=== PATIENT | male | born 1940 | race Two or more races ===

== ENCOUNTER 2020-04-23 11:52 | Outpatient (REF) | payer MEDICARE, SELFPAY | END 2020-04-23 11:53 | disposition home or self-care (01) | LOC: HO.LAB 11:52 | PROVIDERS: Visit Provider Internal Medicine | DX: Z20.822 Contact with and (suspected) exposure to COVID-19 (principal) | CPT/HCPCS: 36415; C9803; U0003 ==

== ENCOUNTER 2020-04-23 12:11 | Inpatient (IN) | payer MEDICARE, SELFPAY ==
[2020-04-23 12:23] VITALS: BP 134/83; PULSE 101; RESP 18; TEMP 37.3; O2SAT 95; BMI 24.2
--- NOTE | 2020-04-23 12:38 | PC.NURSE ---
THIS RN ASSISTED PT TO HOSPITAL BED, PT ABLE TO STAND ON OWN FROM SITTING POSITION AND PIVOT WITH SHUFFLING GAIT INTO BED.
--- NOTE | 2020-04-23 12:43 | ECG_ITS ---
Test Reason : WEAKNESS Blood Pressure : / mmHG Vent. Rate : 080 BPM Atrial Rate : 080 BPM P-R Int : 144 ms QRS Dur : 078 ms QT Int : 378 ms P-R-T Axes : 019 056 -04 degrees QTc Int : 435 ms Normal sinus rhythm Normal ECG When compared with ECG of 23-AUG-2018 17:27, No significant change was found Referred By: Janelle Brown Electronically Signed By:AINSLEY TEE MD
--- NOTE | 2020-04-23 12:43 | CT_ITS ---
EXAMINATION: CT HEAD WITHOUT CONTRAST CLINICAL INFORMATION: Weakness. Unable to walk. COMPARISON: Previous head CT May 2018 TECHNIQUE: Contiguous axial imaging was performed from the skull base to vertex without intravenous administration of contrast. This CT examination was performed using dose optimization techniques as appropriate, variously including the following: *Automated exposure control *Adjustment of mA and/or kV according to patient size (this includes techniques or standardized protocols for targeted exams where dose is matched to indication/reason for exam; i.e. extremities or head) *Use of iterative reconstruction technique DLP: 796 mGy-cm FINDINGS: There is no evidence of an extra-axial collection. There is no evidence of intra-axial or extra-axial hemorrhage. The ventricles and extra-axial CSF spaces are prominent suggestive of generalized atrophy. There is nonspecific periventricular white matter disease. No mass, mass effect or infarct is seen. There is evidence of atherosclerotic disease. Review of bone windows is normal. There are small polyps or cysts in the right maxillary sinus. Visualized paranasal sinuses, mastoid air cells and middle ears are otherwise clear. CT/CT head/brain wo con IMPRESSION: No acute findings. Generalized atrophy and nonspecific periventricular white matter disease similar to previous exam.
--- NOTE | 2020-04-23 12:44 | XR_ITS ---
EXAMINATION: XR CHEST CLINICAL INFORMATION: Weakness. Covid exposure. COMPARISON: None TECHNIQUE: Frontal view of the chest was obtained. FINDINGS: No significant abnormality is noted involving the heart, lungs, mediastinum, bony thorax or soft tissues. XR/XR chest 1V IMPRESSION: Unremarkable examination.
--- NOTE | 2020-04-23 12:45 | ED_ITS ---
HPI - Weakness General Chief complaint: Weakness Stated complaint: difficulty walking Time Seen by Provider: 04/23/20 12:42 Source: patient and old records reviewed Mode of arrival: wheelchair Limitations: no limitations History of Present Illness HPI Narrative: 79 y/o male with history of dementia, diabetes, HTN, BHN s/p laser prostatectomy, gout, osteoarthritis, GERD who presents to the ER with generalized weakness x3 days. His spouse was admitted at [facility] with COVID-19 yesterday and he had no DEPUTY OF COUNTER INTELLIGENCE or care overnight. He was found this morning by his family member on the carpet next to his recliner and he had soiled himself. According to his daughter he has been unable to get out of his recliner for the last 3 days. He was in his usual state of health 4 days ago. He offers no complaints on arrival to the ER. Family denies him complaining about anything over the last 3 days except that he didn't want to get out of bed. No fever, chills, cough, N/V/D, abdominal pain. MD Complaint: generalized weakness Onset (ago): day(s) (3) Duration: constant Location: LLE and RLE Migration: none Severity: moderate Relieving factors: none Exacerbating factors: movement and exertion Context: history of similar Associated symptoms: loss of appetite (very poor PO intake per family ) Related Data Previous Rx's Medication Instructions Recorded amlodipine 10 mg tablet 10 mg PO DAILY #90 tab 04/09/20 aspirin 81 mg tablet,delayed 81 mg PO DAILY #90 tab 04/09/20 release finasteride 5 mg tablet 5 mg PO DAILY #90 tab 04/09/20 gabapentin 100 mg capsule 100 mg PO DAILY #90 cap 04/09/20 glimepiride 1 mg tablet 1 mg PO DAILY #90 tab 04/09/20 metformin 500 mg tablet 500 mg PO BID #180 tab 04/09/20 pantoprazole 40 mg tablet,delayed 40 mg PO ONCE #90 tab 04/09/20 release Allergies Allergy/AdvReac Type Severity Reaction Status Date / Time No Known Allergies Allergy Verified 03/18/20 07:27 [No Known Allergies*] Review of Systems Review of Systems: Constitutional: No Fever, No Chills ENT/Mouth: No sore throat, No Rhinorrhea, No Swallowing Difficulty Eyes: No Eye Pain, No Swelling, No Redness Cardiovascular: No Chest Pain, No SOB, No Orthopnea, No Edema Respiratory: No Cough, No Sputum, No Wheezing, No dyspnea Gastrointestinal: No Nausea, No Vomiting, No Diarrhea, No abdominal Pain Genitourinary: No Dysuria, No Urinary Frequency, No Hematuria Musculoskeletal: + joint pain (chronic knees), No Myalgias Skin: No Skin Lesions, No rash Neuro: + Weakness, No Numbness, No Dizziness, No Headache Psych: No Anxiety/Panic, No Depression Heme/Lymph: No Bruising, No Lymphadenopathy Endocrine: No Polyuria, No Polydipsia [facility] Past Medical History Attestation statement: The following information was validated with the patient. Medical History Acid reflux Dementia Diabetes HTN (hypertension) Parkinsons Surgical History (Updated 03/18/20 @ 07:28 by RAFA Cullen) History of colonoscopy History of cystoscopy Family History Family History (Updated 03/18/20 @ 07:28 by RAFA Cullen) Father No problems noted. Mother No problems noted. Social History Social History Alcohol intake: never Smoked in Last 30 Days: No Use of substances other than those prescribed or required for medical reasons: No Advance Directives: No Advance Directives Information Provided: No Physical Exam Vital Signs: Vital Signs: Last Vital Signs Temp 97.9 F 04/23/20 14:51 Pulse 93 04/23/20 16:17 Resp 20 04/23/20 16:17 BP 142/79 H 04/23/20 16:17 Pulse Ox 96 04/23/20 16:17 Body Mass Index 24.2 Appearance: Alert. Oriented X2. No acute distress. Eyes: Pupils equal, round and reactive to light. ENT: Pharynx normal. Neck: Normal inspection. Neck supple. CVS: Normal heart rate and rhythm. Pulses normal. Respiratory: No respiratory distress. Breath sounds normal. Abdomen: Soft and nontender. +BS x4 Skin: Skin warm and dry. Normal skin color. Normal skin turgor. No rashes. Extremities: No lower extremity edema. Negative Sole's sign Neuro: Oriented X 3. 4/5 LE strength, equal 5/5 strength in UE. shuffling gait, assist of 1 from wheelchair to bed Course Course Course Narrative: 79 y/o male with history of Parkinson's dementia, HTN, DM with recent COVID-19 exposure presenting with generalized weakness x3 days, poor appetite with unwitnessed fall this morning. Possible COVID infection vs failure to thrive or worsening dementia/Parkinson's. Low suspicion for CVA given non- focal exam. Will get full sepsis workup, Resp panel and CT head given unwitnessed fall. Patient offers no complaints. Reevaluation(s) Reevaluation #1: 14:40 - lactic acid elevated 4.5. Hemodynamically stable with mild tachycardia but no fever or leukocytosis. Lymphopenia noted, concern for viral etiology 2/2 COVID-19. No abdominal pain to suggest mesenteric ischemia. Will give 2nd IVF bolus to complete sepsis IVF bolus of 30cc/kg. No evidence of bacterial infection, no antibiotics at this time - etiology most likely VIRAL. Reevaluation #2: 3pm - patient developed hypoxia with SpO2 89% in the ED - placed on 3.5 L with improvement to 94%. Will give dose of Decadron for presumed COVID-19 related hypoxia. NM V/Q scan r/o PE - DDIMER 700's and unable to perform CTA given ESTELITA. procalcitonin is low, doubt superimposed pneumonia. Will plan for admission once V/Q complete. Updated family in the waiting room and all questions were answered. Reevaluation #3: 5 pm - Awaiting repeat troponin and lactic acid. s/p 2L IVF. NM scan completed. Spoke with Lily Saleem NP who will admit. MDM - Weakness Medical Records Attestation: I reviewed the patient's medical records. Lab Data Attestation: I reviewed the patient's lab results. Result diagrams: 04/23/20 13:36 04/23/20 13:36 Labs: Lab Results 04/23/20 04/23/20 04/23/20 Range/Units 13:33 13:36 13:36 WBC 5.2 (4.8-10.8) X10*3/uL RBC 5.49 (4.60-5.80) X10*6/uL Hgb 16.4 (14.0-18.0) g/dl Hct 49.3 (42-52) % MCV 89.8 (80-98) fL MCH 29.9 (27.0-33.0) pg MCHC 33.3 (31.0-36.0) g/dl RDW 13.1 (11.0-16.0) % Plt Count 117 L (160-400) X10*3/uL MPV 11.2 (9.4-12.4) fL Immature Gran % (Auto) 0.4 (0.0-0.4) % Neut % (Auto) 79.4 H (45-73) % Lymph % (Auto) 8.8 L (20-40) % [place] % (Auto) 11.0 (2-11) % Eos % (Auto) 0.0 (0-4) % Baso % (Auto) 0.4 (0-2) % Lymph # (Auto) 0.5 L (1.2-4.9) X10*3/uL [place] # (Auto) 0.6 (0.1-1.2) X10*3/uL Eos # (Auto) 0.0 (0.0-0.4) X10*3/uL Baso # (Auto) 0.0 (0.0-0.2) X10*3/uL Abs Immat Gran (auto) 0.02 (0.00-0.03) X10*3/uL Absolute Neuts (auto) 4.1 (2.0-8.3) X10*3/uL Absolute Nucleated RBC 0.000 (0.0-0.012) X10*3/uL Nucleated RBC % (auto) 0.0 (0.0-0.2) /100WBC Smear Tech's Comments VERIFIED D-Dimer 726 NG/ML Hold Blue Top SEE NOTE Sodium (135-145) mmol/L Potassium (3.3-5.1) mmol/l Chloride (96-108) mmol/L Carbon Dioxide (22-29) mmol/L Anion Gap (12-20) BUN (9-16) mg/dL Creatinine (0.5-1.4) mg/dL Estim Creat Clear Calc Estimated GFR Random Glucose (60-115) mg/dL Lactic Acid (0.5-2.0) mmol/L Calcium (8.4-10.2) mg/dL Magnesium (1.6-2.6) mg/dL Total Bilirubin (0.0-1.0) mg/dL Direct Bilirubin (0.0-0.5) mg/dL AST (5-37) U/L ALT (0-40) U/L Alkaline Phosphatase (39-117) U/L Total Creatine Kinase (38-174) U/L Troponin I High Sens (<3.5-35.0) ng/L C-Reactive Protein (< or = 0.50) mg/dL Total Protein (6.5-8.0) g/dL Albumin (3.5-5.0) g/dL Procalcitonin ng/mL Urine Color Urine Appearance Urine pH (5.0-8.0) Ur Specific [place] (1.005-1.025) Urine Protein (NEG-TRACE) MG/DL Urine Glucose (UA) (NEG) MG/DL Urine Ketones (NEG) MG/DL Urine Blood (NEG) Urine Nitrite (NEG) Ur Leukocyte Esterase (NEG) Coronavirus (PCR) POSITIVE A (Negative) Influenza Type A (PCR) NEGATIVE (Negative) Influenza Type B (PCR) NEGATIVE (Negative) RSV RNA Qual (PCR) NEGATIVE (Negative) 04/23/20 04/23/20 04/23/20 Range/Units 13:36 13:36 13:36 WBC (4.8-10.8) X10*3/uL RBC (4.60-5.80) X10*6/uL Hgb (14.0-18.0) g/dl Hct (42-52) % MCV (80-98) fL MCH (27.0-33.0) pg MCHC (31.0-36.0) g/dl RDW (11.0-16.0) % Plt Count (160-400) X10*3/uL MPV (9.4-12.4) fL Immature Gran % (Auto) (0.0-0.4) % Neut % (Auto) (45-73) % Lymph % (Auto) (20-40) % [place] % (Auto) (2-11) % Eos % (Auto) (0-4) % Baso % (Auto) (0-2) % Lymph # (Auto) (1.2-4.9) X10*3/uL [place] # (Auto) (0.1-1.2) X10*3/uL Eos # (Auto) (0.0-0.4) X10*3/uL Baso # (Auto) (0.0-0.2) X10*3/uL Abs Immat Gran (auto) (0.00-0.03) X10*3/uL Absolute Neuts (auto) (2.0-8.3) X10*3/uL Absolute Nucleated RBC (0.0-0.012) X10*3/uL Nucleated RBC % (auto) (0.0-0.2) /100WBC Smear Tech's Comments D-Dimer NG/ML Hold Blue Top Sodium 134 L (135-145) mmol/L Potassium 4.5 (3.3-5.1) mmol/l Chloride 96 (96-108) mmol/L Carbon Dioxide 24 (22-29) mmol/L Anion Gap 19 (12-20) BUN 21 H (9-16) mg/dL Creatinine 1.53 H (0.5-1.4) mg/dL Estim Creat Clear Calc 36.4 Estimated GFR 44 Random Glucose 346 H (60-115) mg/dL Lactic Acid 4.5 H* (0.5-2.0) mmol/L Calcium 9.0 (8.4-10.2) mg/dL Magnesium 2.1 (1.6-2.6) mg/dL Total Bilirubin 0.9 (0.0-1.0) mg/dL Direct Bilirubin 0.3 (0.0-0.5) mg/dL AST 71 H (5-37) U/L ALT 69 H (0-40) U/L Alkaline Phosphatase 64 (39-117) U/L Total Creatine Kinase 342 H (38-174) U/L Troponin I High Sens 33.7 (<3.5-35.0) ng/L C-Reactive Protein 4.42 H (< or = 0.50) mg/dL Total Protein 7.7 (6.5-8.0) g/dL Albumin 4.3 (3.5-5.0) g/dL Procalcitonin ng/mL Urine Color Urine Appearance Urine pH (5.0-8.0) Ur Specific [place] (1.005-1.025) Urine Protein (NEG-TRACE) MG/DL Urine Glucose (UA) (NEG) MG/DL Urine Ketones (NEG) MG/DL Urine Blood (NEG) Urine Nitrite (NEG) Ur Leukocyte Esterase (NEG) Coronavirus (PCR) (Negative) Influenza Type A (PCR) (Negative) Influenza Type B (PCR) (Negative) RSV RNA Qual (PCR) (Negative) 04/23/20 04/23/20 Range/Units 13:36 16:28 WBC (4.8-10.8) X10*3/uL RBC (4.60-5.80) X10*6/uL Hgb (14.0-18.0) g/dl Hct (42-52) % MCV (80-98) fL MCH (27.0-33.0) pg MCHC (31.0-36.0) g/dl RDW (11.0-16.0) % Plt Count (160-400) X10*3/uL MPV (9.4-12.4) fL Immature Gran % (Auto) (0.0-0.4) % Neut % (Auto) (45-73) % Lymph % (Auto) (20-40) % [place] % (Auto) (2-11) % Eos % (Auto) (0-4) % Baso % (Auto) (0-2) % Lymph # (Auto) (1.2-4.9) X10*3/uL [place] # (Auto) (0.1-1.2) X10*3/uL Eos # (Auto) (0.0-0.4) X10*3/uL Baso # (Auto) (0.0-0.2) X10*3/uL Abs Immat Gran (auto) (0.00-0.03) X10*3/uL Absolute Neuts (auto) (2.0-8.3) X10*3/uL Absolute Nucleated RBC (0.0-0.012) X10*3/uL Nucleated RBC % (auto) (0.0-0.2) /100WBC Smear Tech's Comments D-Dimer NG/ML Hold Blue Top Sodium (135-145) mmol/L Potassium (3.3-5.1) mmol/l Chloride (96-108) mmol/L Carbon Dioxide (22-29) mmol/L Anion Gap (12-20) BUN (9-16) mg/dL Creatinine (0.5-1.4) mg/dL Estim Creat Clear Calc Estimated GFR Random Glucose (60-115) mg/dL Lactic Acid (0.5-2.0) mmol/L Calcium (8.4-10.2) mg/dL Magnesium (1.6-2.6) mg/dL Total Bilirubin (0.0-1.0) mg/dL Direct Bilirubin (0.0-0.5) mg/dL AST (5-37) U/L ALT (0-40) U/L Alkaline Phosphatase (39-117) U/L Total Creatine Kinase (38-174) U/L Troponin I High Sens (<3.5-35.0) ng/L C-Reactive Protein (< or = 0.50) mg/dL Total Protein (6.5-8.0) g/dL Albumin (3.5-5.0) g/dL Procalcitonin 0.19 ng/mL Urine Color YELLOW Urine Appearance CLEAR Urine pH 5.5 (5.0-8.0) Ur Specific [place] 1.020 (1.005-1.025) Urine Protein NEG (NEG-TRACE) MG/DL Urine Glucose (UA) 500 H (NEG) MG/DL Urine Ketones NEG (NEG) MG/DL Urine Blood NEG (NEG) Urine Nitrite NEG (NEG) Ur Leukocyte Esterase NEG (NEG) Coronavirus (PCR) (Negative) Influenza Type A (PCR) (Negative) Influenza Type B (PCR) (Negative) RSV RNA Qual (PCR) (Negative) ECG Data Attestation: I personally reviewed and interpreted this ECG as follows: ECG interpretation date: 04/23/20 ECG interpretation time: 14:03 Interpretation: Normal sinus rhythm, HR 80 bpm, normal NM interval, isolated t- wave inversion in lead III, no ST segment elevations. Scores [place] PE Heart rate > 100 p/min: 1.5 Score: 1.5 2-tier Risk: unlikely risk (5%) 3-tier Risk: low risk (3.4%) Critical Care Time Critical Care Time Critical Care Time: Yes Total Critical Care Time: 40 Attestation: I attest to critical care time spent caring for this patient with life-threatening diagnosis of acute hypoxic resp failure 2/2 COVID-19, lactic acidosis and ESTELITA. Time spent re-evaluating patient't mental status, respiratory status and hemodynamics as well as review of labs, prior records and speaking with family. Discharge Plan Discharge Clinical Impression: COVID-19, Acute respiratory failure with hypoxia, Acidosis, lactic, ESTELITA (acute kidney injury) Patient Disposition: Admitted As Inpatient
[2020-04-23] MEDS: 0.9 % Sodium Chloride 1,000 ML 999 ML IVCONT ×2 (13:34→14:49)
[2020-04-23 14:00] LABS: Basophils Percent Auto 0.4 % (0-2); Imm Gran Abs Auto 0.02 X10*3/uL (0.00-0.03); Imm Gran Pct Auto 0.4 % (0.0-0.4); MANUAL DIFF FLAG SCAN; Monocytes Absolute Auto 0.6 X10*3/uL (0.1-1.2); PLT CLUMP 1; Red Cell Distribution Width 13.1 % (11.0-16.0); SCAN SMEAR FLAG 1
[2020-04-23 14:03] LABS: Hematocrit 49.3 % (42-52); Hemoglobin 16.4 g/dl (14.0-18.0); Lymphocytes Absolute Auto 0.5 X10*3/uL (1.2-4.9); Lymphocytes Percent Auto 8.8 % (20-40); Mean Corpuscular HGB Conc 33.3 g/dl (31.0-36.0); Mean Corpuscular Hemoglobin 29.9 pg (27.0-33.0); Mean Corpuscular Volume 89.8 fL (80-98); Mean Platelet Volume 11.2 fL (9.4-12.4); Neutrophils Absolute Auto 4.1 X10*3/uL (2.0-8.3); Neutrophils Percent Auto 79.4 % (45-73); Platelet Count 117 X10*3/uL (160-400); Red Blood Count 5.49 X10*6/uL (4.60-5.80); White Blood Count 5.2 X10*3/uL (4.8-10.8)
[2020-04-23 14:06] LABS: D Dimer 726 NG/ML
[2020-04-23 14:26] LABS: SLIDE REVIEW VERIFIED
[2020-04-23 14:36] LABS: Lactic Acid 4.5 mmol/L (0.5-2.0)
[2020-04-23 14:37] LABS: Alanine Aminotransferase 69 U/L (0-40); Albumin Level 4.3 g/dL (3.5-5.0); Alkaline Phosphatase 64 U/L (39-117); Anion Gap 19 (12-20); Aspartate Amino Transferase 71 U/L (5-37); Bilirubin Direct 0.3 mg/dL (0.0-0.5); Bilirubin Total 0.9 mg/dL (0.0-1.0); Blood Urea Nitrogen 21 mg/dL (9-16); C Reactive Protein 4.42 mg/dL (< or = 0.50); Carbon Dioxide 24 mmol/L (22-29); Chloride 96 mmol/L (96-108); Creatinine Clr Calc Pharmacy 36.4; Estimated Glomerular Filt Rate 44; Glucose Random 346 mg/dL (60-115); Magnesium 2.1 mg/dL (1.6-2.6); Potassium 4.5 mmol/l (3.3-5.1); Sodium 134 mmol/L (135-145); Total Protein 7.7 g/dL (6.5-8.0); Troponin-I High Sensitivity 33.7 ng/L (<3.5-35.0)
[2020-04-23 14:51] VITALS: BP 130/78; PULSE 79; RESP 16; TEMP 36.6; O2SAT 89
[2020-04-23 14:58] LABS: Influenza A PCR NEGATIVE (Negative); Influenza B PCR NEGATIVE (Negative); Resp Syncy Virus RNA Qual PCR NEGATIVE (Negative); SARS COV2 PCR INHOUSE POSITIVE (Negative)
[2020-04-23 15:05] LABS: Procalcitonin 0.19 ng/mL
--- NOTE | 2020-04-23 15:33 | NM_ITS ---
EXAMINATION: PULMONARY PERFUSION STUDY CLINICAL INFORMATION: Hypoxia, tachycardia, elevated d-dimer, concern for pulmonary embolism. COMPARISON: No previous lung scan is available for comparison. A radiograph the chest dated 04/23/2020, the same date as this lung scan, is available for comparison. TECHNIQUE: Following the intravenous injection of 3.5 mCi Tc-99m MAA, an 8-view perfusion study was performed using a gamma scintillation camera. FINDINGS: No segmental perfusion defects are present. There is homogeneous distribution of activity bilaterally. There are no focal anatomic appearing perfusion defects present. NM/NM pul perfusion IMPRESSION: Normal radionuclide lung perfusion scan.
[2020-04-23 15:56] LABS: Reflex Lactate? Lactic Acid Added
[2020-04-23 16:17] VITALS: BP 142/79; PULSE 93; RESP 20; O2SAT 96
[2020-04-23] MEDS: dexAMETHasone sod phosphate 4 MG/ML VIAL 6 MG IVPUSH (16:17)
[2020-04-23 16:44] LABS: Glucose Urine UA 500 MG/DL (NEG); Leukocyte Esterase Urine NEG (NEG); Nitrite Urine NEG (NEG); PH 5.5 (5.0-8.0); Urine Blood NEG (NEG); Urine Ketones NEG (NEG); Urine Protein NEG (NEG-TRACE)
[2020-04-23 16:45] LABS: Appearance Urine CLEAR; Color Urine YELLOW
[2020-04-23 17:08] LABS: ~Lactic Acid-LAB USE ONLY 4.8 mmol/L (0.5-2.0)
[2020-04-23 17:25] VITALS: BP 128/83; PULSE 78; RESP 17; TEMP 36.9; O2SAT 97
--- NOTE | 2020-04-23 17:47 | PC.NURSE ---
Pt [facility] in [facility]- Ghulam NixonDavid at [phone] best number or [phone]
--- NOTE | 2020-04-23 18:00 | PM.EVENT ---
Event Note Date of Service: 04/23/20 Event Note: Patient seen and examined. Case discussed with Lily Saleem NP. Agree with her history and physical. In brief, 79-year-old male with advanced dementia who presents to the hospital after being brought in by his family when he was found on the floor. Reportedly his has been diagnosed with COVID, although unsure when the diagnosis happened. Reportedly from the ED providers and nurses, the patient has been weak over the last 3 days. Upon arrival to the emergency room, patient did not have any respiratory symptoms but was noted to have hypoxia 89. Chest x-ray was not impressive. V/Q scan done because of elevated D-dimer showed normal perfusion scan. A/P 79 yo acute hyoxpic resp failure from covid 19 decadron, o2 ID consult remainder per H&P
--- NOTE | 2020-04-23 18:01 | P.HPHOSP_ITS ---
History of Present Illness Date of Service: 04/23/20 <Lily Saleem NP - Last Filed: 04/23/20 18:48> Chief Complaint: Weakness <Lily Saleem NP - Last Filed: 04/23/20 18:48> 79 year old man presenting after a fall at home with generalized weakness over the last week. 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 He was found this morning by his family member on the carpet next to his recliner and he had soiled himself. According to his daughter he has been unable to get out of his recliner for the last 3 days. He denied chest pain, shortness of breath, nausea, vomiting or diarrhea. He is unable to say if he had any fever or chills. He has dementia so he was somewhat vague. In the ED. CXR was negative for consolidation. H ewas no gio to by hypoxic at 89% with ambulation. Coronvirus PCR positive. He will be admitted for further management of Acute hypoxic respiratory failure secondary to covid 19. <Lily Saleem NP - Last Filed: 04/23/20 18:48> Review of Systems Review of Systems: Reports weakness respiratory denies any shortness of breath coverage production cardiovascular is adjustment of any PND or edema gastrointestinal denies any dysphagia abdominal pain nausea vomiting or diarrhea genitourinary denies any dysuria frequency or hematuria musculoskeletal denies any joint pain or swelling neuropsych denies any weakness or seizures all other systems reviewed are negative <Lily Saleem NP - Last Filed: 04/23/20 18:48> [facility] Medical History: Medical History (Updated 05/18/20 @ 00:01 by Farideh Crockett) Anxiety BPH (benign prostatic hyperplasia) Dementia HTN (hypertension) Hypercholesterolemia Parkinsons Restless leg syndrome Type 2 diabetes mellitus with hyperglycemia <Lily Saleem NP - Last Filed: 04/23/20 18:48> Family History: Family History Father No problems noted. Mother No problems noted. <Lily Saleem NP - Last Filed: 04/23/20 18:48> Surgical History: Surgical History (Updated 05/12/20 @ 10:46 by Charlette F Noah, RMA) History of colonoscopy History of cystoscopy History of esophagogastroduodenoscopy (EGD) <Lily Saleem NP - Last Filed: 04/23/20 18:48> Social History: Social History Household Members: Spouse Housing: House Alcohol intake: never Smoking Status: Former smoker service: No Current occupational status: retired and disabled <Lily Saleem NP - Last Filed: 04/23/20 18:48> Meds Allergies/Adverse reactions: Allergies Allergy/AdvReac Type Severity Reaction Status Date / Time No Known Allergies Allergy Verified 04/28/20 14:50 [No Known Allergies*] <Lily Saleem NP - Last Filed: 04/23/20 18:48> Home medications: Home Medications Medication Instructions Recorded Confirmed Type donepezil 10 mg PO DAILY 04/23/20 05/17/20 History memantine [Namenda] 10 mg PO BID 04/23/20 05/17/20 History pantoprazole 40 mg PO DAILY 04/23/20 05/17/20 History sertraline [Zoloft] 50 mg PO DAILY 04/23/20 05/17/20 History <Lily Saleem NP - Last Filed: 04/23/20 18:48> Physical Exam Vital Signs and Narrative: Vital Signs: Last Vital Signs Temp 98.4 F 04/23/20 17:25 Pulse 78 04/23/20 17:25 Resp 17 04/23/20 17:25 BP 128/83 04/23/20 17:25 Pulse Ox 97 04/23/20 17:25 Body Mass Index 24.2 <Lily Saleem NP - Last Filed: 04/23/20 18:48> Appearing in no acute distress head is normocephalic atraumatic eyes pupils are PERRLA sclera is anicteric mouth throat mucous membranes are intact and moist neck is supple no lymphadenopathy, no JVD noted lung sounds normal expansion heart regular rate rhythm, clear S1, S2 non-tender abdomen neuro patient is alert x3, no focal deficits <Lily Saleem NP - Last Filed: 04/23/20 18:48> Results Labs CBC and Chem 7: : 04/24/20 05:30 04/24/20 05:30 <Lily Saleem NP - Last Filed: 04/23/20 18:48> Labs: Laboratory Results - last 24 hr 04/23/20 04/23/20 04/23/20 13:33 13:36 13:36 MCV 89.8 MCH 29.9 MCHC 33.3 RDW 13.1 Plt Count 117 L MPV 11.2 Immature Gran % (Auto) 0.4 Neut % (Auto) 79.4 H Lymph % (Auto) 8.8 L [place] % (Auto) 11.0 Eos % (Auto) 0.0 Baso % (Auto) 0.4 Lymph # (Auto) 0.5 L [place] # (Auto) 0.6 Eos # (Auto) 0.0 Baso # (Auto) 0.0 Abs Immat Gran (auto) 0.02 Absolute Neuts (auto) 4.1 Absolute Nucleated RBC 0.000 Nucleated RBC % (auto) 0.0 Smear Tech's Comments VERIFIED D-Dimer 726 Hold Blue Top SEE NOTE Anion Gap Estim Creat Clear Calc Estimated GFR Random Glucose Lactic Acid Lactic Acid Fup @ 2Hr Calcium Magnesium Total Bilirubin Direct Bilirubin AST ALT Alkaline Phosphatase Total Creatine Kinase Troponin I High Sens C-Reactive Protein Total Protein Albumin Procalcitonin Urine Color Urine Appearance Urine pH Ur Specific [place] Urine Protein Urine Glucose (UA) Urine Ketones Urine Blood Urine Nitrite Ur Leukocyte Esterase Coronavirus (PCR) POSITIVE A Influenza Type A (PCR) NEGATIVE Influenza Type B (PCR) NEGATIVE RSV RNA Qual (PCR) NEGATIVE 04/23/20 04/23/20 04/23/20 13:36 13:36 13:36 MCV MCH MCHC RDW Plt Count MPV Immature Gran % (Auto) Neut % (Auto) Lymph % (Auto) [place] % (Auto) Eos % (Auto) Baso % (Auto) Lymph # (Auto) [place] # (Auto) Eos # (Auto) Baso # (Auto) Abs Immat Gran (auto) Absolute Neuts (auto) Absolute Nucleated RBC Nucleated RBC % (auto) Smear Tech's Comments D-Dimer Hold Blue Top Anion Gap 19 Estim Creat Clear Calc 36.4 Estimated GFR 44 Random Glucose 346 H Lactic Acid 4.5 H* Lactic Acid Fup @ 2Hr Calcium 9.0 Magnesium 2.1 Total Bilirubin 0.9 Direct Bilirubin 0.3 AST 71 H ALT 69 H Alkaline Phosphatase 64 Total Creatine Kinase 342 H Troponin I High Sens 33.7 C-Reactive Protein 4.42 H Total Protein 7.7 Albumin 4.3 Procalcitonin Urine Color Urine Appearance Urine pH Ur Specific [place] Urine Protein Urine Glucose (UA) Urine Ketones Urine Blood Urine Nitrite Ur Leukocyte Esterase Coronavirus (PCR) Influenza Type A (PCR) Influenza Type B (PCR) RSV RNA Qual (PCR) 04/23/20 04/23/20 04/23/20 13:36 16:28 16:28 MCV MCH MCHC RDW Plt Count MPV Immature Gran % (Auto) Neut % (Auto) Lymph % (Auto) [place] % (Auto) Eos % (Auto) Baso % (Auto) Lymph # (Auto) [place] # (Auto) Eos # (Auto) Baso # (Auto) Abs Immat Gran (auto) Absolute Neuts (auto) Absolute Nucleated RBC Nucleated RBC % (auto) Smear Tech's Comments D-Dimer Hold Blue Top Anion Gap Estim Creat Clear Calc Estimated GFR Random Glucose Lactic Acid Lactic Acid Fup @ 2Hr 4.8 H* Calcium Magnesium Total Bilirubin Direct Bilirubin AST ALT Alkaline Phosphatase Total Creatine Kinase Troponin I High Sens C-Reactive Protein Total Protein Albumin Procalcitonin 0.19 Urine Color YELLOW Urine Appearance CLEAR Urine pH 5.5 Ur Specific [place] 1.020 Urine Protein NEG Urine Glucose (UA) 500 H Urine Ketones NEG Urine Blood NEG Urine Nitrite NEG Ur Leukocyte Esterase NEG Coronavirus (PCR) Influenza Type A (PCR) Influenza Type B (PCR) RSV RNA Qual (PCR) 04/23/20 16:28 MCV MCH MCHC RDW Plt Count MPV Immature Gran % (Auto) Neut % (Auto) Lymph % (Auto) [place] % (Auto) Eos % (Auto) Baso % (Auto) Lymph # (Auto) [place] # (Auto) Eos # (Auto) Baso # (Auto) Abs Immat Gran (auto) Absolute Neuts (auto) Absolute Nucleated RBC Nucleated RBC % (auto) Smear Tech's Comments D-Dimer Hold Blue Top Anion Gap Estim Creat Clear Calc Estimated GFR Random Glucose Lactic Acid Lactic Acid Fup @ 2Hr Calcium Magnesium Total Bilirubin Direct Bilirubin AST ALT Alkaline Phosphatase Total Creatine Kinase Troponin I High Sens 52.0 H D C-Reactive Protein Total Protein Albumin Procalcitonin Urine Color Urine Appearance Urine pH Ur Specific [place] Urine Protein Urine Glucose (UA) Urine Ketones Urine Blood Urine Nitrite Ur Leukocyte Esterase Coronavirus (PCR) Influenza Type A (PCR) Influenza Type B (PCR) RSV RNA Qual (PCR) <Lily Saleem NP - Last Filed: 04/23/20 18:48> Imaging Radiologist's Impressions: Impressions Head CT 04/23/20 12:43 IMPRESSION: No acute findings. Generalized atrophy and nonspecific periventricular white matter disease similar to previous exam. Chest X-Ray 04/23/20 12:44 IMPRESSION: Unremarkable examination. Pulmonary Perfusion Imaging 04/23/20 15:33 IMPRESSION: Normal radionuclide lung perfusion scan. <Lily Saleem NP - Last Filed: 04/23/20 18:48> Assessment and Plan (1) COVID-19: Problem details: April 2020 <Lily Saleme NP - Last Filed: 04/23/20 18:48> Status: Resolved <Lily Saleem NP - Last Filed: 04/23/20 18:48> (2) Acute respiratory failure with hypoxia: Status: Inactive <Lily Saleem NP - Last Filed: 04/23/20 18:48> 79 year old man admitted with covid-19 Acute hypoxic respiratory failure secondary to covid 19. Decadron, ID consult, continue supplemental oxygen. No antibiotic therapy at this time. Follow respiratory status. Diabetes. Sliding scale, ADA diet, continue home medications. Hypertension. Stable blood pressures. Continue amlodipine. Dementia. Continue aricept and namenda. GERD. Continue PPI. DVT prophylaxis with heparin Discussed with Dr. Solis Full code <Lily Saleem NP - Last Filed: 04/23/20 18:48>
[2020-04-23 18:39] LABS: Reflex Lactate? 2 Y
[2020-04-23] MEDS: Heparin Sodium,Porcine 5,000 UNIT/ML VIAL 5000 UNIT SUBCUT (19:02)
[2020-04-23 19:33] VITALS: BP 141/78; PULSE 73; RESP 15; TEMP 36.6; O2SAT 98
[2020-04-23 20:10] VITALS: BMI 26.3
--- NOTE | 2020-04-23 20:25 | PC.NURSE ---
x1 attempt to call report- no answer. will attempt to call back
--- NOTE | 2020-04-23 20:56 | PC.NURSE ---
x2 call to give report- awaiting callback
[2020-04-23 21:32] VITALS: BP 172/84; PULSE 86; RESP 18; TEMP 36.6; O2SAT 99
[2020-04-23 22:25] LABS: Glucose, Whole Blood 299 mg/dL (60-115)
[2020-04-23] MEDS: 0.9 % Sodium Chloride Flush 3 ML SYRINGE IVFLUSH (22:58)
[2020-04-23] MEDS: Insulin Lispro 100 UNIT/ML 3 ML VIAL SUBCUT (22:58)
[2020-04-23] MEDS: metFORMIN HCl 500 MG TABLET PO (22:58)
[2020-04-23] MEDS: Memantine HCl 10 MG TABLET PO (22:58)
[2020-04-24] VITALS (7 sets, daily range): BP systolic 99–142; BP diastolic 66–89; PULSE 68–83; RESP 16–20; TEMP 36.3–36.6; O2SAT 98–99
[2020-04-24] MEDS: Heparin Sodium,Porcine 5,000 UNIT/ML VIAL 5000 UNIT SUBCUT (05:24)
[2020-04-24] MEDS: Omeprazole 20 MG CAPSULE.DR PO (05:24)
[2020-04-24 06:22] LABS: Imm Gran Abs Auto 0.01 X10*3/uL (0.00-0.03); Imm Gran Pct Auto 0.2 % (0.0-0.4); MANUAL DIFF FLAG SCAN; Mean Corpuscular Volume 89.5 fL (80-98); Mean Platelet Volume 11.5 fL (9.4-12.4); Monocytes Absolute Auto 0.4 X10*3/uL (0.1-1.2); Neutrophils Percent Auto 81.5 % (45-73); PLT CLUMP 1; SCAN SMEAR FLAG 1
[2020-04-24 06:24] LABS: Hematocrit 45.9 % (42-52); Hemoglobin 15.4 g/dl (14.0-18.0); Lymphocytes Absolute Auto 0.6 X10*3/uL (1.2-4.9); Lymphocytes Percent Auto 11.3 % (20-40); Mean Corpuscular HGB Conc 33.6 g/dl (31.0-36.0); Neutrophils Absolute Auto 4.3 X10*3/uL (2.0-8.3); Platelet Count 135 X10*3/uL (160-400); Red Blood Count 5.13 X10*6/uL (4.60-5.80); Red Cell Distribution Width 12.7 % (11.0-16.0); White Blood Count 5.3 X10*3/uL (4.8-10.8)
[2020-04-24 06:35] LABS: Anion Gap 18 (12-20); Blood Urea Nitrogen 21 mg/dL (9-16); Calcium 8.8 mg/dL (8.4-10.2); Carbon Dioxide 24 mmol/L (22-29); Chloride 99 mmol/L (96-108); Creatinine Clr Calc Pharmacy 41.3; Estimated Glomerular Filt Rate 51; Glucose Random 251 mg/dL (60-115); Sodium 137 mmol/L (135-145)
[2020-04-24 06:51] LABS: SLIDE REVIEW VERIFIED
[2020-04-24 08:14] LABS: Glucose, Whole Blood 245 mg/dL (60-115)
[2020-04-24] MEDS: Aspirin Enteric Coated 81 MG TABLET.DR PO (08:40)
[2020-04-24] MEDS: Sertraline HCL 50 MG TABLET PO (08:40)
[2020-04-24] MEDS: Gabapentin 100 MG CAPSULE PO (08:40)
[2020-04-24] MEDS: metFORMIN HCl 500 MG TABLET PO (08:40)
[2020-04-24] MEDS: Memantine HCl 10 MG TABLET PO ×2 (08:40→19:45)
[2020-04-24] MEDS: amLODIPine Besylate 10 MG TABLET PO (08:40)
[2020-04-24] MEDS: glipiZIDE 5 MG TABLET 2.5 MG PO (08:40)
[2020-04-24] MEDS: Insulin Lispro 100 UNIT/ML 3 ML VIAL SUBCUT ×3 (08:42→19:45)
[2020-04-24] MEDS: Finasteride 5 MG TABLET PO (08:42)
[2020-04-24] MEDS: 0.9 % Sodium Chloride Flush 3 ML SYRINGE IVFLUSH ×3 (08:45→19:46)
[2020-04-24] MEDS: Donepezil HCl 10 MG TABLET PO (08:48)
--- NOTE | 2020-04-24 11:08 | MHC.CM.PN ---
Patient has Covid and Dementia; CM spoke with Ernesto Luo at [phone]. Patient at times lives with his Sister and at times with his Girlfriend and he has a cane to assist with mobility. The goal for dc is for Patient to return home and CM has initiated and will follow for dc planning. IMM addressed with Sister and the original is being mailed certified letter to her and a copy has been placed on the chart. PCP is at [address] [place] [address] in [place].
[2020-04-24 11:27] LABS: Glucose, Whole Blood 184 mg/dL (60-115)
--- NOTE | 2020-04-24 14:11 | HO.PM.IMPN ---
Subjective Subjective Date of Service: 04/24/20 Interval History: Seen and examined this AM feels tired still on o2 ROS unreliable Physical Exam Vital Signs: Vital Signs: Last Vital Signs Temp 97.7 F 04/24/20 11:52 Pulse 68 04/24/20 11:52 Resp 18 04/24/20 11:52 BP 99/66 04/24/20 11:52 Pulse Ox 98 04/24/20 11:52 Body Mass Index 26.3 Const: Other: General - NAD, but appears tired Cardiovascular - regular rate and rhythm, S1-S2 Lungs - no distress, stable on O2 by NC Abdomen - soft, nontender, no rebound or guarding Extremities - no edema bilaterally Neuro - awake and alert, no focal deficits Objective Data Current Medications Generic Name Dose Route Start Last Admin Trade Name Freq PRN Reason Stop Dose Admin Acetaminophen 650 mg 04/23/20 18:35 Acetaminophen 325 Mg Tablet PO Q6H PRN Pain, Mild (Pain Scale 1-3) Amlodipine Besylate 10 mg 04/24/20 09:00 04/24/20 08:40 Amlodipine Besylate 10 Mg Tablet PO 10 mg DAILY RANDI Administration Protocol Aspirin 81 mg 04/24/20 09:00 04/24/20 08:40 Aspirin Enteric Coated 81 Mg Tablet.Dr PO 81 mg DAILY RANDI Administration Dexamethasone Sodium Phosphate 6 mg 04/24/20 14:15 Dexamethasone Sod Phosphate 4 Mg/Ml Vial IVPUSH 05/02/20 09:01 DAILY RANDI Donepezil HCl 10 mg 04/24/20 09:00 04/24/20 08:48 Donepezil Hcl 10 Mg Tablet PO 10 mg DAILY RANDI Administration Finasteride 5 mg 04/24/20 09:00 04/24/20 08:42 Finasteride 5 Mg Tablet PO 5 mg DAILY RANDI Administration Gabapentin 100 mg 04/24/20 09:00 04/24/20 08:40 Gabapentin 100 Mg Capsule PO 100 mg DAILY RANDI Administration Glipizide 2.5 mg 04/24/20 09:00 04/24/20 08:40 Glipizide 5 Mg Tablet PO 2.5 mg DAILY RANDI Administration Heparin Sodium (Porcine) 5,000 unit 04/23/20 18:35 04/24/20 05:24 Heparin Sodium,Porcine 5,000 Unit/Ml Vial SUBCUT 5,000 unit Q12H RANDI Administration Insulin Human Lispro 0 unit 04/23/20 21:00 04/24/20 12:55 Insulin Lispro 100 Unit/Ml 3 Ml Vial SUBCUT 2 unit QIDACHS RANDI Administration Protocol Memantine 10 mg 04/23/20 21:00 04/24/20 08:40 Memantine Hcl 10 Mg Tablet PO 10 mg BID RANDI Administration Metformin HCl 500 mg 04/23/20 21:00 04/24/20 08:40 Metformin Hcl 500 Mg Tablet PO 500 mg BID RANDI Administration Omeprazole 20 mg 04/24/20 06:30 04/24/20 05:24 Omeprazole 20 Mg Capsule. PO 20 mg DAILY@0630 RANDI Administration Ondansetron HCl 4 mg 04/23/20 18:35 Ondansetron Hcl 4 Mg/2 Ml Vial IVPUSH Q8H PRN Nausea and Vomiting Pharmacy Consult 1 each 04/23/20 18:01 Consult Rx Perform Med Rec MISCELLANE ONCE PRN Consult order Sertraline HCl 50 mg 04/24/20 09:00 04/24/20 08:40 Sertraline Hcl 50 Mg Tablet PO 50 mg DAILY RANDI Administration Sodium Chloride 3 ml 04/24/20 00:00 04/24/20 08:45 0.9 % Sodium Chloride Flush 3 Ml Syringe IVFLUSH 3 ml QSHIFT RANDI Administration Labs CBC & Chem 7: 04/24/20 05:30 04/24/20 05:30 Assessment and Plan (1) COVID-19: Status: Acute (2) Acute respiratory failure with hypoxia: Status: Acute Assessment and Plan: This is a 79 yo M with a PMH of dementia who is admitted for: 1. COVID 19 causing acute respiratory failure with hypoxia O2 sats stable, currently on 1L satting high 90s decadron - day #2/10 ID consult 2. DM hold home PO meds sliding scale 3. HTN continue meds 4. GERD PPI 5. Dementia home meds Full Code DVT PPTx, Lovenox
[2020-04-24] MEDS: dexAMETHasone sod phosphate 4 MG/ML VIAL 6 MG IVPUSH (15:18)
[2020-04-24 16:56] LABS: Glucose, Whole Blood 150 mg/dL (60-115)
[2020-04-24 19:42] LABS: Glucose, Whole Blood 236 mg/dL (60-115)
[2020-04-24] MEDS: Enoxaparin Sodium 40 MG/0.4 ML SYRINGE SUBCUT (19:45)
[2020-04-25] VITALS (7 sets, daily range): BP systolic 103–137; BP diastolic 51–83; PULSE 61–89; RESP 18–20; TEMP 36.6–36.9; O2SAT 93–100
[2020-04-25] MEDS: Omeprazole 20 MG CAPSULE.DR PO (06:12)
[2020-04-25 07:30] LABS: Glucose, Whole Blood 199 mg/dL (60-115)
[2020-04-25] MEDS: 0.9 % Sodium Chloride Flush 3 ML SYRINGE IVFLUSH ×3 (09:54→21:09)
[2020-04-25] MEDS: Insulin Lispro 100 UNIT/ML 3 ML VIAL SUBCUT ×4 (09:54→21:08)
[2020-04-25] MEDS: amLODIPine Besylate 10 MG TABLET PO (09:54)
[2020-04-25] MEDS: Finasteride 5 MG TABLET PO (09:55)
[2020-04-25] MEDS: Memantine HCl 10 MG TABLET PO ×2 (09:55→21:08)
[2020-04-25] MEDS: Sertraline HCL 50 MG TABLET PO (09:55)
[2020-04-25] MEDS: dexAMETHasone sod phosphate 4 MG/ML VIAL 6 MG IVPUSH (09:55)
[2020-04-25] MEDS: Gabapentin 100 MG CAPSULE PO (09:55)
[2020-04-25] MEDS: Donepezil HCl 10 MG TABLET PO (09:55)
[2020-04-25] MEDS: Aspirin Enteric Coated 81 MG TABLET.DR PO (11:01)
[2020-04-25 11:28] LABS: Glucose, Whole Blood 288 mg/dL (60-115)
--- NOTE | 2020-04-25 11:39 | HO.PM.IMPN ---
Subjective Subjective Date of Service: 04/25/20 Interval History: Seen and examined this AM feeling better off o2 this AM ROS unreliable Physical Exam Vital Signs: Vital Signs: Last Vital Signs Temp 98.3 F 04/25/20 11:13 Pulse 75 04/25/20 11:13 Resp 18 04/25/20 11:13 BP 122/65 04/25/20 11:13 Pulse Ox 96 04/25/20 11:13 Body Mass Index 26.3 Const: Other: General - NAD, but appears tired Cardiovascular - regular rate and rhythm, S1-S2 Lungs - clear, no distress, off o2 Abdomen - soft, nontender, no rebound or guarding Extremities - no edema bilaterally Neuro - awake and alert, no focal deficits Objective Data Current Medications Generic Name Dose Route Start Last Admin Trade Name Freq PRN Reason Stop Dose Admin Acetaminophen 650 mg 04/23/20 18:35 Acetaminophen 325 Mg Tablet PO Q6H PRN Pain, Mild (Pain Scale 1-3) Amlodipine Besylate 10 mg 04/24/20 09:00 04/25/20 09:54 Amlodipine Besylate 10 Mg Tablet PO 10 mg DAILY RANDI Administration Protocol Aspirin 81 mg 04/24/20 09:00 04/25/20 11:01 Aspirin Enteric Coated 81 Mg Tablet. PO 81 mg DAILY RANDI Administration Dexamethasone Sodium Phosphate 6 mg 04/24/20 14:15 04/25/20 09:55 Dexamethasone Sod Phosphate 4 Mg/Ml Vial IVPUSH 05/02/20 09:01 6 mg DAILY RANDI Administration Donepezil HCl 10 mg 04/24/20 09:00 04/25/20 09:55 Donepezil Hcl 10 Mg Tablet PO 10 mg DAILY RANDI Administration Enoxaparin Sodium 40 mg 04/24/20 18:00 04/24/20 19:45 Enoxaparin Sodium 40 Mg/0.4 Ml Syringe SUBCUT 40 mg Q24H RANDI Administration Finasteride 5 mg 04/24/20 09:00 04/25/20 09:55 Finasteride 5 Mg Tablet PO 5 mg DAILY RANDI Administration Gabapentin 100 mg 04/24/20 09:00 04/25/20 09:55 Gabapentin 100 Mg Capsule PO 100 mg DAILY RANDI Administration Insulin Human Lispro 0 unit 04/23/20 21:00 04/25/20 09:54 Insulin Lispro 100 Unit/Ml 3 Ml Vial SUBCUT 2 unit QIDACHS RANDI Administration Protocol Memantine 10 mg 04/23/20 21:00 04/25/20 09:55 Memantine Hcl 10 Mg Tablet PO 10 mg BID RANDI Administration Omeprazole 20 mg 04/24/20 06:30 04/25/20 06:12 Omeprazole 20 Mg Capsule. PO 20 mg DAILY@0630 RANDI Administration Ondansetron HCl 4 mg 04/23/20 18:35 Ondansetron Hcl 4 Mg/2 Ml Vial IVPUSH Q8H PRN Nausea and Vomiting Pharmacy Consult 1 each 04/23/20 18:01 Consult Rx Perform Med Rec MISCELLANE ONCE PRN Consult order Sertraline HCl 50 mg 04/24/20 09:00 04/25/20 09:55 Sertraline Hcl 50 Mg Tablet PO 50 mg DAILY RANDI Administration Sodium Chloride 3 ml 04/24/20 00:00 04/25/20 09:54 0.9 % Sodium Chloride Flush 3 Ml Syringe IVFLUSH 3 ml QSHIFT RANDI Administration Labs CBC & Chem 7: 04/24/20 05:30 04/24/20 05:30 Microbiology Microbiology Results: Microbiology 04/23/20 13:36 Blood - Venous Blood Culture - Preliminary No growth after 24 hours. 04/23/20 13:28 Blood - Venous Blood Culture - Preliminary No growth after 24 hours. Assessment and Plan (1) COVID-19: Status: Acute (2) Acute respiratory failure with hypoxia: Status: Acute Assessment and Plan: This is a 79 yo M with a PMH of dementia who is admitted for: 1. COVID 19 causing acute respiratory failure with hypoxia hypoxia resolved, on RA decadron - day #3; ID consult 2. DM hold home PO meds sliding scale 3. HTN continue meds 4. GERD PPI 5. Dementia home meds Full Code DVT PPTx, Lovenox
[2020-04-25 16:21] LABS: Glucose, Whole Blood 231 mg/dL (60-115)
[2020-04-25] MEDS: Enoxaparin Sodium 40 MG/0.4 ML SYRINGE SUBCUT (17:06)
[2020-04-25 21:08] LABS: Glucose, Whole Blood 230 mg/dL (60-115)
[2020-04-26 00:46] VITALS: BP 134/81; PULSE 61; RESP 18; TEMP 37.1; O2SAT 94
[2020-04-26 04:00] VITALS: BP 112/67; PULSE 75; RESP 20; TEMP 37.1; O2SAT 95
[2020-04-26] MEDS: Omeprazole 20 MG CAPSULE.DR PO (06:51)
[2020-04-26 07:41] VITALS: BP 143/75; PULSE 62; RESP 18; TEMP 36.6; O2SAT 96
[2020-04-26 07:49] LABS: Glucose, Whole Blood 153 mg/dL (60-115)
[2020-04-26] MEDS: Insulin Lispro 100 UNIT/ML 3 ML VIAL SUBCUT ×2 (08:03→12:01)
[2020-04-26] MEDS: Finasteride 5 MG TABLET PO (08:03)
[2020-04-26] MEDS: Gabapentin 100 MG CAPSULE PO (08:03)
[2020-04-26] MEDS: Aspirin Enteric Coated 81 MG TABLET.DR PO (08:03)
[2020-04-26 08:04] VITALS: BP 143/75; PULSE 62
[2020-04-26] MEDS: Memantine HCl 10 MG TABLET PO (08:04)
[2020-04-26] MEDS: dexAMETHasone sod phosphate 4 MG/ML VIAL 6 MG IVPUSH (08:04)
[2020-04-26] MEDS: amLODIPine Besylate 10 MG TABLET PO (08:04)
[2020-04-26] MEDS: Sertraline HCL 50 MG TABLET PO (08:04)
[2020-04-26] MEDS: Donepezil HCl 10 MG TABLET PO (08:04)
[2020-04-26] MEDS: 0.9 % Sodium Chloride Flush 3 ML SYRINGE IVFLUSH ×2 (08:05→15:42)
--- NOTE | 2020-04-26 11:21 | MHC.CM.PN ---
Patient is on IV Dexamethasone day 07/17. Patient needs ID consult prior to discharge. Discharge plan is home no services. patient's S.O. will provide transportation. CM will continue to follow patient for discharge needs.
[2020-04-26 11:37] VITALS: BP 121/60; PULSE 60; RESP 18; TEMP 36.4; O2SAT 95
[2020-04-26 11:39] LABS: Glucose, Whole Blood 223 mg/dL (60-115)
--- NOTE | 2020-04-26 14:24 | PM.DS ---
DS: Providers Provider Date of Service: 04/26/20 Date of admission: 04/23/20 18:35 Primary care physician: Diego Sierra MD Consults: 04/23/20 18:38 Consult to Infectious Diseases Routine Consulting Provider: Andreia Almaraz Reason for consultation: covid 19 Has provider been notified: No DS: Diagnosis Discharge Diagnosis (1) COVID-19: Status: Acute (2) Acute respiratory failure with hypoxia: Status: Acute DS: Medications Discharge Medications Home Medications: Home Medications Medication Instructions Recorded Confirmed donepezil 10 mg PO DAILY 04/23/20 04/23/20 memantine [Namenda] 10 mg PO BID 04/23/20 04/23/20 pantoprazole 40 mg PO DAILY 04/23/20 04/23/20 sertraline [Zoloft] 50 mg PO DAILY 04/23/20 04/23/20 Previous Rx's Medication Instructions Recorded amlodipine 10 mg tablet 10 mg PO DAILY #90 tab 04/09/20 aspirin 81 mg tablet,delayed 81 mg PO DAILY #90 tab 04/09/20 release finasteride 5 mg tablet 5 mg PO DAILY #90 tab 04/09/20 gabapentin 100 mg capsule 100 mg PO DAILY #90 cap 04/09/20 glimepiride 1 mg tablet 1 mg PO DAILY #90 tab 04/09/20 metformin 500 mg tablet 500 mg PO BID #180 tab 04/09/20 dexamethasone [Decadron] 6 mg PO DAILY #7 tab 04/26/20 DS: Summary Hospital Course Hospital Course: Patient was admitted for acute hypoxic respiratory failure secondary to COVID pneumonia. He was given IV Decadron and his hypoxic quickly resolved. He has been on room air for the last couple days and feeling well. He will be discharged home on 7 more days of p.o. Decadron and will continue to monitor his symptoms. Time Spent with Patient Time attestation: Total time spent providing and/or coordinating discharge services: Discharge coordination time: Greater than 30 minutes Physical Exam Vital Signs: Vital Signs: Last Vital Signs Temp 97.6 F 04/26/20 11:37 Pulse 60 04/26/20 11:37 Resp 18 04/26/20 11:37 BP 121/60 04/26/20 11:37 Pulse Ox 95 04/26/20 11:37 Body Mass Index 26.3 General: AO X 3, no acute distress Resp: CTA bilateral CVS: S1,S2,RRR GI: soft, non tender, non distended Neuro: motor grossly intact Psych: appropriate affect DS: Data Data Completed and Pending Labs on day of discharge: Laboratory Tests 04/23/20 04/23/20 04/23/20 13:33 13:36 13:36 WBC 5.2 RBC 5.49 Hgb 16.4 Hct 49.3 MCV 89.8 MCH 29.9 MCHC 33.3 RDW 13.1 Plt Count 117 L MPV 11.2 Immature Gran % (Auto) 0.4 Neut % (Auto) 79.4 H Lymph % (Auto) 8.8 L [place] % (Auto) 11.0 Eos % (Auto) 0.0 Baso % (Auto) 0.4 Lymph # (Auto) 0.5 L [place] # (Auto) 0.6 Eos # (Auto) 0.0 Baso # (Auto) 0.0 Abs Immat Gran (auto) 0.02 Absolute Neuts (auto) 4.1 Absolute Nucleated RBC 0.000 Nucleated RBC % (auto) 0.0 Smear Tech's Comments VERIFIED D-Dimer 726 Hold Blue Top SEE NOTE Sodium Potassium Chloride Carbon Dioxide Anion Gap BUN Creatinine Estim Creat Clear Calc Estimated GFR POC Glucose Random Glucose Lactic Acid Lactic Acid Fup @ 2Hr Lactic Acid Fup @ 4Hr Calcium Magnesium Total Bilirubin Direct Bilirubin AST ALT Alkaline Phosphatase Total Creatine Kinase Troponin I High Sens C-Reactive Protein Total Protein Albumin Procalcitonin Urine Color Urine Appearance Urine pH Ur Specific [place] Urine Protein Urine Glucose (UA) Urine Ketones Urine Blood Urine Nitrite Ur Leukocyte Esterase Coronavirus (PCR) POSITIVE A Influenza Type A (PCR) NEGATIVE Influenza Type B (PCR) NEGATIVE RSV RNA Qual (PCR) NEGATIVE 04/23/20 04/23/20 04/23/20 13:36 13:36 13:36 WBC RBC Hgb Hct MCV MCH MCHC RDW Plt Count MPV Immature Gran % (Auto) Neut % (Auto) Lymph % (Auto) [place] % (Auto) Eos % (Auto) Baso % (Auto) Lymph # (Auto) [place] # (Auto) Eos # (Auto) Baso # (Auto) Abs Immat Gran (auto) Absolute Neuts (auto) Absolute Nucleated RBC Nucleated RBC % (auto) Smear Tech's Comments D-Dimer Hold Blue Top Sodium 134 L Potassium 4.5 Chloride 96 Carbon Dioxide 24 Anion Gap 19 BUN 21 H Creatinine 1.53 H Estim Creat Clear Calc 36.4 Estimated GFR 44 POC Glucose Random Glucose 346 H Lactic Acid 4.5 H* Lactic Acid Fup @ 2Hr Lactic Acid Fup @ 4Hr Calcium 9.0 Magnesium 2.1 Total Bilirubin 0.9 Direct Bilirubin 0.3 AST 71 H ALT 69 H Alkaline Phosphatase 64 Total Creatine Kinase 342 H Troponin I High Sens 33.7 C-Reactive Protein 4.42 H Total Protein 7.7 Albumin 4.3 Procalcitonin Urine Color Urine Appearance Urine pH Ur Specific [place] Urine Protein Urine Glucose (UA) Urine Ketones Urine Blood Urine Nitrite Ur Leukocyte Esterase Coronavirus (PCR) Influenza Type A (PCR) Influenza Type B (PCR) RSV RNA Qual (PCR) 04/23/20 04/23/20 04/23/20 13:36 16:28 16:28 WBC RBC Hgb Hct MCV MCH MCHC RDW Plt Count MPV Immature Gran % (Auto) Neut % (Auto) Lymph % (Auto) [place] % (Auto) Eos % (Auto) Baso % (Auto) Lymph # (Auto) [place] # (Auto) Eos # (Auto) Baso # (Auto) Abs Immat Gran (auto) Absolute Neuts (auto) Absolute Nucleated RBC Nucleated RBC % (auto) Smear Tech's Comments D-Dimer Hold Blue Top Sodium Potassium Chloride Carbon Dioxide Anion Gap BUN Creatinine Estim Creat Clear Calc Estimated GFR POC Glucose Random Glucose Lactic Acid Lactic Acid Fup @ 2Hr 4.8 H* Lactic Acid Fup @ 4Hr Calcium Magnesium Total Bilirubin Direct Bilirubin AST ALT Alkaline Phosphatase Total Creatine Kinase Troponin I High Sens C-Reactive Protein Total Protein Albumin Procalcitonin 0.19 Urine Color YELLOW Urine Appearance CLEAR Urine pH 5.5 Ur Specific [place] 1.020 Urine Protein NEG Urine Glucose (UA) 500 H Urine Ketones NEG Urine Blood NEG Urine Nitrite NEG Ur Leukocyte Esterase NEG Coronavirus (PCR) Influenza Type A (PCR) Influenza Type B (PCR) RSV RNA Qual (PCR) 04/23/20 04/23/20 04/23/20 16:28 19:31 22:20 WBC RBC Hgb Hct MCV MCH MCHC RDW Plt Count MPV Immature Gran % (Auto) Neut % (Auto) Lymph % (Auto) [place] % (Auto) Eos % (Auto) Baso % (Auto) Lymph # (Auto) [place] # (Auto) Eos # (Auto) Baso # (Auto) Abs Immat Gran (auto) Absolute Neuts (auto) Absolute Nucleated RBC Nucleated RBC % (auto) Smear Tech's Comments D-Dimer Hold Blue Top Sodium Potassium Chloride Carbon Dioxide Anion Gap BUN Creatinine Estim Creat Clear Calc Estimated GFR POC Glucose 299 H Random Glucose Lactic Acid Lactic Acid Fup @ 2Hr Lactic Acid Fup @ 4Hr 2.0 Calcium Magnesium Total Bilirubin Direct Bilirubin AST ALT Alkaline Phosphatase Total Creatine Kinase Troponin I High Sens 52.0 H D C-Reactive Protein Total Protein Albumin Procalcitonin Urine Color Urine Appearance Urine pH Ur Specific [place] Urine Protein Urine Glucose (UA) Urine Ketones Urine Blood Urine Nitrite Ur Leukocyte Esterase Coronavirus (PCR) Influenza Type A (PCR) Influenza Type B (PCR) RSV RNA Qual (PCR) 04/24/20 04/24/20 04/24/20 05:30 05:30 07:47 WBC 5.3 RBC 5.13 Hgb 15.4 Hct 45.9 MCV 89.5 MCH 30.0 MCHC 33.6 RDW 12.7 Plt Count 135 L MPV 11.5 Immature Gran % (Auto) 0.2 Neut % (Auto) 81.5 H Lymph % (Auto) 11.3 L [place] % (Auto) 7.0 Eos % (Auto) 0.0 Baso % (Auto) 0.0 Lymph # (Auto) 0.6 L [place] # (Auto) 0.4 Eos # (Auto) 0.0 Baso # (Auto) 0.0 Abs Immat Gran (auto) 0.01 Absolute Neuts (auto) 4.3 Absolute Nucleated RBC 0.000 Nucleated RBC % (auto) 0.0 Smear Tech's Comments VERIFIED D-Dimer Hold Blue Top Sodium 137 Potassium 4.0 Chloride 99 Carbon Dioxide 24 Anion Gap 18 BUN 21 H Creatinine 1.35 Estim Creat Clear Calc 41.3 Estimated GFR 51 POC Glucose 245 H Random Glucose 251 H Lactic Acid Lactic Acid Fup @ 2Hr Lactic Acid Fup @ 4Hr Calcium 8.8 Magnesium Total Bilirubin Direct Bilirubin AST ALT Alkaline Phosphatase Total Creatine Kinase Troponin I High Sens C-Reactive Protein Total Protein Albumin Procalcitonin Urine Color Urine Appearance Urine pH Ur Specific [place] Urine Protein Urine Glucose (UA) Urine Ketones Urine Blood Urine Nitrite Ur Leukocyte Esterase Coronavirus (PCR) Influenza Type A (PCR) Influenza Type B (PCR) RSV RNA Qual (PCR) 04/24/20 04/24/20 04/24/20 11:19 16:47 19:38 WBC RBC Hgb Hct MCV MCH MCHC RDW Plt Count MPV Immature Gran % (Auto) Neut % (Auto) Lymph % (Auto) [place] % (Auto) Eos % (Auto) Baso % (Auto) Lymph # (Auto) [place] # (Auto) Eos # (Auto) Baso # (Auto) Abs Immat Gran (auto) Absolute Neuts (auto) Absolute Nucleated RBC Nucleated RBC % (auto) Smear Tech's Comments D-Dimer Hold Blue Top Sodium Potassium Chloride Carbon Dioxide Anion Gap BUN Creatinine Estim Creat Clear Calc Estimated GFR POC Glucose 184 H 150 H 236 H Random Glucose Lactic Acid Lactic Acid Fup @ 2Hr Lactic Acid Fup @ 4Hr Calcium Magnesium Total Bilirubin Direct Bilirubin AST ALT Alkaline Phosphatase Total Creatine Kinase Troponin I High Sens C-Reactive Protein Total Protein Albumin Procalcitonin Urine Color Urine Appearance Urine pH Ur Specific [place] Urine Protein Urine Glucose (UA) Urine Ketones Urine Blood Urine Nitrite Ur Leukocyte Esterase Coronavirus (PCR) Influenza Type A (PCR) Influenza Type B (PCR) RSV RNA Qual (PCR) 04/25/20 04/25/20 04/25/20 07:25 11:11 16:18 WBC RBC Hgb Hct MCV MCH MCHC RDW Plt Count MPV Immature Gran % (Auto) Neut % (Auto) Lymph % (Auto) [place] % (Auto) Eos % (Auto) Baso % (Auto) Lymph # (Auto) [place] # (Auto) Eos # (Auto) Baso # (Auto) Abs Immat Gran (auto) Absolute Neuts (auto) Absolute Nucleated RBC Nucleated RBC % (auto) Smear Tech's Comments D-Dimer Hold Blue Top Sodium Potassium Chloride Carbon Dioxide Anion Gap BUN Creatinine Estim Creat Clear Calc Estimated GFR POC Glucose 199 H 288 H 231 H Random Glucose Lactic Acid Lactic Acid Fup @ 2Hr Lactic Acid Fup @ 4Hr Calcium Magnesium Total Bilirubin Direct Bilirubin AST ALT Alkaline Phosphatase Total Creatine Kinase Troponin I High Sens C-Reactive Protein Total Protein Albumin Procalcitonin Urine Color Urine Appearance Urine pH Ur Specific [place] Urine Protein Urine Glucose (UA) Urine Ketones Urine Blood Urine Nitrite Ur Leukocyte Esterase Coronavirus (PCR) Influenza Type A (PCR) Influenza Type B (PCR) RSV RNA Qual (PCR) 04/25/20 04/26/20 04/26/20 21:04 07:43 11:34 WBC RBC Hgb Hct MCV MCH MCHC RDW Plt Count MPV Immature Gran % (Auto) Neut % (Auto) Lymph % (Auto) [place] % (Auto) Eos % (Auto) Baso % (Auto) Lymph # (Auto) [place] # (Auto) Eos # (Auto) Baso # (Auto) Abs Immat Gran (auto) Absolute Neuts (auto) Absolute Nucleated RBC Nucleated RBC % (auto) Smear Tech's Comments D-Dimer Hold Blue Top Sodium Potassium Chloride Carbon Dioxide Anion Gap BUN Creatinine Estim Creat Clear Calc Estimated GFR POC Glucose 230 H 153 H 223 H Random Glucose Lactic Acid Lactic Acid Fup @ 2Hr Lactic Acid Fup @ 4Hr Calcium Magnesium Total Bilirubin Direct Bilirubin AST ALT Alkaline Phosphatase Total Creatine Kinase Troponin I High Sens C-Reactive Protein Total Protein Albumin Procalcitonin Urine Color Urine Appearance Urine pH Ur Specific [place] Urine Protein Urine Glucose (UA) Urine Ketones Urine Blood Urine Nitrite Ur Leukocyte Esterase Coronavirus (PCR) Influenza Type A (PCR) Influenza Type B (PCR) RSV RNA Qual (PCR) Preliminary micro results at discharge 04/23/20 13:36 Blood Culture - Preliminary Blood - Venous No growth after 48 hours. 04/23/20 13:28 Blood Culture - Preliminary Blood - Venous No growth after 48 hours. Discharge Plan Discharge Patient Disposition: Home, Self-Care Referrals: Diego Sierra MD [Primary Care Provider] - Discharge Medications: New dexamethasone [Decadron] 6 mg tablet 6 mg PO DAILY Qty: 7 RF: 0 Continued amlodipine 10 mg tablet 10 mg PO DAILY Qty: 90 RF: 1 aspirin [Adult Aspirin Regimen] 81 mg tablet,delayed release (DR/EC) 81 mg PO DAILY Qty: 90 RF: 1 finasteride 5 mg tablet 5 mg PO DAILY Qty: 90 RF: 1 gabapentin 100 mg capsule 100 mg PO DAILY Qty: 90 RF: 1 glimepiride 1 mg tablet 1 mg PO DAILY Qty: 90 RF: 1 metformin 500 mg tablet 500 mg PO BID Qty: 180 RF: 1 donepezil 10 mg Tablet 10 mg PO DAILY RF: 0 sertraline [Zoloft] 50 mg Tablet 50 mg PO DAILY RF: 0 memantine [Namenda] 10 mg Tablet 10 mg PO BID RF: 0 pantoprazole 40 mg tablet,delayed release (DR/EC) 40 mg PO DAILY RF: 0 Discharge Orders: Discharge Order (Routine); Ordered 04/26/20 Ordered By: Shawn Rivers Activity on Discharge: As tolerated Visit Report Forms: Patient Portal Discharge page Care Plan Goals: [facility] Health Concerns: covid Plan of Treatment: decadron for one week, isolation
--- NOTE | 2020-04-26 14:35 | MHC.CM.PN ---
Patient will be discharged home no services. S.O. will provide transport.
[2020-04-26 15:15] VITALS: BP 135/70; PULSE 70; RESP 18; TEMP 36.6; O2SAT 95
== END 2020-04-26 16:50 | disposition home or self-care (01) | DRG 177 ==
LOC: HO.ED 15:03 → HO.EDOVER 18:41 → HO.IMC 19:47
PROVIDERS: Nurse Practitioner Acute Care; Physician Assistant; Admitting Provider Family Medicine; Emergency Provider Emergency Medicine; PCP Internal Medicine; Visit Provider Internal Medicine
DX: U07.1 COVID-19 (principal); J96.01 Acute respiratory failure with hypoxia; N17.9 Acute kidney failure, unspecified; K21.9 Gastro-esophageal reflux disease without esophagitis; G20 Parkinson's disease; I10 Essential (primary) hypertension; F02.80 Dementia in other diseases classified elsewhere, unspecified severity, without behavioral disturbance, psychotic disturbance, mood disturbance, and anxiety; Z79.82 Long term (current) use of aspirin; Z79.84 Long term (current) use of oral hypoglycemic drugs; Z79.899 Other long term (current) drug therapy
CPT/HCPCS: 0241U; 36415; 70450; 71045; 78580; 80048; 80076; 81003; 82550; 82947; 83605; 83735; 84145; 84484; 85025; 85379; 86140; 87040; 93005; 96361; 96374; 99285; 99291; A9540; J1100; J1650

== ENCOUNTER 2020-05-02 13:29 | Inpatient (IN) | payer MEDICARE, SELFPAY ==
[2020-05-02 13:40] VITALS: BP 140/70; BP 144/72; PULSE 83; PULSE 90; RESP 20; TEMP 37.2; O2SAT 88; O2SAT 94; BMI 28.8
--- NOTE | 2020-05-02 13:40 | ED.SOB ---
HPI - SOB/Dyspnea General Chief Complaint: Dyspnea Stated Complaint: COVID +,GENERAL WEAKNESS Time Seen by Provider: 05/02/20 13:40 Source: patient and EMS Mode of arrival: EMS Limitations: language barrier and altered mental status History of Present Illness HPI Narrative: Patient was just seen here COVID 19 on 04/23 and discharged on 04/26 received 7 days of Decadron came here as he was very lethargic at home feel body aches tiredness was saturating 80% at room air when EMS reached did not eat much today appetite been declining every day with decreased p.o. 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 and been admitted to [facility] in serious condition and patient been feeling depressed Related Data Home Medications Medication Instructions Recorded Confirmed donepezil 10 mg PO DAILY 04/23/20 04/23/20 memantine [Namenda] 10 mg PO BID 04/23/20 04/23/20 pantoprazole 40 mg PO DAILY 04/23/20 04/23/20 sertraline [Zoloft] 50 mg PO DAILY 04/23/20 04/23/20 Previous Rx's Medication Instructions Recorded amlodipine 10 mg tablet 10 mg PO DAILY #90 tab 04/09/20 aspirin 81 mg tablet,delayed 81 mg PO DAILY #90 tab 04/09/20 release finasteride 5 mg tablet 5 mg PO DAILY #90 tab 04/09/20 gabapentin 100 mg capsule 100 mg PO DAILY #90 cap 04/09/20 glimepiride 1 mg tablet 1 mg PO DAILY #90 tab 04/09/20 metformin 500 mg tablet 500 mg PO BID #180 tab 04/09/20 dexamethasone [Decadron] 6 mg PO DAILY #7 tab 04/26/20 Allergies Allergy/AdvReac Type Severity Reaction Status Date / Time No Known Allergies Allergy Verified 04/28/20 14:50 [No Known Allergies*] Review of Systems Review of Systems: Yes Unobtainable due to mental condition PMFSH Past Medical History Medical History (Updated 05/02/20 @ 15:43 by Severiano Aleman MD) Acid reflux BPH (benign prostatic hyperplasia) Dementia Diabetes HTN (hypertension) Parkinsons Surgical History History of colonoscopy History of cystoscopy Family History Family History Father No problems noted. Mother No problems noted. Social History Social History Household Members: Spouse Housing: House Alcohol intake: never Smoking Status: Never smoker Advance Directives: No Advance Directives Information Provided: No service: No Current occupational status: disabled Physical Exam Vital Signs: Vital Signs: Last Vital Signs Temp 98.9 F 05/02/20 13:40 Pulse 84 05/02/20 14:51 Resp 18 05/02/20 14:28 BP 128/75 05/02/20 14:28 Pulse Ox 93 05/02/20 14:28 Body Mass Index 28.8 Const: General: in distress, ill appearing, lethargic and patient obtunded Nutritional Appearance: average body habitus Orientation/consciousness: oriented to person, patient obtunded and lethargic HENMT: Head: Yes normal to inspection Ears: hearing grossly normal bilaterally General nose exam: Normal external nose present Face and sinus: Yes normal facial exam Mouth: Normal oral and palatal mucosa present Eyes: General: appearance normal, both eyes and all related structures Neck: Neck: Yes normal visual inspection, Yes no lymphadenopathy, Yes no meningeal signs and Yes no JVD Chest: Chest palpation & inspection: normal inspection of the chest and normal palpation of entire chest wall Resp: Effort & Inspection: Actively coughing, decreased respiratory effort, uses accessory muscles and prolonged expiratory phase Auscultation: crackles diffuse, rales and rhonchi Percussion: percussion normal Cardio: Jugular venous distension: no JVD Palpation: normal PMI Rate: regular rate Rhythm: regular rhythm Heart sounds: S1 normal heart sound present and S2 normal heart sound present Peripheral pulses: Peripheral pulses 2+ throughout GI: Inspection: Yes normal to inspection Palpation (GI): Soft to palpation, nontender and No hepatosplenomegaly present Auscultation: normal bowel sounds : General: Yes no CVA tenderness Back/Spine/Pelvis: Back: no CVA tenderness Thoracic/Lumbar Spine: thoracic and lumbar spine normal to inspection Skin: General skin exam: no rashes or lesions noted Neuro: General: oriented to person, moves all extremities, no meningeal signs, no focal motor deficits, CN's II-XI intact bilaterally and patient obtunded Extrem: General: Yes normal to inspection, Yes no calf tenderness and No pedal edema Course Course Course Narrative: Patient with COVID-[address] chest showed multiple ground-glass opacities came with hypoxic already taken the course of Decadron but still hypoxia will continue Decadron at this time. Will admit patient for hypoxemia patient is saturating 93% on 50% Ventimask more alert now case discussed with hospitalist admit to isolation MDM - SOB/Dyspnea Differential Diagnosis Differential diagnosis: Likely pneumonia Medical Records Attestation: I reviewed the patient's medical records. Lab Data Attestation: I reviewed the patient's lab results. Result diagrams: 05/02/20 13:55 05/02/20 13:55 Labs: Lab Results 05/02/20 05/02/20 05/02/20 Range/Units 13:55 13:55 13:55 WBC 19.1 H (4.8-10.8) X10*3/uL RBC 5.26 (4.60-5.80) X10*6/uL Hgb 15.8 (14.0-18.0) g/dl Hct 45.1 (42-52) % MCV 85.7 (80-98) fL MCH 30.0 (27.0-33.0) pg MCHC 35.0 (31.0-36.0) g/dl RDW 12.3 (11.0-16.0) % Plt Count 170 D (160-400) X10*3/uL MPV 11.0 (9.4-12.4) fL Immature Gran % (Auto) 2.3 H (0.0-0.4) % Neut % (Auto) 93.7 H (45-73) % Lymph % (Auto) 1.9 L (20-40) % [place] % (Auto) 1.9 L (2-11) % Eos % (Auto) 0.0 (0-4) % Baso % (Auto) 0.2 (0-2) % Lymph # (Auto) 0.4 L (1.2-4.9) X10*3/uL [place] # (Auto) 0.4 (0.1-1.2) X10*3/uL Eos # (Auto) 0.0 (0.0-0.4) X10*3/uL Baso # (Auto) 0.0 (0.0-0.2) X10*3/uL Abs Immat Gran (auto) 0.44 H (0.00-0.03) X10*3/uL Absolute Neuts (auto) 17.9 H (2.0-8.3) X10*3/uL Absolute Nucleated RBC 0.000 (0.0-0.012) X10*3/uL Nucleated RBC % (auto) 0.0 (0.0-0.2) /100WBC Smear Tech's Comments VERIFIED PT 13.1 H (10.8-13.0) SEC INR 1.1 (0.9-1.1) APTT 26.5 (24.1-38.0) SEC D-Dimer 708 NG/ML VBG pH (7.32-7.43) VBG pCO2 mmHg VBG pO2 mmHg VBG HCO3 mmol/L VBG O2 Saturation % VBG Base Excess mmol/L Sodium 133 L (135-145) mmol/L Potassium 4.4 (3.3-5.1) mmol/l Chloride 96 (96-108) mmol/L Carbon Dioxide 25 (22-29) mmol/L Anion Gap 16 (12-20) BUN 25 H (9-16) mg/dL Creatinine 1.03 (0.5-1.4) mg/dL Estim Creat Clear Calc 56.0 Estimated GFR > 60 Random Glucose 185 H (60-115) mg/dL Lactic Acid (0.5-2.0) mmol/L Calcium 8.3 L (8.4-10.2) mg/dL Ferritin 2373 H (20-250) ng/mL Total Bilirubin 0.9 (0.0-1.0) mg/dL Direct Bilirubin 0.5 (0.0-0.5) mg/dL AST 46 H (5-37) U/L ALT 49 H (0-40) U/L Alkaline Phosphatase 62 (39-117) U/L Lactate Dehydrogenase 369 H (118-273) U/L Troponin I High Sens (<3.5-35.0) ng/L C-Reactive Protein 13.81 H (< or = 0.50) mg/dL B-Natriuretic Peptide (<100) pg/mL Total Protein 6.5 (6.5-8.0) g/dL Albumin 3.5 (3.5-5.0) g/dL Procalcitonin ng/mL 05/02/20 05/02/20 05/02/20 Range/Units 13:56 13:56 13:56 WBC (4.8-10.8) X10*3/uL RBC (4.60-5.80) X10*6/uL Hgb (14.0-18.0) g/dl Hct (42-52) % MCV (80-98) fL MCH (27.0-33.0) pg MCHC (31.0-36.0) g/dl RDW (11.0-16.0) % Plt Count (160-400) X10*3/uL MPV (9.4-12.4) fL Immature Gran % (Auto) (0.0-0.4) % Neut % (Auto) (45-73) % Lymph % (Auto) (20-40) % [place] % (Auto) (2-11) % Eos % (Auto) (0-4) % Baso % (Auto) (0-2) % Lymph # (Auto) (1.2-4.9) X10*3/uL [place] # (Auto) (0.1-1.2) X10*3/uL Eos # (Auto) (0.0-0.4) X10*3/uL Baso # (Auto) (0.0-0.2) X10*3/uL Abs Immat Gran (auto) (0.00-0.03) X10*3/uL Absolute Neuts (auto) (2.0-8.3) X10*3/uL Absolute Nucleated RBC (0.0-0.012) X10*3/uL Nucleated RBC % (auto) (0.0-0.2) /100WBC Smear Tech's Comments PT (10.8-13.0) SEC INR (0.9-1.1) APTT (24.1-38.0) SEC D-Dimer NG/ML VBG pH (7.32-7.43) VBG pCO2 mmHg VBG pO2 mmHg VBG HCO3 mmol/L VBG O2 Saturation % VBG Base Excess mmol/L Sodium (135-145) mmol/L Potassium (3.3-5.1) mmol/l Chloride (96-108) mmol/L Carbon Dioxide (22-29) mmol/L Anion Gap (12-20) BUN (9-16) mg/dL Creatinine (0.5-1.4) mg/dL Estim Creat Clear Calc Estimated GFR Random Glucose (60-115) mg/dL Lactic Acid 1.6 (0.5-2.0) mmol/L Calcium (8.4-10.2) mg/dL Ferritin (20-250) ng/mL Total Bilirubin (0.0-1.0) mg/dL Direct Bilirubin (0.0-0.5) mg/dL AST (5-37) U/L ALT (0-40) U/L Alkaline Phosphatase (39-117) U/L Lactate Dehydrogenase (118-273) U/L Troponin I High Sens 5.6 D (<3.5-35.0) ng/L C-Reactive Protein (< or = 0.50) mg/dL B-Natriuretic Peptide (<100) pg/mL Total Protein (6.5-8.0) g/dL Albumin (3.5-5.0) g/dL Procalcitonin 0.24 ng/mL 05/02/20 05/02/20 Range/Units 13:56 14:21 WBC (4.8-10.8) X10*3/uL RBC (4.60-5.80) X10*6/uL Hgb (14.0-18.0) g/dl Hct (42-52) % MCV (80-98) fL MCH (27.0-33.0) pg MCHC (31.0-36.0) g/dl RDW (11.0-16.0) % Plt Count (160-400) X10*3/uL MPV (9.4-12.4) fL Immature Gran % (Auto) (0.0-0.4) % Neut % (Auto) (45-73) % Lymph % (Auto) (20-40) % [place] % (Auto) (2-11) % Eos % (Auto) (0-4) % Baso % (Auto) (0-2) % Lymph # (Auto) (1.2-4.9) X10*3/uL [place] # (Auto) (0.1-1.2) X10*3/uL Eos # (Auto) (0.0-0.4) X10*3/uL Baso # (Auto) (0.0-0.2) X10*3/uL Abs Immat Gran (auto) (0.00-0.03) X10*3/uL Absolute Neuts (auto) (2.0-8.3) X10*3/uL Absolute Nucleated RBC (0.0-0.012) X10*3/uL Nucleated RBC % (auto) (0.0-0.2) /100WBC Smear Tech's Comments PT (10.8-13.0) SEC INR (0.9-1.1) APTT (24.1-38.0) SEC D-Dimer NG/ML VBG pH 7.50 H (7.32-7.43) VBG pCO2 34 mmHg VBG pO2 105 mmHg VBG HCO3 26 mmol/L VBG O2 Saturation 98.0 % VBG Base Excess 4.1 mmol/L Sodium (135-145) mmol/L Potassium (3.3-5.1) mmol/l Chloride (96-108) mmol/L Carbon Dioxide (22-29) mmol/L Anion Gap (12-20) BUN (9-16) mg/dL Creatinine (0.5-1.4) mg/dL Estim Creat Clear Calc Estimated GFR Random Glucose (60-115) mg/dL Lactic Acid (0.5-2.0) mmol/L Calcium (8.4-10.2) mg/dL Ferritin (20-250) ng/mL Total Bilirubin (0.0-1.0) mg/dL Direct Bilirubin (0.0-0.5) mg/dL AST (5-37) U/L ALT (0-40) U/L Alkaline Phosphatase (39-117) U/L Lactate Dehydrogenase (118-273) U/L Troponin I High Sens (<3.5-35.0) ng/L C-Reactive Protein (< or = 0.50) mg/dL B-Natriuretic Peptide 49 (<100) pg/mL Total Protein (6.5-8.0) g/dL Albumin (3.5-5.0) g/dL Procalcitonin ng/mL ECG Data Attestation: I personally reviewed and interpreted this ECG as follows: Interpretation: Normal sinus rhythm heart rate 88 beats per minute nonspecific ST T wave changes normal intervals normal axis impression no acute ischemia Discharge Plan Discharge Clinical Impression: COVID-19, Hypoxia Patient Disposition: Admitted As Inpatient
--- NOTE | 2020-05-02 13:41 | ECG_ITS ---
Test Reason : SOB Blood Pressure : / mmHG Vent. Rate : 088 BPM Atrial Rate : 088 BPM P-R Int : 136 ms QRS Dur : 068 ms QT Int : 322 ms P-R-T Axes : 022 058 027 degrees QTc Int : 389 ms Artifact in tracing Normal sinus rhythm Nonspecific ST abnormality Abnormal ECG When compared to the previous EKG of 23 apr 2020, no significant changes Referred By: Severiano Aleman Electronically Signed By:MARION QUAN
--- NOTE | 2020-05-02 13:41 | CT_ITS ---
EXAMINATION: CT CHEST WITHOUT CONTRAST CLINICAL INFORMATION: COVID COMPARISON: None TECHNIQUE: Multidetector volumetric CT imaging of the chest was done. Axial MIP volume rendering provided. Sagittal and coronal reformatted images were obtained. This CT examination was performed using dose optimization techniques as appropriate, variously including the following: *Automated exposure control *Adjustment of mA and/or kV according to patient size (this includes techniques or standardized protocols for targeted exams where dose is matched to indication/reason for exam; i.e. extremities or head) *Use of iterative reconstruction technique DLP: 328 mGy-cm FINDINGS: LUNGS: There are bilateral geographic peripherally predominant groundglass opacities predominating within the upper lungs with more consolidative patchy opacities within the lower lungs compatible with COVID pneumonitis.. MEDIASTINUM: Heart normal in size without pericardial effusion. Triple vessel coronary calcifications. Great vessels normal caliber. No mediastinal or hilar adenopathy. PLEURA: There is no pleural effusion. No pleural mass or thickening. AXILLA: No lymphadenopathy. UPPER ABDOMEN: Unremarkable. OSSEOUS STRUCTURES: Unremarkable. CT/CT chest wo con IMPRESSION: Findings compatible with COVID pneumonitis. Triple vessel coronary calcifications.
[2020-05-02 14:04] LABS: Basophils Percent Auto 0.2 % (0-2); Hematocrit 45.1 % (42-52); Hemoglobin 15.8 g/dl (14.0-18.0); Imm Gran Abs Auto 0.44 X10*3/uL (0.00-0.03); Imm Gran Pct Auto 2.3 % (0.0-0.4); Lymphocytes Absolute Auto 0.4 X10*3/uL (1.2-4.9); Lymphocytes Percent Auto 1.9 % (20-40); MANUAL DIFF FLAG SCAN; Mean Corpuscular Volume 85.7 fL (80-98); Monocytes Absolute Auto 0.4 X10*3/uL (0.1-1.2); Monocytes Percent Auto 1.9 % (2-11); Neutrophils Absolute Auto 17.9 X10*3/uL (2.0-8.3); Neutrophils Percent Auto 93.7 % (45-73); Platelet Count 170 X10*3/uL (160-400); Red Blood Count 5.26 X10*6/uL (4.60-5.80); Red Cell Distribution Width 12.3 % (11.0-16.0); SCAN SMEAR FLAG 1; White Blood Count 19.1 X10*3/uL (4.8-10.8)
[2020-05-02] MEDS: 0.9 % Sodium Chloride 1,000 ML 999 ML IVCONT (14:04)
[2020-05-02 14:10] LABS: INTERNATIONAL NORM RATIO 1.1 (0.9-1.1); Prothrombin Time 13.1 SEC (10.8-13.0)
[2020-05-02 14:13] LABS: D Dimer 708 NG/ML; Partial Thromboplastin Time 26.5 SEC (24.1-38.0)
[2020-05-02 14:21] LABS: SLIDE REVIEW VERIFIED
[2020-05-02 14:25] LABS: Lactic Acid 1.6 mmol/L (0.5-2.0)
[2020-05-02 14:28] VITALS: BP 128/75; PULSE 84; RESP 18; O2SAT 93
[2020-05-02 14:29] LABS: Alanine Aminotransferase 49 U/L (0-40); Albumin Level 3.5 g/dL (3.5-5.0); Alkaline Phosphatase 62 U/L (39-117); Anion Gap 16 (12-20); Aspartate Amino Transferase 46 U/L (5-37); Bilirubin Direct 0.5 mg/dL (0.0-0.5); Bilirubin Total 0.9 mg/dL (0.0-1.0); Blood Urea Nitrogen 25 mg/dL (9-16); C Reactive Protein 13.81 mg/dL (< or = 0.50); Calcium 8.3 mg/dL (8.4-10.2); Carbon Dioxide 25 mmol/L (22-29); Chloride 96 mmol/L (96-108); Estimated Glomerular Filt Rate > 60; Glucose Random 185 mg/dL (60-115); Lactate Dehydrogenase 369 U/L (118-273); Potassium 4.4 mmol/l (3.3-5.1); Sodium 133 mmol/L (135-145); Total Protein 6.5 g/dL (6.5-8.0)
[2020-05-02 14:35] LABS: Base Excess VBG 4.1 mmol/L; HCO3 VBG 26 mmol/L; PCO2 VBG 34 mmHg; PO2 VBG 105 mmHg
[2020-05-02 14:36] LABS: B Type Natriuretic Peptide 49 pg/mL (<100); Troponin-I High Sensitivity 5.6 ng/L (<3.5-35.0)
[2020-05-02] MEDS: Albuterol Sulfate 90 MCG 8 GM INHALER 4 PUFF INHALE (14:45)
[2020-05-02 14:51] VITALS: PULSE 84; O2SAT 93
--- NOTE | 2020-05-02 15:09 | P.HPHOSP_ITS ---
History of Present Illness Date of Service: 05/02/20 Chief Complaint: poor po intake, weakness, hypoxia This is a 79-year-old male recently admitted for COVID-19 pneumonia who was sent to the hospital for poor p.o. intake, weakness, declining at home found to be hypoxic. He has also had fever and dry cough. Patient was admitted from April 23 to April 26 with hypoxia. He was able to be weaned off oxygen and was discharged home to complete a course of dexamethasone. He has reportedly been living with a family member as his significant other is still hospitalized at [facility] for COVID. He is alert and oriented to person place but vague to situation. He is unable to explain why he came to the hospital today. He was noted to be hypoxic and required Venti mask at 50% to maintain oxygen saturations of 92-93. Chest CT was consistent with COVID pneumonitis. Lab work revealed leukocytosis of 19,000. CRP has increased to 13.81 from 4.42, LDH 369, ferritin and procalcitonin are pending. He was again started on dexamethasone and will be admitted for further management of acute respiratory failure with hypoxia. Review of Systems Review of Systems: Yes all other systems are reviewed and are negative Constitutional: Constitutional: Denies chills and Reports fever(s) Cardiovascular: Cardiovascular: Denies chest pain and Denies dyspnea Respiratory: Respiratory: Reports cough and Denies dyspnea Gastrointestinal: Gastrointestinal: Denies abdominal pain [facility] Medical History (Updated 05/02/20 @ 15:43 by Severiano Aleman MD) Acid reflux BPH (benign prostatic hyperplasia) Dementia Diabetes HTN (hypertension) Parkinsons Functional capacity: uses cane/walker Family History Father No problems noted. Mother No problems noted. Family history: reviewed and not pertinent Surgical History History of colonoscopy History of cystoscopy Social History Household Members: Spouse Housing: House Alcohol intake: never Smoking Status: Never smoker Advance Directives: No Advance Directives Information Provided: No service: No Current occupational status: disabled Meds Allergies Allergy/AdvReac Type Severity Reaction Status Date / Time No Known Allergies Allergy Verified 04/28/20 14:50 [No Known Allergies*] Home Medications Medication Instructions Recorded Confirmed Type donepezil 10 mg PO DAILY 04/23/20 04/23/20 History memantine [Namenda] 10 mg PO BID 04/23/20 04/23/20 History pantoprazole 40 mg PO DAILY 04/23/20 04/23/20 History sertraline [Zoloft] 50 mg PO DAILY 04/23/20 04/23/20 History Physical Exam Vital Signs and Narrative: Vital Signs: Last Vital Signs Temp 98.9 F 05/02/20 13:40 Pulse 84 05/02/20 14:51 Resp 18 05/02/20 14:28 BP 128/75 05/02/20 14:28 Pulse Ox 93 05/02/20 14:28 Body Mass Index 28.8 Const: Other: Vague to situation General: alert and awake Nutritional Appearance: well nourished HENMT: Head: Yes normocephalic and Yes atraumatic Face and sinus: Yes dry mucous membranes Eyes: Sclerae: sclerae normal Chest: Chest palpation & inspection: normal inspection of the chest Resp: Effort & Inspection: normal respiratory effort and no respiratory distress Cardio: Rate: regular rate Rhythm: regular rhythm GI: Palpation (GI): Soft to palpation and nontender Skin: General skin exam: no rashes or lesions noted Neuro: Cranial nerves: Yes CN's II-XII intact bilaterally and Yes Bilaterally intact EOM present Extrem: General: Yes normal to inspection Results Labs CBC and Chem 7: 05/02/20 13:55 05/02/20 13:55 Labs: Laboratory Results - last 24 hr 05/02/20 05/02/20 05/02/20 13:55 13:55 13:55 MCV 85.7 MCH 30.0 MCHC 35.0 RDW 12.3 Plt Count 170 D MPV 11.0 Immature Gran % (Auto) 2.3 H Neut % (Auto) 93.7 H Lymph % (Auto) 1.9 L Loving % (Auto) 1.9 L Eos % (Auto) 0.0 Baso % (Auto) 0.2 Lymph # (Auto) 0.4 L Loving # (Auto) 0.4 Eos # (Auto) 0.0 Baso # (Auto) 0.0 Abs Immat Gran (auto) 0.44 H Absolute Neuts (auto) 17.9 H Absolute Nucleated RBC 0.000 Nucleated RBC % (auto) 0.0 Smear Tech's Comments VERIFIED PT 13.1 H INR 1.1 APTT 26.5 D-Dimer 708 VBG pH VBG pCO2 VBG pO2 VBG HCO3 VBG O2 Saturation VBG Base Excess Anion Gap 16 Estim Creat Clear Calc 56.0 Estimated GFR > 60 Random Glucose 185 H Lactic Acid Calcium 8.3 L Total Bilirubin 0.9 Direct Bilirubin 0.5 AST 46 H ALT 49 H Alkaline Phosphatase 62 Lactate Dehydrogenase 369 H Troponin I High Sens C-Reactive Protein 13.81 H B-Natriuretic Peptide Total Protein 6.5 Albumin 3.5 05/02/20 05/02/20 05/02/20 13:56 13:56 13:56 MCV MCH MCHC RDW Plt Count MPV Immature Gran % (Auto) Neut % (Auto) Lymph % (Auto) Loving % (Auto) Eos % (Auto) Baso % (Auto) Lymph # (Auto) Loving # (Auto) Eos # (Auto) Baso # (Auto) Abs Immat Gran (auto) Absolute Neuts (auto) Absolute Nucleated RBC Nucleated RBC % (auto) Smear Tech's Comments PT INR APTT D-Dimer VBG pH VBG pCO2 VBG pO2 VBG HCO3 VBG O2 Saturation VBG Base Excess Anion Gap Estim Creat Clear Calc Estimated GFR Random Glucose Lactic Acid 1.6 Calcium Total Bilirubin Direct Bilirubin AST ALT Alkaline Phosphatase Lactate Dehydrogenase Troponin I High Sens 5.6 D C-Reactive Protein B-Natriuretic Peptide 49 Total Protein Albumin 05/02/20 14:21 MCV MCH MCHC RDW Plt Count MPV Immature Gran % (Auto) Neut % (Auto) Lymph % (Auto) Loving % (Auto) Eos % (Auto) Baso % (Auto) Lymph # (Auto) Loving # (Auto) Eos # (Auto) Baso # (Auto) Abs Immat Gran (auto) Absolute Neuts (auto) Absolute Nucleated RBC Nucleated RBC % (auto) Smear Tech's Comments PT INR APTT D-Dimer VBG pH 7.50 H VBG pCO2 34 VBG pO2 105 VBG HCO3 26 VBG O2 Saturation 98.0 VBG Base Excess 4.1 Anion Gap Estim Creat Clear Calc Estimated GFR Random Glucose Lactic Acid Calcium Total Bilirubin Direct Bilirubin AST ALT Alkaline Phosphatase Lactate Dehydrogenase Troponin I High Sens C-Reactive Protein B-Natriuretic Peptide Total Protein Albumin Imaging Radiologist's Impressions: Impressions Chest CT 05/02/20 13:41 IMPRESSION: Findings compatible with COVID pneumonitis. Triple vessel coronary calcifications. Assessment and Plan (1) Acute respiratory failure with hypoxia: Status: Acute (2) COVID-19: Status: Acute This is a 79-year-old male with history of diabetes, hypertension, GERD, dementia, recent admission for COVID-19 who returns with hypoxia Acute respiratory failure with hypoxia Pneumonia secondary to COVID-19 -supplemental oxygen as needed, currently on 50% Ventimask -IV dexamethasone Diabetes. Sliding scale, ADA diet hold glimepiride, metformin Hypertension. Stable blood pressures. Continue amlodipine. Dementia. Continue aricept and namenda. GERD. Continue PPI. BPH continue finasteride mood continue zoloft continue home meds when med rec complete. med rec pending at this time dvt ppx - lovenox this case was discussed with Dr. Rivers
--- NOTE | 2020-05-02 15:14 | PM.EVENT ---
Event Note Date of Service: 05/02/20 Event Note: Patient seen and examined independently and was present during bethea portion of E/M service. Agree with midlevel's history, physical, assessment, and plan. 79M presented for sob acute hypoxic respiratory failure due to covid miguelito
[2020-05-02 15:18] LABS: Procalcitonin 0.24 ng/mL
[2020-05-02 15:39] LABS: Ferritin 2373 ng/mL (20-250)
[2020-05-02 15:59] VITALS: BP 132/73; PULSE 85; RESP 21; O2SAT 93
[2020-05-02 18:09] VITALS: BP 132/73; PULSE 96; RESP 20; O2SAT 91
[2020-05-02 19:48] VITALS: BP 124/73; PULSE 84; RESP 20; TEMP 36.7; O2SAT 91
--- NOTE | 2020-05-02 19:49 | PC.NURSE ---
DENIES PAIN. RESTING IN BED. REQUESTS WATER. SINSUS RHYTHM ON INSIDE STEWARD/STEWARDESS
[2020-05-02] MEDS: 0.9 % Sodium Chloride Flush 3 ML SYRINGE IVFLUSH (20:33)
--- NOTE | 2020-05-02 20:34 | PC.NURSE ---
PATIENT INCONTINENT OF URINE. LINENS CHANGED. BRIEF REMOVED. NO OPEN AREAS OR REDNESS NOTED. REPORTS NEEDING TO URINATE. GIVEN URINAL.
[2020-05-02] MEDS: Memantine HCl 10 MG TABLET PO (21:05)
[2020-05-02] MEDS: Insulin Lispro 100 UNIT/ML 3 ML VIAL SUBCUT (21:06)
[2020-05-02] MEDS: Enoxaparin Sodium 40 MG/0.4 ML SYRINGE SUBCUT (21:06)
[2020-05-02 22:11] LABS: Glucose, Whole Blood 305 mg/dL (60-115)
[2020-05-03] MEDS: 0.9 % Sodium Chloride Flush 3 ML SYRINGE IVFLUSH ×3 (02:48→16:11)
[2020-05-03 05:00] VITALS: BP 117/68; PULSE 76; RESP 16; O2SAT 91
[2020-05-03 05:11] LABS: Basophils Percent Auto 0.2 % (0-2); Hematocrit 43.6 % (42-52); Hemoglobin 15.1 g/dl (14.0-18.0); Imm Gran Abs Auto 0.31 X10*3/uL (0.00-0.03); Imm Gran Pct Auto 1.8 % (0.0-0.4); Lymphocytes Absolute Auto 0.4 X10*3/uL (1.2-4.9); Lymphocytes Percent Auto 2.5 % (20-40); MANUAL DIFF FLAG NO; Mean Corpuscular HGB Conc 34.6 g/dl (31.0-36.0); Mean Corpuscular Hemoglobin 29.8 pg (27.0-33.0); Mean Platelet Volume 10.8 fL (9.4-12.4); Monocytes Absolute Auto 0.4 X10*3/uL (0.1-1.2); Monocytes Percent Auto 2.6 % (2-11); Neutrophils Absolute Auto 15.7 X10*3/uL (2.0-8.3); Neutrophils Percent Auto 92.9 % (45-73); Platelet Count 158 X10*3/uL (160-400); Red Blood Count 5.07 X10*6/uL (4.60-5.80); Red Cell Distribution Width 12.5 % (11.0-16.0); SCAN SMEAR FLAG 1
[2020-05-03 05:12] LABS: Glucose Urine UA >=1000 MG/DL (NEG); Leukocyte Esterase Urine NEG (NEG); Nitrite Urine NEG (NEG); Specific Gravity - Urine 1.025 (1.005-1.025); Urine Blood NEG (NEG); Urine Ketones 15 MG/DL (NEG); Urine Protein NEG (NEG-TRACE)
[2020-05-03 05:14] LABS: Appearance Urine CLOUDY; Color Urine YELLOW
--- NOTE | 2020-05-03 05:17 | PC.NURSE ---
INCONTINENT OF URINE. LINENS CHANGED. GIVEN WARM BLANKET.
[2020-05-03 05:22] LABS: Bacteria Urine 4+ /LPF; Mucus Urine 1+ /LPF; Squamous Epithelial Cell Urine 1+ /LPF; WBC Urine 50-75 /HPF (0-4)
--- NOTE | 2020-05-03 05:27 | PC.NURSE ---
PATIENT BECAME HYPOXIC TO MID 80S. REPOSITIONED TO LEFT SIDE. O2 SAT IMPROVED AND REMAINS ON 50% VENTI MASK.
[2020-05-03 05:42] LABS: Anion Gap 16 (12-20); Blood Urea Nitrogen 24 mg/dL (9-16); Calcium 8.1 mg/dL (8.4-10.2); Carbon Dioxide 23 mmol/L (22-29); Chloride 99 mmol/L (96-108); Estimated Glomerular Filt Rate > 60; Glucose Random 248 mg/dL (60-115); Potassium 4.4 mmol/l (3.3-5.1); Sodium 134 mmol/L (135-145)
[2020-05-03] MEDS: Omeprazole 20 MG CAPSULE.DR PO (06:10)
[2020-05-03 07:25] LABS: Glucose, Whole Blood 241 mg/dL (60-115)
[2020-05-03 08:21] VITALS: BP 124/73; PULSE 75
[2020-05-03] MEDS: amLODIPine Besylate 10 MG TABLET PO (08:21)
[2020-05-03] MEDS: Aspirin Enteric Coated 81 MG TABLET.DR PO (08:21)
[2020-05-03] MEDS: Gabapentin 100 MG CAPSULE PO (08:21)
[2020-05-03] MEDS: Sertraline HCL 50 MG TABLET PO (08:22)
[2020-05-03] MEDS: Memantine HCl 10 MG TABLET PO (08:22)
[2020-05-03] MEDS: Insulin Lispro 100 UNIT/ML 3 ML VIAL SUBCUT ×3 (08:28→16:11)
--- NOTE | 2020-05-03 08:49 | PC.NURSE ---
pt is caox4 with nonlabored resps and in no ditress. pt tolerated approx 20% meal tray, pt did tolerate extra orange juice. pt desats while eating to 79% with no symptoms, o2 sat rebounds quickly when venturi mask place back on pt awaiting bed assignment. pt remains in nsr on monitor..
[2020-05-03 10:37] LABS: Glucose, Whole Blood 265 mg/dL (60-115)
--- NOTE | 2020-05-03 11:09 | PC.NURSE ---
pt has required frequent instruction to put mask back on. pt will desat without mask to 79% with no apparent symptoms pt states mask is uncomfortable and he does not want to wear it. pt placed on humiudifed 02 @ 15lpm on high flow cannula.
--- NOTE | 2020-05-03 11:41 | PC.NURSE ---
pt sa02% remained in high 80'2 on high flow cannula. pt showed no symptomns but pt placed back on venti mask and sat improves to 92%.
--- NOTE | 2020-05-03 11:43 | HO.PM.IMPN ---
Subjective Subjective Date of Service: 05/03/20 Interval History: Breathing not feeling too bad Cardiovascular Cardiovascular: Reports no additional cardiovascular complaints Genitourinary Genitourinary: Reports no additional male genitourinary complaints Physical Exam Vital Signs: Vital Signs: Last Vital Signs Temp 98.1 F 05/02/20 19:48 Pulse 75 05/03/20 08:21 Resp 16 05/03/20 05:00 BP 124/73 05/03/20 08:21 Pulse Ox 91 L 05/03/20 05:00 Body Mass Index 28.8 General: AO X 3, no acute distress Resp: diminished CVS: S1,S2,RRR GI: soft, non tender, non distended Neuro: motor grossly intact Psych: appropriate affect Objective Data Current Medications Generic Name Dose Route Start Last Admin Trade Name Freq PRN Reason Stop Dose Admin Acetaminophen 650 mg 05/02/20 19:47 Acetaminophen 325 Mg Tablet PO Q6H PRN Pain, Mild (Pain Scale 1-3) Albuterol Sulfate 2 puff 05/02/20 19:47 Albuterol Sulfate 90 Mcg 8 Gm Inhaler INHALE RQ4H PRN Shortness of Breath Amlodipine Besylate 10 mg 05/03/20 09:00 05/03/20 08:21 Amlodipine Besylate 10 Mg Tablet PO 10 mg DAILY RANDI Administration Protocol Aspirin 81 mg 05/03/20 09:00 05/03/20 08:21 Aspirin Enteric Coated 81 Mg Tablet.Dr PO 81 mg DAILY RANDI Administration Dexamethasone Sodium Phosphate 6 mg 05/03/20 09:00 05/03/20 08:22 Dexamethasone Sod Phosphate/Pf 10 Mg/Ml Vial IVPUSH 6 mg DAILY RANDI Administration Docusate Sodium 100 mg 05/02/20 19:47 Docusate Sodium 100 Mg Capsule PO DAILY PRN Constipation Donepezil HCl 10 mg 05/03/20 09:00 Donepezil Hcl 10 Mg Tablet PO DAILY RANDI Enoxaparin Sodium 40 mg 05/02/20 20:00 05/02/20 21:06 Enoxaparin Sodium 40 Mg/0.4 Ml Syringe SUBCUT 40 mg Q24H RANDI Administration Finasteride 5 mg 05/03/20 09:00 Finasteride 5 Mg Tablet PO DAILY RANDI Gabapentin 100 mg 05/03/20 09:00 05/03/20 08:21 Gabapentin 100 Mg Capsule PO 100 mg DAILY RANDI Administration Insulin Human Lispro 0 unit 01/24/21 19:47 05/03/20 08:28 Insulin Lispro 100 Unit/Ml 3 Ml Vial SUBCUT 4 unit QIDACHS RANDI Administration Protocol Memantine 10 mg 05/02/20 21:00 05/03/20 08:22 Memantine Hcl 10 Mg Tablet PO 10 mg BID RANDI Administration Omeprazole 20 mg 05/03/20 06:30 05/03/20 06:10 Omeprazole 20 Mg Capsule. PO 20 mg DAILY@0630 RANDI Administration Ondansetron HCl 4 mg 05/02/20 19:47 Ondansetron Hcl 4 Mg/2 Ml Vial IVPUSH Q8H PRN Nausea and Vomiting Sertraline HCl 50 mg 05/03/20 09:00 05/03/20 08:22 Sertraline Hcl 50 Mg Tablet PO 50 mg DAILY RANDI Administration Sodium Chloride 3 ml 05/02/20 19:47 05/03/20 02:48 0.9 % Sodium Chloride Flush 3 Ml Syringe IVFLUSH 3 ml QSHIFT RANDI Administration Labs CBC & Chem 7: 05/03/20 05:05 05/03/20 05:05 Assessment and Plan (1) Acute respiratory failure with hypoxia: Status: Acute (2) COVID-19: Status: Acute Assessment and Plan: This is a 79-year-old male with history of diabetes, hypertension, GERD, dementia, recent admission for COVID-19 who returns with hypoxia Acute respiratory failure with hypoxia Pneumonia secondary to COVID-19 Relatively asymptomatic, but needing high level O2 through Ventimask. IV dexamethasone D2 Diabetes. Sliding scale, ADA diet hold glimepiride, metformin Hypertension. Amlodipine. Dementia. Aricept and namenda. GERD. PPI. BPH Finasteride mood Zoloft
[2020-05-03 13:05] VITALS: BP 124/69; PULSE 74; RESP 16; O2SAT 95
[2020-05-03] MEDS: Donepezil HCl 10 MG TABLET PO (14:28)
[2020-05-03] MEDS: Finasteride 5 MG TABLET PO (14:28)
[2020-05-03 15:16] VITALS: BP 125/72; PULSE 74; RESP 16; O2SAT 89
[2020-05-03 15:42] LABS: Glucose, Whole Blood 235 mg/dL (60-115)
[2020-05-03 16:09] VITALS: O2SAT 91
--- NOTE | 2020-05-03 16:09 | PC.NURSE ---
pt cleansed of incontinent urine then positioned left side lying. appears comfortable. ls dim. work of breathing is wnl. skin pwd. nsr on monitor. ate 50% of tray
[2020-05-03 20:12] VITALS: BP 124/69; PULSE 69; RESP 28; TEMP 36.5; O2SAT 87
[2020-05-03] MEDS: Enoxaparin Sodium 40 MG/0.4 ML SYRINGE SUBCUT (20:38)
[2020-05-03 21:37] LABS: Glucose, Whole Blood 243 mg/dL (60-115)
--- NOTE | 2020-05-03 22:02 | MHC.CM.PN ---
Pt in ED pending bed placement. CM met with pt via steam oven operator. Pt admitted with COVID , acute resp failure requiring HF O2. Pt with HX dementia. Orientated to person, place and situation. Lives with S.O. Christie Mckenzie and she is admitted to [facility] with COVID. Pt does not have HCP. Would like his sister, Ruthie Mckenzie to be HCP. Has no address or tepehone number for her. Will wait to complete pending further information about proxy. IMM completed and signed per protocol. D/C plan pending hospital course and recovery. Home vs STR. CM to follow for D/C needs
[2020-05-04] VITALS (12 sets, daily range): BP systolic 116–132; BP diastolic 63–80; PULSE 59–77; RESP 16–24; TEMP 35.9–37.1; O2SAT 88–95
[2020-05-04] MEDS: Memantine HCl 10 MG TABLET PO ×3 (00:03→20:47)
--- NOTE | 2020-05-04 00:15 | PC.NURSE ---
rn TO RN WITH ANGELES IN ICU.
[2020-05-04] MEDS: 0.9 % Sodium Chloride Flush 3 ML SYRINGE IVFLUSH ×4 (01:42→23:42)
[2020-05-04] MEDS: Omeprazole 20 MG CAPSULE.DR PO (05:19)
--- NOTE | 2020-05-04 05:33 | PC.NURSE ---
ADMIT TO 260-1 IMC OVERFLOW...AWAKE..ALERT..ORIENTED BUT VAGUE AT TIMES...VSS...RESPIRATIONS EASY..555 VENTI-MASK IN PLACE...SAO2 88-91%...OCCASSIONALLY TAKES MASK OFF AND SAO2 81% ALTHOUGH NO ACUTE DISTRESS...DOES NOT O2 CANNULA..WILLING TO WEAR VENTI-MASK...INCONTINANT URINE ON ARRIVAL TO ICU...LATER VOIDED INDEPENDENTLY IN URINAL...NSR..NO ECTOPY..RESTFUL OVERNIGHT
[2020-05-04 07:16] LABS: Glucose, Whole Blood 156 mg/dL (60-115)
[2020-05-04] MEDS: Aspirin Enteric Coated 81 MG TABLET.DR PO (08:24)
[2020-05-04] MEDS: Donepezil HCl 10 MG TABLET PO (08:24)
[2020-05-04] MEDS: Finasteride 5 MG TABLET PO (08:24)
[2020-05-04] MEDS: Sertraline HCL 50 MG TABLET PO (08:24)
[2020-05-04] MEDS: Insulin Lispro 100 UNIT/ML 3 ML VIAL SUBCUT ×4 (08:25→20:47)
[2020-05-04] MEDS: Gabapentin 100 MG CAPSULE PO (08:25)
[2020-05-04] MEDS: amLODIPine Besylate 10 MG TABLET PO (08:26)
[2020-05-04 11:52] LABS: Glucose, Whole Blood 184 mg/dL (60-115)
--- NOTE | 2020-05-04 13:00 | HO.PM.IMPN ---
Subjective Subjective Date of Service: 05/04/20 Interval History: Patient seen and examined at bedside Patient continues to require high-flow Constitutional Constitutional: Denies chills and Reports fever(s) Cardiovascular Cardiovascular: Reports no additional cardiovascular complaints, Denies chest pain and Denies dyspnea Respiratory Respiratory: Reports cough and Denies dyspnea Gastrointestinal Gastrointestinal: Denies abdominal pain Genitourinary Genitourinary: Reports no additional male genitourinary complaints Physical Exam Vital Signs: Vital Signs: Last Vital Signs Temp 97.6 F 05/04/20 12:00 Pulse 72 05/04/20 12:00 Resp 24 H 05/04/20 12:00 BP 116/63 05/04/20 12:00 Pulse Ox 92 05/04/20 12:26 Body Mass Index 28.8 Const: General: alert and awake Nutritional Appearance: well nourished HENMT: Head: Yes normocephalic and Yes atraumatic Face and sinus: Yes dry mucous membranes Eyes: Sclerae: sclerae normal Chest: Chest palpation & inspection: normal inspection of the chest Resp: Auscultation: rales and rhonchi Cardio: Rate: regular rate Rhythm: regular rhythm GI: Palpation (GI): Soft to palpation and nontender Skin: General skin exam: no rashes or lesions noted Neuro: Cranial nerves: Yes CN's II-XII intact bilaterally and Yes Bilaterally intact EOM present Extrem: General: Yes normal to inspection Objective Data Current Medications Generic Name Dose Route Start Last Admin Trade Name Freq PRN Reason Stop Dose Admin Acetaminophen 650 mg 05/02/20 19:47 Acetaminophen 325 Mg Tablet PO Q6H PRN Pain, Mild (Pain Scale 1-3) Albuterol Sulfate 2 puff 05/02/20 19:47 Albuterol Sulfate 90 Mcg 8 Gm Inhaler INHALE RQ4H PRN Shortness of Breath Amlodipine Besylate 10 mg 05/03/20 09:00 05/04/20 08:26 Amlodipine Besylate 10 Mg Tablet PO 10 mg DAILY RANDI Administration Protocol Aspirin 81 mg 05/03/20 09:00 05/04/20 08:24 Aspirin Enteric Coated 81 Mg Tablet. PO 81 mg DAILY RANDI Administration Dexamethasone Sodium Phosphate 6 mg 05/03/20 09:00 05/04/20 08:25 Dexamethasone Sod Phosphate/Pf 10 Mg/Ml Vial IVPUSH 6 mg DAILY RANDI Administration Docusate Sodium 100 mg 05/02/20 19:47 Docusate Sodium 100 Mg Capsule PO DAILY PRN Constipation Donepezil HCl 10 mg 05/03/20 09:00 05/04/20 08:24 Donepezil Hcl 10 Mg Tablet PO 10 mg DAILY RANDI Administration Enoxaparin Sodium 40 mg 05/02/20 20:00 05/03/20 20:38 Enoxaparin Sodium 40 Mg/0.4 Ml Syringe SUBCUT 40 mg Q24H RANDI Administration Finasteride 5 mg 05/03/20 09:00 05/04/20 08:24 Finasteride 5 Mg Tablet PO 5 mg DAILY [facility] Administration Gabapentin 100 mg 05/03/20 09:00 05/04/20 08:25 Gabapentin 100 Mg Capsule PO 100 mg DAILY [facility] Administration Insulin Human Lispro 0 unit 05/02/20 19:47 05/04/20 12:22 Insulin Lispro 100 Unit/Ml 3 Ml Vial SUBCUT 2 unit QIDACHS [facility] Administration Protocol Memantine 10 mg 05/02/20 21:00 05/04/20 08:24 Memantine Hcl 10 Mg Tablet PO 10 mg BID [facility] Administration Omeprazole 20 mg 05/03/20 06:30 05/04/20 05:19 Omeprazole 20 Mg Capsule.Dr PO 20 mg DAILY@0630 [facility] Administration Ondansetron HCl 4 mg 05/02/20 19:47 Ondansetron Hcl 4 Mg/2 Ml Vial IVPUSH Q8H PRN Nausea and Vomiting Sertraline HCl 50 mg 05/03/20 09:00 05/04/20 08:24 Sertraline Hcl 50 Mg Tablet PO 50 mg DAILY [facility] Administration Sodium Chloride 3 ml 05/02/20 19:47 05/04/20 08:25 0.9 % Sodium Chloride Flush 3 Ml Syringe IVFLUSH 3 ml QSHIFT [facility] Administration Labs CBC & Chem 7: 05/03/20 05:05 05/03/20 05:05 Microbiology Microbiology Results: Microbiology 05/02/20 13:58 Blood - Venous Blood Culture - Preliminary No growth after 24 hours. 05/02/20 13:56 Blood - Venous Blood Culture - Preliminary No growth after 24 hours. Assessment and Plan (1) Acute respiratory failure with hypoxia: Status: Acute (2) COVID-19: Status: Acute Assessment and Plan: This is a 79-year-old male with history of diabetes, hypertension, GERD, dementia, recent admission for COVID-19 who returns with hypoxia Acute respiratory failure with hypoxia secondary to Pneumonia secondary to COVID-19 Continues to require high-flow Continue IV dexamethasone D3 Continue supportive management Diabetes. Continue Sliding scale, ADA diet hold glimepiride, metformin Hypertension. Amlodipine. Dementia. Aricept and namenda. GERD. PPI. BPH Finasteride mood Zoloft DVT prophylaxis Lovenox
[2020-05-04 17:01] LABS: Glucose, Whole Blood 257 mg/dL (60-115)
--- NOTE | 2020-05-04 19:32 | P.EN_ITS ---
Event Note Date of Service: 05/04/20 Event Note: 1/2 gram positive cocci in covid pt with no fever--suspect contami nation with coag negative stap and hold given Abx for now.
--- NOTE | 2020-05-04 19:32 | PM.EVENT ---
Event Note Date of Service: 05/04/20 Event Note: 1/2 gram positive cocci in covid pt with no fever--suspect contamination with coag negative stap and hold given Abx for now.
[2020-05-04 20:46] LABS: Glucose, Whole Blood 262 mg/dL (60-115)
[2020-05-04] MEDS: Enoxaparin Sodium 40 MG/0.4 ML SYRINGE SUBCUT (20:47)
[2020-05-05] VITALS (8 sets, daily range): BP systolic 114–143; BP diastolic 66–82; PULSE 68–77; RESP 14–22; TEMP 36–37; O2SAT 90–95
[2020-05-05] MEDS: Omeprazole 20 MG CAPSULE.DR PO (05:42)
[2020-05-05 07:21] LABS: Glucose, Whole Blood 113 mg/dL (60-115)
[2020-05-05] MEDS: amLODIPine Besylate 10 MG TABLET PO (08:07)
[2020-05-05] MEDS: Sertraline HCL 50 MG TABLET PO (08:08)
[2020-05-05] MEDS: Gabapentin 100 MG CAPSULE PO (08:08)
[2020-05-05] MEDS: Aspirin Enteric Coated 81 MG TABLET.DR PO (08:08)
[2020-05-05] MEDS: 0.9 % Sodium Chloride Flush 3 ML SYRINGE IVFLUSH ×3 (08:08→22:31)
[2020-05-05] MEDS: Memantine HCl 10 MG TABLET PO ×2 (08:08→22:12)
[2020-05-05] MEDS: Donepezil HCl 10 MG TABLET PO (08:08)
[2020-05-05] MEDS: Finasteride 5 MG TABLET PO (08:08)
[2020-05-05 08:47] LABS: Hematocrit 43.3 % (42-52); Hemoglobin 14.8 g/dl (14.0-18.0); Mean Corpuscular HGB Conc 34.2 g/dl (31.0-36.0); Mean Corpuscular Hemoglobin 29.5 pg (27.0-33.0); Mean Corpuscular Volume 86.4 fL (80-98); Mean Platelet Volume 10.8 fL (9.4-12.4); Platelet Count 214 X10*3/uL (160-400); Red Blood Count 5.01 X10*6/uL (4.60-5.80); Red Cell Distribution Width 12.3 % (11.0-16.0); White Blood Count 13.6 X10*3/uL (4.8-10.8)
[2020-05-05 08:58] LABS: D Dimer 487 NG/ML
[2020-05-05 09:23] LABS: Anion Gap 13 (12-20); Blood Urea Nitrogen 25 mg/dL (9-16); C Reactive Protein 4.52 mg/dL (< or = 0.50); Calcium 8.1 mg/dL (8.4-10.2); Carbon Dioxide 26 mmol/L (22-29); Chloride 97 mmol/L (96-108); Creatinine Clr Calc Pharmacy 58.8; Estimated Glomerular Filt Rate > 60; Glucose Random 118 mg/dL (60-115); Potassium 4.3 mmol/l (3.3-5.1); Sodium 132 mmol/L (135-145)
[2020-05-05 09:45] LABS: Procalcitonin 0.23 ng/mL
--- NOTE | 2020-05-05 10:56 | HO.PM.IMPN ---
Subjective Subjective Date of Service: 05/05/20 Interval History: seen and examined no new issues reported feels the same ROS General - no fevers or chills, +fatigue Cardiovascular - no chest pain Respiratory - no shortness of breath or cough Abdominal- no abdominal pain, nausea, vomiting, diarrhea Physical Exam Vital Signs: Vital Signs: Last Vital Signs Temp 98.6 F 05/05/20 07:54 Pulse 76 05/05/20 08:07 Resp 20 05/05/20 07:54 BP 123/66 05/05/20 08:07 Pulse Ox 90 L 05/05/20 07:54 Body Mass Index 28.8 Const: General: cooperative, healthy appearing and no acute distress Eyes: Pupils: Equal, round and reactive pupils present Resp: Auscultation: diminished lung sounds Cardio: Heart sounds: S1 normal heart sound present and S2 normal heart sound present GI: Inspection: Yes normal to inspection Palpation (GI): Soft to palpation Auscultation: normal bowel sounds Skin: General skin exam: no rashes or lesions noted Neuro: Cranial nerves: Yes Equal, round and reactive pupils present Motor exam (neuro): Other motor observations present ( no motor deficit) Objective Data Current Medications Generic Name Dose Route Start Last Admin Trade Name Freq PRN Reason Stop Dose Admin Acetaminophen 650 mg 05/02/20 19:47 Acetaminophen 325 Mg Tablet PO Q6H PRN Pain, Mild (Pain Scale 1-3) Albuterol Sulfate 2 puff 05/02/20 19:47 Albuterol Sulfate 90 Mcg 8 Gm Inhaler INHALE RQ4H PRN Shortness of Breath Amlodipine Besylate 10 mg 05/03/20 09:00 05/05/20 08:07 Amlodipine Besylate 10 Mg Tablet PO 10 mg DAILY RANDI Administration Protocol Aspirin 81 mg 05/03/20 09:00 05/05/20 08:08 Aspirin Enteric Coated 81 Mg Tablet. PO 81 mg DAILY RANDI Administration Dexamethasone Sodium Phosphate 6 mg 05/03/20 09:00 05/05/20 08:08 Dexamethasone Sod Phosphate/Pf 10 Mg/Ml Vial IVPUSH 6 mg DAILY RANDI Administration Docusate Sodium 100 mg 05/02/20 19:47 Docusate Sodium 100 Mg Capsule PO DAILY PRN Constipation Donepezil HCl 10 mg 05/03/20 09:00 05/05/20 08:08 Donepezil Hcl 10 Mg Tablet PO 10 mg DAILY RANDI Administration Enoxaparin Sodium 40 mg 05/02/20 20:00 05/04/20 20:47 Enoxaparin Sodium 40 Mg/0.4 Ml Syringe SUBCUT 40 mg Q24H RANDI Administration Finasteride 5 mg 05/03/20 09:00 05/05/20 08:08 Finasteride 5 Mg Tablet PO 5 mg DAILY RANDI Administration Gabapentin 100 mg 05/03/20 09:00 05/05/20 08:08 Gabapentin 100 Mg Capsule PO 100 mg DAILY RANDI Administration Insulin Human Lispro 0 unit 05/02/20 19:47 05/05/20 08:09 Insulin Lispro 100 Unit/Ml 3 Ml Vial SUBCUT Not Given QIDAS [facility] Protocol Memantine 10 mg 05/02/20 21:00 05/05/20 08:08 Memantine Hcl 10 Mg Tablet PO 10 mg BID RANDI Administration Omeprazole 20 mg 05/03/20 06:30 05/05/20 05:42 Omeprazole 20 Mg Capsule.Dr PO 20 mg DAILY@0630 [facility] Administration Ondansetron HCl 4 mg 05/02/20 19:47 Ondansetron Hcl 4 Mg/2 Ml Vial IVPUSH Q8H PRN Nausea and Vomiting Sertraline HCl 50 mg 05/03/20 09:00 05/05/20 08:08 Sertraline Hcl 50 Mg Tablet PO 50 mg DAILY [facility] Administration Sodium Chloride 3 ml 05/02/20 19:47 05/05/20 08:08 0.9 % Sodium Chloride Flush 3 Ml Syringe IVFLUSH 3 ml QSHIFT RANDI Administration Labs CBC & Chem 7: 05/05/20 08:35 05/05/20 08:34 Microbiology Microbiology Results: Microbiology 05/02/20 13:58 Blood - Venous Blood Culture - Preliminary 05/02/20 13:56 Blood - Venous Blood Culture - Preliminary No growth after 48 hours. Assessment and Plan (1) Acute respiratory failure with hypoxia: Status: Acute (2) COVID-19: Status: Acute Assessment and Plan: This is a 79-year-old male with history of diabetes, hypertension, GERD, dementia, recent admission for COVID-19 who returns with hypoxia 1. Acute respiratory failure with hypoxia secondary to Pneumonia secondary to COVID-19 diagnosed 04/23/2019 on [place] - 6-8L, improved Continue IV dexamethasone day 07/17 Continue supportive management 2. Diabetes. Continue Sliding scale, ADA diet hold glimepiride, metformin 3. Hypertension. Amlodipine. 4. Dementia. Aricept and namenda. 5. GERD. PPI. 6. BPH Finasteride 7. mood Zoloft DVT prophylaxis Lovenox
[2020-05-05 11:02] LABS: Glucose, Whole Blood 231 mg/dL (60-115)
[2020-05-05] MEDS: Insulin Lispro 100 UNIT/ML 3 ML VIAL SUBCUT ×4 (12:01→22:13)
--- NOTE | 2020-05-05 14:01 | MHC.CM.PN ---
i spoke c aliyah sanon who is the nephew /HCP for patient. aliyah ph: [phone] or aliyah's jeet's ph: [phone]. dc plan is for patient to go to aliyah's home at [address] [place] [address]. there he has a room set up for him , walker and are willing to vna if pt needs it. aliyah, jeet and other family will be caring for patient. they are also trying to get pocket machine operator hrs through [facility] which is in the process. aliyah will be providing transportation for patient at [place]. aliyah told me that he heard that lisa' s.o. [place] [facility] [place] [employer], he could not confirm this , as he heard it second hand from his brother. lisa' s.o. has or had 3 daughters - kourtney, conner and milagro; aliyah wishes them not to have contact c patient as they are not family and he does not want them upsetting patient in his fragile state. lastly, aliyah requested if possible, to have a day notice of patient's dc for last minute preparation and transportation. cm to cont. to follow.
[2020-05-05 16:40] LABS: Glucose, Whole Blood 397 mg/dL (60-115)
[2020-05-05 20:39] LABS: Glucose, Whole Blood 299 mg/dL (60-115)
[2020-05-05] MEDS: Enoxaparin Sodium 40 MG/0.4 ML SYRINGE SUBCUT (22:12)
[2020-05-06] VITALS (9 sets, daily range): BP systolic 130–149; BP diastolic 72–82; PULSE 63–76; RESP 16–22; TEMP 36.4–36.7; O2SAT 93–96
[2020-05-06] MEDS: Omeprazole 20 MG CAPSULE.DR PO (06:26)
[2020-05-06 07:14] LABS: Glucose, Whole Blood 86 mg/dL (60-115)
[2020-05-06] MEDS: 0.9 % Sodium Chloride Flush 3 ML SYRINGE IVFLUSH ×3 (08:30→23:13)
[2020-05-06] MEDS: Finasteride 5 MG TABLET PO (08:31)
[2020-05-06] MEDS: Sertraline HCL 50 MG TABLET PO (08:31)
[2020-05-06] MEDS: Aspirin Enteric Coated 81 MG TABLET.DR PO (08:31)
[2020-05-06] MEDS: Memantine HCl 10 MG TABLET PO ×2 (08:31→20:22)
[2020-05-06] MEDS: Donepezil HCl 10 MG TABLET PO (08:31)
[2020-05-06] MEDS: Gabapentin 100 MG CAPSULE PO (08:31)
[2020-05-06] MEDS: amLODIPine Besylate 10 MG TABLET PO (08:31)
--- NOTE | 2020-05-06 11:20 | P.PNIM_ITS ---
Subjective Subjective Date of Service: 05/06/20 Interval History: seen and examined denies sob, +cough feels tired ROS General - no fevers or chills, +fatigue Cardiovascular - no chest pain Respiratory - no shortness of breath or cough Abdominal- no abdominal pain, nausea, vomiting, diarrhea Physical Exam Vital Signs: Vital Signs: Last Vital Signs Temp 97.6 F 05/06/20 07:07 Pulse 76 05/06/20 08:31 Resp 19 05/06/20 07:07 BP 135/72 05/06/20 08:31 Pulse Ox 96 05/06/20 07:07 Body Mass Index 28.8 Const: General: cooperative, healthy appearing and no acute distress Eyes: Pupils: Equal, round and reactive pupils present Resp: Auscultation: diminished lung sounds Cardio: Heart sounds: S1 normal heart sound present and S2 normal heart sound present GI: Inspection: Yes normal to inspection Palpation (GI): Soft to palpation Auscultation: normal bowel sounds Skin: General skin exam: no rashes or lesions noted Neuro: Cranial nerves: Yes Equal, round and reactive pupils present Motor exam (neuro): Other motor observations present ( no motor deficit) Objective Data Current Medications Generic Name Dose Route Start Last Admin Trade Name Freq PRN Reason Stop Dose Admin Acetaminophen 650 mg 05/02/20 19:47 Acetaminophen 325 Mg Tablet PO Q6H PRN Pain, Mild (Pain Scale 1-3) Albuterol Sulfate 2 puff 05/02/20 19:47 Albuterol Sulfate 90 Mcg 8 Gm Inhaler INHALE RQ4H PRN Shortness of Breath Amlodipine Besylate 10 mg 05/03/20 09:00 05/06/20 08:31 Amlodipine Besylate 10 Mg Tablet PO 10 mg DAILY RANDI Administration Protocol Aspirin 81 mg 05/03/20 09:00 05/06/20 08:31 Aspirin Enteric Coated 81 Mg Tablet.Dr PO 81 mg DAILY RANDI Administration Dexamethasone Sodium Phosphate 6 mg 05/03/20 09:00 05/06/20 08:30 Dexamethasone Sod Phosphate/Pf 10 Mg/Ml Vial IVPUSH 6 mg DAILY RANDI Administration Docusate Sodium 100 mg 05/02/20 19:47 Docusate Sodium 100 Mg Capsule PO DAILY PRN Constipation Donepezil HCl 10 mg 05/03/20 09:00 05/06/20 08:31 Donepezil Hcl 10 Mg Tablet PO 10 mg DAILY RANDI Administration Enoxaparin Sodium 40 mg 05/02/20 20:00 05/05/20 22:12 Enoxaparin Sodium 40 Mg/0.4 Ml Syringe SUBCUT 40 mg Q24H RANDI Administration Finasteride 5 mg 05/03/20 09:00 05/06/20 08:31 Finasteride 5 Mg Tablet PO 5 mg DAILY RANDI Administration Gabapentin 100 mg 05/03/20 09:00 05/06/20 08:31 Gabapentin 100 Mg Capsule PO 100 mg DAILY RANDI Administration Insulin Human Lispro 0 unit 05/02/20 19:47 05/06/20 07:31 Insulin Lispro 100 Unit/Ml 3 Ml Vial SUBCUT Not Given QIDACHS [facility] Protocol Memantine 10 mg 05/02/20 21:00 05/06/20 08:31 Memantine Hcl 10 Mg Tablet PO 10 mg BID RANDI Administration Omeprazole 20 mg 05/03/20 06:30 05/06/20 06:26 Omeprazole 20 Mg Capsule. PO 20 mg DAILY@0630 [facility] Administration Ondansetron HCl 4 mg 05/02/20 19:47 Ondansetron Hcl 4 Mg/2 Ml Vial IVPUSH Q8H PRN Nausea and Vomiting Sertraline HCl 50 mg 05/03/20 09:00 05/06/20 08:31 Sertraline Hcl 50 Mg Tablet PO [address] [facility] Administration Sodium Chloride 3 ml 05/02/20 19:47 05/06/20 08:30 0.9 % Sodium Chloride Flush 3 Ml Syringe IVFLUSH [address] [facility] Administration Labs CBC & Chem 7: 05/05/20 08:35 05/05/20 08:34 Microbiology Microbiology Results: Microbiology 05/02/20 13:58 Blood - Venous Blood Culture - Preliminary 05/02/20 13:56 Blood - Venous Blood Culture - Preliminary No growth after 48 hours. Assessment and Plan (1) Acute respiratory failure with hypoxia: Status: Acute (2) COVID-19: Status: Acute Assessment and Plan: This is a 79-year-old male with history of diabetes, hypertension, GERD, dementia, recent admission for COVID-19 who returns with hypoxia 1. Acute respiratory failure with hypoxia secondary to Pneumonia secondary to COVID-19 diagnosed 04/23/2019 on [place], stable at 8L Continue IV dexamethasone day 5/10 Continue supportive management 2. Diabetes. Continue Sliding scale, ADA diet hold glimepiride, metformin 3. Hypertension. Amlodipine. 4. Dementia. Aricept and namenda. 5. GERD. PPI. 6. BPH Finasteride 7. mood Zoloft DVT prophylaxis Lovenox dispo: home with services, once hypoxia resolves
[2020-05-06 11:34] LABS: Glucose, Whole Blood 324 mg/dL (60-115)
[2020-05-06] MEDS: Insulin Lispro 100 UNIT/ML 3 ML VIAL SUBCUT ×3 (11:42→21:41)
--- NOTE | 2020-05-06 13:56 | MHC.CM.PN ---
Spoke with pt's nephew, Bennie: gave updates on d/c status: pt continues on 8 liters of O2 and not ready for home d/c. Discussed possible home O2 once requirements are less. Bennie receptive to VNA should pt need home O2. Bennie will provide transportation when pt is ready to dc.
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
[2020-05-06 16:39] LABS: Glucose, Whole Blood 445 mg/dL (60-115)
--- NOTE | 2020-05-06 17:47 | PC.NURSE ---
blood sugar before supper 445, Dr Solis was notified, no new order at this time. pt medicated with Humolog 10 units SQ as per Insulin sliding scale.
[2020-05-06] MEDS: Enoxaparin Sodium 40 MG/0.4 ML SYRINGE SUBCUT (20:22)
[2020-05-06 20:54] LABS: Glucose, Whole Blood 366 mg/dL (60-115)
[2020-05-07] VITALS (7 sets, daily range): BP systolic 132–171; BP diastolic 67–89; PULSE 67–87; RESP 11–19; TEMP 36.3–36.7; O2SAT 90–96
[2020-05-07] MEDS: Omeprazole 20 MG CAPSULE.DR PO (06:48)
[2020-05-07 07:31] LABS: Glucose, Whole Blood 253 mg/dL (60-115)
[2020-05-07] MEDS: amLODIPine Besylate 10 MG TABLET PO (08:56)
[2020-05-07] MEDS: Insulin Lispro 100 UNIT/ML 3 ML VIAL SUBCUT ×5 (09:14→21:47)
[2020-05-07] MEDS: Gabapentin 100 MG CAPSULE PO (09:15)
[2020-05-07] MEDS: Donepezil HCl 10 MG TABLET PO (09:15)
[2020-05-07] MEDS: Aspirin Enteric Coated 81 MG TABLET.DR PO (09:15)
[2020-05-07] MEDS: 0.9 % Sodium Chloride Flush 3 ML SYRINGE IVFLUSH ×3 (09:15→21:47)
[2020-05-07] MEDS: Finasteride 5 MG TABLET PO (09:15)
[2020-05-07] MEDS: Memantine HCl 10 MG TABLET PO ×2 (09:15→21:48)
[2020-05-07] MEDS: Sertraline HCL 50 MG TABLET PO (09:16)
[2020-05-07 11:10] LABS: Glucose, Whole Blood 266 mg/dL (60-115)
--- NOTE | 2020-05-07 11:18 | P.PNIM_ITS ---
Subjective Subjective Date of Service: 05/07/20 Interval History: seen and examined no new complaints knows hes in the hospital for covid. ROS General - no fevers or chills, +fatigue Cardiovascular - no chest pain Respiratory - no shortness of breath or cough Abdominal- no abdominal pain, nausea, vomiting, diarrhea Physical Exam Vital Signs: Vital Signs: Last Vital Signs Temp 98 F 05/07/20 10:49 Pulse 76 05/07/20 10:49 Resp 18 05/07/20 10:49 BP 142/74 H 05/07/20 10:49 Pulse Ox 90 L 05/07/20 10:49 Body Mass Index 28.8 Const: General: cooperative, healthy appearing and no acute distress Eyes: Pupils: Equal, round and reactive pupils present Resp: Auscultation: diminished lung sounds Cardio: Heart sounds: S1 normal heart sound present and S2 normal heart sound present GI: Inspection: Yes normal to inspection Palpation (GI): Soft to palpation Auscultation: normal bowel sounds Skin: General skin exam: no rashes or lesions noted Neuro: Cranial nerves: Yes Equal, round and reactive pupils present Motor exam (neuro): Other motor observations present ( no motor deficit) Objective Data Current Medications Generic Name Dose Route Start Last Admin Trade Name Freq PRN Reason Stop Dose Admin Acetaminophen 650 mg 05/02/20 19:47 Acetaminophen 325 Mg Tablet PO Q6H PRN Pain, Mild (Pain Scale 1-3) Albuterol Sulfate 2 puff 05/02/20 19:47 Albuterol Sulfate 90 Mcg 8 Gm Inhaler INHALE RQ4H PRN Shortness of Breath Amlodipine Besylate 10 mg 05/03/20 09:00 05/07/20 08:56 Amlodipine Besylate 10 Mg Tablet PO 10 mg DAILY RANDI Administration Protocol Aspirin 81 mg 05/03/20 09:00 05/07/20 09:15 Aspirin Enteric Coated 81 Mg Tablet. PO 81 mg DAILY RANDI Administration Dexamethasone Sodium Phosphate 6 mg 05/03/20 09:00 05/07/20 08:53 Dexamethasone Sod Phosphate/Pf 10 Mg/Ml Vial IVPUSH 6 mg DAILY RANDI Administration Docusate Sodium 100 mg 05/02/20 19:47 Docusate Sodium 100 Mg Capsule PO DAILY PRN Constipation Donepezil HCl 10 mg 05/03/20 09:00 05/07/20 09:15 Donepezil Hcl 10 Mg Tablet PO 10 mg DAILY RANDI Administration Enoxaparin Sodium 40 mg 05/02/20 20:00 05/06/20 20:22 Enoxaparin Sodium 40 Mg/0.4 Ml Syringe SUBCUT 40 mg Q24H RANDI Administration Finasteride 5 mg 05/03/20 09:00 05/07/20 09:15 Finasteride 5 Mg Tablet PO 5 mg DAILY RANDI Administration Gabapentin 100 mg 05/03/20 09:00 05/07/20 09:15 Gabapentin 100 Mg Capsule PO 100 mg DAILY RANDI Administration Insulin Human Lispro 0 unit 05/02/20 19:47 05/07/20 09:14 Insulin Lispro 100 Unit/Ml 3 Ml Vial SUBCUT 6 unit QIDACHS [facility] Administration Protocol Memantine 10 mg 05/02/20 21:00 05/07/20 09:15 Memantine Hcl 10 Mg Tablet PO 10 mg BID RANDI Administration Omeprazole 20 mg 05/03/20 06:30 05/07/20 06:48 Omeprazole 20 Mg Capsule. PO 20 mg DAILY@0630 [facility] Administration Ondansetron HCl 4 mg 05/02/20 19:47 Ondansetron Hcl 4 Mg/2 Ml Vial IVPUSH Q8H PRN Nausea and Vomiting Sertraline HCl 50 mg 05/03/20 09:00 05/07/20 09:16 Sertraline Hcl 50 Mg Tablet PO 50 mg DAILY RANDI Administration Sodium Chloride 3 ml 05/02/20 19:47 05/07/20 09:15 0.9 % Sodium Chloride Flush 3 Ml Syringe IVFLUSH 3 ml QSHIFT [facility] Administration Labs CBC & Chem 7: 05/05/20 08:35 05/05/20 08:34 Microbiology Microbiology Results: Microbiology 05/02/20 13:58 Blood - Venous Blood Culture - Preliminary 05/02/20 13:56 Blood - Venous Blood Culture - Preliminary No growth after 48 hours. Assessment and Plan (1) Acute respiratory failure with hypoxia: Status: Acute (2) COVID-19: Status: Acute Assessment and Plan: This is a 79-year-old male with history of diabetes, hypertension, GERD, dementia, recent admission for COVID-19 who returns with hypoxia 1. Acute respiratory failure with hypoxia secondary to Pneumonia secondary to COVID-19 diagnosed 04/23/2019 on [place], down to 5-6L [place] Continue IV dexamethasone day 09/16 Continue supportive management 2. Diabetes. Continue Sliding scale, ADA diet hold glimepiride, metformin 3. Hypertension. Amlodipine. 4. Dementia. Aricept and namenda. 5. GERD. PPI. 6. BPH Finasteride 7. mood Zoloft DVT prophylaxis Lovenox dispo: home with services, once hypoxia resolves. may need longterm o2 d epending on how his course goes.
[2020-05-07 17:22] LABS: Glucose, Whole Blood 487 mg/dL (60-115)
[2020-05-07 17:22] LABS: Glucose, Whole Blood 526 mg/dL (60-115)
[2020-05-07 20:35] LABS: Glucose, Whole Blood 434 mg/dL (60-115)
[2020-05-07] MEDS: Enoxaparin Sodium 40 MG/0.4 ML SYRINGE SUBCUT (21:47)
[2020-05-08] VITALS (9 sets, daily range): BP systolic 111–154; BP diastolic 63–96; PULSE 70–84; RESP 15–19; TEMP 36.2–36.7; O2SAT 91–96
[2020-05-08] MEDS: Omeprazole 20 MG CAPSULE.DR PO (07:30)
[2020-05-08] MEDS: 0.9 % Sodium Chloride Flush 3 ML SYRINGE IVFLUSH ×2 (07:30→15:07)
[2020-05-08 07:39] LABS: Glucose, Whole Blood 119 mg/dL (60-115)
[2020-05-08] MEDS: amLODIPine Besylate 10 MG TABLET PO (09:18)
[2020-05-08] MEDS: Gabapentin 100 MG CAPSULE PO (09:18)
[2020-05-08] MEDS: Finasteride 5 MG TABLET PO (09:18)
[2020-05-08] MEDS: Aspirin Enteric Coated 81 MG TABLET.DR PO (09:18)
[2020-05-08] MEDS: Sertraline HCL 50 MG TABLET PO (09:18)
[2020-05-08] MEDS: Donepezil HCl 10 MG TABLET PO (09:23)
[2020-05-08] MEDS: Memantine HCl 10 MG TABLET PO ×2 (09:23→21:07)
--- NOTE | 2020-05-08 10:40 | HO.PM.IMPN ---
Subjective Subjective Date of Service: 05/08/20 Interval History: seen and examined no comlaints, feels fine but tired ROS General - no fevers or chills, +fatigue Cardiovascular - no chest pain Respiratory - no shortness of breath or cough Abdominal- no abdominal pain, nausea, vomiting, diarrhea Physical Exam Vital Signs: Vital Signs: Last Vital Signs Temp 97.6 F 05/08/20 08:00 Pulse 72 05/08/20 09:18 Resp 18 05/08/20 08:00 BP 144/76 H 05/08/20 09:18 Pulse Ox 96 05/08/20 08:00 Body Mass Index 28.8 Const: General: cooperative, healthy appearing and no acute distress Eyes: Pupils: Equal, round and reactive pupils present Resp: Auscultation: diminished lung sounds Cardio: Heart sounds: S1 normal heart sound present and S2 normal heart sound present GI: Inspection: Yes normal to inspection Palpation (GI): Soft to palpation Auscultation: normal bowel sounds Skin: General skin exam: no rashes or lesions noted Neuro: Cranial nerves: Yes Equal, round and reactive pupils present Motor exam (neuro): Other motor observations present ( no motor deficit) Objective Data Current Medications Generic Name Dose Route Start Last Admin Trade Name Freq PRN Reason Stop Dose Admin Acetaminophen 650 mg 05/02/20 19:47 Acetaminophen 325 Mg Tablet PO Q6H PRN Pain, Mild (Pain Scale 1-3) Albuterol Sulfate 2 puff 05/02/20 19:47 Albuterol Sulfate 90 Mcg 8 Gm Inhaler INHALE RQ4H PRN Shortness of Breath Amlodipine Besylate 10 mg 05/03/20 09:00 05/08/20 09:18 Amlodipine Besylate 10 Mg Tablet PO 10 mg DAILY RANDI Administration Protocol Aspirin 81 mg 05/03/20 09:00 05/08/20 09:18 Aspirin Enteric Coated 81 Mg Tablet.Dr PO 81 mg DAILY RANDI Administration Dexamethasone Sodium Phosphate 6 mg 05/03/20 09:00 05/08/20 09:23 Dexamethasone Sod Phosphate/Pf 10 Mg/Ml Vial IVPUSH 6 mg DAILY RANDI Administration Docusate Sodium 100 mg 05/02/20 19:47 Docusate Sodium 100 Mg Capsule PO DAILY PRN Constipation Donepezil HCl 10 mg 05/03/20 09:00 05/08/20 09:23 Donepezil Hcl 10 Mg Tablet PO 10 mg DAILY RANDI Administration Enoxaparin Sodium 40 mg 05/02/20 20:00 05/07/20 21:47 Enoxaparin Sodium 40 Mg/0.4 Ml Syringe SUBCUT 40 mg Q24H RANDI Administration Finasteride 5 mg 05/03/20 09:00 05/08/20 09:18 Finasteride 5 Mg Tablet PO 5 mg DAILY RANDI Administration Gabapentin 100 mg 05/03/20 09:00 05/08/20 09:18 Gabapentin 100 Mg Capsule PO 100 mg DAILY RANDI Administration Insulin Human Lispro 0 unit 05/02/20 19:47 05/08/20 09:22 Insulin Lispro 100 Unit/Ml 3 Ml Vial SUBCUT Not Given QIDACHS [facility] Protocol Memantine 10 mg 05/02/20 21:00 05/08/20 09:23 Memantine Hcl 10 Mg Tablet PO 10 mg BID RANDI Administration Omeprazole 20 mg 05/03/20 06:30 05/08/20 07:30 Omeprazole 20 Mg Capsule. PO 20 mg DAILY@0630 [facility] Administration Ondansetron HCl 4 mg 05/02/20 19:47 Ondansetron Hcl 4 Mg/2 Ml Vial IVPUSH Q8H PRN Nausea and Vomiting Sertraline HCl 50 mg 05/03/20 09:00 05/08/20 09:18 Sertraline Hcl 50 Mg Tablet PO 50 mg DAILY [facility] Administration Sodium Chloride 3 ml 05/02/20 19:47 05/08/20 07:30 0.9 % Sodium Chloride Flush 3 Ml Syringe IVFLUSH 3 ml QSHIFT [facility] Administration Labs CBC & Chem 7: 05/05/20 08:35 05/05/20 08:34 Microbiology Microbiology Results: Microbiology 05/02/20 13:58 Blood - Venous Blood Culture - Final Micrococcus luteus 05/02/20 13:56 Blood - Venous Blood Culture - Final No growth after 5 days. Assessment and Plan (1) Acute respiratory failure with hypoxia: Status: Acute (2) COVID-19: Status: Acute Assessment and Plan: This is a 79-year-old male with history of diabetes, hypertension, GERD, dementia, recent admission for COVID-19 who returns with hypoxia 1. Acute respiratory failure with hypoxia secondary to Pneumonia secondary to COVID-19 diagnosed 04/23/2019 on [place], down to 3L [place] Continue IV dexamethasone day 10/16 Continue supportive management 2. Diabetes uncontrolled Continue Sliding scale, ADA diet; add lantus 10 units hold glimepiride, metformin 3. Hypertension. Amlodipine. 4. Dementia. Aricept and namenda. 5. GERD. PPI. 6. BPH Finasteride 7. mood Zoloft DVT prophylaxis Lovenox dispo: home with services, once hypoxia resolves. may need [facility] o2 depending on how his course goes.
[2020-05-08 11:42] LABS: Glucose, Whole Blood 196 mg/dL (60-115)
[2020-05-08] MEDS: Insulin Lispro 100 UNIT/ML 3 ML VIAL SUBCUT ×5 (11:54→21:08)
[2020-05-08 16:54] LABS: Glucose, Whole Blood 413 mg/dL (60-115)
[2020-05-08 18:26] LABS: Glucose, Whole Blood 360 mg/dL (60-115)
[2020-05-08 20:39] LABS: Glucose, Whole Blood 380 mg/dL (60-115)
[2020-05-08] MEDS: Enoxaparin Sodium 40 MG/0.4 ML SYRINGE SUBCUT (21:07)
[2020-05-08] MEDS: Insulin Glargine,Hum.rec.anlog 100 UNIT/ML 10 ML VIAL 10 UNIT SUBCUT (21:08)
[2020-05-08 22:53] LABS: Glucose, Whole Blood 261 mg/dL (60-115)
[2020-05-09] VITALS (7 sets, daily range): BP systolic 118–167; BP diastolic 76–101; PULSE 61–90; RESP 13–20; TEMP 36.3–36.7; O2SAT 93–94
[2020-05-09] MEDS: 0.9 % Sodium Chloride Flush 3 ML SYRINGE IVFLUSH ×4 (00:05→20:28)
[2020-05-09] MEDS: Omeprazole 20 MG CAPSULE.DR PO (05:57)
[2020-05-09 07:43] LABS: Glucose, Whole Blood 109 mg/dL (60-115)
[2020-05-09] MEDS: Donepezil HCl 10 MG TABLET PO (07:54)
[2020-05-09] MEDS: Sertraline HCL 50 MG TABLET PO (07:54)
[2020-05-09] MEDS: Aspirin Enteric Coated 81 MG TABLET.DR PO (07:54)
[2020-05-09] MEDS: Memantine HCl 10 MG TABLET PO ×2 (07:54→20:27)
[2020-05-09] MEDS: Gabapentin 100 MG CAPSULE PO (07:54)
[2020-05-09] MEDS: amLODIPine Besylate 10 MG TABLET PO (07:54)
[2020-05-09] MEDS: Finasteride 5 MG TABLET PO (07:54)
--- NOTE | 2020-05-09 10:38 | HO.PM.IMPN ---
Subjective Subjective Date of Service: 05/09/20 Interval History: seen and examined tired but other no new complaints ROS General - no fevers or chills, +fatigue Cardiovascular - no chest pain Respiratory - no shortness of breath or cough Abdominal- no abdominal pain, nausea, vomiting, diarrhea Physical Exam Vital Signs: Vital Signs: Last Vital Signs Temp 97.7 F 05/09/20 07:44 Pulse 62 05/09/20 07:54 Resp 13 05/09/20 07:44 BP 118/95 H 05/09/20 07:54 Pulse Ox 93 05/09/20 07:44 Body Mass Index 28.8 Const: General: cooperative, healthy appearing and no acute distress Eyes: Pupils: Equal, round and reactive pupils present Resp: Auscultation: diminished lung sounds Cardio: Heart sounds: S1 normal heart sound present and S2 normal heart sound present GI: Inspection: Yes normal to inspection Palpation (GI): Soft to palpation Auscultation: normal bowel sounds Skin: General skin exam: no rashes or lesions noted Neuro: Cranial nerves: Yes Equal, round and reactive pupils present Motor exam (neuro): Other motor observations present ( no motor deficit) Objective Data Current Medications Generic Name Dose Route Start Last Admin Trade Name Freq PRN Reason Stop Dose Admin Acetaminophen 650 mg 05/02/20 19:47 Acetaminophen 325 Mg Tablet PO Q6H PRN Pain, Mild (Pain Scale 1-3) Albuterol Sulfate 2 puff 05/02/20 19:47 Albuterol Sulfate 90 Mcg 8 Gm Inhaler INHALE RQ4H PRN Shortness of Breath Amlodipine Besylate 10 mg 05/03/20 09:00 05/09/20 07:54 Amlodipine Besylate 10 Mg Tablet PO 10 mg DAILY RANDI Administration Protocol Aspirin 81 mg 05/03/20 09:00 05/09/20 07:54 Aspirin Enteric Coated 81 Mg Tablet. PO 81 mg DAILY RANDI Administration Dexamethasone Sodium Phosphate 6 mg 05/03/20 09:00 05/09/20 07:53 Dexamethasone Sod Phosphate/Pf 10 Mg/Ml Vial IVPUSH 6 mg DAILY RANDI Administration Docusate Sodium 100 mg 05/02/20 19:47 Docusate Sodium 100 Mg Capsule PO DAILY PRN Constipation Donepezil HCl 10 mg 05/03/20 09:00 05/09/20 07:54 Donepezil Hcl 10 Mg Tablet PO 10 mg DAILY RANDI Administration Enoxaparin Sodium 40 mg 05/02/20 20:00 05/08/20 21:07 Enoxaparin Sodium 40 Mg/0.4 Ml Syringe SUBCUT 40 mg Q24H [facility] Administration Finasteride 5 mg 05/03/20 09:00 05/09/20 07:54 Finasteride 5 Mg Tablet PO 5 mg DAILY [facility] Administration Gabapentin 100 mg 05/03/20 09:00 05/09/20 07:54 Gabapentin 100 Mg Capsule PO 100 mg DAILY [facility] Administration Insulin Glargine 10 unit 05/08/20 21:00 05/08/20 21:08 Insulin Glargine,Hum.Rec.Anlog 100 Unit/Ml 10 Ml Vial SUBCUT 10 unit BEDTIME [facility] Administration Insulin Human Lispro 0 unit 05/02/20 19:47 05/09/20 07:45 Insulin Lispro 100 Unit/Ml 3 Ml Vial SUBCUT Not Given QIDACHS [facility] Protocol Insulin Human Lispro 4 unit 05/08/20 17:00 05/09/20 07:46 Insulin Lispro 100 Unit/Ml 3 Ml Vial SUBCUT Not [facility] Memantine 10 mg 05/02/20 21:00 05/09/20 07:54 Memantine Hcl 10 Mg Tablet PO 10 mg BID [facility] Administration Omeprazole 20 mg 05/03/20 06:30 05/09/20 05:57 Omeprazole 20 Mg Capsule. PO 20 mg DAILY@0630 [facility] Administration Ondansetron HCl 4 mg 05/02/20 19:47 Ondansetron Hcl 4 Mg/2 Ml Vial IVPUSH Q8H PRN Nausea and Vomiting Sertraline HCl 50 mg 05/03/20 09:00 05/09/20 07:54 Sertraline Hcl 50 Mg Tablet PO 50 mg DAILY [facility] Administration Sodium Chloride 3 ml 05/02/20 19:47 05/09/20 07:53 0.9 % Sodium Chloride Flush 3 Ml Syringe IVFLUSH 3 ml QSHIFT [facility] Administration Labs CBC & Chem 7: 05/05/20 08:35 05/05/20 08:34 Microbiology Microbiology Results: Microbiology 05/02/20 13:58 Blood - Venous Blood Culture - Final Micrococcus luteus 05/02/20 13:56 Blood - Venous Blood Culture - Final No growth after 5 days. Assessment and Plan (1) Acute respiratory failure with hypoxia: Status: Acute (2) COVID-19: Status: Acute Assessment and Plan: This is a 79-year-old male with history of diabetes, hypertension, GERD, dementia, recent admission for COVID-19 who returns with hypoxia 1. Acute respiratory failure with hypoxia secondary to Pneumonia secondary to COVID-19 diagnosed 04/23/2019 taken off oxygen this AM -- to see how he does off O2, if tolerates off O2 x 24 ours, will like d/c tomorrow without home o2. Continue IV dexamethasone day 11/16 Continue supportive management 2. Diabetes uncontrolled Continue Sliding scale, ADA diet; add lantus 10 units hold glimepiride, metformin 3. Hypertension. Amlodipine. 4. Dementia. Aricept and namenda. 5. GERD. PPI. 6. BPH Finasteride 7. mood Zoloft DVT prophylaxis Lovenox dispo: home with services, once hypoxia resolves. may need [facility] o2 depending on how his course goes.
[2020-05-09 11:42] LABS: Glucose, Whole Blood 246 mg/dL (60-115)
[2020-05-09] MEDS: Insulin Lispro 100 UNIT/ML 3 ML VIAL SUBCUT ×5 (12:15→20:27)
[2020-05-09 16:45] LABS: Glucose, Whole Blood 467 mg/dL (60-115)
[2020-05-09 19:51] LABS: Glucose, Whole Blood 338 mg/dL (60-115)
[2020-05-09] MEDS: Enoxaparin Sodium 40 MG/0.4 ML SYRINGE SUBCUT (20:27)
[2020-05-09] MEDS: Insulin Glargine,Hum.rec.anlog 100 UNIT/ML 10 ML VIAL 10 UNIT SUBCUT (20:27)
[2020-05-10 04:00] VITALS: BP 164/86; PULSE 81; RESP 18; TEMP 36.5; O2SAT 93
[2020-05-10] MEDS: Omeprazole 20 MG CAPSULE.DR PO (05:37)
[2020-05-10 08:00] VITALS: BP 133/94; PULSE 77; RESP 20; TEMP 36.3; O2SAT 93
[2020-05-10 08:27] LABS: Glucose, Whole Blood 118 mg/dL (60-115)
[2020-05-10] MEDS: Aspirin Enteric Coated 81 MG TABLET.DR PO (08:28)
[2020-05-10] MEDS: Gabapentin 100 MG CAPSULE PO (08:28)
[2020-05-10] MEDS: Donepezil HCl 10 MG TABLET PO (08:28)
[2020-05-10] MEDS: Memantine HCl 10 MG TABLET PO (08:28)
[2020-05-10] MEDS: amLODIPine Besylate 10 MG TABLET PO (08:28)
[2020-05-10] MEDS: Finasteride 5 MG TABLET PO (08:28)
[2020-05-10] MEDS: Sertraline HCL 50 MG TABLET PO (08:28)
[2020-05-10] MEDS: 0.9 % Sodium Chloride Flush 3 ML SYRINGE IVFLUSH (08:29)
--- NOTE | 2020-05-10 09:55 | MHC.CM.PN ---
dc plan is for patient to go to his nephew's home, aliyah. possibly c vna if he would benefit at time of dc. aliyah will provide transport at dc. cm to cont. to follow.
--- NOTE | 2020-05-10 10:18 | P.F2F_ITS ---
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 Reason homebound: cognitively impaired / unsafe Certification: Based on the above findings, I certify that this patient is confined to the home and needs intermittent retirement care, physical therapy and/or speech therapy, or continues to need occupational therapy. The patient is under my care, and I have initiated the establishment of the plan of care. The patient will be followed by a physician who will periodically review the plan of care.
--- NOTE | 2020-05-10 10:18 | PM.DS ---
DS: Providers Provider Date of Service: 05/10/20 Date of admission: 05/02/20 15:08 Primary care physician: Diego Sierra MD DS: Diagnosis Discharge Diagnosis (1) COVID-19: Status: Acute (2) Acute respiratory failure with hypoxia: Status: Acute (3) Uncontrolled diabetes mellitus: Status: Acute DS: Medications Discharge Medications Home Medications: Home Medications Medication Instructions Recorded Confirmed donepezil 10 mg PO DAILY 04/23/20 05/02/20 memantine [Namenda] 10 mg PO BID 04/23/20 05/02/20 pantoprazole 40 mg PO DAILY 04/23/20 05/02/20 sertraline [Zoloft] 50 mg PO DAILY 04/23/20 05/02/20 Previous Rx's Medication Instructions Recorded amlodipine 10 mg tablet 10 mg PO DAILY #90 tab 04/09/20 aspirin 81 mg tablet,delayed 81 mg PO DAILY #90 tab 04/09/20 release finasteride 5 mg tablet 5 mg PO DAILY #90 tab 04/09/20 gabapentin 100 mg capsule 100 mg PO DAILY #90 cap 04/09/20 glimepiride 2 mg PO QAM #30 tab 05/10/20 metformin 1,000 mg PO BID #60 tab 05/10/20 DS: Summary Hospital Course Hospital Course: Patient was admitted for acute respiratory failure with hypoxia secondary to COVID-19. He was started on IV Decadron and supplemental oxygen. Remdesivir was not administered due to the timing of his diagnosis. Fortunately with supplemental oxygen and IV steroids his hypoxia resolved and he was tolerating room air. He completed his course of Decadron in the hospital. His hospital course was complicated by hyperglycemia which required short-acting insulin in the hospital. He will be discharged home with increased dose of his metformin and sulfonylurea. He will be transitioning to be living with his family (transition to STR / LTC was offered but declined by family). Time Spent with Patient Time attestation: Total time spent providing and/or coordinating discharge services: Discharge coordination time: Greater than 30 minutes Physical Exam Vital Signs: Vital Signs: Last Vital Signs Temp 97.3 F 05/10/20 08:00 Pulse 77 05/10/20 08:00 Resp 20 05/10/20 08:00 BP 133/94 H 05/10/20 08:00 Pulse Ox 93 05/10/20 08:00 Body Mass Index 28.8 Const: Other: General - no acute distress, appears comfortable Cardiovascular - regular rate and rhythm, S1-S2 Lungs - normal respiratory effort, clear to auscultation bilaterally, no wheezing Abdomen - soft, nontender, no rebound or guarding Extremities - no edema bilaterally Neuro - awake and alert, no focal deficits DS: Data Data Completed and Pending Labs on day of discharge: Laboratory Tests 05/02/20 05/02/20 05/02/20 13:55 13:55 13:55 WBC 19.1 H RBC 5.26 Hgb 15.8 Hct 45.1 MCV 85.7 MCH 30.0 MCHC 35.0 RDW 12.3 Plt Count 170 D MPV 11.0 Immature Gran % (Auto) 2.3 H Neut % (Auto) 93.7 H Lymph % (Auto) 1.[address] % (Auto) 1.9 L Eos % (Auto) 0.0 Baso % (Auto) 0.2 Lymph # (Auto) 0.[address] # (Auto) 0.4 Eos # (Auto) 0.0 Baso # (Auto) 0.0 Abs Immat Gran (auto) 0.44 H Absolute Neuts (auto) 17.9 H Absolute Nucleated RBC 0.000 Nucleated RBC % (auto) 0.0 Smear Tech's Comments VERIFIED PT 13.1 H INR 1.1 APTT 26.5 D-Dimer 708 VBG pH VBG pCO2 VBG pO2 VBG HCO3 VBG O2 Saturation VBG Base Excess Sodium 133 L Potassium 4.4 Chloride 96 Carbon Dioxide 25 Anion Gap 16 BUN 25 H Creatinine 1.03 Estim Creat Clear Calc 56.0 Estimated GFR > 60 POC Glucose Random Glucose 185 H Lactic Acid Calcium 8.3 L Ferritin 2373 H Total Bilirubin 0.9 Direct Bilirubin 0.5 AST 46 H ALT 49 H Alkaline Phosphatase 62 Lactate Dehydrogenase 369 H Troponin I High Sens C-Reactive Protein 13.81 H B-Natriuretic Peptide Total Protein 6.5 Albumin 3.5 Procalcitonin Urine Color Urine Appearance Urine pH Ur Specific [place] Urine Protein Urine Glucose (UA) Urine Ketones Urine Blood Urine Nitrite Ur Leukocyte Esterase Urine RBC Urine WBC Ur Squamous Epith Cells Urine Bacteria Urine Mucus Urine Yeast 05/02/20 05/02/20 05/02/20 13:56 13:56 13:56 WBC RBC Hgb Hct MCV MCH MCHC RDW Plt Count MPV Immature Gran % (Auto) Neut % (Auto) Lymph % (Auto) [place] % (Auto) Eos % (Auto) Baso % (Auto) Lymph # (Auto) [place] # (Auto) Eos # (Auto) Baso # (Auto) Abs Immat Gran (auto) Absolute Neuts (auto) Absolute Nucleated RBC Nucleated RBC % (auto) Smear Tech's Comments PT INR APTT D-Dimer VBG pH VBG pCO2 VBG pO2 VBG HCO3 VBG O2 Saturation VBG Base Excess Sodium Potassium Chloride Carbon Dioxide Anion Gap BUN Creatinine Estim Creat Clear Calc Estimated GFR POC Glucose Random Glucose Lactic Acid 1.6 Calcium Ferritin Total Bilirubin Direct Bilirubin AST ALT Alkaline Phosphatase Lactate Dehydrogenase Troponin I High Sens 5.6 D C-Reactive Protein B-Natriuretic Peptide Total Protein Albumin Procalcitonin 0.24 Urine Color Urine Appearance Urine pH Ur Specific [place] Urine Protein Urine Glucose (UA) Urine Ketones Urine Blood Urine Nitrite Ur Leukocyte Esterase Urine RBC Urine WBC Ur Squamous Epith Cells Urine Bacteria Urine Mucus Urine Yeast 05/02/20 05/02/20 05/02/20 13:56 14:21 20:46 WBC RBC Hgb Hct MCV MCH MCHC RDW Plt Count MPV Immature Gran % (Auto) Neut % (Auto) Lymph % (Auto) [place] % (Auto) Eos % (Auto) Baso % (Auto) Lymph # (Auto) [place] # (Auto) Eos # (Auto) Baso # (Auto) Abs Immat Gran (auto) Absolute Neuts (auto) Absolute Nucleated RBC Nucleated RBC % (auto) Smear Tech's Comments PT INR APTT D-Dimer VBG pH 7.50 H VBG pCO2 34 VBG pO2 105 VBG HCO3 26 VBG O2 Saturation 98.0 VBG Base Excess 4.1 Sodium Potassium Chloride Carbon Dioxide Anion Gap BUN Creatinine Estim Creat Clear Calc Estimated GFR POC Glucose 305 H Random Glucose Lactic Acid Calcium Ferritin Total Bilirubin Direct Bilirubin AST ALT Alkaline Phosphatase Lactate Dehydrogenase Troponin I High Sens C-Reactive Protein B-Natriuretic Peptide 49 Total Protein Albumin Procalcitonin Urine Color Urine Appearance Urine pH Ur Specific [place] Urine Protein Urine Glucose (UA) Urine Ketones Urine Blood Urine Nitrite Ur Leukocyte Esterase Urine RBC Urine WBC Ur Squamous Epith Cells Urine Bacteria Urine Mucus Urine Yeast 01/25/21 01/25/21 01/25/21 05:05 05:05 05:05 WBC 17.0 H RBC 5.07 Hgb 15.1 Hct 43.6 MCV 86.0 MCH 29.8 MCHC 34.6 RDW 12.5 Plt Count 158 L MPV 10.8 Immature Gran % (Auto) 1.8 H Neut % (Auto) 92.9 H Lymph % (Auto) 2.[address] % (Auto) 2.6 Eos % (Auto) 0.0 Baso % (Auto) 0.2 Lymph # (Auto) 0.[address] # (Auto) 0.4 Eos # (Auto) 0.0 Baso # (Auto) 0.0 Abs Immat Gran (auto) 0.31 H Absolute Neuts (auto) 15.7 H Absolute Nucleated RBC 0.000 Nucleated RBC % (auto) 0.0 Smear Tech's Comments PT INR APTT D-Dimer VBG pH VBG pCO2 VBG pO2 VBG HCO3 VBG O2 Saturation VBG Base Excess Sodium 134 L Potassium 4.4 Chloride 99 Carbon Dioxide 23 Anion Gap 16 BUN 24 H Creatinine 0.93 Estim Creat Clear Calc 62.0 Estimated GFR > 60 POC Glucose Random Glucose 248 H Lactic Acid Calcium 8.1 L Ferritin Total Bilirubin Direct Bilirubin AST ALT Alkaline Phosphatase Lactate Dehydrogenase Troponin I High Sens C-Reactive Protein B-Natriuretic Peptide Total Protein Albumin Procalcitonin Urine Color YELLOW Urine Appearance CLOUDY Urine pH 6.0 Ur Specific [place] 1.025 Urine Protein NEG Urine Glucose (UA) >=1000 H Urine Ketones 15 Urine Blood NEG Urine Nitrite NEG Ur Leukocyte Esterase NEG Urine RBC 1-4 Urine WBC 50-75 H Ur Squamous Epith Cells 1+ Urine Bacteria 4+ Urine Mucus 1+ Urine Yeast 1+ 05/03/20 05/03/20 05/03/20 07:21 10:34 15:36 WBC RBC Hgb Hct MCV MCH MCHC RDW Plt Count MPV Immature Gran % (Auto) Neut % (Auto) Lymph % (Auto) [place] % (Auto) Eos % (Auto) Baso % (Auto) Lymph # (Auto) [place] # (Auto) Eos # (Auto) Baso # (Auto) Abs Immat Gran (auto) Absolute Neuts (auto) Absolute Nucleated RBC Nucleated RBC % (auto) Smear Tech's Comments PT INR APTT D-Dimer VBG pH VBG pCO2 VBG pO2 VBG HCO3 VBG O2 Saturation VBG Base Excess Sodium Potassium Chloride Carbon Dioxide Anion Gap BUN Creatinine Estim Creat Clear Calc Estimated GFR POC Glucose 241 H 265 H 235 H Random Glucose Lactic Acid Calcium Ferritin Total Bilirubin Direct Bilirubin AST ALT Alkaline Phosphatase Lactate Dehydrogenase Troponin I High Sens C-Reactive Protein B-Natriuretic Peptide Total Protein Albumin Procalcitonin Urine Color Urine Appearance Urine pH Ur Specific [place] Urine Protein Urine Glucose (UA) Urine Ketones Urine Blood Urine Nitrite Ur Leukocyte Esterase Urine RBC Urine WBC Ur Squamous Epith Cells Urine Bacteria Urine Mucus Urine Yeast 05/03/20 05/04/20 05/04/20 21:32 07:12 11:49 WBC RBC Hgb Hct MCV MCH MCHC RDW Plt Count MPV Immature Gran % (Auto) Neut % (Auto) Lymph % (Auto) [place] % (Auto) Eos % (Auto) Baso % (Auto) Lymph # (Auto) [place] # (Auto) Eos # (Auto) Baso # (Auto) Abs Immat Gran (auto) Absolute Neuts (auto) Absolute Nucleated RBC Nucleated RBC % (auto) Smear Tech's Comments PT INR APTT D-Dimer VBG pH VBG pCO2 VBG pO2 VBG HCO3 VBG O2 Saturation VBG Base Excess Sodium Potassium Chloride Carbon Dioxide Anion Gap BUN Creatinine Estim Creat Clear Calc Estimated GFR POC Glucose 243 H 156 H 184 H Random Glucose Lactic Acid Calcium Ferritin Total Bilirubin Direct Bilirubin AST ALT Alkaline Phosphatase Lactate Dehydrogenase Troponin I High Sens C-Reactive Protein B-Natriuretic Peptide Total Protein Albumin Procalcitonin Urine Color Urine Appearance Urine pH Ur Specific [place] Urine Protein Urine Glucose (UA) Urine Ketones Urine Blood Urine Nitrite Ur Leukocyte Esterase Urine RBC Urine WBC Ur Squamous Epith Cells Urine Bacteria Urine Mucus Urine Yeast 05/04/20 05/04/20 05/05/20 16:57 20:43 07:16 WBC RBC Hgb Hct MCV MCH MCHC RDW Plt Count MPV Immature Gran % (Auto) Neut % (Auto) Lymph % (Auto) [place] % (Auto) Eos % (Auto) Baso % (Auto) Lymph # (Auto) [place] # (Auto) Eos # (Auto) Baso # (Auto) Abs Immat Gran (auto) Absolute Neuts (auto) Absolute Nucleated RBC Nucleated RBC % (auto) Smear Tech's Comments PT INR APTT D-Dimer VBG pH VBG pCO2 VBG pO2 VBG HCO3 VBG O2 Saturation VBG Base Excess Sodium Potassium Chloride Carbon Dioxide Anion Gap BUN Creatinine Estim Creat Clear Calc Estimated GFR POC Glucose 257 H 262 H 113 Random Glucose Lactic Acid Calcium Ferritin Total Bilirubin Direct Bilirubin AST ALT Alkaline Phosphatase Lactate Dehydrogenase Troponin I High Sens C-Reactive Protein B-Natriuretic Peptide Total Protein Albumin Procalcitonin Urine Color Urine Appearance Urine pH Ur Specific [place] Urine Protein Urine Glucose (UA) Urine Ketones Urine Blood Urine Nitrite Ur Leukocyte Esterase Urine RBC Urine WBC Ur Squamous Epith Cells Urine Bacteria Urine Mucus Urine Yeast 05/05/20 05/05/20 05/05/20 08:34 08:34 08:35 WBC 13.6 H RBC 5.01 Hgb 14.8 Hct 43.3 MCV 86.4 MCH 29.5 MCHC 34.2 RDW 12.3 Plt Count 214 D MPV 10.8 Immature Gran % (Auto) Neut % (Auto) Lymph % (Auto) [place] % (Auto) Eos % (Auto) Baso % (Auto) Lymph # (Auto) [place] # (Auto) Eos # (Auto) Baso # (Auto) Abs Immat Gran (auto) Absolute Neuts (auto) Absolute Nucleated RBC 0.000 Nucleated RBC % (auto) 0.0 Smear Tech's Comments PT INR APTT D-Dimer VBG pH VBG pCO2 VBG pO2 VBG HCO3 VBG O2 Saturation VBG Base Excess Sodium 132 L Potassium 4.3 Chloride 97 Carbon Dioxide 26 Anion Gap 13 BUN 25 H Creatinine 0.98 Estim Creat Clear Calc 58.8 Estimated GFR > 60 POC Glucose Random Glucose 118 H D Lactic Acid Calcium 8.1 L Ferritin Total Bilirubin Direct Bilirubin AST ALT Alkaline Phosphatase Lactate Dehydrogenase Troponin I High Sens C-Reactive Protein 4.52 H B-Natriuretic Peptide Total Protein Albumin Procalcitonin 0.23 Urine Color Urine Appearance Urine pH Ur Specific [place] Urine Protein Urine Glucose (UA) Urine Ketones Urine Blood Urine Nitrite Ur Leukocyte Esterase Urine RBC Urine WBC Ur Squamous Epith Cells Urine Bacteria Urine Mucus Urine Yeast 05/05/20 05/05/20 05/05/20 08:35 10:56 16:36 WBC RBC Hgb Hct MCV MCH MCHC RDW Plt Count MPV Immature Gran % (Auto) Neut % (Auto) Lymph % (Auto) [place] % (Auto) Eos % (Auto) Baso % (Auto) Lymph # (Auto) [place] # (Auto) Eos # (Auto) Baso # (Auto) Abs Immat Gran (auto) Absolute Neuts (auto) Absolute Nucleated RBC Nucleated RBC % (auto) Smear Tech's Comments PT INR APTT D-Dimer 487 VBG pH VBG pCO2 VBG pO2 VBG HCO3 VBG O2 Saturation VBG Base Excess Sodium Potassium Chloride Carbon Dioxide Anion Gap BUN Creatinine Estim Creat Clear Calc Estimated GFR POC Glucose 231 H 397 H* Random Glucose Lactic Acid Calcium Ferritin Total Bilirubin Direct Bilirubin AST ALT Alkaline Phosphatase Lactate Dehydrogenase Troponin I High Sens C-Reactive Protein B-Natriuretic Peptide Total Protein Albumin Procalcitonin Urine Color Urine Appearance Urine pH Ur Specific [place] Urine Protein Urine Glucose (UA) Urine Ketones Urine Blood Urine Nitrite Ur Leukocyte Esterase Urine RBC Urine WBC Ur Squamous Epith Cells Urine Bacteria Urine Mucus Urine Yeast 05/05/20 05/06/20 05/06/20 20:35 07:01 11:31 WBC RBC Hgb Hct MCV MCH MCHC RDW Plt Count MPV Immature Gran % (Auto) Neut % (Auto) Lymph % (Auto) [place] % (Auto) Eos % (Auto) Baso % (Auto) Lymph # (Auto) [place] # (Auto) Eos # (Auto) Baso # (Auto) Abs Immat Gran (auto) Absolute Neuts (auto) Absolute Nucleated RBC Nucleated RBC % (auto) Smear Tech's Comments PT INR APTT D-Dimer VBG pH VBG pCO2 VBG pO2 VBG HCO3 VBG O2 Saturation VBG Base Excess Sodium Potassium Chloride Carbon Dioxide Anion Gap BUN Creatinine Estim Creat Clear Calc Estimated GFR POC Glucose 299 H 86 324 H Random Glucose Lactic Acid Calcium Ferritin Total Bilirubin Direct Bilirubin AST ALT Alkaline Phosphatase Lactate Dehydrogenase Troponin I High Sens C-Reactive Protein B-Natriuretic Peptide Total Protein Albumin Procalcitonin Urine Color Urine Appearance Urine pH Ur Specific [place] Urine Protein Urine Glucose (UA) Urine Ketones Urine Blood Urine Nitrite Ur Leukocyte Esterase Urine RBC Urine WBC Ur Squamous Epith Cells Urine Bacteria Urine Mucus Urine Yeast 05/06/20 05/06/20 05/07/20 16:28 20:51 07:24 WBC RBC Hgb Hct MCV MCH MCHC RDW Plt Count MPV Immature Gran % (Auto) Neut % (Auto) Lymph % (Auto) [place] % (Auto) Eos % (Auto) Baso % (Auto) Lymph # (Auto) [place] # (Auto) Eos # (Auto) Baso # (Auto) Abs Immat Gran (auto) Absolute Neuts (auto) Absolute Nucleated RBC Nucleated RBC % (auto) Smear Tech's Comments PT INR APTT D-Dimer VBG pH VBG pCO2 VBG pO2 VBG HCO3 VBG O2 Saturation VBG Base Excess Sodium Potassium Chloride Carbon Dioxide Anion Gap BUN Creatinine Estim Creat Clear Calc Estimated GFR POC Glucose 445 H* 366 H* 253 H Random Glucose Lactic Acid Calcium Ferritin Total Bilirubin Direct Bilirubin AST ALT Alkaline Phosphatase Lactate Dehydrogenase Troponin I High Sens C-Reactive Protein B-Natriuretic Peptide Total Protein Albumin Procalcitonin Urine Color Urine Appearance Urine pH Ur Specific [place] Urine Protein Urine Glucose (UA) Urine Ketones Urine Blood Urine Nitrite Ur Leukocyte Esterase Urine RBC Urine WBC Ur Squamous Epith Cells Urine Bacteria Urine Mucus Urine Yeast 05/07/20 05/07/20 05/07/20 10:49 16:22 16:24 WBC RBC Hgb Hct MCV MCH MCHC RDW Plt Count MPV Immature Gran % (Auto) Neut % (Auto) Lymph % (Auto) [place] % (Auto) Eos % (Auto) Baso % (Auto) Lymph # (Auto) [place] # (Auto) Eos # (Auto) Baso # (Auto) Abs Immat Gran (auto) Absolute Neuts (auto) Absolute Nucleated RBC Nucleated RBC % (auto) Smear Tech's Comments PT INR APTT D-Dimer VBG pH VBG pCO2 VBG pO2 VBG HCO3 VBG O2 Saturation VBG Base Excess Sodium Potassium Chloride Carbon Dioxide Anion Gap BUN Creatinine Estim Creat Clear Calc Estimated GFR POC Glucose 266 H 526 H* 487 H* Random Glucose Lactic Acid Calcium Ferritin Total Bilirubin Direct Bilirubin AST ALT Alkaline Phosphatase Lactate Dehydrogenase Troponin I High Sens C-Reactive Protein B-Natriuretic Peptide Total Protein Albumin Procalcitonin Urine Color Urine Appearance Urine pH Ur Specific [place] Urine Protein Urine Glucose (UA) Urine Ketones Urine Blood Urine Nitrite Ur Leukocyte Esterase Urine RBC Urine WBC Ur Squamous Epith Cells Urine Bacteria Urine Mucus Urine Yeast 05/07/20 05/08/20 05/08/20 20:28 07:35 11:26 WBC RBC Hgb Hct MCV MCH MCHC RDW Plt Count MPV Immature Gran % (Auto) Neut % (Auto) Lymph % (Auto) [place] % (Auto) Eos % (Auto) Baso % (Auto) Lymph # (Auto) [place] # (Auto) Eos # (Auto) Baso # (Auto) Abs Immat Gran (auto) Absolute Neuts (auto) Absolute Nucleated RBC Nucleated RBC % (auto) Smear Tech's Comments PT INR APTT D-Dimer VBG pH VBG pCO2 VBG pO2 VBG HCO3 VBG O2 Saturation VBG Base Excess Sodium Potassium Chloride Carbon Dioxide Anion Gap BUN Creatinine Estim Creat Clear Calc Estimated GFR POC Glucose 434 H* 119 H 196 H Random Glucose Lactic Acid Calcium Ferritin Total Bilirubin Direct Bilirubin AST ALT Alkaline Phosphatase Lactate Dehydrogenase Troponin I High Sens C-Reactive Protein B-Natriuretic Peptide Total Protein Albumin Procalcitonin Urine Color Urine Appearance Urine pH Ur Specific [place] Urine Protein Urine Glucose (UA) Urine Ketones Urine Blood Urine Nitrite Ur Leukocyte Esterase Urine RBC Urine WBC Ur Squamous Epith Cells Urine Bacteria Urine Mucus Urine Yeast 05/08/20 05/08/20 05/08/20 16:51 18:22 20:30 WBC RBC Hgb Hct MCV MCH MCHC RDW Plt Count MPV Immature Gran % (Auto) Neut % (Auto) Lymph % (Auto) [place] % (Auto) Eos % (Auto) Baso % (Auto) Lymph # (Auto) [place] # (Auto) Eos # (Auto) Baso # (Auto) Abs Immat Gran (auto) Absolute Neuts (auto) Absolute Nucleated RBC Nucleated RBC % (auto) Smear Tech's Comments PT INR APTT D-Dimer VBG pH VBG pCO2 VBG pO2 VBG HCO3 VBG O2 Saturation VBG Base Excess Sodium Potassium Chloride Carbon Dioxide Anion Gap BUN Creatinine Estim Creat Clear Calc Estimated GFR POC Glucose 413 H* 360 H* 380 H* Random Glucose Lactic Acid Calcium Ferritin Total Bilirubin Direct Bilirubin AST ALT Alkaline Phosphatase Lactate Dehydrogenase Troponin I High Sens C-Reactive Protein B-Natriuretic Peptide Total Protein Albumin Procalcitonin Urine Color Urine Appearance Urine pH Ur Specific [place] Urine Protein Urine Glucose (UA) Urine Ketones Urine Blood Urine Nitrite Ur Leukocyte Esterase Urine RBC Urine WBC Ur Squamous Epith Cells Urine Bacteria Urine Mucus Urine Yeast 05/08/20 05/09/20 05/09/20 22:49 07:36 11:35 WBC RBC Hgb Hct MCV MCH MCHC RDW Plt Count MPV Immature Gran % (Auto) Neut % (Auto) Lymph % (Auto) [place] % (Auto) Eos % (Auto) Baso % (Auto) Lymph # (Auto) [place] # (Auto) Eos # (Auto) Baso # (Auto) Abs Immat Gran (auto) Absolute Neuts (auto) Absolute Nucleated RBC Nucleated RBC % (auto) Smear Tech's Comments PT INR APTT D-Dimer VBG pH VBG pCO2 VBG pO2 VBG HCO3 VBG O2 Saturation VBG Base Excess Sodium Potassium Chloride Carbon Dioxide Anion Gap BUN Creatinine Estim Creat Clear Calc Estimated GFR POC Glucose 261 H 109 246 H Random Glucose Lactic Acid Calcium Ferritin Total Bilirubin Direct Bilirubin AST ALT Alkaline Phosphatase Lactate Dehydrogenase Troponin I High Sens C-Reactive Protein B-Natriuretic Peptide Total Protein Albumin Procalcitonin Urine Color Urine Appearance Urine pH Ur Specific [place] Urine Protein Urine Glucose (UA) Urine Ketones Urine Blood Urine Nitrite Ur Leukocyte Esterase Urine RBC Urine WBC Ur Squamous Epith Cells Urine Bacteria Urine Mucus Urine Yeast 05/09/20 05/09/20 05/10/20 16:40 19:42 08:22 WBC RBC Hgb Hct MCV MCH MCHC RDW Plt Count MPV Immature Gran % (Auto) Neut % (Auto) Lymph % (Auto) [place] % (Auto) Eos % (Auto) Baso % (Auto) Lymph # (Auto) [place] # (Auto) Eos # (Auto) Baso # (Auto) Abs Immat Gran (auto) Absolute Neuts (auto) Absolute Nucleated RBC Nucleated RBC % (auto) Smear Tech's Comments PT INR APTT D-Dimer VBG pH VBG pCO2 VBG pO2 VBG HCO3 VBG O2 Saturation VBG Base Excess Sodium Potassium Chloride Carbon Dioxide Anion Gap BUN Creatinine Estim Creat Clear Calc Estimated GFR POC Glucose 467 H* 338 H 118 H Random Glucose Lactic Acid Calcium Ferritin Total Bilirubin Direct Bilirubin AST ALT Alkaline Phosphatase Lactate Dehydrogenase Troponin I High Sens C-Reactive Protein B-Natriuretic Peptide Total Protein Albumin Procalcitonin Urine Color Urine Appearance Urine pH Ur Specific [place] Urine Protein Urine Glucose (UA) Urine Ketones Urine Blood Urine Nitrite Ur Leukocyte Esterase Urine RBC Urine WBC Ur Squamous Epith Cells Urine Bacteria Urine Mucus Urine Yeast Discharge Plan Discharge Patient Disposition: Home Health Service Referrals: [facility] [Outside] Diego Sierra MD [Primary Care Provider] - 1 Week (05/17/2020 1:30pm with Dr. Randolph. Please call and reschedule if you can't keep this appointment.) Discharge Medications: New metformin 1,000 mg tablet 1,000 mg PO BID Qty: 60 RF: 0 glimepiride 2 mg tablet 2 mg PO QAM Qty: 30 RF: 0 Continued amlodipine 10 mg tablet 10 mg PO DAILY Qty: 90 RF: 1 aspirin [Adult Aspirin Regimen] 81 mg tablet,delayed release (DR/EC) 81 mg PO DAILY Qty: 90 RF: 1 finasteride 5 mg tablet 5 mg PO DAILY Qty: 90 RF: 1 gabapentin 100 mg capsule 100 mg PO DAILY Qty: 90 RF: 1 donepezil 10 mg Tablet 10 mg PO DAILY RF: 0 sertraline [Zoloft] 50 mg Tablet 50 mg PO DAILY RF: 0 memantine [Namenda] 10 mg Tablet 10 mg PO BID RF: 0 pantoprazole 40 mg tablet,delayed release (DR/EC) 40 mg PO DAILY RF: 0 Discontinued glimepiride 1 mg tablet 1 mg PO DAILY Qty: 90 RF: 1 metformin 500 mg tablet 500 mg PO BID Qty: 180 RF: 1 dexamethasone [Decadron] 6 mg tablet 6 mg PO DAILY Qty: 7 RF: 0 Discharge Orders: Discharge Order (Routine); Ordered 05/10/20 Ordered By: Brando Solis Diet: advance to usual diet Activity on Discharge: As tolerated Stand Alone Forms: Patient Portal Discharge page Care Plan Goals: To stay healthy and out of the hospital. Health Concerns: COVID Diabetes Plan of Treatment: You have completed treatment in the hospital. Maintain isolation per CDC guidelines. Increase metformin from 500mg twice a day to 1000mg twice daily. Increase Glimiperide from 1mg daily to 2mg daily
--- NOTE | 2020-05-10 11:12 | MHC.CM.PN ---
dc plan is for patient to go to his nephew's home, [facility]. pt requested a ref. to [facility] for nsg as pt is going home c new DM medication and home PT, this ref. has been made. [facility] will provide transport today at 4 pm. rn and md are aware of this dc plan. cm to cont. to follow.
[2020-05-10 11:21] LABS: Glucose, Whole Blood 286 mg/dL (60-115)
[2020-05-10 11:51] VITALS: BP 130/103; PULSE 89; RESP 20; TEMP 36.4; O2SAT 93
[2020-05-10] MEDS: Insulin Lispro 100 UNIT/ML 3 ML VIAL SUBCUT ×2 (12:57)
== END 2020-05-10 16:07 | disposition home health service (06) | DRG 177 ==
LOC: HO.ED 15:43 → HO.EDOVER 15:48 → HO.ICU 05-03 23:43 → HO.ISO 05-05 19:09 → HO.IMC 05-10 15:02
PROVIDERS: Internal Medicine; Physician Assistant Medical; Admitting Provider Internal Medicine; Emergency Provider Internal Medicine; PCP Internal Medicine; Visit Provider Family Medicine
DX: U07.1 COVID-19 (principal); J12.82 Pneumonia due to coronavirus disease 2019; J96.01 Acute respiratory failure with hypoxia; K21.9 Gastro-esophageal reflux disease without esophagitis; E11.65 Type 2 diabetes mellitus with hyperglycemia; F03.90 Unspecified dementia, unspecified severity, without behavioral disturbance, psychotic disturbance, mood disturbance, and anxiety; N40.0 Benign prostatic hyperplasia without lower urinary tract symptoms; Z79.82 Long term (current) use of aspirin; Z79.84 Long term (current) use of oral hypoglycemic drugs; Z79.899 Other long term (current) drug therapy
CPT/HCPCS: 36415; 71250; 80048; 80076; 81001; 82728; 82803; 82947; 83605; 83615; 83880; 84145; 84484; 85025; 85027; 85379; 85610; 85730; 86140; 87040; 87077; 87205; 93005; 94640; 96361; 96374; 99285; J1100; J1650

== ENCOUNTER 2020-11-03 11:16 | Outpatient (REF) | payer MEDICARE, SELFPAY ==
--- NOTE | 2020-11-03 13:39 | MHC.AU.ANO ---
Adult Audiological Evaluation Date of Visit: 11/03/20 Water Registrar Used: Not Applicable Reason for Appointment: Audiologic evaluation due to tinnitus and question of decrease in hearing ability as Sivakumar has a history of work-related noise exposure, Diabetes, and Dementia Does patient feel they have a hearing loss?: No Has hearing been tested previously?: No Hearing Handicap Inventory: HHIE SCORE: 0 Based on HHIE score, patient has: No perceived hearing handicap Ear History: Bothersome Tinnitus/Ringing/Noises in Ears: Unspecified ear Ear used on the phone: Left Ear History of occupational noise exposure?: Yes History: History: No Medical History: Medical History: Diabetes, High Blood Pressure, Dementia Medication List: Aspirin, Sertraline, Memantine, Finasteride, Amlodipine, Donepezil, Glimepiride, Metformin Otoscopy: Right Ear: Partially occluded with cerumen Left Ear: Partially occluded with cerumen Tympanometry: Tympanometry performed due to: To assess integrity of the middle ear system Right Ear: Normal Middle Ear System (Type A) Left Ear: Normal Middle Ear System (Type A) Otoacoustic Emissions Frequency Range Used: 1.6-8 kHz Right Ear Results: Present 1600 & 2000 Hz, Absent 4216-2018 Hz Analysis: Results are consistent with degree and configuration of hearing loss Left Ear Results: Present 1600 & 2000 Hz, Absent 7648-1473 Hz Analysis: Results are consistent with degree and configuration of hearing loss Hearing Evaluation: Transducer(s) Used: Insert Earphones Bone Conduction Method: Conventional Audiometry Stimuli Used: Pure Tones Right Ear: Description of Hearing: Normal hearing thresholds 250-1000 Hz sloping to a moderate high frequency sensorineural hearing loss Left Ear: Description of Hearing: Normal hearing thresholds 250-1000 Hz sloping to a moderate high frequency sensorineural hearing loss Speech Recognition Threshold (SRT): Method Used: Monitored Live Voice Stimuli Used: Spondee Words Right Ear: 20 dB HL Left Ear: 20 dB HL Word Discrimination: Method: Recorded Lists Word Lists Used: NU-6 Right Ear: 92% at 60 dB HL Left Ear: 84% at 60 dB HL Interpretation of Results: With this type of hearing loss, Sivakumar can hear; however, he may have difficulty understanding all speech, particularly similar sounding words. This difficulty will increase when there is background noise present or the person speaking to him is at a distance. Recommendations: Follow-up with physician for cerumen removal. Patient does not feel they are ready for amplification at this time. Audiological re-evaluation in one year. Will send a reminder card. Diagnosis: Primary Diagnosis: H90.3 Bilateral Sensorineural Hearing Loss Secondary Diagnosis: H93.19 Tinnitus, Unspecified Ear Services Performed: Comprehensive Audiological Evaluation (CPT 85046) Diagnostic Otoacoustic Emissions (CPT 03059, 26+TC) Tympanometry (CPT 82757) Signature: Provider: Jojo Hayes, CCC-A
== END 2020-11-03 11:17 | disposition home or self-care (01) ==
LOC: HO.SH 11:16
PROVIDERS: Visit Provider Internal Medicine
DX: H90.3 Sensorineural hearing loss, bilateral (principal); H93.19 Tinnitus, unspecified ear
CPT/HCPCS: 92557; 92567; 92588

== ENCOUNTER 2022-08-29 21:06 | Inpatient (IN) | payer MEDICARE, SELFPAY ==
--- NOTE | ~2022-08-29 | XR_ITS ---
EXAMINATION: XR CHEST CLINICAL INFORMATION: Fall COMPARISON: Previous chest x-ray and chest CT April 2020 TECHNIQUE: 2 views of the chest were obtained. FINDINGS: The cardiac and mediastinal contours are stable. The lung volumes are low. The lungs are clear. No pleural effusion or pneumothorax. Degenerative changes of the spine. XR/XR chest 2V IMPRESSION: Low lung volumes. No evidence for acute disease in the chest.
--- OUTSIDE RECORDS SUMMARY | 2022-08-29 21:09 | XMS_ITS | Continuity of Care Document ---
Author Name Unknown Organization [facility] Address [address] [place] [address] [address] [place] [address]- Care Team Providers Care Inventory Auditor Name Role Phone Denny Peña DO Primary Care Physician [place] [facility] [place] - 12/26/[address] [place], [place] [address] Encounter Diagnosis Hemorrhoids(Discharge Diagnosis) - 12/19/21 Attending Physician: Selvin GUTIERREZ, Pam Tirado Referring Physician: Denny Peña DO Allergies, Adverse Reactions, Alerts No Known Medication Allergies Medications amLODIPine 10 mg oral tablet 10 mg, 1, tablet, By Mouth, Daily, Refills 0, Maintenance, 06/02/21 11:00:00 EST, Partial fill uponpatient request if the prescription is for a schedule II opioid drug. Start Date: 06/02/21 Status: Ordered aspirin 81 mg oral delayed release tablet 1 tablet = 81 mg, By Mouth, Daily, 0 Refills, Maintenance, 06/02/21 11:05:00 EST, CR Tablet, Partial fill upon patient request if the prescription is for a schedule II opioid drug. Start Date: 06/02/21 Status: Ordered donepezil 10 mg oral tablet, disintegrating 1 tablet = 10 mg, By Mouth, Daily at bedtime, 0 Refills, Maintenance, 06/02/21 11:01:00 EST, DIS Tablet, Partial fill upon patient request if the prescription is for a schedule II opioid drug. Start Date: 06/02/21 Status: Ordered finasteride 5 mg oral tablet 1 tablet = 5 mg, By Mouth, Daily, 0 Refills, Maintenance, 06/02/21 11:01:00 EST, Tablet, Partial fill upon patient request if the prescription is for a schedule II opioid drug. Start Date: 06/02/21 Status: Ordered hydrocortisone topical 25 mg suppository 1 supp = 25 mg, Rectally, 2 times a day, # 28 supp, 1 Refills, Maintenance, 05/09/21 13:31:00 EST, Suppository, [facility], Partial fill upon patient request if the prescription is for a schedule II opioid drug., 170, cm, 05/06/21 14:28:... Start Date: 05/09/21 Stop Date: 06/06/21 Status: Ordered hydrocortisone topical 25 mg suppository 1 supp = 25 mg, Rectally, 2 times a day, # 28 supp, 0 Refills, Maintenance, 09/19/21 15:49:00 EDT, Suppository, [facility], Partial fill upon patient request if the prescription is for a schedule II opioid drug., 170, cm, 09/19/21 15:27:... Start Date: 09/19/21 Stop Date: 10/03/21 Status: Ordered memantine 10 mg oral tablet 1 tablet = 10 mg, By Mouth, 2 times a day, 5 Refills, Maintenance, 06/02/21 11:01:00 EST, Tablet, Partial fill upon patient request if the prescription is for a schedule II opioid drug. Start Date: 06/02/21 Status: Ordered metFORMIN 1000 mg oral tablet, extended release 1 tablet = 1,000 mg, By Mouth, 2 times a day, 0 Refills, Maintenance, 06/02/21 11:02:00 EST, ER Tablet, Partial fill upon patient request if the prescription is for a schedule II opioid drug. Start Date: 06/02/21 Status: Ordered sertraline 50 mg oral tablet 1 tablet = 50 mg, By Mouth, Daily, 0 Refills, Maintenance, 06/02/21 11:02:00 EST, Tablet, Partial fill upon patient request if the prescription is for a schedule II opioid drug. Start Date: 06/02/21 Status: Ordered Problem List Condition Effective Dates Status Health Status Inform ant Hemorrhoids(Confirmed) Active Obese class I(Confirmed) Active Diagnosis Diagnosis Type Effective Dates Health Status Clini bridget Service Informant Hemorrhoids Discharge Diagnosis 12/19/21 Vital Signs Most recent to oldest [Reference Range]: 1 Height 170 cm (12/19/21 2:09 PM) Weight 68.3 kg (12/19/21 2:09 PM) Pulse Rate [55-90 bpm] 80 bpm (12/19/21 2:09 PM) Body Mass Index [18.5-24.99] 23.63 (12/19/21 2:09 PM) Blood Pressure [90-138/55-84 mm Hg] 128/ 64mm Hg (12/19/21 2:09 PM) Respiratory Rate [16-30 br/min] 16 br/mi n (12/19/21 2:09 PM) Temperature [96.8-100.4 DegF] 97 DegF (12/19/21 2:09 PM) Social History Social History Type Response Smoking Status Never (less than 100 in lifetime) entered on: 07/14/20 Sex Care Team Personnel Name: Denny Peña DO Address: [address] [place] [address] [place], [place] [address]
--- OUTSIDE RECORDS SUMMARY | 2022-08-29 21:09 | XMS_ITS | Continuity of Care Document ---
Author Name Unknown Organization [facility] Address Unknown Care Team Providers Care Cna Ltc Name Role Phone Denny Peña DO Primary Care Physician Encounter [facility] Date(s): 03/22/21 - 04/21/21 [facility] Allergies, Adverse Reactions, Alerts No Known Medication Allergies Social History Social History Type Response Smoking Status Never (less than 100 in lifetime) entered on: 07/14/20 Sex
--- OUTSIDE RECORDS SUMMARY | 2022-08-29 21:09 | XMS_ITS | Continuity of Care Document ---
Author Name Unknown Organization [facility] Address Unknown Care Team Providers Care Tool Supervisor Name Role Phone Denny Peña DO Primary Care Physician ( [phone] [place] [facility] [place](s): 10/17/21 - 10/24/21 [facility] Encounter Diagnosis Hemorrhoids(Discharge Diagnosis) - 10/17/21 Attending Physician: Selvin GUTIERREZ, Pam Tirado Referring [...] Status Health Status Inform ant Hemorrhoids(Confirmed) Active Diagnosis Diagnosis Type Effective Dates Health Status Clini bridget Service Informant Hemorrhoids Discharge Diagnosis 10/17/21 Vital Signs Most recent to oldest [Reference Range]: 1 2 Height 170 cm (10/17/21 4:57 PM) 170 cm (10/17/21 4:35 PM) Weight 67.6 kg (10/17/21 4:35 PM) Pulse Rate [55-90 bpm] 84 bpm (10/17/21 4:57 PM) 84 bpm (10/17/21 4:35 PM) Body Mass Index [18.5-24.99] 23.39 (10/17/21 4:35 PM) Blood Pressure [90-138/55-84 mm Hg] 120/ 73mm Hg (10/17/21 4:57 PM) 120/73mm Hg (10/17/21 4:35 PM) Respiratory Rate [16-30 br/min] 17 br/mi n (10/17/21 4:35 PM) Temperature [96.8-100.4 DegF] 98.6 DegF (10/17/21 4:57 PM) 98.6 DegF (10/17/21 4:35 PM) Temperature Route Temporal (10/17/21 4:35 PM) Social History Social History Type Response Smoking Status Never (less than 100 in lifetime) entered on: 07/14/20 Sex
--- OUTSIDE RECORDS SUMMARY | 2022-08-29 21:09 | XMS_ITS | Continuity of Care Document ---
Author Name Unknown Organization [facility] Address Unknown Care Team Providers Care Telecommunications Facility Examiner Name Role Phone Denny Peña DO Primary Care Physician Encounter [facility] [place] Date(s): 05/06/21 - 05/13/21 [facility] Attending Physician: Geovani GUTIERREZ, Vanessa Banegas Referring Physician: Denny Peña DO Allergies, Adverse Reactions, Alerts No Known Medication Allergies Medications hydrocortisone topical 25 mg suppository 1 supp = 25 mg, Rectally, 2 times a day, # 28 supp, 1 Refills, Maintenance, 05/09/21 13:31:00 EST, Suppository, [facility], Partial fill upon patient request if the prescription is for a schedule II opioid drug., 170, cm, 05/06/21 14:28:... Start Date: 05/09/21 Stop Date: 06/06/21 Status: Ordered Vital Signs Most recent to oldest [Reference Range]: 1 Height 170 cm (05/06/21 2:28 PM) Weight 69.5 kg (05/06/21 2:28 PM) Pulse Rate [55-90 bpm] 79 bpm (05/06/21 2:28 PM) Body Mass Index [18.5-24.99] 24.05 (05/06/21 2:28 PM) Blood Pressure [90-138/55-84 mm Hg] 133/ 82mm Hg (05/06/21 2:28 PM) Respiratory Rate [16-30 br/min] 16 br/mi n (05/06/21 2:28 PM) Temperature [96.8-100.4 DegF] 98.1 DegF (05/06/21 2:28 PM) Social History Social History Type Response Smoking Status Never (less than 100 in lifetime) entered on: 07/14/20 Sex
--- OUTSIDE RECORDS SUMMARY | 2022-08-29 21:09 | XMS_ITS | Continuity of Care Document ---
Author Name Unknown Organization [facility] Address [address] [place] [address] [address] [place] [address]- Care Team Providers Care Backhoe Operator Name Role Phone Denny Peña DO Primary Care Physician Encounter [facility] [place] Date(s): 12/19/21 - 01/18/[address] [place] [address]- Attending Physician: Tyler Mallory Admitting Physician: Tyler Mallory Referring Physician: AdmtrTyler Allergies, Adverse Reactions, Alerts No Known Medication [...] Date: 06/02/21 Status: Ordered Problem List Condition Confirmation Course Effective Dates Status Health St [facility] Informant Hemorrhoids Confirmed Active Obese class I Confirmed Active Social History Social History Type Response Smoking Status Never (less than 100 in lifetime) entered on: 07/14/20 Sex Patient Care team information Personnel Name: Denny Peña DO Address: Address: [address] [facility] [place], [place] [address]
--- OUTSIDE RECORDS SUMMARY | 2022-08-29 21:09 | XMS_ITS | Continuity of Care Document ---
Author Name Unknown Organization [facility] Address Unknown Care Team Providers Care Surgical Pathologist Name Role Phone Denny Peña DO Primary Care Physician [place] [facility] [place] 09/01/21 - 10/01/21 [facility] Allergies, Adverse Reactions, Alerts [...] opioid drug. Start Date: 06/02/21 Status: Ordered Social History Social History Type Response Smoking Status Never (less than 100 in lifetime) entered on: 07/14/20 Sex
--- OUTSIDE RECORDS SUMMARY | 2022-08-29 21:09 | XMS_ITS | Continuity of Care Document ---
Author Name Unknown Organization [facility] Address Unknown Care Team Providers Care Inspection Manager Name Role Phone Denny Peña DO Primary Care Physician Encounter [facility] [place] Date(s): 05/06/21 - 06/05/21 [facility] Attending Physician: Tyler Mallory Admitting Physician: Tyler Mallory Referring Physician: Tyler Mallory Allergies, Adverse Reactions, Alerts No Known Medication [...] Date: 05/09/21 Stop Date: 06/06/21 Status: Ordered memantine 10 mg oral tablet [...]
--- OUTSIDE RECORDS SUMMARY | 2022-08-29 21:09 | XMS_ITS | Continuity of Care Document ---
Author Name Unknown Organization [facility] Address Unknown Care Team Providers Care Blade Worker Name Role Phone Denny Peña DO Primary Care Physician ( [phone] Encounter [facility] [place] Date(s): 09/15/21 - 09/22/21 [facility] Attending Physician: Geovani GUTIERREZ, [...] opioid drug. Start Date: 06/02/21 Status: Ordered Vital Signs Most recent to oldest [Reference Range]: 1 Height 170 cm (09/15/21 4:04 PM) Weight 69.5 kg (09/15/21 4:04 PM) Pulse Rate [55-90 bpm] 86 bpm (09/15/21 4:04 PM) Body Mass Index [18.5-24.99] 24.05 (09/15/21 4:04 PM) Blood Pressure [90-138/55-84 mm Hg] 125/ 74mm Hg (09/15/21 4:04 PM) Respiratory Rate [16-30 br/min] 16 br/mi n (09/15/21 4:04 PM) Temperature [96.8-100.4 DegF] 97 DegF (09/15/21 4:04 PM) Social History Social History Type Response Smoking Status Never (less than 100 in lifetime) entered on: 07/14/20 Sex
--- OUTSIDE RECORDS SUMMARY | 2022-08-29 21:09 | XMS_ITS | Continuity of Care Document ---
Author Name Unknown Organization [facility] Address Unknown Care Team Providers Care Business Administration Program Chair Name Role Phone Denny Peña DO Primary Care Physician En[place] [facility] [place] Date(s): 03/23/21 - 05/22/21 [facility] Attending Physician: Geovani GUTIERREZ, [...] Date: 05/09/21 Stop Date: 06/06/21 Status: Ordered Social History Social History Type Response Smoking Status Never (less than 100 in lifetime) entered on: 07/14/20 Sex
--- OUTSIDE RECORDS SUMMARY | 2022-08-29 21:09 | XMS_ITS | Continuity of Care Document ---
Author Name Unknown Organization [facility] ter Address [address] [place] [id number] Care Team Providers Care Gum Cook Name Role Phone MarianaDenny hogue DO Primary Care Physician Encounter [facility] Date(s): 07/22/22 - 07/26/[address] [address]- Encounter Diagnosis STEMI (ST elevation myocardial infarction)(Final) - 07/23/22 Discharge Disposition: A-D/C Home Attending Physician: Miquel BLANC, Greg Rajan Admitting Physician: Trisha Pulido MD Referring Physician: Not on Staff, Referring MD Allergies, Adverse Reactions, Alerts No Known Medication Allergies Immunizations Given and Recorded Vaccine Date Status Refusal Reason influenza virus vaccine, inactivated 01/31/22 Everardo rded influenza virus vaccine, inactivated 01/19/21 Everardo rded influenza virus vaccine, inactivated 12/19/19 Everardo rded influenza virus vaccine, inactivated 01/07/19 Everardo rded influenza virus vaccine, inactivated 12/20/17 Everadro rded [id number] 12y+ bivalent booster vax 01/31/22 Recorded SARS-CoV-2 (COVID-19) mRNA BNT-162b2 vac 01/12/21 Recorded SARS-CoV-2 (COVID-19) mRNA BNT-162b2 vac 08/02/20 Recorded SARS-CoV-2 (COVID-19) mRNA BNT-162b2 vac 07/12/20 Recorded pneumococcal 13-valent vaccine 09/27/15 Recorded tetanus/diphtheria/pertussis, acel(Tdap) 09/27/15 Recorded Medications aspirin 81 mg oral delayed release tablet 1 tablet = 81 mg, By Mouth, Daily, 0 Refills, Maintenance, 06/02/21 11:05:00 EST, CR Tablet, Partial fill upon patient request if the prescription is for a schedule II opioid drug. Start Date: 06/02/21 Status: Ordered atorvastatin 80 mg oral tablet 1 tablet = 80 mg, By Mouth, Daily at bedtime, # 30 tablet, 2 Refills, Maintenance, 07/26/22 14:03:00 EDT, Tablet, [facility], Partial fill upon patient request if the prescription is for a schedule II opioid drug., 170, cm, 07/22/22 21:3... Start Date: 07/26/22 Stop Date: 10/24/22 Status: Ordered clopidogrel 75 mg oral tablet 75 mg, 1, tablet, By Mouth, Daily, # 30 tablet, Refills 2, Tot. Refills 2, Maintenance, 07/26/22 14:56:00 EDT, Route to Pharmacy Electronically, [facility], Partial fill upon patient request if the prescription is for a schedule II opioi... Start Date: 07/26/22 Stop Date: 10/24/22 Status: Ordered finasteride 5 mg oral tablet 1 tablet = 5 mg, By Mouth, Daily, 0 Refills, Maintenance, 06/02/21 11:01:00 EST, Tablet, Partial fill upon patient request if the prescription is for a schedule II opioid drug. Start Date: 06/02/21 Status: Ordered furosemide 40 mg oral tablet 40 mg, 1, tablet, By Mouth, Daily, # 30 tablet, Refills 2, Tot. Refills 2, Maintenance, 07/26/22 14:03:00 EDT, Route to Pharmacy Electronically, [facility], Partial fill upon patient request if the prescription is for a schedule II opioi... Start Date: 07/26/22 Stop Date: 10/24/22 Status: Ordered memantine 10 mg oral tablet 1 tablet = 10 mg, By Mouth, 2 times a day, 5 Refills, Maintenance, 06/02/21 11:01:00 EST, Tablet, Partial fill upon patient request if the prescription is for a schedule II opioid drug. Start Date: 06/02/21 Status: Ordered metFORMIN 500 mg oral tablet, extended release 1 tablet = 500 mg, By Mouth, Daily, # 30 tablet, 0 Refills, Maintenance, 07/22/22 22:49:00 EDT, ER Tablet Start Date: 07/22/22 Status: Ordered metoprolol 25 mg oral tablet 12.5 mg, Tablet, By Mouth, 07/26/22 9:00:00 EDT Start Date: 07/26/22 Stop Date: 07/26/22 Status: Completed metoprolol 25 mg oral tablet, extended release 25 mg, 1, tablet, By Mouth, Daily, # 30 tablet, Refills 2, Tot. Refills 2, Maintenance, 07/26/22 14:04:00 EDT, Route to Pharmacy Electronically, [facility], Partial fill upon patient request if the prescription is for a schedule II opioi... Start Date: 07/26/22 Stop Date: 10/24/22 Status: Ordered sertraline 50 mg oral tablet 1 tablet = 50 mg, By Mouth, Daily, 0 Refills, Maintenance, 06/02/21 11:02:00 EST, Tablet, Partial fill upon patient request if the prescription is for a schedule II opioid drug. Start Date: 06/02/21 Status: Ordered Problem List Condition Confirmation Course Effective Dates Status Health St atus Informant Hemorrhoids Confirmed Active STEMI (ST elevation myocardial infarction) Confirmed Active Results Radiology Reports * Exam Date Time Procedure Performing Provider Status 07/24/22 12:18 PM Chest Portable Bria Doe Notes: (Chest Portable) Reason For Exam: Shortness of Breath RESULT: Chest Portable AP upright portable chest dated July 24, 2022 1139 hours. Comparison films are from July 24t 0340 hours. HISTORY: Shortness of breath. FINDINGS: The cardiac silhouette is within normal limits for size. Mural calcifications are presentin the aorta. There is increased attenuation at the left lung base consistent with atelectasis or pneumonia and associated pleural effusion. This is increased from the previous examination. Stable patchy bilateral infiltrates. Stable minimal right pleural effusion. Degenerative changes are noted in the spine and shoulders. IMPRESSION: Interval worsening of aeration at the left lung base consistent with atelectasis or pneumonia and associated pleural effusion. Examination 19735. Thank you for allowing me to participate in the care of this patient. WSN: [id number] Ordering Physician: Emy Bangura Dictated By: Ravi Parks MD Dictated Date/Time: 07/24/22 1:53 pm Reviewed By: Ravi Parks MD Signed By: Ravi Parks MD Signed Date/Time: 07/24/22 1:53 pm Transcribed By: VALERIE Transcribed Date/Time: 07/24/22 1:53 pm * Exam Date Time Procedure Performing Provider Status 07/24/22 3:49 AM Chest Portable Justice Blanchard (Ve rified) Notes: (Chest Portable) Reason For Exam: dyspnea, post STEMI/cath;Shortness of Breath RESULT: Chest Portable Chest Portable Reason: Shortness of Breath; dyspnea, post STEMI cath; Clinical Question(s): Pleural Effusion COMPARISON: CT abdomen/pelvis 07/14/2020 and Multiple prior chest radiographs, most recent 07/23/2022 FINDINGS: LINES AND TUBES: None. LUNGS AND PLEURA: Low lung volumes with mild basilar atelectasis. Similar nonspecific hazy interstitial opacities in both lungs, likely representing chronic lung disease partially seen on prior CT of 2020. No pleural effusion. No pneumothorax. HEART, MEDIASTINUM AND GRACIA: Heart is normal in size. Normal mediastinal and hilar contour. BONES AND SOFT TISSUES: No acute abnormality. IMPRESSION: No acute abnormality. Similar findings low lung volumes and probable chronic lung disease. I have personally reviewed the images and I agree with this report. WSN: [id number] Ordering Physician: Kylee Aguilar Dictated By: Rebecca Hawk DO Dictated Date/Time: 07/24/22 2:46 pm Reviewed By: Chris Moore MD, V Signed By: Chris Moore MD, V Signed Date/Time: 07/24/22 2:51 pm Transcribed By: VALERIE Transcribed Date/Time: 07/24/22 1:46 pm * Exam Date Time Procedure Performing Provider Status 07/23/22 8:13 AM Chest Portable Vanessa Henao (Verified) Notes: (Chest Portable) Reason For Exam: CHF;CHF RESULT: Chest Portable Chest Portable Reason: CHF; Clinical Question(s): CHF COMPARISON: CT scan of the abdomen and pelvis 07/14/2020 FINDINGS: LINES AND TUBES: None. LUNGS AND PLEURA: Nonspecific somewhat patchy/ground glass density both lungs may be related to low lung volumes. Previous CT scan suggested bilateral reticular markings possibly related to chronic lung disease. No pleural effusion. No pneumothorax. HEART, MEDIASTINUM AND GRACIA: Heart is normal in size. Normal mediastinal and hilar contour. BONES AND SOFT TISSUES: No acute abnormality. IMPRESSION: Probable findings of chronic lung disease. No acute abnormality identified. WSN: [id number] Ordering Physician: Claudia Ramos Dictated By: Jim Troy MD Dictated Date/Time: 07/23/22 9:12 am Reviewed By: Jim Troy MD Signed By: Jim Troy MD Signed Date/Time: 07/23/22 9:12 am Transcribed By: VALERIE Transcribed Date/Time: 07/23/22 9:10 am Vital Signs Most recent to oldest [Reference Range]: 1 2 3 Height 170 cm (07/22/22 9:35 PM) Weight 70.5 kg (07/26/22 4:00 AM) 73.6 kg (07/25/22 4:00 AM) 75.9 kg (07/24/22 8:42 AM) Oxygen Saturation [94-100 %] 99 % (07/26/22 2:00 PM) 96 % (07/26/22 12:00 PM) 97 % (07/26/22 11:53 AM) Pulse Rate [55-90 bpm] 78 bpm (07/26/22 12:00 PM) 81 bpm (07/26/22 8:59 AM) 80 bpm (07/26/22 8:00 AM) Body Mass Index [18.5-24.99 kg/m2] 26.37 kg/m2 *H* (07/22/22 9:35 PM) Blood Pressure [90-138/55-84 mm Hg] 110/91mm Hg (07/26/22 2:00 PM) 108/76mm Hg (07/26/22 12:00 PM) 111/79mm Hg (07/26/22 11:53 AM) Respiratory Rate [16-30 br/min] 17 br/min (07/26/22 2:00 PM) 22 br/min (07/26/22 12:00 PM) 14 br/min *L* (07/26/22 11:53 AM) Temperature [96.8-100.4 DegF] 97.9 DegF (07/26/22 12:00 PM) 97.7 DegF (07/26/22 8:00 AM) 98.3 DegF (07/26/22 4:00 AM) Liters per Minute 2 L/min (07/24/22 4:00 PM) 2 L/min (07/24/22 12:00 PM) 4 L/min (07/24/22 5:10 AM) Mode of Delivery (Oxygen) Room air (07/26/22 12:00 PM) Room air (07/26/22 11:00 AM) Room air (07/26/22 8:00 AM) Blood pressure sites Arm, right (07/26/22 8:00 AM) Arm, right (07/25/22 4:00 PM) Arm, right (07/25/22 12:00 PM) Temperature Route Oral (07/26/22 12:00 PM) Oral (07/26/22 8:00 AM) Oral (07/26/22 4:00 AM) Dry Weight 76.2 kg (07/22/22 9:35 PM) Weight Obtained Via Bed scale (07/26/22 4:00 AM) Bed scale (07/25/22 4:00 AM) Bed scale (07/24/22 12:24 AM) Dry Weight Obtained Via Bed scale (07/22/22 9:35 PM) Social History Social History Type Response Smoking Status Never (less than 100 in lifetime) entered on: 07/14/20 Sex Note * Shoshana Schroeder: PERFORM Event Display: Discharge/Transfer Note Hospital Authored Date: [id number] Nursing Discharge Note Entered On: 07/26/2022 17:00 EDT Performed On: 07/26/2022 16:58 EDT by Shoshana Schroeder Nursing Discharge Note 2 Discharge Time : 07/26/2022 16:30 EDT Discharge Level of Care at Discharge : Homehealth/VNA Discharge VNA/Hospice/Home Care(v001) : [facility] [employer] Patient Left Unit Via : Wheelchair Patient Accompanied Off Unit with : Responsible adult DC Instructions Provided & Signed by Pt : Yes Patient Understands D/C Instructions : Yes Patient Instructions Discharge Signed : Yes Did Pt have Specialty Bed or Wound Vac : No Shoshana Schroeder - 07/26/2022 16:58 EDT * Amalia Boucher NP: PERFORM, MODIFY, MODIFY Event Display: Discharge/Transfer Note Hospital Authored Date: Patient: ??SIVAKUMAR DUNBAR ? Age:??82 Years?Sex:??Male?:??1940?? Patient Information Discharge Location: Primary Care Physician: Denny Peña DO Admit Date/Time: 07/22/22 20:49 Discharge Disposition Discharge Disposition: Home with Home Health Discharge Diagnosis HFrEF (heart failure with reduced ejection fraction) (I50.20) HTN (hypertension) (I10) Ischemic cardiomyopathy (I25.5) STEMI (ST elevation myocardial infarction) (I21.3) ?? _ Discharge Medications Aspirin (aspirin 81 mg oral delayed release tablet)?1?tab(s)?81?Milligram?By Mouth?Daily Atorvastatin (atorvastatin 80 mg oral tablet)?1?tab(s)?80?Milligram?By Mouth?Daily at bedtime?for 30?Days Clopidogrel (clopidogrel 75 mg oral tablet)?75?Milligram?1?tablet?By Mouth?Daily?for 30?Days Finasteride (finasteride 5 mg oral tablet)?1?tab(s)?5?Milligram?By Mouth?Daily Furosemide (furosemide 40 mg oral tablet)?40?Milligram?1?tablet?By Mouth?Daily?for 30?Days Memantine (memantine 10 mg oral tablet)?1?tab(s)?10?Milligram?By Mouth?2 times a day Metformin (metFORMIN 500 mg oral tablet, extended release)?1?tab(s)?500?Milligram?ByMouth?Daily Metoprolol (metoprolol 25 mg oral tablet, extended release)?25?Milligram?1?tablet?ByMouth?Daily?for 30?Days Sertraline (sertraline 50 mg oral tablet)?1?tab(s)?50?Milligram?By Mouth?Daily ? Quality Measures Chest Pain, AMI Quality Measures:?Beta-Sherman Prescribed at Discharge:??Beta-Sherman Prescibed ?Statin Prescribed at Discharge:??Statin Prescribed ? Inpatient Medications Medications (18) Active SCHEDULED: (14) Aspirin 81 mg EC Tablet (Aspirin Tablet) ??81 mg, By Mouth, Daily Atorvastatin 80 mg Tablet (atorvastatin 80 mg oral tablet) ??80 mg, By Mouth, Daily at bedtime Clopidogrel 75 mg Tablet (clopidogrel 75 mg oral tablet) ??300 mg, By Mouth, Once Clopidogrel 75 mg Tablet (clopidogrel 75 mg oral tablet) ??75 mg, By Mouth, Daily Finasteride 5 mg Tablet (finasteride 5 mg oral tablet) ??5 mg, By Mouth, Daily Furosemide 40 mg Tablet (furosemide 40 mg oral tablet) ??40 mg, By Mouth, Daily Heparin 5000 units/mL Inj (1 mL) (Heparin Inj) ??5,000 units 1 mL, Subcutaneous Injection, 2 times a day Insulin Lispro 100 units/mL Inj (3mL) (Insulin LISPRO Sliding Scale) ??2-12 units, Subcutaneous Injection, 3 times a day before meals Melatonin 3 mg Tablet (Melatonin Tablet) ??3 mg, By Mouth, Daily at supper Memantine 10 mg Tablet (memantine 10 mg oral tablet) ??10 mg, By Mouth, 2 times a day Metoprolol 25mg Tablet (metoprolol 25 mg oral tablet) ??12.5 mg, By Mouth, 2 times a day Polyethylene Glycol 17 Gm Powder (MiraLax Powder) ??17 Gm 1 pack/packet, By Mouth, Daily Senna Tablet ??17.2 mg 2 tablet, By Mouth, Daily at bedtime Sertraline 50 mg Tablet (sertraline 50 mg oral tablet) ??50 mg, By Mouth, Daily CONTINUOUS: (0) PRN: (4) Acetaminophen 325 mg Tablet (Acetaminophen Tablet) ??975 mg, By Mouth, 3 times a day Bisacodyl 10 mg Suppository (Bisacodyl Supp) ??10 mg 1 supp, Rectally, Daily Dextromethorphan-Guaifenesin 20 mg-200 mg/10 mL Liqu UD (Robitussin DM Liquid) ??10 mL, By Mouth, Every 4 hours Polyvinyl Alcohol 1.4% Opthalmic Solution/Artificial Tears (Artificial Tears 1.4%) ??2 drops, Eyes,Both, Every 4 hours ? Medications Started metoprolol clopidogrel atorvastatin furosemide Medications Discontinued amlodipine hydrocortisone (not clear if pt was taking at home, old Rx) donepazil Doses Changed none Allergies Allergies ?(Active and Proposed Allergies Only) No Known Medication Allergies? (Severity: Unknown severity, Onset: Unknown) ? Hospital Course Sivakumar is a [place] Leonean-speaking 82-year-old gentleman with PMH significant for hypertension, diabetes type II not-on insulin, mild dementia/neurocognitive decline??who presented with chest pain and was??found to have STEMI, now??s/p JADE to mid LAD. Course complicated by delirium and acute CHF exacerbation. ? Acute HFrEF exacerbation LVEF 30-35% Acute hypoxic respiratory failure 2/2 cardiogenic pulmonary edema Ischemic cardiomyopathy with aneurysmal LV Anterolateral STEMI s/p JADE to LAD Hx HTN, T2DM, CKD III, HLD Presentation:??Developed chest pain that lasted all day prior to presentation, which worsened rightbefore presentation prompting ED visit Labs: High-sensitivity troponin of??134, BUN 18 , creatinine of 1.5. WBC of 9.0,??H&H of 15.1/44.8,?? platelet count of 221. EKG:??ST elevations in anterolateral leads, not available at time of note writing, EKG upon admission with dynamic changes, patient w/o chest pain. Cath??-??99% hazy and discrete lesion in mid LAD with normal distal flow, culprit lesion. The entire LAD is moderate to heavily calcified. Mid to distal LAD has mild diffuse disease. There is a second 30% lesion in mid segment of mid LAD. The apical LAD is small in caliber and has moderate to severe diffuse disease. Left main is large in caliber with mild diffuse disease. 65 to 70% stenosis of proximal left circumflex. High normal left ventricular filling pressures. LVEDP 15-18 mmHg. As mentioned above??has improved but persistent??ST elevations??in the anterior septal leads??and is chest pain-free vitally stable??likely indicative of??the infarct he suffered. LDL 114??with A1c 7??TSH 4.37 with normal T4 Echo - LVEF??30-35 %; akinesis of the mid-distal anteroseptal wall, mid-distal inferoseptal wall, mid-distal anterior wall, distal anterolateral wall, distal inferior wall and apex. ?? Plan: - lasix 40 mg po daily - metoprolol 25 mg daily - Continue aspirin 81 mg daily - Continue clopidogrel 75 mg daily (600 mg load given prior to discharge; brilinta too costly) - Continue atorvastatin - follow up with [facility] - VIOLETA/ARB held given renal function; can reevaluate outpt ?? Acute delirium, resolved Hx Dementia/Neurocognitive Decline Patient is [place]-speaking, knows his name,??the month, state he lives in, and why he is in the hospital. Per HCP patient is currently residing at assisted living facility - will need??to determine if he can be discharged back to this facility. He walks with walker and cane at baseline. His acute confusion is multifactorial from??acute NC, hypoxia, hospitalization, holding his ariceptdue to bradycardia as well as new medications. ?? Plan ?? - Delirium precautions - Continue home memantine/sertraline - holding donepezil??since starting metoprolol? DMII On metformin 500mg??QD at home. A1c 7 ? CKD III Cr 1.5, GFR 49 on admission, only one previous value of 1.4/GFR 48. Likely CKD II/III from either hypertension, DMII or BPH. Unclear if ESTELITA vs. at baseline. Has remained 1.5-1.6 VIOLETA/ARB held given renal function; can reevaluate outpt ? BPH:Continue home finasteride ?? Objective Measurements?? Height: 170 cm (07/22/22) Weight: 70.5 kg (07/26/22) Dry Weight: 76.2 kg (07/22/22) Body Mass Index:??26.37 kg/m2??High (07/22/22) ? Vital Signs?? Temperature: 97.9 DegF (07/26/22 12:00:00) Temperature Route: Oral (07/26/22 12:00:00) Pulse Rate: 78 bpm (07/26/22 12:00:00) Heart Rate Monitored: 77 bpm (07/26/22 11:53:00) Respiratory Rate: 22 br/min (07/26/22 12:00:00) Vented: No (07/26/22 11:53:00) Systolic Blood Pressure: 108 mm Hg (07/26/22 12:00:00) Diastolic Blood Pressure: 76 mm Hg (07/26/22 12:00:00) Blood pressure sites: Arm, right (07/26/22 08:00:00) Pulse Pressure: 32 mm Hg (07/26/22 12:00:00) Oxygen Saturation: 96 % (07/26/22 12:00:00) Mode of Delivery (Oxygen): Room air (07/26/22 12:00:00) Early Warning Score: 4 (07/26/22 12:04:52) ? Intake/Output? 07/22 20:49 07/26 07:00 07/25 07:00 07/24 07:00 07/23 07:00 ?? 07/26 14:06 07/26 14:06 07/26 06:59 07/25 06:59 07/24 06:59 Intake ? 2730 ?240 ?480 ?240 ?480 Output ? 1925 ?0 ?925 ?150 ?400 Net Total ?805 ?240 ? -445 ? 90 ? 80 ? Urine Count ? 10 ?1 ?4 ?3 ?2 ? . Physical Exam General: Alert, lying in bed comfortably, in NAD.?? Mental: Oriented x2. Appropriate affect. Converses easily Respiratory:??CTA. Nonlabored. Cardiovascular:??RRR. S1/S2. No M/R/G. No edema.??+ JVD with HJR. Gastrointestinal: Abdomen soft, non-tender, non-distended. Active bowel sounds. Neuro: Grossly intact. Moves all extremities spontaneously. Skin: [place], warm. CDI. Patient Education Titles Discharge Instructions for Heart Attack?? Diabetes and Heart Disease?? Exercise for a Healthier Heart?? Eating Heart-Healthy Foods?? Follow-Up Appointments Added Follow Up ?Time Frame ?Comments Denny Peña DO?1 to 2 weeks Tereso Hung MD?1 month?[facility]. Office will call with appointment. Please call if you do not hear from them by Sunday Home Health Face to Face *Denotes mandatory pham ?? *I certify that this patient is under my care and that I or an allowed non- physician working with me had a face to face encounter with the patient on this date:??07/26/2022 14:14 ?? *The encounter with the patient was in whole, or in part, for the following medical condition, which is the primary diagnosis(es) for home health care:??HFrEF (heart failure with reduced ejection fraction) (I50.20) HTN (hypertension) (I10) Ischemic cardiomyopathy (I25.5) STEMI (ST elevation myocardial infarction) (I21.3) ? *Select the indications for the discipline/s that are being arranged for this patient. Nursing (select all that apply): [_] None [_] Medication management (reconciliation, teaching)?? [_] Chronic disease management?? [_] Wound care and treatment?? [_] Home safety evaluation [_] Administer SQ/IM/IV medications?? [_] Cath care?? [_] Drain care?? [_] Trach or GT care?? Other _ Occupation Therapy (select all that apply): [_] None [_] ADL Management [_] Fall prevention training [_] Energy conservation [_] Cognitive training Other _ Physical Therapy (select all that apply): [_] None [X] Functional mobility training [X] Home exercise program to strengthen [X] Increase ROM?? [X] Falls prevention training [X] Home maintenance program for chronic disease Other _ Speech Therapy (select all that apply): [_] None [_] Swallow evaluation and training [_] Speech and language training [_] Cognitive training to process, organize, and/or recall information Other _ ? *Homebound due to (select all that apply): [_] Inability to leave home without assistance/supervision [_] Inability to ambulate without assistance [_] Pain [X] Decreased strength and endurance [_] Unsteady gait [_] Severe SOB and fatigue [_] Impaired transfers [_] Inability to negotiate stairs [_] Limited weight bearing [X] Mental status ? *Physician Signature: _Amalia Boucher NP ?? *By signing this, I certify that I have personally evaluated the patient and agree with the findings and recommendations as documented above. ? Results Discharge Labs BLOOD BANK Blood Type B Positive ()?? 07/22/2022 19:50 Antibody Screen Negative ()?? 07/22/2022 19:50 ?? BLOOD COUNT & DIFF WBC 10.6 k/mm3 ()?? 07/26/2022 00:59 RBC 4.74 m/mm3 ()?? 07/26/2022 00:59 Hgb 13.8 Gm/dL ()?? 07/26/2022 00:59 Hct 42.3 % ()?? 07/26/2022 00:59 MCV 89.2 femtoliters ()?? 07/26/2022 00:59 MCH 29.1 pg ()?? 07/26/2022 00:59 MCHC 32.6 g/dL (Low)?? 07/26/2022 00:59 Platelet Count 187 k/mm3 ()?? 07/26/2022 00:59 RDW-SD 43.8 femtoliters ()?? 07/26/2022 00:59 MPV 11.6 femtoliters ()?? 07/26/2022 00:59 Nucleated RBC (Automated) 0.0 #/100 WBC'S ()?? 07/26/2022 00:59 Abs. NRBC 0.0 k/mm3 ()?? 07/26/2022 00:59 Abs. Neut 5.4 k/mm3 ()?? 07/22/2022 19:55 Abs. Lymph 2.6 k/mm3 ()?? 07/22/2022 19:55 Abs. Russell 0.8 k/mm3 ()?? 07/22/2022 19:55 Abs. Eo 0.1 k/mm3 ()?? 07/22/2022 19:55 Abs. Baso 0.1 k/mm3 ()?? 07/22/2022 19:55 Neut % 59.5 % ()?? 07/22/2022 19:55 Lymph % 29.2 % ()?? 07/22/2022 19:55 Russell % 8.9 % ()?? 07/22/2022 19:55 Eos % 1.1 % ()?? 07/22/2022 19:55 Baso % 0.9 % ()?? 07/22/2022 19:55 Imm Gran 0.4 % ()?? 07/22/2022 19:55 Abs. Imm Gran 0.0 k/mm3 ()?? 07/22/2022 19:55 ?? CARDIAC High Sensitivity Troponin (HSTnT) 134 ng/L (Critical)?? 07/22/2022 19:56 ? CHEM GENERAL Sodium 141 mmol/L ()?? 07/26/2022 00:59 Potassium 3.9 mmol/L ()?? 07/26/2022 00:59 Chloride 103 mmol/L ()?? 07/26/2022 00:59 Bicarbonate Level 22 mmol/L ()?? 07/26/2022 00:59 Anion Gap 16 ()?? 07/26/2022 00:59 Glucose Level 164 mg/dL (High)?? 07/26/2022 00:59 Glucose, POC 230 mg/dL (High)?? 07/26/2022 11:47 Hemoglobin A1C (Monitoring) 7.0 % (High)?? 07/22/2022 19:55 BUN 22 mg/dL ()?? 07/26/2022 00:59 Creatinine-Blood 1.5 mg/dL (High)?? 07/26/2022 00:59 Estimated GFR Creatinine 46 ML/MIN/1.73 M2 ()?? 07/26/2022 00:59 Calcium 9.6 mg/dL ()?? 07/26/2022 00:59 Calcium, Ionized pH Corrected 1.18 mmol/L ()?? 07/25/2022 03:57 Phosphorus 3.7 mg/dL ()?? 07/25/2022 03:57 Magnesium 2.1 mg/dL ()?? 07/26/2022 00:59 Alkaline Phosphatase 73 units/L ()?? 07/22/2022 19:56 AST (SGOT) 21 units/L ()?? 07/22/2022 19:56 ALT (SGPT) 19 units/L ()?? 07/22/2022 19:56 Bilirubin, Total 0.2 mg/dL ()?? 07/22/2022 19:56 Vitamin B12 Level 209 pg/mL (Low)?? 07/24/2022 05:28 Folic Acid Level 14.9 ng/mL ()?? 07/24/2022 05:28 ? COAG APTT 23.7 seconds ()?? 07/22/2022 19:55 ? ENDOCRINE/TUMOR MARKER TSH 4.37 uIU/mL (High)?? 07/22/2022 19:56 Free T4 0.97 ng/dL ()?? 07/23/2022 02:20 ?? LIPID STUDIES Cholesterol 212 mg/dL (High)?? 07/23/2022 02:20 Triglycerides 280 mg/dL (High)?? 07/23/2022 02:20 HDL Cholesterol 42 mg/dL ()?? 07/23/2022 02:20 LDL Cholesterol 114 mg/dL ()?? 07/23/2022 02:20 Non HDL Cholesterol 170 mg/dL (High)?? 07/23/2022 02:20 ? VIROLOGY COVID-19 by RT-PCR NEGATIVE ()?? 07/22/2022 19:38 ? Blood Glucose Trend Glucose Level:??164 mg/dL??High (07/26/22 00:59:00) Glucose, POC:??230 mg/dL??High (07/26/22 11:47:00) Glucose, POC:??162 mg/dL??High (07/26/22 07:57:00) Glucose, POC:??191 mg/dL??High (07/25/22 19:56:00) Glucose, POC:??160 mg/dL??High (07/25/22 16:59:00) ? Microbiology ?? COVID-19 (Novel Coronavirus), Rapid PCR?? Completed?? Source: Nasal Body Site: Nose Collected Dt/Tm: 07/22/2022 19:56 Last Updated Dt/Tm: 07/22/2022 21:20 ? Procedures(s) ?Cardiac Cath Procedure ?? 07/22/2022 20:00??by Tasneem BLANC, [place] ?? Conclusions ?Diagnostic Summary ?99% hazy and discrete lesion in mid LAD with normal distal flow. The lesion ??is also heavily calcified. It is felt to be the culprit for patient's acute ??anterior lateral ST elevation NC. The entire LAD is moderate to heavily ??calcified. Mid to distal LAD has mild diffuse disease. There is a second 30% ??lesion in mid segment of mid LAD. The apical LAD is small in caliber and has ??moderate to severe diffuse disease. ??Left main is large in caliber with mild diffuse disease. ??65 to 70% stenosis of proximal left circumflex. The lesion is smooth and ??moderate to heavily calcified. ??First obtuse marginal branch is very small in size. ??Second obtuse marginal is medium to large in size with 99% discrete stenosis ??in proximal segment. 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 There is well-established collaterals from distal RCA to ??OM 3. There is poor collaterals from OM 2 to OM 3 as well. ?High normal left ventricular filling pressures. LVEDP 15-18 mmHg. ??No pullback gradient from the LV to the AO ?Diagnostic Recommendations ??Proceed with intervention of the mid LAD ?Interventional Summary ?Mr. Sivakumar Dunbar is a 82-year-old male who presented to the hospital with ??complaint of chest pain. EKG showed evidence of anterolateral ST elevation. ??Patient was having active chest pain with EKG changes and hence was ??recommended to emergency cardiac catheterization. ?He underwent coronary angiogram which showed evidence of 99% mid LAD lesion ??with acute plaque rupture and slow flow in the LAD. He underwent successful ??angioplasty and drug-eluting stent placement with a 3.0 x 24 mm Synergy JADE. ??Postdilatation was performed using a 3.0 mm x 12 mm NC balloon. ??Patient was chest pain-free and hemodynamically stable. ??There was evidence of 0% residual stenosis and PATRICK-3 flow at the end of the ??case. ??There was a very distal LAD stenosis which was also evident during ??diagnostic angiogram. We decided to treated medically as a very small and ??distal. ?Patient also has evidence of moderate disease in the proximal circumflex, ??mid LAD and a STUDENT ACCOUNTS MANAGER of the OM 3 which is filled by collaterals from the right. ??At this point, it would be best to be treated medically. ?Interventional Recommendations ?Dual antiplatelet therapy for at least 1 year. ??Aspirin 81 mg daily indefinitely. ??Gentle IV hydration to prevent contrast-induced nephropathy. ??Obtain an echo to assess LV function. ??Aggressive risk factor modifications for secondary prevention. ??Optimize ACC/AHA guideline directed medical therapy and lifestyle management ??for patient with STEMI. ?ACC Diagnostic Recommendations: PCI without planned CABG. ?Signatures ?Electronically signed by Sanju Boateng MD(Performing Physician) ??on 07/22/2022 22:06 ?Coronary Tree ?Dominance: Right [1] ? Imaging(s) ?Echocardiogram - Complete ?? 07/23/2022 06:28??by Kimi Piedra MDchary ?Summary ??Due to suboptimal visual quality, IV contrast was used to enhance this ??study. ??The left ventricular ejection fraction is 30-35 %. There is akinesis of the ??mid-distal anteroseptal wall, mid-distal inferoseptal wall, mid-distal ??anterior wall, distal anterolateral wall, distal inferior wall and apex. ??Mild asymmetric basal septal hypertrophy with septal thickness 1.4 cm. ??Normal right ventricular size and function. ??No significant valvular disease. ??Mild pulmonary hypertension with PA systolic pressure 33 mmHg plus RA ??pressure. ?Signature ? [2] ? 44??minutes spent on discharge ? discussed with attending, Dr. Lafleur [1]??Coronary Angiography; Tasneem BLANC, [facility] 07/22/2022 20:00 EDT [2]??Echo Complete-Doppler, Colorflow, M-Mode; Kimi Piedra MDchary 07/23/2022 06:28 EDT * Rebecca Gannon RN: PERFORM, SIGN, VERIFY Event Display: Case Management Discharge Plan Authored Date: [id number] Patient: SIVAKUMAR DUNBAR Age: 82 years Sex: Male : 1940 Associated Diagnoses: None Author: Rebecca Gannon RN Discharge Plan Case Management Discharge Plan : Case Management Discharge Plan Data 07/26/2022 14:30 EDT Discharge Level of Care at Discharge Homehealth/VNA Discharge VNA/Hospice/Home Care [employer] Discharge Transportation Arranged Family Name of Agency #1 [facility] Service Categories #1 Physical Therapy Service Comments #1 Service Comments #1 * Shoshana Schroeder: PERFORM Event Display: Patient Education/Instruction Authored Date: Inpatient Adult Discharge Instructions [address] [address] Name: SIVAKUMAR DUNBAR : 1940 Visit: 07/22/2022 20:49:00 Current Date: 07/26/2022 15:32 Account: [id number] Inpatient Adult Discharge Instructions We would like to thank you for allowing us to assist you with your healthcare needs. The following includes patient education materials and information regarding your injury/illness. Our entire staffstrives to provide an excellent experience for our patients and their families. PLEASE ENSURE YOU FOLLOW-UP PER THE INSTRUCTIONS BELOW! ?? YOUR OPINION IS IMPORTANT TO US! Please complete the survey you may receive by mail or email. Your feedback will be used to make improvements to the healthcare experiences of our patients and their families. Surveys are administered by [employer] ?? If further treatment with your primary care physician or another doctor is recommended, it is important for you to keep the appointment. Call your primary care physician or return to the Emergency Department immediately if your condition worsens, fails to improve, or new symptoms develop. If you need to find a doctor, you can call [facility] PatientKeeper [facility] for a referral at [phone] or toll free at [phone] or log in to [email or web address].. ?? You can view and manage your care through the patient portal or by using a health care luis of your choosing. [employer] is a website that allows you to securely view your medical information including your hospital discharge summary, office visit summaries, medications and follow-up visits. You can also request appointments, renew medications, and request access to your medical information using a health care luis of your choosing, or just ask a question. You can enroll at [email or web address] or register during your next office visit. You have been discharged from [facility], Patient Care Unit: M5. If you have any questions regarding these instructions after you leave, please call us and we will be happy to assist you. [facility] Your Care Team Attending Physician Miquel BLANC, Greg Rajan Consulting Providers Richard BLANC, Claudia Discharging Providers Amalia Boucher NP Reason for Your Visit STEMI Your Diagnosis HFrEF (heart failure with reduced ejection fraction) HTN (hypertension) Ischemic cardiomyopathy STEMI (ST elevation myocardial infarction) Tests Performed Below is a partial list of the tests performed during your hospitalization. You may have had other tests and procedures not included in this list. Please discuss all test results with your provider. ALK PHOS ALT AST Basic Metabolic Panel BILIRUBIN,TOTAL BUN CBC CBC w/ Differential COVID-19 (Novel Coronavirus), Rapid PCR Creatinine FOLIC ACID FREE T4 GLUCOSE POC HEMOGLOBIN A1C High??Sensitivity??Troponin T HOLD RED TUBE?-- Results Pending -- Ionized Calcium Lipid Panel Lytes Magnesium Level Phosphorus Level PTT TSH Type and Screen VITAMIN B12 CXR Portable XR Chest Portable ? You will be contacted within 72 hours with your results. Primary Care Provider Denny Peña DO Advance Directive . Discharge Vitals Temperature: 97.9 DegF Height: 170 cm Pulse Rate: 78 bpm Weight: 70.5 kg Respiratory Rate: 22 br/min Body Mass Index:??26.37 kg/m2??High Systolic Blood Pressure: 108 mm Hg Body surface area: 1.9 Diastolic Blood Pressure: 76 mm Hg ?? Oxygen Saturation: 96 % ?? Studies Pending All tests and labs ordered during this hospital stay have been completed unless listed below. Please discuss all pending results with your provider listed above in these instructions. ?? Add On Lab Order Hold Red Top Tube (HOLD RED TUBE) What to do next Instructions From Your Doctor Discharge Orders You Need to Schedule the Following Appointments Follow Up with??Denny Peña DO When??Within 1 to 2 weeks Where: ?? Follow Up with??Abhilash BLANC, Tereso Polo When??Within 1 month Why: [facility]. Office will call with appointment. Please call if you do not hear from them by Sunday Where: [address] [place] [address]- Discharge Medications SIVAKUMAR DUNBAR :1940 Visit Date:07/22/2022 Medications: Please continue your medications until treatment is completed or stopped by your provider. Medications not listed below should be discontinued. Discuss any questions related to medications with your provider. What How Much When Instructions Next Dose New Atorvastatin (atorvastatin 80 mg oral tablet) 1 tab(s) Oral Daily at Bedtime Duration: 30 Days Refills: 2 Pickup at [place] [address] TAKE TONIGHT New Clopidogrel (clopidogrel 75 mg oral tablet) 1 tab(s) Oral Daily Duration: 30 Days Refills: 2 Pickup at [place] [address] TAKE TMRW MORNING New Furosemide (furosemide 40 mg oral tablet) 1 tab(s) Oral Daily Duration: 30 Days Refills: 2 Pickup at [place] [address] TAKE TMRW MORNING New Metoprolol (metoprolol 25 mg oral tablet, extended release) 1 tab(s) Oral Daily Duration: 30 Days Refills: 2 Pickup at [place] [address] TAKE TMRW MORNING Changed Metformin (metFORMIN 500 mg oral tablet, extended release) 1 tab(s) Oral Daily RESUME HOME SCHEDULE Unchanged Aspirin (aspirin 81 mg oral delayed release tablet) 1 tab(s) Oral Daily TAKE TMRW MORNING Unchanged Finasteride (finasteride 5 mg oral tablet) 1 tab(s) Oral Daily TAKE TMRW MORNING Unchanged Memantine (memantine 10 mg oral tablet) 1 tab(s) Oral Twice a day TAKE TONIGHT Unchanged Sertraline (sertraline 50 mg oral tablet) 1 tab(s) Oral Daily TAKE TMRW MORNING Pharmacy Information [facility] 3: [address], [place] [id number] [phone] ?? What How Much When Why Comments Stop Taking Amlodipine (amLODIPine 10 mg oral tablet) 1 tab(s) Oral Daily STOP Stop Taking Donepezil (donepezil 10 mg oral tablet, disintegrating) 1 tab(s) Oral Daily at Bedtime STOP Stop Taking Hydrocortisone Topical (hydrocortisone topical 25 mg suppository) 1 suppository(ies) Per rectum Twice a day Hemorrhoids Duration: 14 Days STOP Stop Taking Hydrocortisone Topical (hydrocortisone topical 25 mg suppository) 1 suppository(ies) Per rectum Twice a day Duration: 14 Days STOP Test Results Below is a partial list of the most recent Laboratory test results done prior to this discharge. You may have had other tests and procedures not included in this list. Please discuss all test resultswith your provider. ALK PHOS (07/22/2022) ???Alkaline Phosphatase - 73 units/L ALT (07/22/2022) ???ALT (SGPT) - 19 units/L AST (07/22/2022) ???AST (SGOT) - 21 units/L Basic Metabolic Panel (07/26/2022) ???Sodium - 141 mmol/L???Potassium - 3.9 mmol/L???Chloride - 103 mmol/L???Bicarbonate Level - 22 mmol/L???Anion Gap - 16???Glucose Level - 164 mg/dL???BUN - 22 mg/dL???Creatinine-Blood - 1.5 mg/dL???Estimated GFR Creatinine - 46 ML/MIN/1.73 M2???Calcium - 9.6 mg/dL BILIRUBIN,TOTAL (07/22/2022) ???Bilirubin, Total - 0.2 mg/dL BUN (07/23/2022) ???BUN - 18 mg/dL CBC (07/26/2022) ???WBC - 10.6 k/mm3???RBC - 4.74 m/mm3???Hgb - 13.8 Gm/dL???Hct - 42.3 %???MCV - 89.2 femtoliters???MCH - 29.1 pg???MCHC - 32.6 g/dL???Platelet Count - 187 k/mm3???RDW-SD - 43.8 femtoliters???MPV - 11.6 femtoliters???Nucleated RBC (Automated) - 0.0 #/100 WBC'S???Abs. NRBC - 0.0 k/mm3 CBC w/ Differential (07/22/2022) ???WBC - 9.0 k/mm3???RBC - 5.15 m/mm3???Hgb - 15.1 Gm/dL???Hct - 44.8 %???MCV - 87.0 femtoliters???MCH - 29.3 pg???MCHC - 33.7 g/dL???Platelet Count - 221 k/mm3???RDW-SD - 41.0 femtoliters???MPV - 11.2 femtoliters???Nucleated RBC (Automated) - 0.0 #/100 WBC'S???Abs. NRBC - 0.0 k/mm3???Abs. Neut - 5.4 k/mm3???Abs. Lymph - 2.6 k/mm3???Abs. Russell - 0.8 k/mm3???Abs. Eo - 0.1 k/mm3???Abs. Baso - 0.1 k/mm3???Neut % - 59.5 %???Lymph % - 29.2 %???Russell % - 8.9 %???Eos % - 1.1 %???Baso % - 0.9 %???Imm Gran - 0.4 %???Abs. Imm Gran - 0.0 k/mm3 COVID-19 (Novel Coronavirus), Rapid PCR (07/22/2022) ???COVID-19 by RT-PCR - NEGATIVE Creatinine (07/23/2022) ???Creatinine-Blood - 1.4 mg/dL???Estimated GFR Creatinine - 50 ML/MIN/1.73 M2 FOLIC ACID (07/24/2022) ???Folic Acid Level - 14.9 ng/mL FREE T4 (07/23/2022) ???Free T4 - 0.97 ng/dL GLUCOSE POC (07/26/2022) ???Glucose, POC - 230 mg/dL HEMOGLOBIN A1C (07/22/2022) ???Hemoglobin A1C (Monitoring) - 7.0 % High??Sensitivity??Troponin T (07/22/2022) ???High Sensitivity Troponin (HSTnT) - 134 ng/L Ionized Calcium (07/25/2022) ???Calcium, Ionized pH Corrected - 1.18 mmol/L Lipid Panel (07/23/2022) ???Cholesterol - 212 mg/dL???Triglycerides - 280 mg/dL???HDL Cholesterol - 42 mg/dL???LDL Cholesterol - 114 mg/dL???Non HDL Cholesterol - 170 mg/dL Lytes (07/23/2022) ???Sodium - 139 mmol/L???Potassium - 3.9 mmol/L???Chloride - 100 mmol/L???Bicarbonate Level - 25 mmol/L???Anion Gap - 14 Magnesium Level (07/26/2022) ???Magnesium - 2.1 mg/dL Phosphorus Level (07/25/2022) ???Phosphorus - 3.7 mg/dL PTT (07/22/2022) ???APTT - 23.7 seconds TSH (07/22/2022) ???TSH - 4.37 uIU/mL Type and Screen (07/22/2022) ???Blood Type - B Positive???Antibody Screen - Negative VITAMIN B12 (07/24/2022) ???Vitamin B12 Level - 209 pg/mL Allergies (NKA means No Known Allergies) No Known Medication Allergies Problems Active Problems??(2) Hemorrhoids?? STEMI (ST elevation myocardial infarction)?? Education Materials Below is the list of Educational Leaflet Providered with your Discharge Instructions. Discharge Instructions for Heart Attack?? Diabetes and Heart Disease?? Exercise for a Healthier Heart?? Eating Heart-Healthy Foods?? Valuables and Belongings I fully understand and agree that [facility] accepts no responsibility for all my personal property including clothing, toilet articles, radios, jewelry, dentures, hearing aids, rings, money, or any other property that is in my possession or is brought to me after admission. I understand certain valuables may be placed in a hospital safe for a short period of time. I understand that the hospital is not liable for loss or damage due to accident, fire, or other natural occurrence while said property is in the safe. I accept full responsibility for any personal property that I keep with me, and will not hold the hospital responsible in case of loss or disappearance. I acknowledge that i have been encouraged to send valuables and belongings home. ?? No Valuables/Belongings: No valuables/belongings present Review of Valuable and Belonging List: With patient Date for Pt to Sign Valuables/Belongings: 07/23/22 22:13:00 ?? Other Discharge Information ? Case Management Discharge Plan?? Discharge Plan?? Discharge Agency Information?? Discharge Level of Care at Discharge: Homehealth/VNA Name of Agency #1: [facility] Discharge Transportation Arranged: Family Service Categories #1: Physical Therapy Discharge VNA/Hospice/Home Care: [employer] [facility] Service Comments #1: [facility] will call to set up services.If you do Not hear from them, Please call and thanks ?? Pulmonary Rehab Status?? Pulmonary Rehab Discharge Status?? Respiratory Rate: 22 br/min ? Cardiac Rehab Assessment?? Cardiac Rehab Inpatient Assessment?? Comments-Education: S/P NC AND PCI EDUCATION WITH FAMILY Comments-Smoking Cessation: NA Comments-Exercise Activity: AMB PER PT Common Emergency Awareness Tips IS IT A STROKE? Act FAST and Check for these signs: FACE Does the face look uneven? ARM Does one arm drift down? SPEECH Does their speech sound strange? TIME Call at any sign of stroke ?? Heart Attack Signs Chest discomfort: Most heart attacks involve discomfort in the center of the chest and lasts more than a few minutes, or goes away and comes back. It can feel like uncomfortable pressure, squeezing, fullness or pain. Discomfort in upper body: Symptoms can include pain or discomfort in one or both arms, back, neck, jaw or stomach. Shortness of breath: With or without discomfort. Other signs: Breaking out in a cold sweat, nausea, or lightheaded. Remember, MINUTES DO MATTER. If you experience any of these heart attack warning signs, call to get immediate medical attention! ?? Smoking can increase your chances of developing chronic health problems and can cause harmful effects to other family members in your house. If you smoke, you are strongly encouraged to quit. Please call [facility] Patient[facility]eeper [facility] at [phone] or [phone]) or log in to [email or web address] for referrals to smoking cessation programs. ?? 266 Suicide & Crisis Lifeline is available 30/10 if you or someone you know needs to find a reason to keep living. By calling 827 you'll be connected to a skilled, trained counselor at a crisis center in your area. INPATIENT DISCHARGE INSTRUCTIONS SIGNATURE PAGE SIVAKUMAR DUNBAR Location:[facility] Registration Date and Time:07/22/2022 20:49 EDT Primary Care Physician: Denny Peña DO I SIVAKUMAR DUNBAR, have received the above patient education materials/instructions and have verbalized understanding. If ambulance or transport services are being used I further acknowledge being given a choice of service. ?? If you need to contact me, please call me at this number: . Patient/Leather Goods Sales Representative Name: Patient/Leather Goods Sales Representative Signature: Relationship to Patient: Witness Name/Signature: Date: * Amalia Boucher NP: PERFORM Event Display: Patient Education Leaflets Authored Date: [id number] Discharge Instructions for Heart Attack ?? [id number] Discharge Instructions for Heart Attack You have had a heart attack (acute myocardial infarction). A heart attack occurs when a vessel thatsends blood to your heart suddenly becomes blocked. This causes your heart not to work as well as it should. Follow these guidelines for home care and lifestyle changes. At home ??? Check that you have a list of all the medicines you take. Take your medicines exactly as directed. Make sure you've been given instructions about your medicines and how to take them. Makesure you have a pharmacy so you can get the prescription filled. Don???t skip doses. Talk with yourhealthcare provider if your medicines aren't working for you. Together you can come up with another treatment plan. ??? Remember that recovery after a heart attack takes time. Plan to take it easy for at least 4 to 6 weeks while you recover. Then return to normal activity when your doctor says it???s OK. ??? Ask your doctor about joining a heart rehab program. This can help strengthen your heart and lungs and give you more energy and confidence. ??? Tell your doctor if you are feeling depressed. Feelings of sadness are common after a heart attack. But it's important to speak to someone or seek counseling??if you are feeling overwhelmed by these feelings. These feelings most often pass within a month. ??? Call 911 right away if you??have??chest pain or pain that goes to your shoulder, neck, or back. Don't drive yourself to the hospital. ??? Ask your family members to learn CPR. This is an important skill that can save lives when it's needed. ??? Learn to take your own blood pressure and pulse. Keep a record of your results. Ask your doctor when you should seek emergency medical attention. They will tell you which blood pressure reading is dangerous. ?? Lifestyle changes Your heart attack was likely caused by heart disease. Your healthcare provider will work with you to make changes to your lifestyle. This will help the heart disease from getting worse. These changeswill most likely be a combination of diet and exercise. Diet Your healthcare provider will tell you what changes you need to make to your diet. You may need to see a registered dietitian for help with these diet changes. These changes may include: ??? Cutting back on how much fat and cholesterol you eat ??? Cutting back on how much salt (sodium)you eat, especially if you have high blood pressure ??? Eating more fresh vegetables and fruits ???Eating lean proteins such as fish, poultry, beans, and peas, and eating less red meat and processedmeats ??? Using low-fat dairy products ??? Using vegetable and nut oils in limited amounts ??? Limiting how many sweets and processed foods such as chips, cookies, and baked goods you eat ??? Limiting how often you eat out. And when you do eat out, making better food choices. ??? Not eating fried or greasy foods, or foods high in saturated fat Exercise Your healthcare provider may tell you to get more exercise if you haven't been physically active. Depending on your case, your provider may recommend an exercise program that is best for you. Warm up5 to 10 minutes before exercising and cool down 5 to 10 minutes after exercising. The cardiac rehab program Ask your healthcare provider about a cardiac rehab program. Cardiac rehabilitation is a medically supervised program to help people who have heart disease. It's designed to improve heart recovery andyour ability to function. It also helps prepare you for activities of daily living. People in this program may have recently had a heart attack or heart surgery. It may ease your symptoms and improveyour sense of well-being. Your cardiac rehab program is designed to meet your needs. It's overseen by a cardiac doctor and a team of cardiac health providers. Your program may last from 6 weeks to upto a year. The goal of cardiac rehab is to help ease your symptoms and make your heart as healthy as possible.Your program may include: ??? Exercise program. This makes you more fit, and helps your heart work better. ??? Classes to help you change your lifestyle and habits. For example, classes and support to help you quit smoking. Or you may take a nutrition class to learn how to eat better. ??? Stress management. You will learn how to manage stress to lower your anxiety. ??? Counseling. This will help you learn about your specific condition and how to live with it. ??? Occupational therapy. This is to help you get ready to goback to work or to manage normal activities of daily living. Other changes Your healthcare provider may also recommend that you: ??? Lose weight. If you??are overweight or obese, your provider will work with you to lose extra pounds. Making diet changes and getting more exercise can help. A good goal is to lose your 10% of your body weight in one year. ??? Stop smoking. Sign up for a stop-smoking program to make it more likely for you to quit for good. You can join a stop-smoking support group. Or ask your doctor about nicotine replacement products or medicines to help you quit. ??? Learn to manage stress. Stress management techniques to help you deal with stress inyour home and work life. This will help you feel better emotionally and ease the strain on your heart. ??? Control other conditions. If you have diabetes, high blood pressure, kidney disease, or highcholesterol, your provider will work with you to control these diseases. All of these are risk factors for heart attacks. ?? Follow-up Check that you have the details about all of your medical appointments once you leave the hospital.Or make a follow-up appointment as directed. ?? Call 911 Call 911 right away??if you have: ??? Chest pain or pain that goes to your neck, jaw, back, or shoulder ??? New shortness of breath ?? When to call your healthcare provider Call??your healthcare provider right away if you have: ??? Lightheadedness, dizziness, or fainting ??? Feeling of irregular heartbeat or fast pulse ?? Last Reviewed Date: 2021 ?? [id number] [employer]. All rights reserved. This information is not intended as a substitute for professional medical care. Always follow your healthcare professional's instructions. ?? * Amalia Boucher NP: PERFORM Event Display: Patient Education Leaflets Authored Date: [id number] Diabetes and Heart Disease ?? 18801 Diabetes and Heart Disease If you have diabetes, you're??2 to 4 times more likely to have heart disease than someone without diabetes. And you're likely to get it at a younger age. This higher risk is because of diabetes. But it's also because of other risk factors for heart disease that happen in people with diabetes. But there???s good news. You can help??control your health risks by making some changes in your life. Youcan take steps to cut your risk for heart disease by half. This is similar to the risk in people who don't have diabetes. Take your medicines as directed each day, even if you feel fine. Your main risk factors Three major risk factors for heart disease are high blood sugar, high blood pressure, and high levels of fat in the blood (lipids). By controlling these things, you can help keep your heart and arteries healthy. This may cut your chances of a heart attack. ??? Blood sugar.??High blood sugar can make artery kraus tough and rough. Plaque is waxy material in the blood. It can then build up along theartery kraus. This makes it harder for blood to flow through the arteries. High blood sugar also raises the chances of having high blood pressure and high cholesterol. ??? Blood pressure. When blood pressure is high all the time, it causes your heart to work harder to pump blood. Artery kraus become damaged. This makes it more likely for plaque to build up. ??? Lipids.??Your body needs some bloodfats (lipids) to stay healthy. But lipid levels that are too high can harm artery kraus. Lipids include cholesterol and triglycerides. There are 2 kinds of cholesterol. LDL (???bad?? ) cholesterol can damage the arteries. But HDL (???good?? ) cholesterol helps clear LDL from the blood vessels. Thishelps keep the arteries healthy. When blood sugar is high, the level of triglycerides in the blood may also be high. This??can also cause plaque to form.? Other risk factors Certain lifestyle factors can raise levels of your blood sugar, blood pressure, and lipids. Higher levels raise your risk for heart disease: ??? Smoking. Smoking??damages the lining of your arteries.This allows plaque to build up in the artery kraus. It also narrows the arteries. This can raise blood pressure and cause chest pain (angina). Smoking also raises your risk of getting type 2 diabetes. Also don't use e-cigarette, or vaping, products. ??? Not being active. Not being active??makes it harder for your heart to do its work. Inactivity is linked to many other problems, such as high blood pressure and high cholesterol levels. Inactivity also increases your risk of getting type 2 diabetes. ??? Being overweight. Being overweight??makes it harder for your body to use insulin. It also makes your heart work too hard. Being overweight is also 1 of the main risk factors leading to type 2 diabetes,? Changes you can make The simple steps below can help keep your risk factors under control. Work with your healthcare team to reach your goals. ??? Quit smoking. Quitting smoking??could save your life. Smoking harms the lining of the blood vessels and raises blood pressure. It also affects how your body uses insulin. This makes it harder to keep blood sugar under control. If you smoke and need help quitting, talk withyour healthcare team.? Test your blood sugar. Checking your blood sugar is the only way to know if it's under control. Test your blood sugar yourself. Also get tested in the lab, as directed. ??? Check your blood pressure and lipids. Monitoring your blood pressure and lipid levels can help youstay at safe levels. Visit your healthcare team as scheduled. ??? Take medicines as directed. This can help control blood sugar, blood pressure, blood clotting, and cholesterol levels. Several medicines for diabetes also lower your risk for heart attacks and strokes. ??? Eat healthy. Eating??healthy foods can cut your risk factors and help you lose weight. Try to limit the amount of processed or refined carbohydrates you eat at one time. Cut back on your total calories. Eat foods low in saturated fat and cholesterol. Eat fiber, including vegetables and whole grains, and cut down on salt. A dietitian or special education paraeducator can help make a meal plan that works for you???even if you're on a limited budget.? Limit alcohol. Drinking alcohol even in low or moderate amounts can increase your body's sensitivity to insulin. But it also places you at greater risk for low blood sugar reactions.??? Be active.??Physical exercise can help reduce your weight, strengthen your heart, and lower your lipid levels and blood pressure. Exercise and activity are good for your whole body. Talk to your healthcare team about increasing your activity safely over time. ??? Keep your appointments.??Regular visits with your healthcare provider help you stay healthy. Go in for checkups and lab tests as scheduled. ?? Last Reviewed Date: 2021 ?? [id number] [employer]. All rights reserved. This information is not intended as a substitute for professional medical care. Always follow your healthcare professional's instructions. ?? * Amalia Boucher NP: PERFORM Event Display: Patient Education Leaflets Authored Date: [id number] Exercise for a Healthier Heart ?? 10218 Exercise for a Healthier Heart You may wonder how you can improve the health of your heart. If you???re thinking about exercise, you???re on the right track. You don???t need to become an athlete. But you do need a certain amount of brisk exercise to help strengthen your heart. If you have been diagnosed with a heart condition, your healthcare provider may advise exercise to help your condition. To help make exercise a habit, choose safe, fun activities. Exercise with a friend. When activity is fun, you're more likely to stick with it. Before you start Check with your healthcare provider before starting an exercise program. This is especially important if you haven't been active for a while. It's also important if you have a long-term (chronic) health problem such as heart disease, diabetes, or obesity. Also check with your provider if you're at high risk for having these problems. ?? Why exercise? Exercising regularly offers many healthy rewards. It can help you do all of these: ??? Improve yourblood cholesterol level to help prevent further heart trouble. ??? Lower your blood pressure to help prevent a stroke or heart attack. ??? Control diabetes or reduce your risk of getting this disease. ??? Improve your heart and lung function. ??? Reach and stay at a healthy weight. ??? Make your muscles stronger so you can stay active. ??? Prevent falls and fractures by slowing the loss of bone mass (osteoporosis). ??? Manage stress better. ??? Improve your sense of self and your body image. ?? Exercise tips ??? Ease into your routine. Set small goals. Then build on them. Talk with your healthcare providerfirst before starting an exercise routine if you're not sure what your activity level should be. ??? Exercise on most days. Aim for a total of at least 150 minutes (2 hours and 30 minutes) or more ofmoderate-intensity aerobic activity each week. You could also do 75 minutes (1 hour and 15 minutes) or more of vigorous-intensity aerobic activity each week. Or try for a combination of both. Moderate activity means that you breathe heavier and your heart rate increases, but you can still talk. Think about doing at least 30 minutes of moderate exercise, 5 times a week. It's OK to work up to the 30- minute period over time. Examples of moderate-intensity activity are brisk walking, gardening, andwater aerobics. ??? Step up your daily activity level. Along with your exercise program, try being more active the whole day. Walk instead of drive. Or park further away so that you take more steps each day. Do more household tasks or yard work. You may not be able to meet the advised amount of physical activity. But doing some moderate- or vigorous-intensity aerobic activity can help reduce yourrisk for heart disease. Your healthcare provider can help you figure out what is best for you. ??? Choose 1 or more activities you enjoy. Walking is one of the easiest things you can do. You can alsotry swimming, riding a bike, dancing, or taking an exercise class. ?? Call 911 Call 911 right away if any of these occur: ??? Chest pain that doesn't go away quickly with rest ??? New burning, tightness, pressure, or heaviness in your chest, neck, shoulders, back, or arms ??? Abnormal or severe shortness of breath ??? A very fast or irregular heartbeat (palpitations) ??? Fainting ?? When to call your healthcare provider Call your healthcare provider if you have any of these: ??? Dizziness or lightheadedness ??? Mild shortness of breath or chest pain ??? Increased or new joint or muscle pain ?? Last Reviewed Date: 2021 ?? [id number] [employer]. All rights reserved. This information is not intended as a substitute for professional medical care. Always follow your healthcare professional's instructions. ?? * Event Display: Cardiac Rhythm Strips Authored Date: * Event Display: Hemodynamic Procedure Report Authored Date: Admission evaluation note * Claudia Ramos MD: MODIFY, MODIFY, MODIFY, PERFORM, MODIFY, MODIFY, MODIFY Event Display: Admission Note Authored Date: [id number] Patient: ??SIVAKUMAR DUNBAR ? Age:??82 Years?Sex:??Male?:??1940?? Chief Complaint/Reason for Consultation STEMI History of Present Illness Sierra Leonean-speaking 82-year-old male with hypertension, diabetes type II not-on insulin, mild dementia/neurocognitive decline??presenting for chest pain found to have STEMI s/p JADE to mid LAD. ?? ED Course: Patient presented to ED with report of chest pain, due to dementia history somewhat unreliable, bedside echocardiogram in ER showed evidence of anterior and apical wall motion abnormalities, EKG showed anterolateral ST elevations and patient taken to cardiac cath emergently. ?? Coronary angiogram: 99% hazy and discrete lesion in mid LAD with normal distal flow, culprit lesion. The entire LAD is moderate to heavily calcified. Mid to distal LAD has mild diffuse disease. Thereis a second 30% lesion in mid segment of mid LAD. The apical LAD is small in caliber and has moderate to severe diffuse disease. Left main is large in caliber with mild diffuse disease. 65 to 70% stenosis of proximal left circumflex. High normal left ventricular filling pressures. LVEDP 15-18 mmHg. ?? [facility] Course: At time of my evaluation his BP 114/79, HR 74, 94% on room air. He is alert to self, situation, month and state. He denies any chest pain. He is aware that he has problems with his memory, he denies previous heart disease. He is a lifetime non-smoker, no alcohol use, no drug use. He is aware he takes medications however he is unsure for what reason. Review of Systems 10-point review of systems otherwise negative Objective ? Vital Signs?? Early Warning Score: 0 (07/22/22 20:48:54) ? Physical Exam General: alert, under no acute distress HENT: oral mucosa without lesions Respiratory: Lungs clear to auscultation bilaterally, no crackles or wheezing. Good air movement Cardiovascular: RRR, no murmurs or gallops. No JVD GI: Abdomen non-distended and soft Neuro: alert to self, month, town and situation. Unable to tell me exact/full date or where we are currently. Follows commands, face is symmetric, speech without dysarthria Lymphatic: no pitting edema of legs Psych: normal affect, not responding to internal stimuli? Assessment/Plan [place] Leonean-speaking 82-year-old male with hypertension, diabetes type II not-on insulin, mild dementia/neurocognitive decline??presenting for chest pain found to have STEMI s/p JADE to mid LAD. ?? ACS STEMI s/p JADE to LAD Risk factors:??Age, sex Presentation:??Developed chest pain that lasted all day prior to presentation, which worsened rightbefore presentation prompting ED visit Labs: High-sensitivity troponin of??134, BUN 18 , creatinine of 1.5. WBC of 9.0,??H&H of 15.1/44.8,?? platelet count of 221. EKG:??ST elevations in anterolateral leads, not available at time of note writing, EKG upon admission with dynamic changes, patient w/o chest pain. Cath findings:??99% hazy and discrete lesion in mid LAD with normal distal flow, culprit lesion. The entire LAD is moderate to heavily calcified. Mid to distal LAD has mild diffuse disease. There is a second 30% lesion in mid segment of mid LAD. The apical LAD is small in caliber and has moderate to severe diffuse disease. Left main is large in caliber with mild diffuse disease. 65 to 70% stenosis of proximal left circumflex. High normal left ventricular filling pressures. LVEDP 15-18 mmHg. ?? Plan: -Continue aspirin 81 mg daily -Start ticagrelor 90 milligrams twice daily, will need to verify with [facility] cost of medication, if high co-pay switch to Plavix -Start statin if LFT's stable -ECHO in the am -Cardiac rehab at discharge -Add on lipids, A1C and TSH -Hold amlodipine 10mg daily, can resume tomorrow if BP stable vs. start beta-sherman ?? DMII On metformin 500mg??QD at home. No A1C on system. ?? Plan -A1C ordered -POC TID with meals -SSI??with meals to maintain glucose 140-180 ?? CKD III Cr 1.5, GFR 49 on admission, only one previous value of 1.4/GFR 48. Likely CKD II/III from either hypertension, DMII or BPH. Unclear if ESTELITA vs. at baseline ?? Plan - 1L at 250cc/hr post-cath - Trend BMP ?? Dementia/Neurocognitive Decline Patient is [place]an-speaking, knows his name,??the month, state he lives in, and why he is in the hospital. Per HCP patient is currently residing at assisted living facility to determine if he can be discharged back to this facility. He walks with walker and cane at baseline. ?? Plan - Continue home memantine, donepezil (consider holding/dc if??concerns for bradycardia),??sertraline - PT eval prior to discharge as patient currently lives in assisted living facility at [facility]. ?? BPH:Continue home finasteride ?? *Social: HCP and PA Jc Dunbar [phone], has kindly asked that all visitors/calls be cleared by him prior to visiting due to an ex-partner/ex-partner's family previously obtaining financial benefit from Sivakumar. He has cleared Sivakumar' daughter Cristina Hernandez and her partner Hany Jacobs will be coming from [place] to visit. ?? Quality Measures Code status: DNR/DNI per living will Proxy: Jc Dunbar [phone], updated on admission. DVTppx: Heparin SC Diet: Cardiac??and diabetic diet ?? Patient discussed with reference and instruction librarian Dr. Marko Ramos MD PGY-3 ? Histories Allergies Allergies ?(Active and Proposed Allergies Only) No Known Medication Allergies? (Severity: Unknown severity, Onset: Unknown) ? Past Medical History/Problem List Active Problems??(2) Hemorrhoids Obese class I ? Past Surgical History Unable to obtain from patient ? Social History Alcohol Details:??Use: Never. Substance Abuse Details:??Use: Never. Tobacco Details:??Use: Never (less than 100 in lifetime). ? Family History Unable to obtain from??patient ? Medications Home Medications Amlodipine (amLODIPine 10 mg oral tablet)?10?Milligram?1?tablet?By Mouth?Daily Aspirin (aspirin 81 mg oral delayed release tablet)?1?tab(s)?81?Milligram?By Mouth?Daily Donepezil (donepezil 10 mg oral tablet, disintegrating)?1?tab(s)?10?Milligram?By Mouth?Daily at bedtime Finasteride (finasteride 5 mg oral tablet)?1?tab(s)?5?Milligram?By Mouth?Daily Hydrocortisone Topical (hydrocortisone topical 25 mg suppository)?1?suppository(ies)?25?Milligram?Rectally?2 times a day?for 14?Days Hydrocortisone Topical (hydrocortisone topical 25 mg suppository)?1?suppository(ies)?25?Milligram?Rectally?2 times a day?for 14?Days Memantine (memantine 10 mg oral tablet)?1?tab(s)?10?Milligram?By Mouth?2 times a day Metformin (metFORMIN 500 mg oral tablet, extended release)?1?tab(s)?500?Milligram?ByMouth?Daily Sertraline (sertraline 50 mg oral tablet)?1?tab(s)?50?Milligram?By Mouth?Daily ? Inpatient Medications Medications (9) Active SCHEDULED: (8) Aspirin 81 mg EC Tablet (Aspirin Tablet) ??81 mg, By Mouth, Daily Finasteride 5 mg Tablet (finasteride 5 mg oral tablet) ??5 mg, By Mouth, Daily Heparin 5000 units/mL Inj (1 mL) (Heparin Inj) ??4,000 units 0.8 mL, IV Push, Once Insulin Lispro 100 units/mL Inj (3mL) (Insulin LISPRO Sliding Scale) ??2-12 units, Subcutaneous Injection, 3 times a day before meals Memantine 10 mg Tablet (memantine 10 mg oral tablet) ??10 mg, By Mouth, 2 times a day Sertraline 50 mg Tablet (sertraline 50 mg oral tablet) ??50 mg, By Mouth, Daily Ticagrelor 90 mg Tablet (Brilinta Tablet) ??180 mg 2 tablet, By Mouth, Once Ticagrelor 90 mg Tablet (Ticagrelor Tablet) ??90 mg 1 tablet, By Mouth, 2 times a day CONTINUOUS: (1) NaCL 0.9% (1000 mL) Cont IV 1,000 mL (NaCL 0.9% 1,000 mL) ??1,000 mL, IV Infusion, 250 mL/hr PRN: (0) ? Results Recent Labs BLOOD COUNT & DIFF WBC 9.0 k/mm3 ()?? 07/22/2022 19:55 RBC 5.15 m/mm3 ()?? 07/22/2022 19:55 Hgb 15.1 Gm/dL ()?? 07/22/2022 19:55 Hct 44.8 % ()?? 07/22/2022 19:55 MCV 87.0 femtoliters ()?? 07/22/2022 19:55 MCH 29.3 pg ()?? 07/22/2022 19:55 MCHC 33.7 g/dL ()?? 07/22/2022 19:55 Platelet Count 221 k/mm3 ()?? 07/22/2022 19:55 RDW-SD 41.0 femtoliters ()?? 07/22/2022 19:55 MPV 11.2 femtoliters ()?? 07/22/2022 19:55 Nucleated RBC (Automated) 0.0 #/100 WBC'S ()?? 07/22/2022 19:55 Abs. NRBC 0.0 k/mm3 ()?? 07/22/2022 19:55 Abs. Neut 5.4 k/mm3 ()?? 07/22/2022 19:55 Abs. Lymph 2.6 k/mm3 ()?? 07/22/2022 19:55 Abs. Russell 0.8 k/mm3 ()?? 07/22/2022 19:55 Abs. Eo 0.1 k/mm3 ()?? 07/22/2022 19:55 Abs. Baso 0.1 k/mm3 ()?? 07/22/2022 19:55 Neut % 59.5 % ()?? 07/22/2022 19:55 Lymph % 29.2 % ()?? 07/22/2022 19:55 Russell % 8.9 % ()?? 07/22/2022 19:55 Eos % 1.1 % ()?? 07/22/2022 19:55 Baso % 0.9 % ()?? 07/22/2022 19:55 Imm Gran 0.4 % ()?? 07/22/2022 19:55 Abs. Imm Gran 0.0 k/mm3 ()?? 07/22/2022 19:55 ?? CHEM GENERAL Sodium 140 mmol/L ()?? 07/22/2022 19:56 Potassium 3.8 mmol/L ()?? 07/22/2022 19:56 Chloride 96 mmol/L (Low)?? 07/22/2022 19:56 Bicarbonate Level 27 mmol/L ()?? 07/22/2022 19:56 Anion Gap 17 ()?? 07/22/2022 19:56 Glucose Level 220 mg/dL (High)?? 07/22/2022 19:56 BUN 18 mg/dL ()?? 07/22/2022 19:56 Creatinine-Blood 1.5 mg/dL (High)?? 07/22/2022 19:56 Estimated GFR Creatinine 49 ML/MIN/1.73 M2 ()?? 07/22/2022 19:56 Calcium 9.9 mg/dL ()?? 07/22/2022 19:56 ? CBC, CBC w/Diff?? CBC?? Differential?? WBC: 9 k/mm3 (19:55) Abs. Neut: 5.4 k/mm3 (19:55) RBC: 5.15 m/mm3 (19:55) Abs. Lymph: 2.6 k/mm3 (19:55) Hct: 44.8 % (19:55) Abs. Russell: 0.8 k/mm3 (19:55) RDW-SD: 41 femtoliters (19:55) Abs. Eo: 0.1 k/mm3 (19:55) Nucleated RBC (Automated): 0 #/100 WBC'S (19:55) Abs. Baso: 0.1 k/mm3 (19:55) Abs. NRBC: 0 k/mm3 (19:55) Neut %: 59.5 % (19:55) ?? Lymph %: 29.2 % (19:55) ?? Russell %: 8.9 % (19:55) ?? Eos %: 1.1 % (19:55) ?? Baso %: 0.9 % (19:55) ?? Imm Gran: 0.4 % (19:55) ?? Abs. Imm Gran: 0 k/mm3 (19:55) ? Coagulation Profile?? No qualifying data available. ?? Urinalysis?? No qualifying data available. ? * Ashok BLANC, Trisha Rg: PERFORM Event Display: Admission Note Authored Date: I have seen and examined the patient, reviewed the chart, reviewed the data and agree with the soheila outlined. ??In summary 82-year-old male with a history of??hypertension, mild dementia, diabetes??admitted with anterolateral ST segment elevation NC. ??He underwent??drug-eluting stent to 99% midLAD. ??There were??residual??septal branch lesions as well as 70% distal left circumflex and occluded OM 3 well collateralized.?? EDP??15 to 18 mmHg.?? He did have some??slight exaggeration of ST segment elevations today versus lead placement??however he was hemodynamically stable with??no complaints of chest discomfort whatsoever.?? Creatinine is stable??at 1.4 today.?? Echocardiogram has resulted showing EF 30 to 35% with akinetic segments as noted with akinesis of the apex. ??There is no apical thrombus present.?? We will review echo to see if there is very low flow in the apex which wouldpredispose him to thrombus formation.?? Guideline directed medical therapy will need to be initiated, DAPT, statin, evidence-based beta-sherman??have already been initiated. ??Further GDMT as able. EKG study * Event Display: ECG 12-Lead Authored Date: Please click on pdf link to open report * Event Display: ECG 12-Lead Authored Date: Ventricular Rate: 85 BPM Atrial Rate: 85 BPM P-R Interval: 144 ms QRS Duration: 76 ms Q-T Interval: 456 ms QTC Calculation(Bazett): 542 ms P Green: 40 degrees R Green: 87 degrees T Green: 98 degrees Normal sinus rhythm Anteroseptal infarct , age undetermined T wave abnormality, consider lateral ischemia Prolonged QT Abnormal ECG When compared with ECG of 24-JUL-2022 03:14, Confirmed by UZMA ROMO MD () on 07/26/2022 10:53:48 PM [place]: UZMA ROMO MD * Event Display: ECG 12-Lead Authored Date: [id number] Please click on pdf link to open report * Event Display: ECG 12-Lead Authored Date: [id number] Ventricular Rate: 89 BPM Atrial Rate: 89 BPM P-R Interval: 142 ms QRS Duration: 78 ms Q-T Interval: 426 ms QTC Calculation(Bazett): 518 ms P Green: 37 degrees R Green: 97 degrees T Green: 110 degrees Normal sinus rhythm Rightward axis Anteroseptal infarct , age undetermined T wave abnormality, consider lateral ischemia Abnormal ECG When compared with ECG of 23-JUL-2022 13:35, MANUAL COMPARISON REQUIRED, DATA IS UNCONFIRMED Confirmed by UZMA ROMO MD () on 07/26/2022 10:53:35 PM [place]: UZMA ROMO MD * Event Display: ECG 12-Lead Authored Date: [id number] Please click on pdf link to open report * Event Display: ECG 12-Lead Authored Date: [id number] Ventricular Rate: 84 BPM Atrial Rate: 84 BPM P-R Interval: 144 ms QRS Duration: 74 ms Q-T Interval: 428 ms QTC Calculation(Bazett): 505 ms P Green: 39 degrees R Green: 95 degrees T Green: 94 degrees Normal sinus rhythm Rightward axis Anterior infarct , age undetermined T wave abnormality, consider lateral ischemia Prolonged QT Abnormal ECG When compared with ECG of 23-JUL-2022 11:10, MANUAL COMPARISON REQUIRED, DATA IS UNCONFIRMED Confirmed by UZMA ROMO MD () on 07/26/2022 10:53:30 PM [place]: UZMA ROMO MD Heart * Event Display: Echocardiogram - Complete Authored Date: [id number] Transthoracic Echocardiography Report (TTE) Patient Demographics Patient Name SIVAKUMAR DUNBAR Date of Study 07/23/2022 Corporate Gender Male Facility Race Black Ethnicity or Date of 1940 Height: 67 inches Age 82 year(s) Weight: 160.06 pounds Accession Number [id number] BSA: 1.84 m2 Room Number M310 BMI: 25.07 kg/m2 Referring Physician Richard Piedra MD Physician Protective Signal Repairer Helper Hodan Michael [facility] Indications STEMI. Clinical History Hypercholesterolemia. Hypertension. Diabetes Mellitus. Dyslipidemia. Mild dementia Obesity. Study Data Type of Study TTE procedure:Echo Complete-(Doppler, Colorflow) with Contrast. Procedure Information:Definity was administered by RN . Study Date07/23/2022 Start Time: 06:28 AM Study Location: [facility] [place] Study Status: ICU/CCU Patient Status: Routine Technical Quality: Technically difficult due to body habitus. Blood Pressure:117/81 mmHg EKG: Sinus with ectopy HR: 89 bpm Contrast Medium: Definity. Amount - 2 ml Allergies - No known allergies. 2D Measurements LV Diastolic Dimension: 4.6 cm LV Systolic Dimension: 2.6 cm LV Septum Diastolic: 1.4 cm LV PW Diastolic: 0.6 cm AO Root Dimension: 2.9 cm LA Dimension: 4 cm LA ESV (BP):47.9 ml LVOT Stroke Volume: 38.91 ml LA ESV Index: 26 ml/m2 Stroke Volume Index21.15 ml/m2 LVOT: 1.8 cm Cardiac Index:1.88 l/min/m2 Ascending Aorta:3.5 cm Doppler Measurements AV Peak Velocity: 153 cm/s MV Peak E-Wave: 58.1 cm/s AV Peak Gradient: 9.36 mmHg MV Peak A-Wave: 58.1 cm/s MV E/A Ratio: 1 LVOT Peak Velocity: 93.4 cm/s LVOT VTI15.3 cm MV Deceleration Time: 169 msec TR Velocity:272 cm/s TR Gradient:29.59 mmHg PV Peak Velocity: 120 cm/s E' Septal Velocity: 4.35 cm/s PV Peak Gradient: 5.76 mmHg E' Lateral Velocity: 5.87 cm/s E/Med E':13.53090 E/Lat E':[id number] Cardiac Anatomy Left Ventricle/Interventricular Septum Mild asymmetric basal septal hypertrophy with septal thickness 1.4 cm. The remainder of the left ventricle has normal wall thickness. Grade I, mild diastolic dysfunction with impaired LV relaxation and normal left atrial pressure. The left ventricular ejection fraction is 30-35 %. There is akinesis of the mid-distal anteroseptal wall, mid-distal inferoseptal wall, mid-distal anterior wall, distal anterolateral wall, distal inferior wall and apex. There is no evidence of left ventricular thrombus. Left Atrium/Interatrial Septum The left atrium is normal in size based upon volume measurement. Aortic Valve The aortic valve was not well visualized. No aortic stenosis or regurgitation. Mitral Valve Normal mitral valve structure. Trace regurgitation. No significant stenosis. Aorta The ascending aorta and aortic root are normal in size (indexed for sex and BSA). Right Ventricle Normal right ventricular size and function. Right Atrium The right atrium is normal in size. Pulmonic Valve The pulmonic valve was not well visualized. Trace pulmonic regurgitation. No pulmonic stenosis. Tricuspid Valve The tricuspid valve was not well visualized. Trace tricuspid regurgitation. No tricuspid stenosis. Pumonary Artery Mild pulmonary hypertension with PA systolic pressure 33 mmHg plus RA pressure. Venous Structures The inferior vena cava is poorly visualized. Pericardium/Extracardiac There is no pericardial effusion. Summary Due to suboptimal visual quality, IV contrast was used to enhance this study. The left ventricular ejection fraction is 30-35 %. There is akinesis of the mid-distal anteroseptal wall, mid-distal inferoseptal wall, mid-distal anterior wall, distal anterolateral wall, distal inferior wall and apex. Mild asymmetric basal septal hypertrophy with septal thickness 1.4 cm. Normal right ventricular size and function. No significant valvular disease. Mild pulmonary hypertension with PA systolic pressure 33 mmHg plus RA pressure. Signature * Event Display: Echocardiogram - Complete Authored Date: Hospital Progress note * Mau Cha RN: VERIFY, PERFORM, SIGN Event Display: Progress Note Hospital Authored Date: Patient: SIVAKUMAR DUNBAR Age: 82 years Sex: Male : 1940 Associated Diagnoses: None Author: Mau Cha RN Findings Problem Related to Alteration in Cardiac Function (new) : Alteration in Cardiac Function/new 07/25/2022 21:00 EDT Alteration in Cardiac Status Related to ACS, Cardiac Procedure Goals & Outcomes, Cardiac Status Pt will resume/maintain adequate cardiac output, Pt will resume/maintain adequate hemodynamic status, Pt will resume/maintain adequate respiratory function, Pt will resume/maintain intact neuro function, Pt will maintain adequate GI/ function appropriate for pt, Pt will maintain adequate nutrition status, Pt/caregiver will state understanding of diagnosis, Pt/caregiver will state strategies to reduce risk factors, Pt will maintain adequate tissue oxygenation/ventilation, Pt/caregiver will state understanding of procedure, Pt will state pain at procedure site to be tolerable Cardiac Interventions Implemented Assess/monitor cardiac status, Assess/monitor neuro status, Assess/monitor respiratory status, Assess for tolerance of IV infusions; verify rate & dose, Call/Report variances in ECG to provider, Document & Monitor O2 Sats; Administer O2 as ordered, Ensure adequate caloric intake, If no bowel movement in 3 days activate bowel regime, Monitor & document daily weight, Monitor ECG w/administration of antiarrhythmics (CO 13.420), Obtain 12 Lead ECG and CXR as ordered, Teach/encourage deep breath & cough exercises, Team conversation regarding appropriate level of care, Turn & reposition Q2 hours per activity restrictions, Use adjunctive therapies per Standards of Practice Goals/Interventions, Cardiac Yes Cardiac, Problem Start 07/22/2022 21:30 Reviewed Plan with, Cardiac Status Patient Patient Progression, Cardiac Status Patient progressing according to plan . Nursing Data Cardiac Data. : Cardiac Data. 07/25/2022 19:56 EDT Cardiovascular Symptoms None Skin Temperature Upper Extremities Warm Skin Temperature Lower Extremities Warm Heart Sounds S1, S2 Heart Rhythm Regular Cardiac Rhythm Normal sinus rhythm Capillary Refill < 3 seconds Radial Pulse, Left Normal Radial Pulse, Right Normal Dorsalis Pedis Pulse, Left Normal Dorsalis Pedis Pulse, Right Normal awake overnight monitor Yes Cardiovascular WNL except . Vital Signs : VITAL SIGNS SECTION 07/25/2022 20:00 EDT Temperature 98.4 DegF Temperature Route Oral Heart Rate Monitored 81 bpm Respiratory Rate 27 br/min Vented No Mode of Delivery (Oxygen) Room air . Narrative/Incidental A/O x1, to self only. Patient states he is confused about where he is. Able to reorient. denies cp,sob, palpitations or dizziness. LS clear but dim on RA. SR in the 70s on tele. + pulses throughout.Urinal at bedside for patient use. See CIS for full assessment. Currently resting in bed with call mai in reach and bed in lowest position with wheels locked and bed alarm activated. safety maintained.. Discharge Information Rehabilitation Discharge : Rehab Discharge Index 07/24/2022 7:57 EDT Comments on treatment indicated 82 M presenting for chest pain found to have STEMI s/p JADE to mid LAD. PT for strength, gait, balance, activity tolerance. Rec rehab at this time Full chart review completed Yes Hospital course Hospital course Other findings See comment Plan of care PT Gait training, Transfer training, Therapeutic exercise, Functional Activities, Balance training * Brennan Arteaga: MODIFY, SIGN, VERIFY, MODIFY, SIGN, MODIFY, PERFORM Event Display: Progress Note Hospital Authored Date: [id number] Patient: SIVAKUMAR DUNBAR Age: 82 years Sex: Male : 1940 Associated Diagnoses: None Author: Brennan Arteaga Findings Narrative/Incidental N Pleasantly confused, knows his name, but not date of and does have to be reoriented to where he is, afebrile, PERRL, OOB with walker x1 assist - shuffling of feet, no complaints of pain R Room air saturating > 95%, no cough/no SOB, LS clear CV NSR on tele 80-90s, BP stable, palpable pulses, no edema, warm extremities GI last BM 07/24, bowel regimen continues, abdomen flat/soft/non tender, poor appetite uses urinal at times, but can also be incontinent/saturating daniele pad and adult diaper, reiterated that if he has to pee to call for help with urinal SKIN Intact, repositions self ACCESS 1 PIV GTTS - For any further details, please see CIS flowsheet. * Amalia Boucher NP: PERFORM, MODIFY Event Display: Progress Note Hospital Authored Date: [id number] Patient: ??SIVAKUMAR DUNBAR ? Age:??82 Years?Sex:??Male?:??1940?? History of Present Illness/Interval History pt lying in bed, eating breakfast. very pleasant. wishes to go home soon. has no complaints. deniesCP, SOB, dizziness, palpitations. no I/O documented but weight down 2.6 kg Review of Systems pertinent positives per HPI Physical Exam Vitals & Measurements T:??98.7?F ?? HR:??89(Monitored)?? MT:??95?? RR:??25?? BP:??104/66?? SpO2:??92%?? HT:??170??cm?? WT:??73.6??kg?? BMI:??26.37?? Weight lb/oz: 162 lb 4 oz General: Alert, lying in bed comfortably, in NAD.?? Mental: Oriented x2. Appropriate affect. Converses easily Respiratory:??CTA. Nonlabored. Cardiovascular:??RRR. S1/S2. No M/R/G. No edema.??+ JVD with HJR. Gastrointestinal: Abdomen soft, non-tender, non-distended. Active bowel sounds. Neuro: Grossly intact. Moves all extremities spontaneously. Skin: [place], warm. CDI. Assessment/Plan Sivakumar is a [place] Leonean-speaking 82-year-old gentleman with PMH significant for hypertension, diabetes type II not-on insulin, mild dementia/neurocognitive decline??who presented with chest pain and was??found to have STEMI, now??s/p JADE to mid LAD. Course complicated by delirium and acute CHF exacerbation. ? Acute HFrEF exacerbation LVEF 30-35% Acute hypoxic respiratory failure 2/2 cardiogenic pulmonary edema Ischemic cardiomyopathy with aneurysmal LV Anterolateral STEMI s/p JADE to LAD Hx HTN, T2DM, CKD III, HLD Presentation:??Developed chest pain that lasted all day prior to presentation, which worsened rightbefore presentation prompting ED visit Labs: High-sensitivity troponin of??134, BUN 18 , creatinine of 1.5. WBC of 9.0,??H&H of 15.1/44.8,?? platelet count of 221. EKG:??ST elevations in anterolateral leads, not available at time of note writing, EKG upon admission with dynamic changes, patient w/o chest pain. Cath??-??99% hazy and discrete lesion in mid LAD with normal distal flow, culprit lesion. The entire LAD is moderate to heavily calcified. Mid to distal LAD has mild diffuse disease. There is a second 30% lesion in mid segment of mid LAD. The apical LAD is small in caliber and has moderate to severe diffuse disease. Left main is large in caliber with mild diffuse disease. 65 to 70% stenosis of proximal left circumflex. High normal left ventricular filling pressures. LVEDP 15-18 mmHg. As mentioned above??has improved but persistent??ST elevations??in the anterior septal leads??and is chest pain-free vitally stable??likely indicative of??the infarct he suffered. LDL 114??with A1c 7??TSH 4.37 with normal T4 Echo - LVEF??30-35 %; akinesis of the mid-distal anteroseptal wall, mid-distal inferoseptal wall, mid-distal anterior wall, distal anterolateral wall, distal inferior wall and apex. ?? Plan: -??lasix 40mg IV x1 today - lasix 40 mg po daily starting tomorrow - metoprolol 12.5 mg BID - Continue aspirin 81 mg daily - Continue ticagrelor 90 mg twice daily - Continue statin - Cardiac rehab ?? Acute delirium Hx Dementia/Neurocognitive Decline Patient is [place]an-speaking, knows his name,??the month, state he lives in, and why he is in the hospital. Per HCP patient is currently residing at assisted living facility - will need??to determine if he can be discharged back to this facility. He walks with walker and cane at baseline. His acute confusion is multifactorial from??acute NC, hypoxia, hospitalization, holding his ariceptdue to bradycardia as well as new medications. ?? Plan ?? - Delirium precautions - Continue home memantine/sertraline, holding donepezil??since starting metoprolol?? - PT eval should be done once at baseline and??prior to discharge as patient currently lives in assisted living facility at [facility] [place]. - If persistently altered??despite correcting acute changes or new focal deficits will get CT head.? DMII On metformin 500mg??QD at home. A1c 7 ?? Plan -POC TID with meals -SSI??with meals to maintain glucose 140-180 ? CKD III Cr 1.5, GFR 49 on admission, only one previous value of 1.4/GFR 48. Likely CKD II/III from either hypertension, DMII or BPH. Unclear if ESTELITA vs. at baseline Received fluids post-cath. ??Euvolemic. ?? Plan ?? Completed fluids post-cath Continue to monitor Bladder scans??as needed straight caths ? BPH:Continue home finasteride ? Quality Measures Code status: DNR/DNI per living will DVTppx: Heparin SC Diet: Cardiac??and diabetic diet HCP: Also COREEN Dunbar [phone], has kindly asked that all visitors/calls be cleared by him prior to visiting due to an ex-partner/ex-partner's family previously obtaining financial benefit from Sivakumar. He has cleared Sivakumar' daughter Cristina Hernandez and her partner Hany Hernandez who will be coming from [place] to visit. ?? pt discussed with attending, Dr. Lafleur Problem List/Past Medical History Ongoing Hemorrhoids STEMI (ST elevation myocardial infarction) Historical Obese class I Procedure/Surgical History No qualifying data available. Hospital Medications Medications (20) Active SCHEDULED: (16) Aspirin 81 mg EC Tablet (Aspirin Tablet) ??81 mg, By Mouth, Daily Atorvastatin 80 mg Tablet (atorvastatin 80 mg oral tablet) ??80 mg, By Mouth, Daily at bedtime Finasteride 5 mg Tablet (finasteride 5 mg oral tablet) ??5 mg, By Mouth, Daily Furosemide 40 mg Tablet (furosemide 40 mg oral tablet) ??40 mg, By Mouth, Daily Furosemide Inj (Furosemide ??Inj) ??40 mg 4 mL, IV Push Slowly, Once Heparin 5000 units/mL Inj (1 mL) (Heparin Inj) ??5,000 units 1 mL, Subcutaneous Injection, 2 times a day Insulin Lispro 100 units/mL Inj (3mL) (Insulin LISPRO Sliding Scale) ??2-12 units, Subcutaneous Injection, 3 times a day before meals Melatonin 3 mg Tablet (Melatonin Tablet) ??3 mg, By Mouth, Daily at supper Memantine 10 mg Tablet (memantine 10 mg oral tablet) ??10 mg, By Mouth, 2 times a day Metoprolol 25mg Tablet (metoprolol 25 mg oral tablet) ??12.5 mg, By Mouth, 2 times a day Polyethylene Glycol 17 Gm Powder (MiraLax Powder) ??17 Gm 1 pack/packet, By Mouth, Daily Potassium Chloride 20 mEq Packet (Potassium Chloride Packet) ??40 mEq, By Mouth, Every 4 hours Senna Tablet ??17.2 mg 2 tablet, By Mouth, Daily at bedtime Sertraline 50 mg Tablet (sertraline 50 mg oral tablet) ??50 mg, By Mouth, Daily Ticagrelor 90 mg Tablet (Brilinta Tablet) ??180 mg 2 tablet, By Mouth, Once Ticagrelor 90 mg Tablet (Ticagrelor Tablet) ??90 mg 1 tablet, By Mouth, 2 times a day CONTINUOUS: (0) PRN: (4) Acetaminophen 325 mg Tablet (Acetaminophen Tablet) ??975 mg, By Mouth, 3 times a day Bisacodyl 10 mg Suppository (Bisacodyl Supp) ??10 mg 1 supp, Rectally, Daily Dextromethorphan-Guaifenesin 20 mg-200 mg/10 mL Liqu UD (Robitussin DM Liquid) ??10 mL, By Mouth, Every 4 hours Polyvinyl Alcohol 1.4% Opthalmic Solution/Artificial Tears (Artificial Tears 1.4%) ??2 drops, Eyes,Both, Every 4 hours Lab Results Cardiology Labs WBC: 9.9 k/mm3 (07/25/22) RBC:??4.41 m/mm3??Low (07/25/22) Hgb:??13.1 Gm/dL??Low (07/25/22) Hct:??38.4 %??Low (07/25/22) MCV: 87.1 femtoliters (07/25/22) MCH: 29.7 pg (07/25/22) MCHC: 34.1 g/dL (07/25/22) Platelet Count: 165 k/mm3 (07/25/22) RDW-SD: 42.1 femtoliters (07/25/22) Nucleated RBC (Automated): 0 #/100 WBC'S (07/25/22) Abs. Neut: 5.4 k/mm3 (07/22/22) Abs. Lymph: 2.6 k/mm3 (07/22/22) Abs. Russell: 0.8 k/mm3 (07/22/22) Abs. Eo: 0.1 k/mm3 (07/22/22) Abs. Baso: 0.1 k/mm3 (07/22/22) Neut %: 59.5 % (07/22/22) Russell %: 8.9 % (07/22/22) Eos %: 1.1 % (07/22/22) Baso %: 0.9 % (07/22/22) Imm Gran: 0.4 % (07/22/22) Abs. Imm Gran: 0 k/mm3 (07/22/22) APTT: 23.7 seconds (07/22/22) Sodium: 140 mmol/L (07/25/22) Potassium:??3.3 mmol/L??Low (07/25/22) Chloride: 101 mmol/L (07/25/22) Bicarbonate Level: 24 mmol/L (07/25/22) Glucose Level:??157 mg/dL??High (07/25/22) Hemoglobin A1C (Monitoring):??7 %??High (07/22/22) BUN:??24 mg/dL??High (07/25/22) Creatinine-Blood:??1.6 mg/dL??High (07/25/22) Calcium: 8.9 mg/dL (07/25/22) Alkaline Phosphatase: 73 units/L (07/22/22) AST (SGOT): 21 units/L (07/22/22) ALT (SGPT): 19 units/L (07/22/22) Bilirubin, Total: 0.2 mg/dL (07/22/22) Cholesterol:??212 mg/dL??High (07/23/22) Triglycerides:??280 mg/dL??High (07/23/22) HDL Cholesterol: 42 mg/dL (07/23/22) LDL Cholesterol: 114 mg/dL (07/23/22) Non HDL Cholesterol:??170 mg/dL??High (07/23/22) TSH:??4.37 uIU/mL??High (07/22/22) Free T4: 0.97 ng/dL (07/23/22) Diagnostic Impression ECG ECG 12-Lead * Preliminary * ?? 08:46:23 Please click on pdf link to open report ?? ECG 12-Lead * Preliminary * ?? 08:46:23 Ventricular Rate: 85 BPM Atrial Rate: 85 BPM P-R Interval: 144 ms QRS Duration: 76 ms Q-T Interval: 456 ms QTC Calculation(Bazett): 542 ms P Green: 40 degrees R Green: 87 degrees T Green: 98 degrees Normal sinus rhythm Anteroseptal infarct , age undetermined T wave abnormality, consider lateral ischemia Prolonged QT Abnormal ECG When compared with ECG of 24-JUL-2022 03:14, MANUAL COMPARISON REQUIRED, DATA IS UNCONFIRMED ?? [place]: , Echo Echocardiogram - Complete ?? 06:28:15 Summary Due to suboptimal visual quality, IV contrast was used to enhance this study. The left ventricular ejection fraction is 30-35 %. There is akinesis of the mid-distal anteroseptal wall, mid-distal inferoseptal wall, mid-distal anterior wall, distal anterolateral wall, distal inferior wall and apex. Mild asymmetric basal septal hypertrophy with septal thickness 1.4 cm. Normal right ventricular size and function. No significant valvular disease. Mild pulmonary hypertension with PA systolic pressure 33 mmHg plus RA pressure. ?? Signature ?? Signed By: Tello Piedra MD Cardiac Cath Procedure Cardiac Cath Procedure ?? 20:00:00 Conclusions ?? Diagnostic Summary ?? 99% hazy and discrete lesion in mid LAD with normal distal flow. The lesion is also heavily calcified. It is felt to be the culprit for patient???s acute anterior lateral ST elevation NC. The entire LAD is moderate to heavily calcified. Mid to distal LAD has mild diffuse disease. There is a second 30% lesion in mid segment of mid LAD. The apical LAD is small in caliber and has moderate to severe diffuse disease. Left main is large in caliber with mild diffuse disease. 65 to 70% stenosis of proximal left circumflex. The lesion is smooth and moderate to heavily calcified. First obtuse marginal branch is very small in size. Second obtuse marginal is medium to large in size with 99% discrete stenosis in proximal segment. There is a chronic total occlusion of proximal segment of medium to large size OM 3 branch. There is well-established collaterals from distal RCA to OM 3. There is poor collaterals from OM 2 to OM 3 as well. ?? High normal left ventricular filling pressures. LVEDP 15-18 mmHg. No pullback gradient from the LV to the AO ?? Diagnostic Recommendations Proceed with intervention of the mid LAD ?? Interventional Summary ?? Mr. Sivakumar Dunbar is a 82-year-old male who presented to the hospital with complaint of chest pain. EKG showed evidence of anterolateral ST elevation. Patient was having active chest pain with EKG changes and hence was recommended to emergency cardiac catheterization. ?? He underwent coronary angiogram which showed evidence of 99% mid LAD lesion with acute plaque rupture and slow flow in the LAD. He underwent successful angioplasty and drug-eluting stent placement with a 3.0 x 24 mm Synergy JADE. Postdilatation was performed using a 3.0 mm x 12 mm NC balloon. Patient was chest pain-free and hemodynamically stable. There was evidence of 0% residual stenosis and PATRICK-3 flow at the end of the case. There was a very distal LAD stenosis which was also evident during diagnostic angiogram. We decided to treated medically as a very small and distal. ?? Patient also has evidence of moderate disease in the proximal circumflex, mid LAD and a STUDENT ACCOUNTS MANAGER of the OM 3 which is filled by collaterals from the right. At this point, it would be best to be treated medically. ?? Interventional Recommendations ?? Dual antiplatelet therapy for at least 1 year. Aspirin 81 mg daily indefinitely. Gentle IV hydration to prevent contrast-induced nephropathy. Obtain an echo to assess LV function. Aggressive risk factor modifications for secondary prevention. Optimize ACC/AHA guideline directed medical therapy and lifestyle management for patient with STEMI. ?? ACC Diagnostic Recommendations: PCI without planned CABG. ?? Signatures ?? Signed By: Sanju Boateng MD Cardiac rehabilitation treatment plan Progress note and attainment of goals (narrative) * Manpreet Figueroa: PERFORM, SIGN, VERIFY Event Display: Cardiac Rehab Note Authored Date: Patient: SIVAKUMAR DUNBAR Age: 82 years Sex: Male : 1940 Associated Diagnoses: None Author: Manpreet Figueroa Diagnosis Cardiac Rehab Diagnosis: S/P STEMI, S/P JADE LAD. Pre-exercise Vitals Vital Signs: 90 HR, 120/113 BP Supine, 95% RA SaO2. Vital Signs Comment: Reviewed in CIS, RN informed of Vital Sign changes. Pre-exercise Physical Examination Neurologic: alert & oriented. Cardiovascular: heart rate regular. Lungs: Cough no. Activity Ambulate: PER PT. Patient Education Education: Family present, Written material included, Post procedure guidelines, Stent card reviewed. Education topic Teachback comprehension 25% Topic: Pathophysiology, Lipid management, Medication education, Role of exercise, Home activity guidelines/limits, Infarct recovery guidelines. Reinforcement needed: Medication education, Role of exercise, Home activity guidelines/limits, All education reviewed with family and Pt. Recommendation and Plan Outpatient follow up recommended: Pt declines. Cardiac Rehab: Will sign off at this time. Recommendation comment: RN notified of plan. * Renetta Martínez: PERFORM, SIGN, VERIFY Event Display: Cardiac Rehab Note Authored Date: [id number] Patient: SIVAKUMAR DUNBAR Age: 82 years Sex: Male : 1940 Associated Diagnoses: None Author: Renetta Martínez Pt to be seen by cardiac rehab when family is present, will attempt again tomorrow, per pts RN, pt somewhat confused. Pt would benefit more from edu when family present, has been OOB w PT though. Will attempt tomorrow. Portable XR Chest Views * [facility] , CIS S: TRANSCRIBE Ravi Parks MD: VERIFY Event Display: Result: Authored Date: [id number] AP upright portable chest dated July 24, 2022 1139 hours. Comparison films are from July 24t 0340 hours. HISTORY: Shortness of breath. FINDINGS: The cardiac silhouette is within normal limits for size. Mural calcifications are presentin the aorta. There is increased attenuation at the left lung base consistent with atelectasis or pneumonia and associated pleural effusion. This is increased from the previous examination. Stable patchy bilateral infiltrates. Stable minimal right pleural effusion. Degenerative changes are noted in the spine and shoulders. IMPRESSION: Interval worsening of aeration at the left lung base consistent with atelectasis or pneumonia and associated pleural effusion. Examination 14391. Thank you for allowing me to participate in the care of this patient. WSN: [id number] Ordering Physician: Emy Bangura Dictated By: Ravi Parks MD Dictated Date/Time: 07/24/22 1:53 pm Reviewed By: Ravi Parks MD Signed By: Ravi Parks MD Signed Date/Time: 07/24/22 1:53 pm Transcribed By: CSBassam Transcribed Date/Time: 07/24/22 1:53 pm * RIKISPowerscadisbe , CIS S: TRANSCRIBE Rebecca Hawk DO: JENNIE Moore MD, Chris V: VERIFY Event Display: Result: Authored Date: [id number] Chest Portable Reason: Shortness of Breath; dyspnea, post STEMI cath; Clinical Question(s): Pleural Effusion COMPARISON: CT abdomen/pelvis 07/14/2020 and Multiple prior chest radiographs, most recent 07/23/2022 FINDINGS: LINES AND TUBES: None. LUNGS AND PLEURA: Low lung volumes with mild basilar atelectasis. Similar nonspecific hazy interstitial opacities in both lungs, likely representing chronic lung disease partially seen on prior CT of 2020. No pleural effusion. No pneumothorax. HEART, MEDIASTINUM AND GRACIA: Heart is normal in size. Normal mediastinal and hilar contour. BONES AND SOFT TISSUES: No acute abnormality. IMPRESSION: No acute abnormality. Similar findings low lung volumes and probable chronic lung disease. I have personally reviewed the images and I agree with this report. WSN: [id number] Ordering Physician: Kylee Aguilar Dictated By: Rebecca Hawk DO Dictated Date/Time: 07/24/22 2:46 pm Reviewed By: Chris Moore MD, V Signed By: Chris Moore MD, V Signed Date/Time: 07/24/22 2:51 pm Transcribed By: VALERIE Transcribed Date/Time: 07/24/22 1:46 pm * [facility] , CIS S: TRANSCRIBE Jim Troy MD: VERIFY Event Display: Result: Authored Date: [id number] Chest Portable Reason: CHF; Clinical Question(s): CHF COMPARISON: CT scan of the abdomen and pelvis 07/14/2020 FINDINGS: LINES AND TUBES: None. LUNGS AND PLEURA: Nonspecific somewhat patchy/ground glass density both lungs may be related to low lung volumes. Previous CT scan suggested bilateral reticular markings possibly related to chronic lung disease. No pleural effusion. No pneumothorax. HEART, MEDIASTINUM AND GRACIA: Heart is normal in size. Normal mediastinal and hilar contour. BONES AND SOFT TISSUES: No acute abnormality. IMPRESSION: Probable findings of chronic lung disease. No acute abnormality identified. WSN: [id number] Ordering Physician: Claudia Ramos Dictated By: Jim Troy MD Dictated Date/Time: 07/23/22 9:12 am Reviewed By: Jim Troy MD Signed By: Jim Troy MD Signed Date/Time: 07/23/22 9:12 am Transcribed By: VALERIE Transcribed Date/Time: 07/23/22 9:10 am Patient Care team information Care Team Personnel Name: Mau Cha RN Position: [facility] RN Member Role: Primary Care Nurse Name: Brennan Arteaga Position: [facility] RN Supv Member Role: Primary Care Nurse Name: Denny Peña DO Position: [facility] Physician (General Medicine) Member Role: PCP Address: Address: [address] [place] [id number] Name: Marina Rodriguez RN Position: S RN Member Role: Primary Care Nurse Name: Shoshana Schroeder Position: S RN Member Role: Primary Care Nurse Name: Adrienne Hanson Position: [facility] ED RN W/OE and Tasks Member Role: Patient Care Provider Name: Ashley Fontenot Position: [facility] ED TA [facility] Member Role: Transfer Driver Name: Tala Richter MD Position: [facility] Resident Address: Address: [address] [place] [address]- Name: Florecita Espinoza MD Position: [facility] Resident Member Role: ED Resident Address: Address: [address] [place] [address]- Care Team Related Persons Name: JC DUNBAR Address: [address] [place] [address]
[2022-08-29 21:30] VITALS: BP 143/91; PULSE 93; RESP 18; TEMP 36.3; O2SAT 97
--- NOTE | 2022-08-29 22:29 | PC.ADMIT ---
Sivakumar admitted to s1 at 21:24 via EMS/stretcher from [facility] for unspecified depressive disorder and unspecified psychotic disorder. Admission assessment was conducted with in-person educational interpreter as the patient is primarily Nigerian-speaking. Patient holds a legal status of a CV. Precipitants of admission include patient being found of floor of his assisted living facility ([facility]) making suicidal statements. It is unknown if patient was s/p fall or self-lowering to floor where he was reportedly found. Patient denies use of any assistive devices at baseline and was able to ambulate short distances with staff assistance. Per crisis eval, patient has been making passive SI statements for a few months. Crisis eval shows patient did not specify a plan, however, per chart review patient?s nephew reported patient had recently been making statements about jumping off his balcony, concerning as patient lives on the third floor. During admission assessment, patient was A&Ox1 to self and though disoriented to place, event, and time. Though has hx dementia. Denied pain and any visual or auditory hallucinations. Patient denied SI as well as HI. Denies allergies, reports he is [employer]ism and is amenable to a spiritual services visit while admitted. Vitals stable.? Patient is calm and cooperate with mood appears cheery with congruent affect. Patient does not appear to be internally preoccupied and is not responding to internal stimuli. Patient does not have any stated delusions, and is responding appropriately to staff assessment questions. Focus was WNL. Speech clear and WNL. Eye contact during conversation was appropriate.? Per chart review, PMH includes: HTN, HLD, DM (on metformin), ischemic CM, HFrEF 30-35%, recent STEMI with JADE to LAD 07/22/22- 07/26/22. Patient denies chest pain and sob. Breathing is even and unlabored without distress. +CMS, -edema noted.? Five-minute safety checks initiated. Per Crisis eval the patient?s nephew Bennie Dunbar is his HCP and can be reached at [phone].?
[2022-08-30 07:40] VITALS: BP 113/71; PULSE 101; RESP 15; TEMP 36.4; O2SAT 97
[2022-08-30 07:49] LABS: Glucose, Whole Blood 160 mg/dL (60-115)
[2022-08-30 08:44] LABS: Estimated Average Glucose 146 mg/dL; Hemoglobin A1c % 6.7 %
[2022-08-30 08:58] LABS: Alanine Aminotransferase 14 U/L (0-40); Albumin Level 4.3 g/dL (3.5-5.0); Alkaline Phosphatase 69 U/L (39-117); Anion Gap 17 (12-20); Aspartate Amino Transferase 13 U/L (5-37); Blood Urea Nitrogen 28 mg/dL (9-16); Calcium 9.5 mg/dL (8.4-10.2); Carbon Dioxide 23 mmol/L (22-29); Chloride 104 mmol/L (96-108); Cholesterol 108 mg/dL; Creatinine Clr Calc Pharmacy 33.3; Estimated Glomerular Filt Rate 38; Glucose Fasting 157 mg/dL (60-99); HDL Cholesterol 28 mg/dL; LDL Cholesterol Calculated 44 mg/dl; Potassium 4.1 mmol/L (3.3-5.1); Sodium 140 mmol/L (135-145); Total Protein 7.2 g/dL (6.5-8.0); Triglycerides 184 mg/dL
[2022-08-30 09:20] LABS: Thyroid Stimulating Hormone 1.26 uIU/mL (0.32-4.0); Vitamin B12 235 pg/mL (200-900)
--- NOTE | 2022-08-30 11:37 | P.HPHOSP_ITS ---
History of Present Illness Date of Service: 08/30/22 Attending physician on admission: Marco Mayo Chief Complaint: medical H&P 82 year old male with history NIDDM, htn, mild cognitive impairment, and CAD with h/o STEMI 07/22/22 admitted to psychiatry [facility] consult placed to hospitalist service for medical H&P. He underwent cardiac catheterization at [facility] with JADE to the mild LAD via right radial approach. he was discharged on asa, plavix in addition to the metoprolol and atorvastatin he had been taking. He has since been seen by his earth science teacher. His EF was 35-40% on echo and lasix was advised to be reduced from 40mg to 20mg and he was advised to start cardiac rehab. Since then he tells me he is feeling well. No shortness of breath, NORRIS, chest pain. He has been compliant with medications. VSS. Creat slightly above baseline at 1.74 (ranges 1.4-1.6) but no true ESTELITA, BUn 28. Lytes normal. He has no complaints at this time and is feeling well. Review of Systems Review of Systems: General: No fevers, malaise, unintentional weight loss HEENT: No blurred vision, diplopia. No sore throat, nasal congestion, rhinorrhea, sinus pain, ear pain Cardiovascular: No chest pain, palpitations, or leg edema Respiratory: No shortness of breath, wheezing, cough GI: No abdominal pain, nausea, vomiting, diarrhea, constipation, melena, hematochezia : No dysuria, hematuria, increased urinary frequency, decreased urinary output MSK: No myalgia, back pain Neuro: No headaches, weakness, paresthesias Skin: No rashes or lesions [facility] Medical History Anxiety BPH (benign prostatic hyperplasia) CAD (coronary artery disease) Dementia HTN (hypertension) Hypercholesterolemia Parkinsons Restless leg syndrome STEMI (ST elevation myocardial infarction) Type 2 diabetes mellitus with hyperglycemia Family History Father No problems noted. Mother No problems noted. Surgical History History of colonoscopy History of cystoscopy History of esophagogastroduodenoscopy (EGD) Social History Household Members: None Housing: Assisted Living Facility Do you presently have visiting nurse or other home services: Yes Alcohol intake: former Patient Tobacco Use Status: Never used Tobacco e-Cigarette/Vaping Use: Never Used Use of substances other than those prescribed or required for medical reasons: No Currently Displaying Signs/Symptoms of Drug Intoxication Withdrawal: No Have you been hit, kicked, punched, or otherwise hurt by someone within the past year? If so, by whom?: No Do you feel safe in your current relationship?: No Current Relationship Is there a partner from a previous relationship who is making you feel unsafe now?: No Are you made to feel afraid or neglected: No Spiritual Healthcare Practices: Mosque Advance Directives: No Advance Directives Information Provided: No Do you have thoughts of harming others: None Do you have a plan to hurt others: No Plan Recently lost weight without trying: Unsure How much weight loss: Unsure Eating poorly because of decreased appetite: No Nutrition screen score: 4 Nutrition Risks: No Nutritional Risk Poor oral hygiene: No service: No Current occupational status: retired and disabled [employer] Allergies Allergy/AdvReac Type Severity Reaction Status Date / Time No Known Allergies Allergy Verified 06/12/20 12:45 [No Known Allergies*] Active Medications: Current Medications Acetaminophen (Acetaminophen 325 Mg Tablet) 650 mg PO Q6H PRN PRN Reason: Headache/Pain Mild Scale (1-3) Al Hydroxide/Mg Hydroxide (Magnesium Hydrox/Alum Hydrox 30 Ml Oral.Susp) 30 ml PO Q6H PRN PRN Reason: Heartburn/Nausea Hydroxyzine HCl (Hydroxyzine Hcl 25 Mg Tablet) 25 mg PO Q6H PRN PRN Reason: Anxiety Magnesium Hydroxide (Milk Of Magnesia 30 Ml Oral.Susp) 30 ml PO DAILY PRN PRN Reason: Constipation Trazodone HCl (Trazodone Hcl 50 Mg Tablet) 50 mg PO BEDTIME PRN PRN Reason: Insomnia Home Medications Medication Instructions Recorded Confirmed Last Taken Type donepezil 10 mg tablet 10 mg PO DAILY 04/23/20 11/02/20 Unknown History memantine 10 mg tablet (Namenda) 10 mg PO BID 04/23/20 11/02/20 Unknown History pantoprazole 40 mg tablet,delayed 40 mg PO DAILY 04/23/20 11/02/20 Unknown History release sertraline 50 mg tablet (Zoloft) 50 mg PO DAILY 04/23/20 11/02/20 Unknown History Physical Exam Vital Signs and Narrative: Vital Signs: Last Vital Signs Temp 97.5 F 08/30/22 07:40 Pulse 101 H 08/30/22 07:40 Resp 15 08/30/22 07:40 BP 113/71 08/30/22 07:40 Pulse Ox 97 08/30/22 07:40 O2 Del Method Room Air 08/30/22 07:40 Constitutional - Awake and Alert, No apparent distress Eyes - PERRLA, EOMI Cardiovascular - S1S2, RRR, No edema Respiratory - Normal lung expansion, Normal respiratory effort, No respiratory distress, CTA bilaterally Gastrointestinal - NT / ND; +BS; No rebound or guarding Extremities - no calf tenderness bilaterally, no swelling Musculoskeletal - Normal inspection, normal ROM Skin - Warm/Dry Neurological - Alert & oriented x3, CN II-XII in tact, 5/5 strength BUE and BLE Psychological - Appropriate affect Results Labs 08/30/22 08:12 Labs: Laboratory Results - last 24 hr 08/30/22 08/30/22 08/30/22 07:44 08:12 08:12 Anion Gap 17 Estim Creat Clear Calc 33.3 Estimated GFR 38 POC Glucose 160 H Fasting Glucose 157 H Estimat Average Glucose 146 Hemoglobin A1c % 6.7 Calcium 9.5 D Total Bilirubin 1.0 AST 13 ALT 14 Alkaline Phosphatase 69 Total Protein 7.2 Albumin 4.3 Triglycerides 184 Cholesterol 108 LDL Cholesterol, Calc 44 HDL Cholesterol 28 Vitamin B12 235 TSH 1.26 Assessment and Plan (1) Routine medical exam: Status: Acute Plan 82 year old male with history NIDDM, htn, mild cognitive impairment, and CAD with h/o STEMI 07/22/22 admitted to psychiatry [facility] consult placed to hospitalist service for medical H&P. #Mood disorder/dementia -plan per psychiatry #CAD w/ h/o STEMI s/p JADE with ischemic cardiomyopathy -Continue asa, plavix (ordered) -Continue atorvastatin 80mg -continue coreg 3.125mg BID -no anginal chest pain -Resume cardiac rehab on discharge #NIDDM- controlled -POC glucose -Diabetic diet -continue metformin, glimeperide #HTN- reasonably controlled continue coreg, amlodipine Thank you for allowing me to participate in this consult. Signing off at this time. Please do not hesitate to call for further questions. Time Spent With Patient Time: Total time managing care of this patient today ____ minutes. Quality Stroke Does the patient have a stroke diagnosis?: No VTE Prior VTE?: No VTE Risk Level:: Medical - moderate - high VTE Device Contraindication: Treatment Not Indicated VTE Drug Contraindication: N/A - Med Ordered
[2022-08-30] MEDS: Clopidogrel Bisulfate 75 MG TABLET PO (12:06)
[2022-08-30] MEDS: Aspirin Enteric Coated 81 MG TABLET.DR PO (12:06)
[2022-08-30] MEDS: Atorvastatin Calcium 80 MG TABLET PO (12:06)
[2022-08-30] MEDS: carvediloL 3.125 MG TABLET PO ×2 (12:06→20:03)
--- NOTE | 2022-08-30 12:39 | HO.PSYADMNOT ---
HPI Date of Service: 08/30/22 Chief Complaint: Unspecified Depressive Disorder Sources of Information: patient interviewed, chart reviewed and crisis/core team assessment reviewed HPI Subjective Notes: Kramer Warning and Conditional Voluntary Healthcare Proxy: Yes Narrative: Mr. Dunbar is a 82 year-old male with hx of major neurocognitive disorder who was [place] [facility] [place] pt was foudn lying on the floor and had made suicide statement. Collateral information from nephew who reports pt had been reporting suicidal ideation with plan to jump off [employer]. Nephew had reported to pt had been reporting suicidal ideation for months. Utox is negative. Pertinent labs completed at [facility]: 08/28/22- CBC WBC 6.4, Hgb 14.2, Hct 43; CMP BUN 19, Cr. 1.4. Estimated creatinine 49. TSH 1.64. Per, [facility] reports, when pt was interview he reported he did not know why he was in the hospital and did not recall making any suicidal statements. On the unit, pt presents as pleasant. He reports he does not know where he is. He is not able to identify that this is a hospital. He reports he does not know the month, year, date or place. When told that the reports states that he made suicidal statements, he states not me, I wouldn't say that. He denies depressed mood but does report that he misses his family. He reports he does not know where his family is and is worried that they may not know where he is. This financial underwriter let pt know that his nephew, his HCP, is aware that he is here. Medical Evaluation Reviewed: Yes [facility] Medical History Anxiety BPH (benign prostatic hyperplasia) CAD (coronary artery disease) Dementia HTN (hypertension) Hypercholesterolemia Parkinsons Restless leg syndrome STEMI (ST elevation myocardial infarction) Type 2 diabetes mellitus with hyperglycemia Surgical History History of colonoscopy History of cystoscopy History of esophagogastroduodenoscopy (EGD) Diagnostics Vital Signs (24Hr): Vital Signs - 24 hr 08/29/22 21:30 08/30/22 07:40 Temperature 97.4 F 97.5 F Pulse Rate 93 101 H Respiratory Rate 18 15 Blood Pressure 143/91 H 113/71 Pulse Oximetry 97 97 Oxygen Delivery Method Room Air Room Air Labs 08/30/22 08:12 Labs: Laboratory Results - last 48 hr 08/30/22 08/30/22 08/30/22 07:44 08:12 08:12 Sodium 140 Potassium 4.1 Chloride 104 Carbon Dioxide 23 Anion Gap 17 BUN 28 H Creatinine 1.74 H Estim Creat Clear Calc 33.3 Estimated GFR 38 POC Glucose 160 H Fasting Glucose 157 H Estimat Average Glucose 146 Hemoglobin A1c % 6.7 Calcium 9.5 D Total Bilirubin 1.0 AST 13 ALT 14 Alkaline Phosphatase 69 Total Protein 7.2 Albumin 4.3 Triglycerides 184 Cholesterol 108 LDL Cholesterol, Calc 44 HDL Cholesterol 28 Vitamin B12 235 TSH 1.26 Meds/Allergies Meds Home Medications Medication Instructions Recorded Confirmed Type donepezil 10 mg tablet 10 mg PO DAILY 04/23/20 11/02/20 History memantine 10 mg tablet (Namenda) 10 mg PO BID 04/23/20 11/02/20 History pantoprazole 40 mg tablet,delayed 40 mg PO DAILY 04/23/20 11/02/20 History release sertraline 50 mg tablet (Zoloft) 50 mg PO DAILY 04/23/20 11/02/20 History Allergies Allergies Allergy/AdvReac Type Severity Reaction Status Date / Time No Known Allergies Allergy Verified 06/12/20 12:45 [No Known Allergies*] Mental Status Exam Mental Status Exam Narrative: Appearance: wearing hospital gown, fair hygiene, in NAD Behavior: cooperative Psychomotor: no agitation or retardation noted Speech: clear, normal rate/rhythm/volume, spontaneous TP: mostly linear TC:no overt delusions or psychosis, missing his family. Mood: good Affect: congruent SI: denies, adamantly denies HI: denies VH/AH: none Delusions: none Insight/judgment: impaired x 2. Memory/cog: alert, not oriented to place, situation, month, year. severe underlying dementia. Assessment & Plan Assessment & Plan (1) Major neurocognitive disorder, due to Alzheimer's disease, without behavioral disturbance, severe: Status: Acute Code(s): G30.9 - Alzheimer's disease, unspecified; F02.C0 - Dementia in other diseases classified elsewhere, severe, without behavioral disturbance, psychotic disturbance, mood disturbance, and anxiety Plan Mr. 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 Pt was broughht [place] [facility] [place] he was found lying on floor and had made suicide statement. Per nephew, pt had been making suicidal statements for a months and nephew concern that pt may jump off [employer]. Also, pt lives at [facility] but it appears facility not able to meet his need. On the unit, pt does not remember events leading to this admission. Pt presents with severe cognitive and memory impairments with orientation only to self. PLAN 1. Admit to , CV signed by HCP, 15 minutes checks for safety/ 2. continue current medications. 3. Aftercare planning which may include placement. Patient educated on: diagnosis (HCP) Reason for continued inpatient stay Substantial Risk for: inability to function Statement Statement: I have reviewed the history and physical and performed a pertinent examination on my patient. No changes have occurred unless specified. If the History and Physical was not performed prior to admission, the Hospitalist's service will be consulted for completing the admission physical. Time Spent With Patient Time: Total time managing care of this patient today ____ minutes.
[2022-08-30 18:00] VITALS: BP 140/94; PULSE 94; RESP 18; TEMP 36.4; O2SAT 98
[2022-08-30 20:37] LABS: Glucose, Whole Blood 175 mg/dL (60-115)
[2022-08-31 06:00] VITALS: BP 129/67; PULSE 79; RESP 18; TEMP 36.3; O2SAT 95
[2022-08-31 07:00] VITALS: BMI 20.4
[2022-08-31 08:01] LABS: Glucose, Whole Blood 136 mg/dL (60-115)
[2022-08-31] MEDS: Aspirin Enteric Coated 81 MG TABLET.DR PO (09:26)
[2022-08-31] MEDS: Atorvastatin Calcium 80 MG TABLET PO (09:26)
[2022-08-31] MEDS: carvediloL 3.125 MG TABLET PO ×2 (09:26→20:09)
[2022-08-31] MEDS: Clopidogrel Bisulfate 75 MG TABLET PO (09:26)
[2022-08-31] MEDS: Omeprazole 20 MG CAPSULE.DR PO (16:20)
[2022-08-31] MEDS: Sertraline HCL 50 MG TABLET PO (16:20)
[2022-08-31] MEDS: amLODIPine Besylate 5 MG TABLET PO (16:20)
[2022-08-31 16:24] VITALS: BP 139/87; PULSE 75
[2022-08-31] MEDS: metFORMIN HCl 500 MG TABLET PO (16:35)
[2022-08-31 18:00] VITALS: BP 144/75; PULSE 74; RESP 18; TEMP 36.7; O2SAT 97
[2022-08-31] MEDS: Finasteride 5 MG TABLET PO (20:09)
[2022-08-31 20:21] LABS: Glucose, Whole Blood 157 mg/dL (60-115)
--- NOTE | 2022-08-31 21:57 | HO.PSYCHPN ---
Subjective Subjective Date of Service: 08/31/22 Reason For Visit: Unspecified Depressive Disorder Subjective Notes: Conditional Voluntary Interim History: Pt continues to present as not oriented to situation, month, date, or year. He is confused as to where he is and worried that family may not know. Pt denies SI/HI. He does report that he misses his family. No combative behaviors. When asked about SI, pt states I would never say something like that/ Review of Systems Review of Systems Pt denies pain, chest pain. NO SOB. reviewed limited by fact that he has severe memory/cognitive impairments. Mental Status Exam Mental Status Exam Narrative: Appearance: wearing hospital gown, fair hygiene, in NAD Behavior: cooperative Psychomotor: no agitation or retardation noted Speech: clear, normal rate/rhythm/volume, spontaneous TP: mostly linear TC:no overt delusions or psychosis, missing his family. Mood: good Affect: congruent SI: denies, adamantly denies HI: denies VH/AH: none Delusions: none Insight/judgment: impaired x 2. Memory/cog: alert, not oriented to place, situation, month, year. severe underlying dementia. Diagnostics Vital Signs (24Hr): Vital Signs - 24 hr 08/31/22 06:00 08/31/22 16:24 08/31/22 18:00 Temperature 97.3 F 98.1 F Pulse Rate 79 75 74 Respiratory Rate 18 18 Blood Pressure 129/67 139/87 144/75 H Pulse Oximetry 95 97 Oxygen Delivery Method Room Air Room Air BMI result Body Mass Index 20.4 Labs 08/30/22 08:12 Labs: Laboratory Results - last 48 hr 08/30/22 08/30/22 08/30/22 07:44 08:12 08:12 Sodium 140 Potassium 4.1 Chloride 104 Carbon Dioxide 23 Anion Gap 17 BUN 28 H Creatinine 1.74 H Estim Creat Clear Calc 33.3 Estimated GFR 38 POC Glucose 160 H Fasting Glucose 157 H Estimat Average Glucose 146 Hemoglobin A1c % 6.7 Calcium 9.5 D Total Bilirubin 1.0 AST 13 ALT 14 Alkaline Phosphatase 69 Total Protein 7.2 Albumin 4.3 Triglycerides 184 Cholesterol 108 LDL Cholesterol, Calc 44 HDL Cholesterol 28 Vitamin B12 235 TSH 1.26 08/30/22 08/31/22 08/31/22 20:34 07:46 20:05 Sodium Potassium Chloride Carbon Dioxide Anion Gap BUN Creatinine Estim Creat Clear Calc Estimated GFR POC Glucose 175 H 136 H 157 H Fasting Glucose Estimat Average Glucose Hemoglobin A1c % Calcium Total Bilirubin AST ALT Alkaline Phosphatase Total Protein Albumin Triglycerides Cholesterol LDL Cholesterol, Calc HDL Cholesterol Vitamin B12 TSH Medications Medications Current Medications Acetaminophen (Acetaminophen 325 Mg Tablet) 650 mg PO Q6H PRN PRN Reason: Headache/Pain Mild Scale (1-3) Al Hydroxide/Mg Hydroxide (Magnesium Hydrox/Alum Hydrox 30 Ml Oral.Susp) 30 ml PO Q6H PRN PRN Reason: Heartburn/Nausea Amlodipine Besylate (Amlodipine Besylate 5 Mg Tablet) 5 mg PO DAILY [facility]; Protocol Last Admin: 08/31/22 16:20 Dose: 5 mg Aspirin (Aspirin Enteric Coated 81 Mg Tablet.) 81 mg PO DAILY [facility] Last Admin: 08/31/22 09:26 Dose: 81 mg Atorvastatin Calcium (Atorvastatin Calcium 80 Mg Tablet) 80 mg PO DAILY [facility] Last Admin: 08/31/22 09:26 Dose: 80 mg Carvedilol (Carvedilol 3.125 Mg Tablet) 3.125 mg PO BID [facility]; Protocol Last Admin: 08/31/22 20:09 Dose: 3.125 mg Clopidogrel Bisulfate (Clopidogrel Bisulfate 75 Mg Tablet) 75 mg PO DAILY [facility] Last Admin: 08/31/22 09:26 Dose: 75 mg Finasteride (Finasteride 5 Mg Tablet) 5 mg PO BEDTIME [facility] Last Admin: 08/31/22 20:09 Dose: 5 mg Hydroxyzine HCl (Hydroxyzine Hcl 25 Mg Tablet) 25 mg PO Q6H PRN PRN Reason: Anxiety Magnesium Hydroxide (Milk Of Magnesia 30 Ml Oral.Susp) 30 ml PO DAILY PRN PRN Reason: Constipation Metformin HCl (Metformin Hcl 500 Mg Tablet) 500 mg PO BIDWM [facility] Last Admin: 08/31/22 16:35 Dose: 500 mg Omeprazole (Omeprazole 20 Mg Capsule.Dr) 20 mg PO DAILY@0630 [facility] Last Admin: 08/31/22 16:20 Dose: 20 mg Quetiapine Fumarate (Quetiapine Fumarate 50 Mg Tablet) 50 mg PO Q6H PRN PRN Reason: agitation Sertraline HCl (Sertraline Hcl 50 Mg Tablet) 50 mg PO DAILY [facility] Last Admin: 08/31/22 16:20 Dose: 50 mg Trazodone HCl (Trazodone Hcl 50 Mg Tablet) 50 mg PO BEDTIME PRN PRN Reason: Insomnia Allergies Allergies Allergy/AdvReac Type Severity Reaction Status Date / Time No Known Allergies Allergy Verified 06/12/20 12:45 [No Known Allergies*] Assessment & Plan Assessment & Plan (1) Major neurocognitive disorder, due to Alzheimer's disease, without behavioral disturbance, severe: Status: Acute Code(s): G30.9 - Alzheimer's disease, unspecified; F02.C0 - Dementia in other diseases classified elsewhere, severe, without behavioral disturbance, psychotic disturbance, mood disturbance, and anxiety Plan Mr. 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 Pt was broughht to [facility] [place] [place] after he was found lying on floor and had made suicide statement. Per nephew, pt had been making suicidal statements for a months and nephew concern that pt may jump off [employer]. Also, pt lives at [facility] but it appears facility not able to meet his need. On the unit, pt does not remember events leading to this admission. Pt presents with severe cognitive and memory impairments with orientation only to self. PLAN 1. Admit to S1, CV signed by HCP, 15 minutes checks for safety/ 2. continue current medications. 3. Aftercare planning which may include placement. 08/31 continue tx. Reason for continued inpatient stay Substantial Risk for: inability to function Time Spent With Patient Time: Total time managing care of this patient today ____ minutes.
[2022-09-01] MEDS: Omeprazole 20 MG CAPSULE.DR PO (05:53)
[2022-09-01 07:46] LABS: Glucose, Whole Blood 157 mg/dL (60-115)
[2022-09-01 07:50] VITALS: BP 119/71; PULSE 70; RESP 18; TEMP 36.4; O2SAT 95
[2022-09-01] MEDS: Clopidogrel Bisulfate 75 MG TABLET PO (08:12)
[2022-09-01] MEDS: Atorvastatin Calcium 80 MG TABLET PO (08:12)
[2022-09-01] MEDS: amLODIPine Besylate 5 MG TABLET PO (08:12)
[2022-09-01] MEDS: Aspirin Enteric Coated 81 MG TABLET.DR PO (08:12)
[2022-09-01] MEDS: metFORMIN HCl 500 MG TABLET PO ×2 (08:12→16:31)
[2022-09-01] MEDS: carvediloL 3.125 MG TABLET PO ×2 (08:13→22:13)
[2022-09-01] MEDS: Sertraline HCL 50 MG TABLET PO (08:13)
--- NOTE | 2022-09-01 14:35 | HO.PSYCHPN ---
Subjective Subjective Date of Service: 09/01/22 Reason For Visit: Unspecified Depressive Disorder Subjective Notes: Conditional Voluntary Interim History: The nursing staff reported the patient had been fully compliant with treatment, his blood sugars have been stable so we are going to discontinue the point of care. Yesterday his family visit him and he cannot remember that he verbalized suicidal ideation. On interview the patient denies new symptoms he feels much better slightly confused but easily redirectable no evidence of suicidal ideation. Mental Status Exam Mental Status Exam Patient Appearance: Appropriate Patient Orientation: Person and Situation Level of Consciousness: Awake and Appropriate Patient Behavior: Guarded and Passive Mood Description: Calm Affect Description: Constricted Patient Cognition Impaired: Yes Ability to Follow Directions: Good Speech Pattern: Clear Hallucinations: None Delusions: Not Present Thought Process: Linear Thought Content: positive for [place] and positive for Circumstantial Judgement: Fair Diagnostics Vital Signs (24Hr): Vital Signs - 24 hr 08/31/22 16:24 08/31/22 18:00 09/01/22 07:50 Temperature 98.1 F 97.6 F Pulse Rate 75 74 70 Respiratory Rate 18 18 Blood Pressure 139/87 144/75 H 119/71 Pulse Oximetry 97 95 Oxygen Delivery Method Room Air Room Air BMI result Body Mass Index 20.4 Labs 08/30/22 08:12 Labs: Laboratory Results - last 48 hr 08/30/22 08/31/22 08/31/22 20:34 07:46 20:05 POC Glucose 175 H 136 H 157 H 09/01/22 07:37 POC Glucose 157 H Medications Medications Current Medications Acetaminophen (Acetaminophen 325 Mg Tablet) 650 mg PO Q6H PRN PRN Reason: Headache/Pain Mild Scale (1-3) Al Hydroxide/Mg Hydroxide (Magnesium Hydrox/Alum Hydrox 30 Ml Oral.Susp) 30 ml PO Q6H PRN PRN Reason: Heartburn/Nausea Amlodipine Besylate (Amlodipine Besylate 5 Mg Tablet) 5 mg PO DAILY [facility]; Protocol Last Admin: 09/01/22 08:12 Dose: 5 mg Aspirin (Aspirin Enteric Coated 81 Mg Tablet.) 81 mg PO DAILY [facility] Last Admin: 09/01/22 08:12 Dose: 81 mg Atorvastatin Calcium (Atorvastatin Calcium 80 Mg Tablet) 80 mg PO DAILY [facility] Last Admin: 09/01/22 08:12 Dose: 80 mg Carvedilol (Carvedilol 3.125 Mg Tablet) 3.125 mg PO BID [facility]; Protocol Last Admin: 09/01/22 08:13 Dose: 3.125 mg Clopidogrel Bisulfate (Clopidogrel Bisulfate 75 Mg Tablet) 75 mg PO DAILY [facility] Last Admin: 09/01/22 08:12 Dose: 75 mg Finasteride (Finasteride 5 Mg Tablet) 5 mg PO BEDTIME [facility] Last Admin: 08/31/22 20:09 Dose: 5 mg Hydroxyzine HCl (Hydroxyzine Hcl 25 Mg Tablet) 25 mg PO Q6H PRN PRN Reason: Anxiety Magnesium Hydroxide (Milk Of Magnesia 30 Ml Oral.Susp) 30 ml PO DAILY PRN PRN Reason: Constipation Metformin HCl (Metformin Hcl 500 Mg Tablet) 500 mg PO BIDWM [facility] Last Admin: 09/01/22 08:12 Dose: 500 mg Omeprazole (Omeprazole 20 Mg Capsule.Dr) 20 mg PO DAILY@0630 [facility] Last Admin: 09/01/22 05:53 Dose: 20 mg Quetiapine Fumarate (Quetiapine Fumarate 50 Mg Tablet) 50 mg PO Q6H PRN PRN Reason: agitation Sertraline HCl (Sertraline Hcl 50 Mg Tablet) 50 mg PO DAILY [facility] Last Admin: 09/01/22 08:13 Dose: 50 mg Trazodone HCl (Trazodone Hcl 50 Mg Tablet) 50 mg PO BEDTIME PRN PRN Reason: Insomnia Allergies Allergies Allergy/AdvReac Type Severity Reaction Status Date / Time No Known Allergies Allergy Verified 06/12/20 12:45 [No Known Allergies*] Assessment & Plan Assessment & Plan (1) Major neurocognitive disorder, due to Alzheimer's disease, without behavioral disturbance, severe: Status: Acute Code(s): G30.9 - Alzheimer's disease, unspecified; F02.C0 - Dementia in other diseases classified elsewhere, severe, without behavioral disturbance, psychotic disturbance, mood disturbance, and anxiety Plan Mr. 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 Pt was broughht to [facility] after he was found lying on floor and had made suicide statement. Per nephew, pt had been making suicidal statements for a months and nephew concern that pt may jump off [employer]. Also, pt lives at [facility] but it appears facility not able to meet his need. On the unit, pt does not remember events leading to this admission. Pt presents with severe cognitive and memory impairments with orientation only to self. PLAN 1. Admit to S1, CV signed by HCP, 15 minutes checks for safety/ 2. continue current medications. 3. Aftercare planning which may include placement. Reason for continued inpatient stay Substantial Risk for: inability to function, rapid decompensation and med/psych decompensation Time Spent With Patient Time: Total time managing care of this patient today __20__ minutes.
[2022-09-01 18:00] VITALS: BP 129/72; PULSE 78; RESP 16; TEMP 36.2; O2SAT 98
[2022-09-01 18:19] LABS: Anion Gap 18 (12-20); Blood Urea Nitrogen 33 mg/dL (9-16); Calcium 10.3 mg/dL (8.4-10.2); Carbon Dioxide 23 mmol/L (22-29); Chloride 101 mmol/L (96-108); Creatinine Clr Calc Pharmacy 35.6; Estimated Glomerular Filt Rate 42; Glucose Random 161 mg/dL (60-115); Sodium 138 mmol/L (135-145)
[2022-09-01] MEDS: traZODone HCL 50 MG TABLET PO (22:13)
[2022-09-01] MEDS: Finasteride 5 MG TABLET PO (22:14)
[2022-09-02] MEDS: Omeprazole 20 MG CAPSULE.DR PO (06:02)
[2022-09-02 07:30] VITALS: BP 138/78; PULSE 78; RESP 15; TEMP 36.4; O2SAT 98
[2022-09-02] MEDS: carvediloL 3.125 MG TABLET PO ×2 (09:03→20:16)
[2022-09-02] MEDS: amLODIPine Besylate 5 MG TABLET PO (09:03)
[2022-09-02] MEDS: Sertraline HCL 50 MG TABLET PO (09:03)
[2022-09-02] MEDS: Aspirin Enteric Coated 81 MG TABLET.DR PO (09:03)
[2022-09-02] MEDS: Clopidogrel Bisulfate 75 MG TABLET PO (09:03)
[2022-09-02] MEDS: metFORMIN HCl 500 MG TABLET PO ×2 (09:03→16:33)
[2022-09-02] MEDS: Atorvastatin Calcium 80 MG TABLET PO (09:03)
--- NOTE | 2022-09-02 10:05 | P.PNPSI_ITS ---
Subjective Subjective Date of Service: 09/02/22 Reason For Visit: Unspecified Depressive Disorder Interim History: calm, cooperative. lying in bed. pleasant. no questions or complaints. per staff, from [facility], found lying on the floor there expressing passive SI. appears to have perked up a bit since admission. Mental Status Exam Mental Status Exam Narrative: lying in bed, adequately dressed and marginally groomed. cooperative. no PMA/PMR. speech nml rate, amount, loudness, tone, latency. thoughts linear and logical. affect full range, normo-intense, non-labile. mood OK so far. no SI/HI/AVH expressed. Diagnostics Vital Signs (24Hr): Vital Signs - 24 hr 09/01/22 18:00 Temperature 97.2 F Pulse Rate 78 Respiratory Rate 16 Blood Pressure 129/72 Pulse Oximetry 98 Oxygen Delivery Method Room Air BMI result Body Mass Index 20.4 Labs 09/01/22 18:03 Labs: Laboratory Results - last 48 hr 08/31/22 09/01/22 09/01/22 20:05 07:37 18:03 Sodium 138 Potassium 4.0 Chloride 101 Carbon Dioxide 23 Anion Gap 18 BUN 33 H Creatinine 1.59 H Estim Creat Clear Calc 35.6 Estimated GFR 42 POC Glucose 157 H 157 H Random Glucose 161 H Calcium 10.3 H D Medications Medications Current Medications Acetaminophen (Acetaminophen 325 Mg Tablet) 650 mg PO Q6H PRN PRN Reason: Headache/Pain Mild Scale (1-3) Al Hydroxide/Mg Hydroxide (Magnesium Hydrox/Alum Hydrox 30 Ml Oral.Susp) 30 ml PO Q6H PRN PRN Reason: Heartburn/Nausea Amlodipine Besylate (Amlodipine Besylate 5 Mg Tablet) 5 mg PO DAILY [facility]; Protocol Last Admin: 09/02/22 09:03 Dose: 5 mg Aspirin (Aspirin Enteric Coated 81 Mg Tablet.) 81 mg PO DAILY [facility] Last Admin: 09/02/22 09:03 Dose: 81 mg Atorvastatin Calcium (Atorvastatin Calcium 80 Mg Tablet) 80 mg PO DAILY [facility] Last Admin: 09/02/22 09:03 Dose: 80 mg Carvedilol (Carvedilol 3.125 Mg Tablet) 3.125 mg PO BID [facility]; Protocol Last Admin: 09/02/22 09:03 Dose: 3.125 mg Clopidogrel Bisulfate (Clopidogrel Bisulfate 75 Mg Tablet) 75 mg PO DAILY [facility] Last Admin: 09/02/22 09:03 Dose: 75 mg Finasteride (Finasteride 5 Mg Tablet) 5 mg PO BEDTIME [facility] Last Admin: 09/01/22 22:14 Dose: 5 mg Hydroxyzine HCl (Hydroxyzine Hcl 25 Mg Tablet) 25 mg PO Q6H PRN PRN Reason: Anxiety Magnesium Hydroxide (Milk Of Magnesia 30 Ml Oral.Susp) 30 ml PO DAILY PRN PRN Reason: Constipation Metformin HCl (Metformin Hcl 500 Mg Tablet) 500 mg PO BIDWM [facility] Last Admin: 09/02/22 09:03 Dose: 500 mg Omeprazole (Omeprazole 20 Mg Capsule.Dr) 20 mg PO DAILY@0630 [facility] Last Admin: 09/02/22 06:02 Dose: 20 mg Quetiapine Fumarate (Quetiapine Fumarate 50 Mg Tablet) 50 mg PO Q6H PRN PRN Reason: agitation Sertraline HCl (Sertraline Hcl 50 Mg Tablet) 50 mg PO DAILY [facility] Last Admin: 09/02/22 09:03 Dose: 50 mg Trazodone HCl (Trazodone Hcl 50 Mg Tablet) 50 mg PO BEDTIME PRN PRN Reason: Insomnia Last Admin: 09/01/22 22:13 Dose: 50 mg Allergies Allergies Allergy/AdvReac Type Severity Reaction Status Date / Time No Known Allergies Allergy Verified 06/12/20 12:45 [No Known Allergies*] Assessment & Plan Assessment & Plan (1) Major neurocognitive disorder, due to Alzheimer's disease, without behavioral disturbance, severe: Status: Acute Code(s): G30.9 - Alzheimer's disease, unspecified; F02.C0 - Dementia in other diseases classified elsewhere, severe, without behavioral disturbance, psychotic disturbance, mood disturbance, and anxiety Plan Mr. 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 Pt was broughht to [facility] after he was found lying on floor and had made suicide statement. Per nephew, pt had been making suicidal statements for a months and nephew concern that pt may jump off [employer]. Also, pt lives at [facility] but it appears facility not able to meet his need. On the unit, pt does not remember events leading to this admission. Pt presents with severe cognitive and memory impairments with orientation only to self. PLAN 1. Admit to S1, CV signed by HCP, 15 minutes checks for safety/ 2. continue current medications. 3. Aftercare planning which may include placement. 09/02: calm, pleasant, stable. appears less depressed than at admission. continue current mgmt. Reason for continued inpatient stay Substantial Risk for: inability to function and rapid decompensation Time Spent With Patient Time: Total time managing care of this patient today ____ minutes.
[2022-09-02 18:00] VITALS: BP 121/74; PULSE 72; RESP 16; TEMP 36.4; O2SAT 97
[2022-09-02] MEDS: traZODone HCL 50 MG TABLET PO (20:16)
[2022-09-02] MEDS: Finasteride 5 MG TABLET PO (20:17)
[2022-09-03] MEDS: Omeprazole 20 MG CAPSULE.DR PO (06:03)
[2022-09-03] MEDS: carvediloL 3.125 MG TABLET PO ×2 (08:53→20:19)
[2022-09-03] MEDS: metFORMIN HCl 500 MG TABLET PO ×2 (08:53→16:54)
[2022-09-03] MEDS: amLODIPine Besylate 5 MG TABLET PO (08:53)
[2022-09-03] MEDS: Atorvastatin Calcium 80 MG TABLET PO (08:53)
[2022-09-03] MEDS: Aspirin Enteric Coated 81 MG TABLET.DR PO (08:53)
[2022-09-03] MEDS: Sertraline HCL 50 MG TABLET PO (08:53)
[2022-09-03] MEDS: Clopidogrel Bisulfate 75 MG TABLET PO (08:53)
--- NOTE | 2022-09-03 09:16 | PC.NURSE ---
PT HAD A WITNESSED FALL BY KATELYNN WILSON. STAFF STATES THAT PT. WAS IN THE CORNER OF HIS BEDROOM, AND HE LOST HIS BALANCE AND FELL ONTO THE FLOOR. STAFF DENIES SEEING PT. HIT HIS HEAD, AND PT. DENIES HITTING HIS HEAD. VS TAKEN-WNL. DR. CARRASCO CAME ONTO THE UNIT FOR ROUNDS JUST THIS RN WAS TAKING VS. HE WROTE A 1:1 ORDER. PT. STATES THT WHEN HE GOT UP OFF THE FLOOR, ASSISTED BY STAFF, THAT HE FELT DIZZY. PT. DENIED FEELING DIZZY WHEN HE FELL. PT. CURRENTLY STATES THAT HE IS NO LONGER DIZZY.
--- NOTE | 2022-09-03 10:04 | HO.PSYCHPN ---
Subjective Subjective Date of Service: 09/03/22 Reason For Visit: Unspecified Depressive Disorder Interim History: fell this morning, found seated on floor with greenhouse staff. denies LOC or head trauma. denies pain. MS appears at baseline. reporting some dizziness after fall but denies any prior to fall. no other complaints or requests. per staff, seemed to need more assist for transferring this morning prior to fall; and fell. otherwise no change to presentation. Mental Status Exam Mental Status Exam Narrative: adequately dressed and marginally groomed. cooperative. no PMA/PMR. speech decr rate, amount, loudness, tone. incr latency. thoughts linear and logical. affect constricted, normo-intense, non-labile. no SI/HI/AVH expressed. grossly neurologically intact; ambulating with walker and conversing post-fall Diagnostics Vital Signs (24Hr): Vital Signs - 24 hr 09/02/22 18:00 Temperature 97.5 F Pulse Rate 72 Respiratory Rate 16 Blood Pressure 121/74 Pulse Oximetry 97 Oxygen Delivery Method Room Air BMI result Body Mass Index 20.4 Labs 09/01/22 18:03 Labs: Laboratory Results - last 48 hr 09/01/22 18:03 Sodium 138 Potassium 4.0 Chloride 101 Carbon Dioxide 23 Anion Gap 18 BUN 33 H Creatinine 1.59 H Estim Creat Clear Calc 35.6 Estimated GFR 42 Random Glucose 161 H Calcium 10.3 H D Medications Medications Current Medications Acetaminophen (Acetaminophen 325 Mg Tablet) 650 mg PO Q6H PRN PRN Reason: Headache/Pain Mild Scale (1-3) Al Hydroxide/Mg Hydroxide (Magnesium Hydrox/Alum Hydrox 30 Ml Oral.Susp) 30 ml PO Q6H PRN PRN Reason: Heartburn/Nausea Amlodipine Besylate (Amlodipine Besylate 5 Mg Tablet) 5 mg PO DAILY [facility]; Protocol Last Admin: 09/03/22 08:53 Dose: 5 mg Aspirin (Aspirin Enteric Coated 81 Mg Tablet.) 81 mg PO DAILY [facility] Last Admin: 09/03/22 08:53 Dose: 81 mg Atorvastatin Calcium (Atorvastatin Calcium 80 Mg Tablet) 80 mg PO DAILY [facility] Last Admin: 09/03/22 08:53 Dose: 80 mg Carvedilol (Carvedilol 3.125 Mg Tablet) 3.125 mg PO BID [facility]; Protocol Last Admin: 09/03/22 08:53 Dose: 3.125 mg Clopidogrel Bisulfate (Clopidogrel Bisulfate 75 Mg Tablet) 75 mg PO DAILY [facility] Last Admin: 09/03/22 08:53 Dose: 75 mg Finasteride (Finasteride 5 Mg Tablet) 5 mg PO BEDTIME [facility] Last Admin: 09/02/22 20:17 Dose: 5 mg Hydroxyzine HCl (Hydroxyzine Hcl 25 Mg Tablet) 25 mg PO Q6H PRN PRN Reason: Anxiety Magnesium Hydroxide (Milk Of Magnesia 30 Ml Oral.Susp) 30 ml PO DAILY PRN PRN Reason: Constipation Metformin HCl (Metformin Hcl 500 Mg Tablet) 500 mg PO BIDWM [facility] Last Admin: 09/03/22 08:53 Dose: 500 mg Omeprazole (Omeprazole 20 Mg Capsule.Dr) 20 mg PO DAILY@0630 [facility] Last Admin: 09/03/22 06:03 Dose: 20 mg Quetiapine Fumarate (Quetiapine Fumarate 50 Mg Tablet) 50 mg PO Q6H PRN PRN Reason: agitation Sertraline HCl (Sertraline Hcl 50 Mg Tablet) 50 mg PO DAILY [facility] Last Admin: 09/03/22 08:53 Dose: 50 mg Trazodone HCl (Trazodone Hcl 50 Mg Tablet) 50 mg PO BEDTIME PRN PRN Reason: Insomnia Last Admin: 09/02/22 20:16 Dose: 50 mg Allergies Allergies Allergy/AdvReac Type Severity Reaction Status Date / Time No Known Allergies Allergy Verified 06/12/20 12:45 [No Known Allergies*] Assessment & Plan Assessment & Plan (1) Major neurocognitive disorder, due to Alzheimer's disease, without behavioral disturbance, severe: Status: Acute Code(s): G30.9 - Alzheimer's disease, unspecified; F02.C0 - Dementia in other diseases classified elsewhere, severe, without behavioral disturbance, psychotic disturbance, mood disturbance, and anxiety Plan Mr. 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 Pt was broughht to [facility] after he was found lying on floor and had made suicide statement. Per nephew, pt had been making suicidal statements for a months and nephew concern that pt may jump off [employer]. Also, pt lives at [facility] but it appears facility not able to meet his need. On the unit, pt does not remember events leading to this admission. Pt presents with severe cognitive and memory impairments with orientation only to self. PLAN 1. Admit to S1, CV signed by HCP, 15 minutes checks for safety/ 2. continue current medications. 3. Aftercare planning which may include placement. 09/02: calm, pleasant, stable. appears less depressed than at admission. continue current mgmt. 09/03: fell while ambulating without walker. PT consult placed for updated eval and recs. no head trauma, no pain, no gross neurological deficits. ambulating with walker after fall. placed on 1:1 for fall risk. continue current mgmt otherwise. Reason for continued inpatient stay Substantial Risk for: inability to function and rapid decompensation Time Spent With Patient Time: Total time managing care of this patient today __25__ minutes.
[2022-09-03 18:00] VITALS: BP 121/66; PULSE 70; RESP 16; TEMP 36.8; O2SAT 96
[2022-09-03] MEDS: traZODone HCL 50 MG TABLET PO (20:18)
[2022-09-03] MEDS: Finasteride 5 MG TABLET PO (20:18)
[2022-09-04] MEDS: Omeprazole 20 MG CAPSULE.DR PO (05:16)
[2022-09-04 07:52] LABS: Glucose, Whole Blood 138 mg/dL (60-115)
[2022-09-04 10:03] VITALS: BP 118/67; PULSE 72; RESP 18; TEMP 36.1; O2SAT 97
[2022-09-04] MEDS: amLODIPine Besylate 5 MG TABLET PO (10:09)
[2022-09-04] MEDS: Atorvastatin Calcium 80 MG TABLET PO (10:10)
[2022-09-04] MEDS: Aspirin Enteric Coated 81 MG TABLET.DR PO (10:10)
[2022-09-04] MEDS: Clopidogrel Bisulfate 75 MG TABLET PO (10:10)
[2022-09-04] MEDS: carvediloL 3.125 MG TABLET PO ×2 (10:10→20:51)
[2022-09-04] MEDS: Sertraline HCL 50 MG TABLET PO (10:10)
[2022-09-04] MEDS: metFORMIN HCl 500 MG TABLET PO ×2 (10:10→16:41)
--- NOTE | 2022-09-04 10:43 | HO.PSYCHPN ---
Subjective Subjective Date of Service: 09/04/22 Reason For Visit: Unspecified Depressive Disorder Interim History: calm, cooperative. c/o B/L below the knee numbness, tense feeling. weakness. unaware he has DM. per staff, fell yesterday. no breakfast. slept all NOC. seems weaker than prior. Mental Status Exam Mental Status Exam Narrative: adequately dressed and marginally groomed. cooperative. no PMA/PMR. speech decr rate, amount, loudness, tone. incr latency. thoughts linear and logical. affect constricted, normo-intense, non-labile. no SI/HI/AVH expressed. Diagnostics Vital Signs (24Hr): Vital Signs - 24 hr 09/03/22 18:00 09/04/22 10:03 Temperature 98.3 F 97.0 F Pulse Rate 70 72 Respiratory Rate 16 18 Blood Pressure 121/66 118/67 Pulse Oximetry 96 97 Oxygen Delivery Method Room Air Room Air BMI result Body Mass Index 20.4 Labs 09/01/22 18:03 Labs: Laboratory Results - last 48 hr 09/04/22 07:45 POC Glucose 138 H Medications Medications Current Medications Acetaminophen (Acetaminophen 325 Mg Tablet) 650 mg PO Q6H PRN PRN Reason: Headache/Pain Mild Scale (1-3) Al Hydroxide/Mg Hydroxide (Magnesium Hydrox/Alum Hydrox 30 Ml Oral.Susp) 30 ml PO Q6H PRN PRN Reason: Heartburn/Nausea Amlodipine Besylate (Amlodipine Besylate 5 Mg Tablet) 5 mg PO DAILY [facility]; Protocol Last Admin: 09/04/22 10:09 Dose: 5 mg Aspirin (Aspirin Enteric Coated 81 Mg Tablet.) 81 mg PO DAILY [facility] Last Admin: 09/04/22 10:10 Dose: 81 mg Atorvastatin Calcium (Atorvastatin Calcium 80 Mg Tablet) 80 mg PO DAILY [facility] Last Admin: 09/04/22 10:10 Dose: 80 mg Carvedilol (Carvedilol 3.125 Mg Tablet) 3.125 mg PO BID [facility]; Protocol Last Admin: 09/04/22 10:10 Dose: 3.125 mg Clopidogrel Bisulfate (Clopidogrel Bisulfate 75 Mg Tablet) 75 mg PO DAILY [facility] Last Admin: 09/04/22 10:10 Dose: 75 mg Finasteride (Finasteride 5 Mg Tablet) 5 mg PO BEDTIME [facility] Last Admin: 09/03/22 20:18 Dose: 5 mg Hydroxyzine HCl (Hydroxyzine Hcl 25 Mg Tablet) 25 mg PO Q6H PRN PRN Reason: Anxiety Magnesium Hydroxide (Milk Of Magnesia 30 Ml Oral.Susp) 30 ml PO DAILY PRN PRN Reason: Constipation Metformin HCl (Metformin Hcl 500 Mg Tablet) 500 mg PO BIDWM [facility] Last Admin: 09/04/22 10:10 Dose: 500 mg Omeprazole (Omeprazole 20 Mg Capsule.Dr) 20 mg PO DAILY@0630 [facility] Last Admin: 09/04/22 05:16 Dose: 20 mg Quetiapine Fumarate (Quetiapine Fumarate 50 Mg Tablet) 50 mg PO Q6H PRN PRN Reason: agitation Sertraline HCl (Sertraline Hcl 50 Mg Tablet) 50 mg PO DAILY [facility] Last Admin: 09/04/22 10:10 Dose: 50 mg Trazodone HCl (Trazodone Hcl 50 Mg Tablet) 50 mg PO BEDTIME PRN PRN Reason: Insomnia Last Admin: 09/03/22 20:18 Dose: 50 mg Allergies Allergies Allergy/AdvReac Type Severity Reaction Status Date / Time No Known Allergies Allergy Verified 06/12/20 12:45 [No Known Allergies*] Assessment & Plan Assessment & Plan (1) Major neurocognitive disorder, due to Alzheimer's disease, without behavioral disturbance, severe: Status: Acute Code(s): G30.9 - Alzheimer's disease, unspecified; F02.C0 - Dementia in other diseases classified elsewhere, severe, without behavioral disturbance, psychotic disturbance, mood disturbance, and anxiety Plan Mr. 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 Pt was broughht to [facility] after he was found lying on floor and had made suicide statement. Per nephew, pt had been making suicidal statements for a months and nephew concern that pt may [facility]. [facility], [facility] facility not able to meet his need. On the unit, pt does not remember events leading to this admission. Pt presents with severe cognitive and memory impairments with orientation only to self. PLAN 1. Admit to , CV signed by HCP, 15 minutes checks for safety/ 2. continue current medications. 3. Aftercare planning which may include placement. 09/02: calm, pleasant, stable. appears less depressed than at admission. continue current mgmt. 09/03: fell while ambulating without walker. PT consult placed for updated eval and recs. no head trauma, no pain, no gross neurological deficits. ambulating with walker after fall. placed on 1:1 for fall risk. continue current mgmt otherwise. 09/04: compliant with care, aware of his limitations, in wheelchair today. reduce checks to Q5 min. c/o B/L LE numbness and heaviness. neuro consult for Dx and recs. otherwise continue current mgmt. Reason for continued inpatient stay Substantial Risk for: inability to function and rapid decompensation Time Spent With Patient Time: Total time managing care of this patient today ____ minutes.
[2022-09-04 16:40] LABS: Glucose, Whole Blood 154 mg/dL (60-115)
[2022-09-04 18:00] VITALS: BP 104/56; PULSE 79; RESP 18; TEMP 36.3; O2SAT 97
[2022-09-04] MEDS: Finasteride 5 MG TABLET PO (20:51)
[2022-09-04 21:03] LABS: Glucose, Whole Blood 106 mg/dL (60-115)
[2022-09-05] MEDS: Omeprazole 20 MG CAPSULE.DR PO (05:36)
[2022-09-05 07:59] LABS: Glucose, Whole Blood 140 mg/dL (60-115)
[2022-09-05 08:30] VITALS: BP 144/78; PULSE 71; RESP 18; TEMP 36.3; O2SAT 97
[2022-09-05] MEDS: Sertraline HCL 50 MG TABLET PO (08:32)
[2022-09-05] MEDS: Atorvastatin Calcium 80 MG TABLET PO (08:33)
[2022-09-05] MEDS: metFORMIN HCl 500 MG TABLET PO ×2 (08:33→16:48)
[2022-09-05] MEDS: Clopidogrel Bisulfate 75 MG TABLET PO (08:33)
[2022-09-05] MEDS: amLODIPine Besylate 5 MG TABLET PO (08:33)
[2022-09-05] MEDS: carvediloL 3.125 MG TABLET PO ×2 (08:34→21:55)
[2022-09-05] MEDS: Aspirin Enteric Coated 81 MG TABLET.DR PO (08:34)
[2022-09-05 09:09] VITALS: BP 104/56; PULSE 79; O2SAT 97
--- NOTE | 2022-09-05 10:18 | P.PNPSI_ITS ---
Subjective Subjective Date of Service: 09/05/22 Reason For Visit: Unspecified Depressive Disorder Subjective Notes: Conditional Voluntary Interim History: The nursing staff reported the patient remains on one-to-one but it was discontinued yesterday. He has been pleasant and confused sitting in his wheelchair. He denies suicidal ideation, he slept 8 hours. The occupational therapist reported that he cannot be fully compliant with physical therapy. Today we will have a family meeting in the afternoon. On interview the patient denies new symptoms, pleasantly confused Mental Status Exam Mental Status Exam Patient Appearance: Appropriate Patient Orientation: Person and Situation Level of Consciousness: Awake and Appropriate Patient Behavior: Guarded and Passive Mood Description: Withdrawn Affect Description: Constricted Patient Cognition Impaired: Yes Ability to Follow Directions: Good Speech Pattern: Clear Hallucinations: None Delusions: Not Present Thought Process: Illogical and Distracted Thought Content: positive for [place] and positive for Circumstantial Judgement: Fair Diagnostics Vital Signs (24Hr): Vital Signs - 24 hr 09/04/22 18:00 09/05/22 09:09 09/05/22 08:30 Temperature 97.4 F 97.4 F Pulse Rate 79 79 71 Respiratory Rate 18 18 Blood Pressure 104/56 L 104/56 L 144/78 H Pulse Oximetry 97 97 97 Oxygen Delivery Method Room Air Room Air BMI result Body Mass Index 20.4 Labs 09/01/22 18:03 Labs: Laboratory Results - last 48 hr 09/04/22 09/04/22 09/04/22 07:45 16:31 20:50 POC Glucose 138 H 154 H 106 09/05/22 07:52 POC Glucose 140 H Medications Medications Current Medications Acetaminophen (Acetaminophen 325 Mg Tablet) 650 mg PO Q6H PRN PRN Reason: Headache/Pain Mild Scale (1-3) Al Hydroxide/Mg Hydroxide (Magnesium Hydrox/Alum Hydrox 30 Ml Oral.Susp) 30 ml PO Q6H PRN PRN Reason: Heartburn/Nausea Amlodipine Besylate (Amlodipine Besylate 5 Mg Tablet) 5 mg PO DAILY [facility]; Protocol Last Admin: 09/05/22 08:33 Dose: 5 mg Aspirin (Aspirin Enteric Coated 81 Mg Tablet.) 81 mg PO DAILY [facility] Last Admin: 09/05/22 08:34 Dose: 81 mg Atorvastatin Calcium (Atorvastatin Calcium 80 Mg Tablet) 80 mg PO DAILY [facility] Last Admin: 09/05/22 08:33 Dose: 80 mg Carvedilol (Carvedilol 3.125 Mg Tablet) 3.125 mg PO BID [facility]; Protocol Last Admin: 09/05/22 08:34 Dose: 3.125 mg Clopidogrel Bisulfate (Clopidogrel Bisulfate 75 Mg Tablet) 75 mg PO DAILY [facility] Last Admin: 09/05/22 08:33 Dose: 75 mg Finasteride (Finasteride 5 Mg Tablet) 5 mg PO BEDTIME [facility] Last Admin: 09/04/22 20:51 Dose: 5 mg Hydroxyzine HCl (Hydroxyzine Hcl 25 Mg Tablet) 25 mg PO Q6H PRN PRN Reason: Anxiety Magnesium Hydroxide (Milk Of Magnesia 30 Ml Oral.Susp) 30 ml PO DAILY PRN PRN Reason: Constipation Metformin HCl (Metformin Hcl 500 Mg Tablet) 500 mg PO BIDWM [facility] Last Admin: 09/05/22 08:33 Dose: 500 mg Omeprazole (Omeprazole 20 Mg Capsule.Dr) 20 mg PO DAILY@0630 [facility] Last Admin: 09/05/22 05:36 Dose: 20 mg Quetiapine Fumarate (Quetiapine Fumarate 50 Mg Tablet) 50 mg PO Q6H PRN PRN Reason: agitation Sertraline HCl (Sertraline Hcl 50 Mg Tablet) 50 mg PO DAILY [facility] Last Admin: 09/05/22 08:32 Dose: 50 mg Trazodone HCl (Trazodone Hcl 50 Mg Tablet) 50 mg PO BEDTIME PRN PRN Reason: Insomnia Last Admin: 09/03/22 20:18 Dose: 50 mg Allergies Allergies Allergy/AdvReac Type Severity Reaction Status Date / Time No Known Allergies Allergy Verified 06/12/20 12:45 [No Known Allergies*] Assessment & Plan Assessment & Plan (1) Major neurocognitive disorder, due to Alzheimer's disease, without behavioral disturbance, severe: Status: Acute Code(s): G30.9 - Alzheimer's disease, unspecified; F02.C0 - Dementia in other diseases classified elsewhere, severe, without behavioral disturbance, psychotic disturbance, mood disturbance, and anxiety Plan Mr. 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 Pt was broughht to [facility] after he was found lying on floor and had made suicide statement. Per nephew, pt had been making suicidal statements for a months and nephew concern that pt may jump off [employer]. Also, [facility] but it appears facility not able to meet his need. On the unit, pt does not remember events leading to this admission. Pt presents with severe cognitive and memory impairments with orientation only to self. PLAN 1. Admit to S1, CV signed by HCP, 15 minutes checks for safety/ 2. continue current medications. 3. Aftercare planning which may include placement. 09/02: calm, pleasant, stable. appears less depressed than at admission. continue current mgmt. 09/03: fell while ambulating without walker. PT consult placed for updated eval and recs. no head trauma, no pain, no gross neurological deficits. ambulating with walker after fall. placed on 1:1 for fall risk. continue current mgmt otherwise. 09/04: compliant with care, aware of his limitations, in wheelchair today. reduce checks to Q5 min. c/o B/L LE numbness and heaviness. neuro consult for Dx and recs. otherwise continue current mgmt. 09/05 no changes in mental status, family meeting today Reason for continued inpatient stay Substantial Risk for: inability to function, rapid decompensation and med/psych decompensation Time Spent With Patient Time: Total time managing care of this patient today _20___ minutes.
[2022-09-05] MEDS: Acetaminophen 325 MG TABLET 650 MG PO (12:34)
[2022-09-05 18:00] VITALS: BP 112/58; PULSE 76; RESP 18; TEMP 36.6; O2SAT 96
[2022-09-05 20:08] LABS: Glucose, Whole Blood 97 mg/dL (60-115)
[2022-09-05] MEDS: Finasteride 5 MG TABLET PO (21:55)
[2022-09-06] MEDS: Omeprazole 20 MG CAPSULE.DR PO (06:06)
[2022-09-06 07:46] LABS: Glucose, Whole Blood 122 mg/dL (60-115)
[2022-09-06 08:09] VITALS: BP 138/87; PULSE 78; RESP 18; TEMP 36; O2SAT 98
[2022-09-06] MEDS: Acetaminophen 325 MG TABLET 650 MG PO (08:11)
[2022-09-06] MEDS: Clopidogrel Bisulfate 75 MG TABLET PO (08:14)
[2022-09-06] MEDS: metFORMIN HCl 500 MG TABLET PO ×2 (08:15→16:28)
[2022-09-06] MEDS: amLODIPine Besylate 5 MG TABLET PO (08:15)
[2022-09-06] MEDS: Aspirin Enteric Coated 81 MG TABLET.DR PO (08:15)
[2022-09-06] MEDS: carvediloL 3.125 MG TABLET PO ×2 (08:15→20:32)
[2022-09-06] MEDS: Atorvastatin Calcium 80 MG TABLET PO (08:15)
[2022-09-06] MEDS: Sertraline HCL 50 MG TABLET PO (08:16)
--- NOTE | 2022-09-06 12:16 | HO.PSYCHPN ---
Subjective Subjective Date of Service: 09/06/22 Reason For Visit: Unspecified Depressive Disorder Subjective Notes: Conditional Voluntary Interim History: The nursing staff reported that the patient had been compliant with treatment he is confused but easily redirectable. He had been fully compliant with treatment. The social worker psychiatric reported the family is looking for an assisted living facility, he has court on the [place] [address].8. On interview the patient denies new symptoms, waiting for placement. Mental Status Exam Mental Status Exam Patient Appearance: Well Grooomed Patient Orientation: Person Level of Consciousness: Awake and Appropriate Patient Behavior: Guarded and Passive Mood Description: Withdrawn Affect Description: Constricted Patient Cognition Impaired: Yes Ability to Follow Directions: Good Speech Pattern: Clear Hallucinations: None Delusions: Not Present Thought Process: Linear Thought Content: positive for Circumstantial Judgement: Fair Diagnostics Vital Signs (24Hr): Vital Signs - 24 hr 09/05/22 18:00 09/06/22 08:09 Temperature 97.9 F 96.8 F Pulse Rate 76 78 Respiratory Rate 18 18 Blood Pressure 112/58 L 138/87 Pulse Oximetry 96 98 Oxygen Delivery Method Room Air Room Air BMI result Body Mass Index 20.4 Labs 09/01/22 18:03 Labs: Laboratory Results - last 48 hr 09/04/22 09/04/22 09/05/22 16:31 20:50 07:52 POC Glucose 154 H 106 140 H 09/05/22 09/06/22 19:53 07:39 POC Glucose 97 122 H Medications Medications Current Medications Acetaminophen (Acetaminophen 325 Mg Tablet) 650 mg PO Q6H PRN PRN Reason: Headache/Pain Mild Scale (1-3) Last Admin: 09/06/22 08:11 Dose: 650 mg Al Hydroxide/Mg Hydroxide (Magnesium Hydrox/Alum Hydrox 30 Ml Oral.Susp) 30 ml PO Q6H PRN PRN Reason: Heartburn/Nausea Amlodipine Besylate (Amlodipine Besylate 5 Mg Tablet) 5 mg PO DAILY [facility]; Protocol Last Admin: 09/06/22 08:15 Dose: 5 mg Aspirin (Aspirin Enteric Coated 81 Mg Tablet.) 81 mg PO DAILY [facility] Last Admin: 09/06/22 08:15 Dose: 81 mg Atorvastatin Calcium (Atorvastatin Calcium 80 Mg Tablet) 80 mg PO DAILY [facility] Last Admin: 09/06/22 08:15 Dose: 80 mg Carvedilol (Carvedilol 3.125 Mg Tablet) 3.125 mg PO BID [facility]; Protocol Last Admin: 09/06/22 08:15 Dose: 3.125 mg Clopidogrel Bisulfate (Clopidogrel Bisulfate 75 Mg Tablet) 75 mg PO DAILY [facility] Last Admin: 09/06/22 08:14 Dose: 75 mg Finasteride (Finasteride 5 Mg Tablet) 5 mg PO BEDTIME [facility] Last Admin: 09/05/22 21:55 Dose: 5 mg Hydroxyzine HCl (Hydroxyzine Hcl 25 Mg Tablet) 25 mg PO Q6H PRN PRN Reason: Anxiety Magnesium Hydroxide (Milk Of Magnesia 30 Ml Oral.Susp) 30 ml PO DAILY PRN PRN Reason: Constipation Metformin HCl (Metformin Hcl 500 Mg Tablet) 500 mg PO BIDWM [facility] Last Admin: 09/06/22 08:15 Dose: 500 mg Omeprazole (Omeprazole 20 Mg Capsule.Dr) 20 mg PO DAILY@0630 [facility] Last Admin: 09/06/22 06:06 Dose: 20 mg Quetiapine Fumarate (Quetiapine Fumarate 50 Mg Tablet) 50 mg PO Q6H PRN PRN Reason: agitation Sertraline HCl (Sertraline Hcl 50 Mg Tablet) 50 mg PO DAILY [facility] Last Admin: 09/06/22 08:16 Dose: 50 mg Trazodone HCl (Trazodone Hcl 50 Mg Tablet) 50 mg PO BEDTIME PRN PRN Reason: Insomnia Last Admin: 09/03/22 20:18 Dose: 50 mg Allergies Allergies Allergy/AdvReac Type Severity Reaction Status Date / Time No Known Allergies Allergy Verified 06/12/20 12:45 [No Known Allergies*] Assessment & Plan Assessment & Plan (1) Major neurocognitive disorder, due to Alzheimer's disease, without behavioral disturbance, severe: Status: Acute Code(s): G30.9 - Alzheimer's disease, unspecified; F02.C0 - Dementia in other diseases classified elsewhere, severe, without behavioral disturbance, psychotic disturbance, mood disturbance, and anxiety Plan Mr. 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 Pt was broughht to [facility] after he was found lying on floor and had made suicide statement. Per nephew, pt had been making suicidal statements for a months and nephew concern that pt may jump off [employer]. Also, pt lives at [facility] but it appears facility not able to meet his need. On the unit, pt does not remember events leading to this admission. Pt presents with severe cognitive and memory impairments with orientation only to self. PLAN 1. Admit to S1, CV signed by HCP, 15 minutes checks for safety/ 2. continue current medications. 3. Aftercare planning which may include placement. 09/02: calm, pleasant, stable. appears less depressed than at admission. continue current mgmt. 09/03: fell while ambulating without walker. PT consult placed for updated eval and recs. no head trauma, no pain, no gross neurological deficits. ambulating with walker after fall. placed on 1:1 for fall risk. continue current mgmt otherwise. 09/04: compliant with care, aware of his limitations, in wheelchair today. reduce checks to Q5 min. c/o B/L LE numbness and heaviness. neuro consult for Dx and recs. otherwise continue current mgmt. 09/05 no changes in mental status, family meeting today 09/06 no changes, waiting for placement Reason for continued inpatient stay Substantial Risk for: inability to function, rapid decompensation and med/psych decompensation Time Spent With Patient Time: Total time managing care of this patient today _31___ minutes.
[2022-09-06 19:00] VITALS: BP 142/91; PULSE 87; RESP 16; TEMP 36.7; O2SAT 97
[2022-09-06] MEDS: Finasteride 5 MG TABLET PO (20:33)
[2022-09-07] MEDS: Omeprazole 20 MG CAPSULE.DR PO (06:45)
[2022-09-07 07:30] VITALS: BP 115/85; PULSE 72; RESP 15; TEMP 36.4; O2SAT 96
[2022-09-07 07:54] LABS: Glucose, Whole Blood 135 mg/dL (60-115)
[2022-09-07] MEDS: metFORMIN HCl 500 MG TABLET PO ×2 (10:05→17:39)
[2022-09-07] MEDS: Sertraline HCL 50 MG TABLET PO (10:05)
[2022-09-07] MEDS: Aspirin Enteric Coated 81 MG TABLET.DR PO (10:05)
[2022-09-07] MEDS: Atorvastatin Calcium 80 MG TABLET PO (10:05)
[2022-09-07] MEDS: Clopidogrel Bisulfate 75 MG TABLET PO (10:06)
[2022-09-07] MEDS: amLODIPine Besylate 5 MG TABLET PO (10:06)
[2022-09-07] MEDS: carvediloL 3.125 MG TABLET PO ×2 (10:06→20:28)
--- NOTE | 2022-09-07 15:14 | P.PNPSI_ITS ---
Subjective Subjective Date of Service: 09/07/22 Reason For Visit: Unspecified Depressive Disorder Subjective Notes: Conditional Voluntary Interim History: The nursing staff reported the patient had been participated in groups, in pleasantly confused, he slept well last night. The health and social care teacher reported that family wants to go to a [facility] facility or assisted living facility so far we have not found proper placement. On interview the patient is pleasantly confused, we will ordering blood work for tomorrow morning. No new symptoms. Mental Status Exam Mental Status Exam Patient Appearance: Well Grooomed Patient Orientation: Person and Situation Level of Consciousness: Awake and Appropriate Patient Behavior: Passive Mood Description: Withdrawn Affect Description: Constricted Patient Cognition Impaired: Yes Ability to Follow Directions: Good Speech Pattern: Clear Hallucinations: None Delusions: Not Present Thought Process: Linear Thought Content: positive for [place] and positive for Poverty of Content Judgement: Fair Diagnostics Vital Signs (24Hr): Vital Signs - 24 hr 09/06/22 19:00 09/07/22 07:30 Temperature 98.1 F 97.5 F Pulse Rate 87 72 Respiratory Rate 16 15 Blood Pressure 142/91 H 115/85 Pulse Oximetry 97 96 Oxygen Delivery Method Room Air Room Air BMI result Body Mass Index 20.4 Labs 09/01/22 18:03 Labs: Laboratory Results - last 48 hr 09/05/22 09/06/22 09/07/22 19:53 07:39 07:45 POC Glucose 97 122 H 135 H Medications Medications Current Medications Acetaminophen (Acetaminophen 325 Mg Tablet) 650 mg PO Q6H PRN PRN Reason: Headache/Pain Mild Scale (1-3) Last Admin: 09/06/22 08:11 Dose: 650 mg Al Hydroxide/Mg Hydroxide (Magnesium Hydrox/Alum Hydrox 30 Ml Oral.Susp) 30 ml PO Q6H PRN PRN Reason: Heartburn/Nausea Amlodipine Besylate (Amlodipine Besylate 5 Mg Tablet) 5 mg PO DAILY [facility]; Protocol Last Admin: 09/07/22 10:06 Dose: 5 mg Aspirin (Aspirin Enteric Coated 81 Mg Tablet.) 81 mg PO DAILY [facility] Last Admin: 09/07/22 10:05 Dose: 81 mg Atorvastatin Calcium (Atorvastatin Calcium 80 Mg Tablet) 80 mg PO DAILY [facility] Last Admin: 09/07/22 10:05 Dose: 80 mg Carvedilol (Carvedilol 3.125 Mg Tablet) 3.125 mg PO BID [facility]; Protocol Last Admin: 09/07/22 10:06 Dose: 3.125 mg Clopidogrel Bisulfate (Clopidogrel Bisulfate 75 Mg Tablet) 75 mg PO DAILY [facility] Last Admin: 09/07/22 10:06 Dose: 75 mg Finasteride (Finasteride 5 Mg Tablet) 5 mg PO BEDTIME [facility] Last Admin: 09/06/22 20:33 Dose: 5 mg Hydroxyzine HCl (Hydroxyzine Hcl 25 Mg Tablet) 25 mg PO Q6H PRN PRN Reason: Anxiety Magnesium Hydroxide (Milk Of Magnesia 30 Ml Oral.Susp) 30 ml PO DAILY PRN PRN Reason: Constipation Metformin HCl (Metformin Hcl 500 Mg Tablet) 500 mg PO BIDWM [facility] Last Admin: 09/07/22 10:05 Dose: 500 mg Omeprazole (Omeprazole 20 Mg Capsule.Dr) 20 mg PO DAILY@0630 [facility] Last Admin: 09/07/22 06:45 Dose: 20 mg Quetiapine Fumarate (Quetiapine Fumarate 50 Mg Tablet) 50 mg PO Q6H PRN PRN Reason: agitation Sertraline HCl (Sertraline Hcl 50 Mg Tablet) 50 mg PO DAILY [facility] Last Admin: 09/07/22 10:05 Dose: 50 mg Trazodone HCl (Trazodone Hcl 50 Mg Tablet) 50 mg PO BEDTIME PRN PRN Reason: Insomnia Last Admin: 09/03/22 20:18 Dose: 50 mg Allergies Allergies Allergy/AdvReac Type Severity Reaction Status Date / Time No Known Allergies Allergy Verified 06/12/20 12:45 [No Known Allergies*] Assessment & Plan Assessment & Plan (1) Major neurocognitive disorder, due to Alzheimer's disease, without behavioral disturbance, severe: Status: Acute Code(s): G30.9 - Alzheimer's disease, unspecified; F02.C0 - Dementia in other diseases classified elsewhere, severe, without behavioral disturbance, psychotic disturbance, mood disturbance, and anxiety Plan Mr. 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 Pt was broughht to [facility] after he was found lying on floor and had made suicide statement. Per nephew, pt had been making suicidal statements for a months and nephew concern that pt may jump off [employer]. Also, pt lives at [facility] but it appears facility not able to meet his need. On the unit, pt does not remember events leading to this admission. Pt presents with severe cognitive and memory impairments with orientation only to self. PLAN 1. Admit to S1, CV signed by HCP, 15 minutes checks for safety/ 2. continue current medications. 3. Aftercare planning which may include placement. Reason for continued inpatient stay Substantial Risk for: inability to function, rapid decompensation and med/psych decompensation Time Spent With Patient Time: Total time managing care of this patient today __20__ minutes.
[2022-09-07 18:00] VITALS: BP 168/85; PULSE 73; TEMP 36.5
[2022-09-07] MEDS: Finasteride 5 MG TABLET PO (20:28)
[2022-09-08 08:06] LABS: Glucose, Whole Blood 138 mg/dL (60-115)
[2022-09-08 08:08] LABS: MANUAL DIFF FLAG NO
[2022-09-08 08:12] LABS: Basophils Absolute Auto 0.1 X10*3/uL (0.0-0.2); Basophils Percent Auto 0.8 % (0-2); Eosinophils Absolute Auto 0.2 X10*3/uL (0.0-0.4); Eosinophils Percent Auto 2.5 % (0-4); Hematocrit 39.4 % (42.0-52.0); Hemoglobin 13.2 g/dl (14.0-18.0); Imm Gran Abs Auto 0.02 X10*3/uL (0.00-0.03); Imm Gran Pct Auto 0.3 % (0.0-0.4); Lymphocytes Absolute Auto 1.6 X10*3/uL (1.2-4.9); Lymphocytes Percent Auto 25.5 % (20-40); Mean Corpuscular HGB Conc 33.5 g/dl (31.0-36.0); Mean Corpuscular Hemoglobin 28.9 pg (27.0-33.0); Mean Corpuscular Volume 86.4 fL (80.0-98.0); Mean Platelet Volume 11.2 fL (9.4-12.4); Monocytes Absolute Auto 0.5 X10*3/uL (0.1-1.2); Monocytes Percent Auto 7.9 % (2-11); Neutrophils Absolute Auto 3.8 x10*3/uL (2.0-8.3); Platelet Count 153 X10*3/uL (160-400); Red Blood Count 4.56 X10*6/uL (4.60-5.80); Red Cell Distribution Width 13.3 % (11.0-16.0); White Blood Count 6.1 X10*3/uL (4.8-10.8)
[2022-09-08 08:28] LABS: Estimated Average Glucose 143 mg/dL; Hemoglobin A1c % 6.6 %
[2022-09-08 08:29] LABS: Anion Gap 12 (12-20); Blood Urea Nitrogen 18 mg/dL (9-16); Calcium 9.7 mg/dL (8.4-10.2); Carbon Dioxide 27 mmol/L (22-29); Chloride 104 mmol/L (96-108); Cholesterol 107 mg/dL; Estimated Glomerular Filt Rate 59; Glucose Random 130 mg/dL (60-115); HDL Cholesterol 33 mg/dL; LDL Cholesterol Calculated 45 mg/dl; Sodium 139 mmol/L (135-145); Triglycerides 145 mg/dL
[2022-09-08 09:00] VITALS: BP 131/69; PULSE 77; RESP 15; TEMP 36.9; O2SAT 98
[2022-09-08] MEDS: Sertraline HCL 50 MG TABLET PO (10:04)
[2022-09-08] MEDS: Clopidogrel Bisulfate 75 MG TABLET PO (10:04)
[2022-09-08] MEDS: carvediloL 3.125 MG TABLET PO ×2 (10:04→22:19)
[2022-09-08] MEDS: Omeprazole 20 MG CAPSULE.DR PO (10:04)
[2022-09-08] MEDS: amLODIPine Besylate 5 MG TABLET PO (10:04)
[2022-09-08] MEDS: Aspirin Enteric Coated 81 MG TABLET.DR PO (10:04)
[2022-09-08] MEDS: metFORMIN HCl 500 MG TABLET PO ×2 (10:04→16:29)
[2022-09-08] MEDS: Atorvastatin Calcium 80 MG TABLET PO (10:04)
--- NOTE | 2022-09-08 14:39 | HO.PSYCHPN ---
Subjective Subjective Date of Service: 09/08/22 Reason For Visit: Unspecified Depressive Disorder Subjective Notes: Conditional Voluntary Interim History: Pt has been visible on the unit. He reports he is doing well. He does not remember how long he has been here. When asked about depression or anxiety, he denies. He also denies SI/HI. Pt is social with select peers and attends some assigned groups. No aggression. Per nursing, pt slept through the night. He is taking medications as prescribed. Awaiting placement. Medication Compliance: Yes Review of Systems Review of Systems Pt denies pain, chest pain. NO SOB. reviewed limited by fact that he has severe memory/cognitive impairments. Mental Status Exam Mental Status Exam Narrative: Appearance: wearing hospital gown, fair hygiene, in NAD Behavior: cooperative Psychomotor: no agitation or retardation noted Speech: clear, normal rate/rhythm/volume, spontaneous TP: mostly linear TC:no overt delusions or psychosis, feeling good Mood: good Affect: congruent SI: denies, adamantly denies HI: denies VH/AH: none Delusions: none Insight/judgment: impaired x 2. Memory/cog: alert, not oriented to place, situation, month, year. severe underlying dementia. Diagnostics Vital Signs (24Hr): Vital Signs - 24 hr 09/07/22 18:00 09/08/22 09:00 Temperature 97.7 F 98.5 F Pulse Rate 73 77 Respiratory Rate 15 Blood Pressure 168/85 H 131/69 Pulse Oximetry 98 Oxygen Delivery Method Room Air BMI result Body Mass Index 20.4 Labs 09/08/22 07:56 09/08/22 07:56 Labs: Laboratory Results - last 48 hr 09/07/22 09/08/22 09/08/22 07:45 07:56 07:56 WBC 6.1 RBC 4.56 L Hgb 13.2 L Hct 39.4 L MCV 86.4 MCH 28.9 MCHC 33.5 RDW 13.3 Plt Count 153 L MPV 11.2 Immature Gran % (Auto) 0.3 Neut % (Auto) 63.0 Lymph % (Auto) 25.5 [place] % (Auto) 7.9 Eos % (Auto) 2.5 Baso % (Auto) 0.8 Lymph # (Auto) 1.6 [place] # (Auto) 0.5 Eos # (Auto) 0.2 Baso # (Auto) 0.1 Abs Immat Gran (auto) 0.02 Absolute Neuts (auto) 3.8 Absolute Nucleated RBC 0.000 Nucleated RBC % (auto) 0.0 Sodium 139 Potassium 4.0 Chloride 104 Carbon Dioxide 27 Anion Gap 12 BUN 18 H Creatinine 1.18 Estim Creat Clear Calc 48.0 Estimated GFR 59 POC Glucose 135 H Random Glucose 130 H Estimat Average Glucose Hemoglobin A1c % Calcium 9.7 Triglycerides 145 Cholesterol 107 LDL Cholesterol, Calc 45 HDL Cholesterol 33 09/08/22 09/08/22 07:56 07:59 WBC RBC Hgb Hct MCV MCH MCHC RDW Plt Count MPV Immature Gran % (Auto) Neut % (Auto) Lymph % (Auto) [place] % (Auto) Eos % (Auto) Baso % (Auto) Lymph # (Auto) [place] # (Auto) Eos # (Auto) Baso # (Auto) Abs Immat Gran (auto) Absolute Neuts (auto) Absolute Nucleated RBC Nucleated RBC % (auto) Sodium Potassium Chloride Carbon Dioxide Anion Gap BUN Creatinine Estim Creat Clear Calc Estimated GFR POC Glucose 138 H Random Glucose Estimat Average Glucose 143 Hemoglobin A1c % 6.6 Calcium Triglycerides Cholesterol LDL Cholesterol, Calc HDL Cholesterol Medications Medications Current Medications Acetaminophen (Acetaminophen 325 Mg Tablet) 650 mg PO Q6H PRN PRN Reason: Headache/Pain Mild Scale (1-3) Last Admin: 09/06/22 08:11 Dose: 650 mg Al Hydroxide/Mg Hydroxide (Magnesium Hydrox/Alum Hydrox 30 Ml Oral.Susp) 30 ml PO Q6H PRN PRN Reason: Heartburn/Nausea Amlodipine Besylate (Amlodipine Besylate 5 Mg Tablet) 5 mg PO DAILY [facility]; Protocol Last Admin: 09/08/22 10:04 Dose: 5 mg Aspirin (Aspirin Enteric Coated 81 Mg Tablet.) 81 mg PO DAILY [facility] Last Admin: 09/08/22 10:04 Dose: 81 mg Atorvastatin Calcium (Atorvastatin Calcium 80 Mg Tablet) 80 mg PO DAILY [facility] Last Admin: 09/08/22 10:04 Dose: 80 mg Carvedilol (Carvedilol 3.125 Mg Tablet) 3.125 mg PO BID [facility]; Protocol Last Admin: 09/08/22 10:04 Dose: 3.125 mg Clopidogrel Bisulfate (Clopidogrel Bisulfate 75 Mg Tablet) 75 mg PO DAILY [facility] Last Admin: 09/08/22 10:04 Dose: 75 mg Finasteride (Finasteride 5 Mg Tablet) 5 mg PO BEDTIME [facility] Last Admin: 09/07/22 20:28 Dose: 5 mg Hydroxyzine HCl (Hydroxyzine Hcl 25 Mg Tablet) 25 mg PO Q6H PRN PRN Reason: Anxiety Magnesium Hydroxide (Milk Of Magnesia 30 Ml Oral.Susp) 30 ml PO DAILY PRN PRN Reason: Constipation Metformin HCl (Metformin Hcl 500 Mg Tablet) 500 mg PO BIDWM [facility] Last Admin: 09/08/22 10:04 Dose: 500 mg Omeprazole (Omeprazole 20 Mg Capsule.Dr) 20 mg PO DAILY@0630 [facility] Last Admin: 09/08/22 10:04 Dose: 20 mg Quetiapine Fumarate (Quetiapine Fumarate 50 Mg Tablet) 50 mg PO Q6H PRN PRN Reason: agitation Sertraline HCl (Sertraline Hcl 50 Mg Tablet) 50 mg PO DAILY [facility] Last Admin: 09/08/22 10:04 Dose: 50 mg Trazodone HCl (Trazodone Hcl 50 Mg Tablet) 50 mg PO BEDTIME PRN PRN Reason: Insomnia Last Admin: 09/03/22 20:18 Dose: 50 mg Allergies Allergies Allergy/AdvReac Type Severity Reaction Status Date / Time No Known Allergies Allergy Verified 06/12/20 12:45 [No Known Allergies*] Assessment & Plan Assessment & Plan (1) Major neurocognitive disorder, due to Alzheimer's disease, without behavioral disturbance, severe: Status: Acute Code(s): G30.9 - Alzheimer's disease, unspecified; F02.C0 - Dementia in other diseases classified elsewhere, severe, without behavioral disturbance, psychotic disturbance, mood disturbance, and anxiety Plan Mr. 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 Pt was broughht to [facility] after he was found lying on floor and had made suicide statement. Per nephew, pt had been making suicidal statements for a months and nephew concern that pt may jump off [employer]. Also, pt lives at [facility] but it appears facility not able to meet his need. On the unit, pt does not remember events leading to this admission. Pt presents with severe cognitive and memory impairments with orientation only to self. PLAN 1. Admit to , CV signed by HCP, 15 minutes checks for safety/ 09/08 continue current medications. awaiting placement. Reason for continued inpatient stay Substantial Risk for: inability to function Time Spent With Patient Time: Total time managing care of this patient today ____ minutes.
[2022-09-08 18:00] VITALS: BP 122/83; PULSE 78; RESP 18; TEMP 36.3; O2SAT 98
[2022-09-08 21:16] LABS: Glucose, Whole Blood 132 mg/dL (60-115)
[2022-09-08] MEDS: Finasteride 5 MG TABLET PO (22:20)
[2022-09-09 07:45] LABS: Glucose, Whole Blood 132 mg/dL (60-115)
[2022-09-09 09:25] VITALS: BP 155/91; PULSE 82; RESP 18; TEMP 36.4; O2SAT 98
[2022-09-09] MEDS: metFORMIN HCl 500 MG TABLET PO ×2 (09:33→16:51)
[2022-09-09] MEDS: amLODIPine Besylate 5 MG TABLET PO (09:33)
[2022-09-09] MEDS: Aspirin Enteric Coated 81 MG TABLET.DR PO (09:34)
[2022-09-09] MEDS: carvediloL 3.125 MG TABLET PO ×2 (09:34→21:54)
[2022-09-09] MEDS: Clopidogrel Bisulfate 75 MG TABLET PO (09:34)
[2022-09-09] MEDS: Sertraline HCL 50 MG TABLET PO (09:34)
[2022-09-09] MEDS: Omeprazole 20 MG CAPSULE.DR PO (09:34)
[2022-09-09] MEDS: Atorvastatin Calcium 80 MG TABLET PO (09:34)
--- NOTE | 2022-09-09 11:53 | P.PNPSI_ITS ---
Subjective Subjective Date of Service: 09/09/22 Reason For Visit: Unspecified Depressive Disorder Subjective Notes: Conditional Voluntary Interim History: The nursing staff reported patient been cooperative pleasant, compliant with treatment. He slept well. On interview the patient denies new symptoms, he asked about possible discharge. Mental Status Exam Mental Status Exam Patient Appearance: Well Grooomed and Appropriate Patient Orientation: Person and Situation Level of Consciousness: Awake and Appropriate Patient Behavior: Guarded and Passive Mood Description: Withdrawn Affect Description: Constricted Patient Cognition Impaired: Yes Ability to Follow Directions: Good Speech Pattern: Clear Hallucinations: None Delusions: Not Present Thought Content: positive for Linear and positive for Poverty of Content Judgement: Fair Diagnostics Vital Signs (24Hr): Vital Signs - 24 hr 09/08/22 18:00 09/09/22 09:25 Temperature 97.4 F 97.5 F Pulse Rate 78 82 Respiratory Rate 18 18 Blood Pressure 122/83 155/91 H Pulse Oximetry 98 98 Oxygen Delivery Method Room Air Room Air BMI result Body Mass Index 20.4 Labs 09/08/22 07:56 09/08/22 07:56 Labs: Laboratory Results - last 48 hr 09/08/22 09/08/22 09/08/22 07:56 07:56 07:56 WBC 6.1 RBC 4.56 L Hgb 13.2 L Hct 39.4 L MCV 86.4 MCH 28.9 MCHC 33.5 RDW 13.3 Plt Count 153 L MPV 11.2 Immature Gran % (Auto) 0.3 Neut % (Auto) 63.0 Lymph % (Auto) 25.5 [place] % (Auto) 7.9 Eos % (Auto) 2.5 Baso % (Auto) 0.8 Lymph # (Auto) 1.6 [place] # (Auto) 0.5 Eos # (Auto) 0.2 Baso # (Auto) 0.1 Abs Immat Gran (auto) 0.02 Absolute Neuts (auto) 3.8 Absolute Nucleated RBC 0.000 Nucleated RBC % (auto) 0.0 Sodium 139 Potassium 4.0 Chloride 104 Carbon Dioxide 27 Anion Gap 12 BUN 18 H Creatinine 1.18 Estim Creat Clear Calc 48.0 Estimated GFR 59 POC Glucose Random Glucose 130 H Estimat Average Glucose 143 Hemoglobin A1c % 6.6 Calcium 9.7 Triglycerides 145 Cholesterol 107 LDL Cholesterol, Calc 45 HDL Cholesterol 33 09/08/22 09/08/2223 07:59 21:10 07:36 WBC RBC Hgb Hct MCV MCH MCHC RDW Plt Count MPV Immature Gran % (Auto) Neut % (Auto) Lymph % (Auto) [place] % (Auto) Eos % (Auto) Baso % (Auto) Lymph # (Auto) [place] # (Auto) Eos # (Auto) Baso # (Auto) Abs Immat Gran (auto) Absolute Neuts (auto) Absolute Nucleated RBC Nucleated RBC % (auto) Sodium Potassium Chloride Carbon Dioxide Anion Gap BUN Creatinine Estim Creat Clear Calc Estimated GFR POC Glucose 138 H 132 H 132 H Random Glucose Estimat Average Glucose Hemoglobin A1c % Calcium Triglycerides Cholesterol LDL Cholesterol, Calc HDL Cholesterol Medications Medications Current Medications Acetaminophen (Acetaminophen 325 Mg Tablet) 650 mg PO Q6H PRN PRN Reason: Headache/Pain Mild Scale (1-3) Last Admin: 09/06/22 08:11 Dose: 650 mg Al Hydroxide/Mg Hydroxide (Magnesium Hydrox/Alum Hydrox 30 Ml Oral.Susp) 30 ml PO Q6H PRN PRN Reason: Heartburn/Nausea Amlodipine Besylate (Amlodipine Besylate 5 Mg Tablet) 5 mg PO DAILY [facility]; Protocol Last Admin: 09/09/22 09:33 Dose: 5 mg Aspirin (Aspirin Enteric Coated 81 Mg Tablet.Dr) 81 mg PO DAILY [facility] Last Admin: 09/09/22 09:34 Dose: 81 mg Atorvastatin Calcium (Atorvastatin Calcium 80 Mg Tablet) 80 mg PO DAILY [facility] Last Admin: 09/09/22 09:34 Dose: 80 mg Carvedilol (Carvedilol 3.125 Mg Tablet) 3.125 mg PO BID [facility]; Protocol Last Admin: 09/09/22 09:34 Dose: 3.125 mg Clopidogrel Bisulfate (Clopidogrel Bisulfate 75 Mg Tablet) 75 mg PO DAILY [facility] Last Admin: 09/09/22 09:34 Dose: 75 mg Finasteride (Finasteride 5 Mg Tablet) 5 mg PO BEDTIME [facility] Last Admin: 09/08/22 22:20 Dose: 5 mg Hydroxyzine HCl (Hydroxyzine Hcl 25 Mg Tablet) 25 mg PO Q6H PRN PRN Reason: Anxiety Magnesium Hydroxide (Milk Of Magnesia 30 Ml Oral.Susp) 30 ml PO DAILY PRN PRN Reason: Constipation Metformin HCl (Metformin Hcl 500 Mg Tablet) 500 mg PO BIDWM [facility] Last Admin: 09/09/22 09:33 Dose: 500 mg Omeprazole (Omeprazole 20 Mg Capsule.Dr) 20 mg PO DAILY@0630 [facility] Last Admin: 09/09/22 09:34 Dose: 20 mg Quetiapine Fumarate (Quetiapine Fumarate 50 Mg Tablet) 50 mg PO Q6H PRN PRN Reason: agitation Sertraline HCl (Sertraline Hcl 50 Mg Tablet) 50 mg PO DAILY [facility] Last Admin: 09/09/22 09:34 Dose: 50 mg Trazodone HCl (Trazodone Hcl 50 Mg Tablet) 50 mg PO BEDTIME PRN PRN Reason: Insomnia Last Admin: 09/03/22 20:18 Dose: 50 mg Allergies Allergies Allergy/AdvReac Type Severity Reaction Status Date / Time No Known Allergies Allergy Verified 06/12/20 12:45 [No Known Allergies*] Assessment & Plan Assessment & Plan (1) Major neurocognitive disorder, due to Alzheimer's disease, 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 Pt was broughht to [facility] [place] after he was found lying on floor and had made suicide statement. Per nephew, pt had been making suicidal statements for a months and nephew concern that pt may jump off [facility]. Also, pt lives at [facility] but it appears facility not able to meet his need. On the unit, pt does not remember events leading to this admission. Pt presents with severe cognitive and memory impairments with orientation only to self. PLAN 1. Admit to S1, CV signed by HCP, 15 minutes checks for safety/ 2. Waiting for placement Reason for continued inpatient stay Substantial Risk for: inability to function, rapid decompensation and med/psych decompensation Time Spent With Patient Time: Total time managing care of this patient today _20___ minutes.
[2022-09-09 18:00] VITALS: BP 124/73; PULSE 74; RESP 16; TEMP 36.6; O2SAT 97
[2022-09-09 19:57] LABS: Glucose, Whole Blood 171 mg/dL (60-115)
[2022-09-09] MEDS: Finasteride 5 MG TABLET PO (21:54)
[2022-09-10 07:36] LABS: Glucose, Whole Blood 140 mg/dL (60-115)
[2022-09-10 08:25] VITALS: BP 146/78; PULSE 83; RESP 16; TEMP 36.4; O2SAT 98
[2022-09-10] MEDS: Sertraline HCL 50 MG TABLET PO (08:33)
[2022-09-10] MEDS: Clopidogrel Bisulfate 75 MG TABLET PO (08:33)
[2022-09-10] MEDS: metFORMIN HCl 500 MG TABLET PO ×2 (08:33→16:25)
[2022-09-10] MEDS: carvediloL 3.125 MG TABLET PO ×2 (08:33→21:42)
[2022-09-10] MEDS: amLODIPine Besylate 5 MG TABLET PO (08:33)
[2022-09-10] MEDS: Aspirin Enteric Coated 81 MG TABLET.DR PO (08:33)
[2022-09-10] MEDS: Atorvastatin Calcium 80 MG TABLET PO (08:33)
--- NOTE | 2022-09-10 09:45 | P.PNPSI_ITS ---
Subjective Subjective Date of Service: 09/10/22 Reason For Visit: Unspecified Depressive Disorder Subjective Notes: Conditional Voluntary Interim History: The nursing staff reported the patient slept well, he had been fully compliant with treatment. On interview the patient denies new symptoms, pleasantly confused. Mental Status Exam Mental Status Exam Patient Appearance: Well Grooomed and Appropriate Patient Orientation: Person and Situation Level of Consciousness: Awake and Appropriate Patient Behavior: Appropriate and Passive Mood Description: Calm Affect Description: Constricted Patient Cognition Impaired: Yes Ability to Follow Directions: Good Speech Pattern: Clear Hallucinations: None Delusions: Not Present Thought Process: Linear Thought Content: positive for Circumstantial Judgement: Fair Diagnostics Vital Signs (24Hr): Vital Signs - 24 hr 09/09/22 18:00 09/10/22 08:25 Temperature 98 F 97.6 F Pulse Rate 74 83 Respiratory Rate 16 16 Blood Pressure 124/73 146/78 H Pulse Oximetry 97 98 Oxygen Delivery Method Room Air Room Air BMI result Body Mass Index 20.4 Labs 09/08/22 07:56 09/08/22 07:56 Labs: Laboratory Results - last 48 hr 09/08/22 09/09/22 09/09/22 21:10 07:36 19:51 POC Glucose 132 H 132 H 171 H 09/10/22 07:30 POC Glucose 140 H Medications Medications Current Medications Acetaminophen (Acetaminophen 325 Mg Tablet) 650 mg PO Q6H PRN PRN Reason: Headache/Pain Mild Scale (1-3) Last Admin: 09/06/22 08:11 Dose: 650 mg Al Hydroxide/Mg Hydroxide (Magnesium Hydrox/Alum Hydrox 30 Ml Oral.Susp) 30 ml PO Q6H PRN PRN Reason: Heartburn/Nausea Amlodipine Besylate (Amlodipine Besylate 5 Mg Tablet) 5 mg PO DAILY [facility]; Protocol Last Admin: 09/10/22 08:33 Dose: 5 mg Aspirin (Aspirin Enteric Coated 81 Mg Tablet.) 81 mg PO DAILY [facility] Last Admin: 09/10/22 08:33 Dose: 81 mg Atorvastatin Calcium (Atorvastatin Calcium 80 Mg Tablet) 80 mg PO DAILY [facility] Last Admin: 09/10/22 08:33 Dose: 80 mg Carvedilol (Carvedilol 3.125 Mg Tablet) 3.125 mg PO BID [facility]; Protocol Last Admin: 09/10/22 08:33 Dose: 3.125 mg Clopidogrel Bisulfate (Clopidogrel Bisulfate 75 Mg Tablet) 75 mg PO DAILY [facility] Last Admin: 09/10/22 08:33 Dose: 75 mg Finasteride (Finasteride 5 Mg Tablet) 5 mg PO BEDTIME [facility] Last Admin: 09/09/22 21:54 Dose: 5 mg Hydroxyzine HCl (Hydroxyzine Hcl 25 Mg Tablet) 25 mg PO Q6H PRN PRN Reason: Anxiety Magnesium Hydroxide (Milk Of Magnesia 30 Ml Oral.Susp) 30 ml PO DAILY PRN PRN Reason: Constipation Metformin HCl (Metformin Hcl 500 Mg Tablet) 500 mg PO BIDWM [facility] Last Admin: 09/10/22 08:33 Dose: 500 mg Omeprazole (Omeprazole 20 Mg Capsule.Dr) 20 mg PO DAILY@0630 [facility] Last Admin: 09/09/22 09:34 Dose: 20 mg Quetiapine Fumarate (Quetiapine Fumarate 50 Mg Tablet) 50 mg PO Q6H PRN PRN Reason: agitation Sertraline HCl (Sertraline Hcl 50 Mg Tablet) 50 mg PO DAILY [facility] Last Admin: 09/10/22 08:33 Dose: 50 mg Trazodone HCl (Trazodone Hcl 50 Mg Tablet) 50 mg PO BEDTIME PRN PRN Reason: Insomnia Last Admin: 09/03/22 20:18 Dose: 50 mg Allergies Allergies Allergy/AdvReac Type Severity Reaction Status Date / Time No Known Allergies Allergy Verified 06/12/20 12:45 [No Known Allergies*] Assessment & Plan Assessment & Plan (1) Major neurocognitive disorder, due to Alzheimer's disease, without behavioral disturbance, severe: Status: Acute Code(s): G30.9 - Alzheimer's disease, unspecified; F02.C0 - Dementia in other diseases classified elsewhere, severe, without behavioral disturbance, psychotic disturbance, mood disturbance, and anxiety Plan Mr. 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 Pt was broughht to [facility] after he was found lying on floor and had made suicide statement. Per nephew, pt had been making suicidal statements for a months and nephew concern that pt may jump off [employer]. Also, pt lives at [facility] but it appears facility not able to meet his need. On the unit, pt does not remember events leading to this admission. Pt presents with severe cognitive and memory impairments with orientation only to self. PLAN 1. Admit to S1, CV signed by HCP, 15 minutes checks for safety/ 2. Waiting for placement Reason for continued inpatient stay Substantial Risk for: inability to function, rapid decompensation and med/psych decompensation Time Spent With Patient Time: Total time managing care of this patient today _20___ minutes.
[2022-09-10 18:00] VITALS: BP 146/78; PULSE 83; RESP 16; TEMP 36.4; O2SAT 98
[2022-09-10] MEDS: Finasteride 5 MG TABLET PO (21:41)
[2022-09-10] MEDS: traZODone HCL 50 MG TABLET PO (21:42)
[2022-09-10 23:23] LABS: Glucose, Whole Blood 100 mg/dL (60-115)
[2022-09-11] MEDS: Omeprazole 20 MG CAPSULE.DR PO (06:00)
[2022-09-11 08:07] LABS: Glucose, Whole Blood 121 mg/dL (60-115)
[2022-09-11 08:20] VITALS: BP 110/60; PULSE 73; RESP 18; TEMP 36.3; O2SAT 97
[2022-09-11] MEDS: metFORMIN HCl 500 MG TABLET PO ×2 (09:02→17:27)
[2022-09-11] MEDS: amLODIPine Besylate 5 MG TABLET PO (09:02)
[2022-09-11] MEDS: Clopidogrel Bisulfate 75 MG TABLET PO (09:02)
[2022-09-11] MEDS: Atorvastatin Calcium 80 MG TABLET PO (09:02)
[2022-09-11] MEDS: Aspirin Enteric Coated 81 MG TABLET.DR PO (09:02)
[2022-09-11] MEDS: Sertraline HCL 50 MG TABLET PO (09:03)
[2022-09-11] MEDS: carvediloL 3.125 MG TABLET PO ×2 (09:03→20:25)
--- NOTE | 2022-09-11 16:29 | P.PNPSI_ITS ---
Subjective Subjective Date of Service: 09/11/22 Reason For Visit: Unspecified Depressive Disorder Subjective Notes: Conditional Voluntary Interim History: The nursing staff reported the patient had been fully compliant with treatment, no behavioral disturbances. On interview the patient denies new symptoms he is internally preoccupied confused but easily redirectable. He adamantly denies suicidal ideation Mental Status Exam Mental Status Exam Patient Appearance: Well Grooomed and Appropriate Patient Orientation: Person and Situation Level of Consciousness: Awake and Appropriate Patient Behavior: Guarded and Passive Mood Description: Calm Affect Description: Constricted Patient Cognition Impaired: Yes Ability to Follow Directions: Good Speech Pattern: Clear Hallucinations: None Delusions: Not Present Thought Process: Distracted and Linear Thought Content: positive for [place] and positive for Poverty of Content Judgement: Fair Diagnostics Vital Signs (24Hr): Vital Signs - 24 hr 09/10/22 18:00 09/11/22 08:20 Temperature 97.6 F 97.3 F Pulse Rate 83 73 Respiratory Rate 16 18 Blood Pressure 146/78 H 110/60 Pulse Oximetry 98 97 Oxygen Delivery Method Room Air Room Air BMI result Body Mass Index 20.4 Labs 09/08/22 07:56 09/08/22 07:56 Labs: Laboratory Results - last 48 hr 09/09/22 09/10/22 09/10/22 19:51 07:30 23:18 POC Glucose 171 H 140 H 100 09/11/22 08:03 POC Glucose 121 H Medications Medications Current Medications Acetaminophen (Acetaminophen 325 Mg Tablet) 650 mg PO Q6H PRN PRN Reason: Headache/Pain Mild Scale (1-3) Last Admin: 09/06/22 08:11 Dose: 650 mg Al Hydroxide/Mg Hydroxide (Magnesium Hydrox/Alum Hydrox 30 Ml Oral.Susp) 30 ml PO Q6H PRN PRN Reason: Heartburn/Nausea Amlodipine Besylate (Amlodipine Besylate 5 Mg Tablet) 5 mg PO DAILY [facility]; Protocol Last Admin: 09/11/22 09:02 Dose: 5 mg Aspirin (Aspirin Enteric Coated 81 Mg Tablet.) 81 mg PO DAILY [facility] Last Admin: 09/11/22 09:02 Dose: 81 mg Atorvastatin Calcium (Atorvastatin Calcium 80 Mg Tablet) 80 mg PO DAILY [facility] Last Admin: 09/11/22 09:02 Dose: 80 mg Carvedilol (Carvedilol 3.125 Mg Tablet) 3.125 mg PO BID [facility]; Protocol Last Admin: 09/11/22 09:03 Dose: 3.125 mg Clopidogrel Bisulfate (Clopidogrel Bisulfate 75 Mg Tablet) 75 mg PO DAILY [facility] Last Admin: 09/11/22 09:02 Dose: 75 mg Finasteride (Finasteride 5 Mg Tablet) 5 mg PO BEDTIME [facility] Last Admin: 09/10/22 21:41 Dose: 5 mg Hydroxyzine HCl (Hydroxyzine Hcl 25 Mg Tablet) 25 mg PO Q6H PRN PRN Reason: Anxiety Magnesium Hydroxide (Milk Of Magnesia 30 Ml Oral.Susp) 30 ml PO DAILY PRN PRN Reason: Constipation Metformin HCl (Metformin Hcl 500 Mg Tablet) 500 mg PO BIDWM [facility] Last Admin: 09/11/22 09:02 Dose: 500 mg Omeprazole (Omeprazole 20 Mg Capsule.Dr) 20 mg PO DAILY@30 [facility] Last Admin: 09/11/22 06:00 Dose: 20 mg Quetiapine Fumarate (Quetiapine Fumarate 50 Mg Tablet) 50 mg PO Q6H PRN PRN Reason: agitation Sertraline HCl (Sertraline Hcl 50 Mg Tablet) 50 mg PO DAILY [facility] Last Admin: 09/11/22 09:03 Dose: 50 mg Trazodone HCl (Trazodone Hcl 50 Mg Tablet) 50 mg PO BEDTIME PRN PRN Reason: Insomnia Last Admin: 09/10/22 21:42 Dose: 50 mg Allergies Allergies Allergy/AdvReac Type Severity Reaction Status Date / Time No Known Allergies Allergy Verified 06/12/20 12:45 [No Known Allergies*] Assessment & Plan Assessment & Plan (1) Major neurocognitive disorder, due to Alzheimer's disease, without behavioral disturbance, severe: Status: Acute Code(s): G30.9 - Alzheimer's disease, unspecified; F02.C0 - Dementia in other diseases classified elsewhere, severe, without behavioral disturbance, psychotic disturbance, mood disturbance, and anxiety Plan Mr. 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 Pt was broughht to [facility] [place] after he was found lying on floor and had made suicide statement. Per nephew, pt had been making suicidal statements for a months and nephew concern that pt may jump off [employer]. Also, pt lives at [facility] but it appears facility not able to meet his need. On the unit, pt does not remember events leading to this admission. Pt presents with severe cognitive and memory impairments with orientation only to self. PLAN 1. Admit to S1, CV signed by HCP, 15 minutes checks for safety/ 2. Waiting for placement Reason for continued inpatient stay Substantial Risk for: inability to function, rapid decompensation and med/psych decompensation Time Spent With Patient Time: Total time managing care of this patient today __20__ minutes.
[2022-09-11 19:35] VITALS: BP 128/80; PULSE 75; RESP 16; TEMP 36; O2SAT 97
[2022-09-11] MEDS: Finasteride 5 MG TABLET PO (20:25)
[2022-09-12 07:30] VITALS: BP 131/75; PULSE 82; RESP 19; TEMP 36.2; O2SAT 97
[2022-09-12 07:37] LABS: Glucose, Whole Blood 106 mg/dL (60-115)
[2022-09-12] MEDS: Aspirin Enteric Coated 81 MG TABLET.DR PO (08:31)
[2022-09-12] MEDS: metFORMIN HCl 500 MG TABLET PO ×2 (08:31→16:47)
[2022-09-12] MEDS: carvediloL 3.125 MG TABLET PO ×2 (08:31→20:39)
[2022-09-12] MEDS: Omeprazole 20 MG CAPSULE.DR PO (08:31)
[2022-09-12] MEDS: amLODIPine Besylate 5 MG TABLET PO (08:31)
[2022-09-12] MEDS: Atorvastatin Calcium 80 MG TABLET PO (08:31)
[2022-09-12] MEDS: Clopidogrel Bisulfate 75 MG TABLET PO (08:32)
[2022-09-12] MEDS: Sertraline HCL 50 MG TABLET PO (08:32)
[2022-09-12 09:55] VITALS: BP 131/75; PULSE 82; O2SAT 97
[2022-09-12] MEDS: Acetaminophen 325 MG TABLET 650 MG PO (14:45)
--- NOTE | 2022-09-12 17:22 | P.PNPSI_ITS ---
Subjective Subjective Date of Service: 09/12/22 Reason For Visit: Unspecified Depressive Disorder Subjective Notes: Conditional Voluntary Interim History: pt continues to present as pleasant. He denies SI/HI. He has been taking medications as prescribed. No behavioral disturbances. No signs of psychosis. Pt working with PT. Review of Systems Review of Systems Pt denies pain, chest pain. NO SOB. reviewed limited by fact that he has severe memory/cognitive impairments. Mental Status Exam Mental Status Exam Narrative: Appearance: wearing hospital gown, fair hygiene, in NAD Behavior: cooperative Psychomotor: no agitation or retardation noted Speech: clear, normal rate/rhythm/volume, spontaneous TP: mostly linear TC:no overt delusions or psychosis, feeling good Mood: good Affect: congruent SI: denies, adamantly denies HI: denies VH/AH: none Delusions: none Insight/judgment: impaired x 2. Memory/cog: alert, not oriented to place, situation, month, year. severe underlying dementia. Diagnostics Vital Signs (24Hr): Vital Signs - 24 hr 09/11/22 19:35 09/12/22 07:30 09/12/22 09:55 Temperature 96.8 F 97.1 F Pulse Rate 75 82 82 Respiratory Rate 16 19 Blood Pressure 128/80 131/75 131/75 Pulse Oximetry 97 97 97 Oxygen Delivery Method Room Air Room Air BMI result Body Mass Index 20.4 Labs 09/08/22 07:56 09/08/22 07:56 Labs: Laboratory Results - last 48 hr 09/10/22 09/11/22 09/12/22 23:18 08:03 07:33 POC Glucose 100 121 H 106 Medications Medications Current Medications Acetaminophen (Acetaminophen 325 Mg Tablet) 650 mg PO Q6H PRN PRN Reason: Headache/Pain Mild Scale (1-3) Last Admin: 09/12/22 14:45 Dose: 650 mg Al Hydroxide/Mg Hydroxide (Magnesium Hydrox/Alum Hydrox 30 Ml Oral.Susp) 30 ml PO Q6H PRN PRN Reason: Heartburn/Nausea Amlodipine Besylate (Amlodipine Besylate 5 Mg Tablet) 5 mg PO DAILY [facility]; Protocol Last Admin: 09/12/22 08:31 Dose: 5 mg Aspirin (Aspirin Enteric Coated 81 Mg Tablet.) 81 mg PO DAILY [facility] Last Admin: 09/12/22 08:31 Dose: 81 mg Atorvastatin Calcium (Atorvastatin Calcium 80 Mg Tablet) 80 mg PO DAILY [facility] Last Admin: 09/12/22 08:31 Dose: 80 mg Carvedilol (Carvedilol 3.125 Mg Tablet) 3.125 mg PO BID [facility]; Protocol Last Admin: 09/12/22 08:31 Dose: 3.125 mg Clopidogrel Bisulfate (Clopidogrel Bisulfate 75 Mg Tablet) 75 mg PO DAILY [facility] Last Admin: 09/12/22 08:32 Dose: 75 mg Finasteride (Finasteride 5 Mg Tablet) 5 mg PO BEDTIME [facility] Last Admin: 09/11/22 20:25 Dose: 5 mg Hydroxyzine HCl (Hydroxyzine Hcl 25 Mg Tablet) 25 mg PO Q6H PRN PRN Reason: Anxiety Magnesium Hydroxide (Milk Of Magnesia 30 Ml Oral.Susp) 30 ml PO DAILY PRN PRN Reason: Constipation Metformin HCl (Metformin Hcl 500 Mg Tablet) 500 mg PO BIDWM [facility] Last Admin: 09/12/22 16:47 Dose: 500 mg Omeprazole (Omeprazole 20 Mg Capsule.Dr) 20 mg PO DAILY@0630 [facility] Last Admin: 09/12/22 08:31 Dose: 20 mg Quetiapine Fumarate (Quetiapine Fumarate 50 Mg Tablet) 50 mg PO Q6H PRN PRN Reason: agitation Sertraline HCl (Sertraline Hcl 50 Mg Tablet) 50 mg PO DAILY [facility] Last Admin: 09/12/22 08:32 Dose: 50 mg Trazodone HCl (Trazodone Hcl 50 Mg Tablet) 50 mg PO BEDTIME PRN PRN Reason: Insomnia Last Admin: 09/10/22 21:42 Dose: 50 mg Allergies Allergies Allergy/AdvReac Type Severity Reaction Status Date / Time No Known Allergies Allergy Verified 06/12/20 12:45 [No Known Allergies*] Assessment & Plan Assessment & Plan (1) Major neurocognitive disorder, due to Alzheimer's disease, without behavioral disturbance, severe: Status: Acute Code(s): G30.9 - Alzheimer's disease, unspecified; F02.C0 - Dementia in other diseases cl assified elsewhere, severe, without behavioral disturbance, psychotic disturbance, mood disturbance, and anxiety Plan Mr. 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 Pt was broughht to [facility] after he was found lying on floor and had made suicide statement. Per nephew, pt had been making suicidal statements for a months and nephew concern that pt may jump off [employer]. Also, pt lives at [facility] but it appears facility not able to meet his need. On the unit, pt does not remember events leading to this admission. Pt presents with severe cognitive and memory impairments with orientation only to self. PLAN 1. Admit to S1, CV signed by HCP, 15 minutes checks for safety/ 09/12 continue tx. Waiting for placement Reason for continued inpatient stay Substantial Risk for: inability to function Time Spent With Patient Time: Total time managing care of this patient today ____ minutes.
[2022-09-12 18:00] VITALS: BP 108/61; PULSE 73; RESP 18; TEMP 36.3; O2SAT 97
[2022-09-12 20:02] LABS: Glucose, Whole Blood 113 mg/dL (60-115)
[2022-09-12] MEDS: Finasteride 5 MG TABLET PO (20:39)
[2022-09-13] MEDS: Omeprazole 20 MG CAPSULE.DR PO (06:16)
[2022-09-13 08:05] LABS: Glucose, Whole Blood 137 mg/dL (60-115)
[2022-09-13 08:16] VITALS: BP 138/92; PULSE 90; RESP 18; TEMP 36.1; O2SAT 98
[2022-09-13] MEDS: metFORMIN HCl 500 MG TABLET PO ×2 (08:47→16:52)
[2022-09-13] MEDS: carvediloL 3.125 MG TABLET PO ×2 (08:47→20:19)
[2022-09-13] MEDS: amLODIPine Besylate 5 MG TABLET PO (08:47)
[2022-09-13] MEDS: Aspirin Enteric Coated 81 MG TABLET.DR PO (08:47)
[2022-09-13] MEDS: Atorvastatin Calcium 80 MG TABLET PO (08:48)
[2022-09-13] MEDS: Sertraline HCL 50 MG TABLET PO (08:48)
[2022-09-13] MEDS: Clopidogrel Bisulfate 75 MG TABLET PO (08:48)
--- NOTE | 2022-09-13 14:32 | HO.PSYCHPN ---
Subjective Subjective Date of Service: 09/13/22 Reason For Visit: Unspecified Depressive Disorder Subjective Notes: Conditional Voluntary Interim History: The nursing staff reported the patient had been pleasantly confused, he slept well. The secondary social studies teacher reported the family is looking for an assisted living facility. The occupational therapy reported that he cannot initiate any of his activities of daily life. On interview the patient denies new symptoms, we discussed options and he agreed to restart Aricept for dementia. Mental Status Exam Mental Status Exam Patient Appearance: Well Grooomed and Appropriate Patient Orientation: Person and Situation Level of Consciousness: Awake and Appropriate Patient Behavior: Guarded and Passive Mood Description: Withdrawn Affect Description: Constricted Patient Cognition Impaired: Yes Ability to Follow Directions: Good Speech Pattern: Clear Hallucinations: None Delusions: Not Present Thought Process: Distracted Thought Content: positive for [place] Judgement: Fair Diagnostics Vital Signs (24Hr): Vital Signs - 24 hr 09/12/22 18:00 09/13/22 08:16 Temperature 97.4 F 96.9 F Pulse Rate 73 90 Respiratory Rate 18 18 Blood Pressure 108/61 138/92 H Pulse Oximetry 97 98 Oxygen Delivery Method Room Air Room Air BMI result Body Mass Index 20.4 Labs 09/08/22 07:56 09/08/22 07:56 Labs: Laboratory Results - last 48 hr 09/12/22 09/12/22 09/13/22 07:33 19:48 08:02 POC Glucose 106 113 137 H Medications Medications Current Medications Acetaminophen (Acetaminophen 325 Mg Tablet) 650 mg PO Q6H PRN PRN Reason: Headache/Pain Mild Scale (1-3) Last Admin: 09/12/22 14:45 Dose: 650 mg Al Hydroxide/Mg Hydroxide (Magnesium Hydrox/Alum Hydrox 30 Ml Oral.Susp) 30 ml PO Q6H PRN PRN Reason: Heartburn/Nausea Amlodipine Besylate (Amlodipine Besylate 5 Mg Tablet) 5 mg PO DAILY [facility]; Protocol Last Admin: 09/13/22 08:47 Dose: 5 mg Aspirin (Aspirin Enteric Coated 81 Mg Tablet.) 81 mg PO DAILY [facility] Last Admin: 09/13/22 08:47 Dose: 81 mg Atorvastatin Calcium (Atorvastatin Calcium 80 Mg Tablet) 80 mg PO DAILY [facility] Last Admin: 09/13/22 08:48 Dose: 80 mg Carvedilol (Carvedilol 3.125 Mg Tablet) 3.125 mg PO BID [facility]; Protocol Last Admin: 09/13/22 08:47 Dose: 3.125 mg Clopidogrel Bisulfate (Clopidogrel Bisulfate 75 Mg Tablet) 75 mg PO DAILY [facility] Last Admin: 09/13/22 08:48 Dose: 75 mg Donepezil HCl (Donepezil Hcl 5 Mg Tablet) 5 mg PO BEDTIME [facility] Finasteride (Finasteride 5 Mg Tablet) 5 mg PO BEDTIME [facility] Last Admin: 09/12/22 20:39 Dose: 5 mg Hydroxyzine HCl (Hydroxyzine Hcl 25 Mg Tablet) 25 mg PO Q6H PRN PRN Reason: Anxiety Magnesium Hydroxide (Milk Of Magnesia 30 Ml Oral.Susp) 30 ml PO DAILY PRN PRN Reason: Constipation Metformin HCl (Metformin Hcl 500 Mg Tablet) 500 mg PO BIDWM [facility] Last Admin: 09/13/22 08:47 Dose: 500 mg Omeprazole (Omeprazole 20 Mg Capsule.Dr) 20 mg PO DAILY@0630 [facility] Last Admin: 09/13/22 06:16 Dose: 20 mg Quetiapine Fumarate (Quetiapine Fumarate 50 Mg Tablet) 50 mg PO Q6H PRN PRN Reason: agitation Sertraline HCl (Sertraline Hcl 50 Mg Tablet) 50 mg PO DAILY [facility] Last Admin: 09/13/22 08:48 Dose: 50 mg Trazodone HCl (Trazodone Hcl 50 Mg Tablet) 50 mg PO BEDTIME PRN PRN Reason: Insomnia Last Admin: 09/10/22 21:42 Dose: 50 mg Allergies Allergies Allergy/AdvReac Type Severity Reaction Status Date / Time No Known Allergies Allergy Verified 06/12/20 12:45 [No Known Allergies*] Assessment & Plan Assessment & Plan (1) Major neurocognitive disorder, due to Alzheimer's disease, without behavioral disturbance, severe: Status: Acute Code(s): G30.9 - Alzheimer's disease, unspecified; F02.C0 - Dementia in other diseases classified elsewhere, severe, without behavioral disturbance, psychotic disturbance, mood disturbance, and anxiety Plan Mr. 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 Pt was broughht to [facility] after he was found lying on floor and had made suicide statement. Per nephew, pt had been making suicidal statements for a months and nephew concern that pt may jump off [facility]. Also, pt lives at [facility] but it appears facility not able to meet his need. On the unit, pt does not remember events leading to this admission. Pt presents with severe cognitive and memory impairments with orientation only to self. PLAN 1. Admit to S1, CV signed by HCP, 15 minutes checks for safety/ 2. Start Aricept 5 mg p.o. q.h.s. increased up to 10 mg in today's. 3. Start working on discharge planning Reason for continued inpatient stay Substantial Risk for: inability to function, rapid decompensation and med/psych decompensation Time Spent With Patient Time: Total time managing care of this patient today _20___ minutes.
[2022-09-13 16:34] LABS: Glucose, Whole Blood 117 mg/dL (60-115)
[2022-09-13 19:35] VITALS: BP 137/81; PULSE 84; RESP 18; TEMP 36.4; O2SAT 98
[2022-09-13] MEDS: Donepezil HCl 5 MG TABLET PO (20:19)
[2022-09-13] MEDS: Finasteride 5 MG TABLET PO (20:20)
[2022-09-14] MEDS: Omeprazole 20 MG CAPSULE.DR PO (05:54)
[2022-09-14 07:00] VITALS: BMI 21.0
[2022-09-14 08:05] VITALS: BP 175/80; PULSE 83; RESP 18; TEMP 36.2; O2SAT 97
[2022-09-14] MEDS: carvediloL 3.125 MG TABLET PO ×2 (08:33→20:27)
[2022-09-14] MEDS: Atorvastatin Calcium 80 MG TABLET PO (08:33)
[2022-09-14] MEDS: Clopidogrel Bisulfate 75 MG TABLET PO (08:33)
[2022-09-14] MEDS: Sertraline HCL 50 MG TABLET PO (08:33)
[2022-09-14] MEDS: metFORMIN HCl 500 MG TABLET PO ×2 (08:33→16:49)
[2022-09-14] MEDS: Aspirin Enteric Coated 81 MG TABLET.DR PO (08:35)
[2022-09-14] MEDS: amLODIPine Besylate 5 MG TABLET PO (08:35)
[2022-09-14 09:00] LABS: Glucose, Whole Blood 146 mg/dL (60-115)
[2022-09-14 11:24] LABS: Glucose, Whole Blood 120 mg/dL (60-115)
--- NOTE | 2022-09-14 14:57 | P.PNPSI_ITS ---
Subjective Subjective Date of Service: 09/14/22 Reason For Visit: Unspecified Depressive Disorder Subjective Notes: Conditional Voluntary Interim History: The nursing staff reported the patient has been pleasant cooperative, no new symptoms. The social service technician reported they are referred to several facilities. On interview the patient reports no new symptoms, waiting for placement. His short-term memory is no so we will start Aricept 10 mg p.o. q.h.s. to target dementia. Mental Status Exam Mental Status Exam Patient Appearance: Well Grooomed and Appropriate Patient Orientation: Person and Situation Level of Consciousness: Awake and Appropriate Patient Behavior: Guarded and Passive Mood Description: Withdrawn Affect Description: Constricted Patient Cognition Impaired: Yes Ability to Follow Directions: Good Speech Pattern: Clear Hallucinations: None Delusions: Not Present Thought Process: Distracted and Linear Thought Content: positive for [place] and positive for [place] Content Judgement: Fair Diagnostics Vital Signs (24Hr): Vital Signs - 24 hr 09/13/22 19:35 09/14/22 08:05 Temperature 97.6 F 97.1 F Pulse Rate 84 83 Respiratory Rate 18 18 Blood Pressure 137/81 175/80 H Pulse Oximetry 98 97 Oxygen Delivery Method Room Air Room Air BMI result Body Mass Index 20.4 Labs 09/08/22 07:56 09/08/22 07:56 Labs: Laboratory Results - last 48 hr 09/12/22 09/13/22 09/13/22 19:48 08:02 16:25 POC Glucose 113 137 H 117 H 09/14/22 09/14/22 08:12 11:20 POC Glucose 146 H 120 H Medications Medications Current Medications Acetaminophen (Acetaminophen 325 Mg Tablet) 650 mg PO Q6H PRN PRN Reason: Headache/Pain Mild Scale (1-3) Last Admin: 09/12/22 14:45 Dose: 650 mg Al Hydroxide/Mg Hydroxide (Magnesium Hydrox/Alum Hydrox 30 Ml Oral.Susp) 30 ml PO Q6H PRN PRN Reason: Heartburn/Nausea Amlodipine Besylate (Amlodipine Besylate 5 Mg Tablet) 5 mg PO DAILY [facility]; Protocol Last Admin: 09/14/22 08:35 Dose: 5 mg Aspirin (Aspirin Enteric Coated 81 Mg Tablet.) 81 mg PO DAILY [facility] Last Admin: 09/14/22 08:35 Dose: 81 mg Atorvastatin Calcium (Atorvastatin Calcium 80 Mg Tablet) 80 mg PO DAILY [facility] Last Admin: 09/14/22 08:33 Dose: 80 mg Carvedilol (Carvedilol 3.125 Mg Tablet) 3.125 mg PO BID [facility]; Protocol Last Admin: 09/14/22 08:33 Dose: 3.125 mg Clopidogrel Bisulfate (Clopidogrel Bisulfate 75 Mg Tablet) 75 mg PO DAILY [facility] Last Admin: 09/14/22 08:33 Dose: 75 mg Donepezil HCl (Donepezil Hcl 10 Mg Tablet) 10 mg PO BEDTIME [facility] Finasteride (Finasteride 5 Mg Tablet) 5 mg PO BEDTIME [facility] Last Admin: 09/13/22 20:20 Dose: 5 mg Hydroxyzine HCl (Hydroxyzine Hcl 25 Mg Tablet) 25 mg PO Q6H PRN PRN Reason: Anxiety Magnesium Hydroxide (Milk Of Magnesia 30 Ml Oral.Susp) 30 ml PO DAILY PRN PRN Reason: Constipation Metformin HCl (Metformin Hcl 500 Mg Tablet) 500 mg PO BIDWM [facility] Last Admin: 09/14/22 08:33 Dose: 500 mg Omeprazole (Omeprazole 20 Mg Capsule.Dr) 20 mg PO DAILY@0630 [facility] Last Admin: 09/14/22 05:54 Dose: 20 mg Quetiapine Fumarate (Quetiapine Fumarate 50 Mg Tablet) 50 mg PO Q6H PRN PRN Reason: agitation Sertraline HCl (Sertraline Hcl 50 Mg Tablet) 50 mg PO DAILY [facility] Last Admin: 09/14/22 08:33 Dose: 50 mg Trazodone HCl (Trazodone Hcl 50 Mg Tablet) 50 mg PO BEDTIME PRN PRN Reason: Insomnia Last Admin: 09/10/22 21:42 Dose: 50 mg Allergies Allergies Allergy/AdvReac Type Severity Reaction Status Date / Time No Known Allergies Allergy Verified 06/12/20 12:45 [No Known Allergies*] Assessment & Plan Assessment & Plan (1) Major neurocognitive disorder, due to Alzheimer's disease, without behavioral disturbance, severe: Status: Acute Code(s): G30.9 - Alzheimer's disease, unspecified; F02.C0 - Dementia in other diseases classified elsewhere, severe, without behavioral disturbance, psychotic disturbance, mood disturbance, and anxiety Plan Mr. 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 Pt was broughht to [facility] after he was found lying on floor and had made suicide statement. Per nephew, pt had been making suicidal statements for a months and nephew concern that pt may jump off [employer]. Also, pt lives at [facility] but it appears facility not able to meet his need. On the unit, pt does not remember events leading to this admission. Pt presents with severe cognitive and memory impairments with orientation only to self. PLAN 1. Admit to S1, CV signed by HCP, 15 minutes checks for safety/ 2. Start Aricept 5 mg p.o. q.h.s. increased up to 10 mg in today's. 3. Start working on discharge planning Reason for continued inpatient stay Substantial Risk for: inability to function, rapid decompensation and med/psych decompensation Time Spent With Patient Time: Total time managing care of this patient today __20__ minutes.
[2022-09-14 16:45] LABS: Glucose, Whole Blood 106 mg/dL (60-115)
[2022-09-14 18:00] VITALS: BP 110/68; PULSE 84; RESP 18; TEMP 36.6; O2SAT 97
[2022-09-14] MEDS: Donepezil HCl 10 MG TABLET PO (20:28)
[2022-09-14] MEDS: Finasteride 5 MG TABLET PO (20:28)
[2022-09-14 20:40] LABS: Glucose, Whole Blood 100 mg/dL (60-115)
[2022-09-15] MEDS: Omeprazole 20 MG CAPSULE.DR PO (05:34)
[2022-09-15 08:19] VITALS: BP 141/79; PULSE 77; RESP 16; TEMP 36.2; O2SAT 98
[2022-09-15] MEDS: Aspirin Enteric Coated 81 MG TABLET.DR PO (09:25)
[2022-09-15] MEDS: metFORMIN HCl 500 MG TABLET PO ×2 (09:25→16:50)
[2022-09-15] MEDS: Sertraline HCL 50 MG TABLET PO (09:26)
[2022-09-15] MEDS: Atorvastatin Calcium 80 MG TABLET PO (09:26)
[2022-09-15] MEDS: Clopidogrel Bisulfate 75 MG TABLET PO (09:26)
[2022-09-15] MEDS: carvediloL 3.125 MG TABLET PO ×2 (09:26→19:59)
[2022-09-15] MEDS: amLODIPine Besylate 5 MG TABLET PO (09:26)
--- NOTE | 2022-09-15 19:49 | P.PNPSI_ITS ---
Subjective Subjective Date of Service: 09/15/22 Reason For Visit: Unspecified Depressive Disorder Subjective Notes: Conditional Voluntary Interim History: Pt presents as pleasant, always smiling and social with peers. Sister came to visit him and pt introduced sister as mom Pt with difficulty recognizing family members and difficulty retaining new information. He denies any physical pain. No psychosis. He denies SI/HI. Medication Compliance: Yes Review of Systems Review of Systems Pt denies pain, chest pain. NO SOB. reviewed limited by fact that he has severe memory/cognitive impairments. Mental Status Exam Mental Status Exam Narrative: Appearance: wearing hospital gown, fair hygiene, in NAD Behavior: cooperative Psychomotor: no agitation or retardation noted Speech: clear, normal rate/rhythm/volume, spontaneous TP: mostly linear TC:no overt delusions or psychosis, feeling good Mood: good Affect: congruent SI: denies, adamantly denies HI: denies VH/AH: none Delusions: none Insight/judgment: impaired x 2. Memory/cog: alert, not oriented to place, situation, month, year. severe underlying dementia. Diagnostics Vital Signs (24Hr): Vital Signs - 24 hr 09/15/22 08:19 Temperature 97.2 F Pulse Rate 77 Respiratory Rate 16 Blood Pressure 141/79 H Pulse Oximetry 98 Oxygen Delivery Method Room Air BMI result Body Mass Index 21.0 Labs 09/08/22 07:56 09/08/22 07:56 Labs: Laboratory Results - last 48 hr 09/14/22 09/14/22 09/14/22 08:12 11:20 16:42 POC Glucose 146 H 120 H 106 09/14/22 20:27 POC Glucose 100 Medications Medications Current Medications Acetaminophen (Acetaminophen 325 Mg Tablet) 650 mg PO Q6H PRN PRN Reason: Headache/Pain Mild Scale (1-3) Last Admin: 09/12/22 14:45 Dose: 650 mg Al Hydroxide/Mg Hydroxide (Magnesium Hydrox/Alum Hydrox 30 Ml Oral.Susp) 30 ml PO Q6H PRN PRN Reason: Heartburn/Nausea Amlodipine Besylate (Amlodipine Besylate 5 Mg Tablet) 5 mg PO DAILY [facility]; Protocol Last Admin: 09/15/22 09:26 Dose: 5 mg Aspirin (Aspirin Enteric Coated 81 Mg Tablet.) 81 mg PO DAILY [facility] Last Admin: 09/15/22 09:25 Dose: 81 mg Atorvastatin Calcium (Atorvastatin Calcium 80 Mg Tablet) 80 mg PO DAILY [facility] Last Admin: 09/15/22 09:26 Dose: 80 mg Carvedilol (Carvedilol 3.125 Mg Tablet) 3.125 mg PO BID [facility]; Protocol Last Admin: 09/15/22 09:26 Dose: 3.125 mg Clopidogrel Bisulfate (Clopidogrel Bisulfate 75 Mg Tablet) 75 mg PO DAILY [facility] Last Admin: 09/15/22 09:26 Dose: 75 mg Donepezil HCl (Donepezil Hcl 10 Mg Tablet) 10 mg PO BEDTIME [facility] Last Admin: 09/14/22 20:28 Dose: 10 mg Finasteride (Finasteride 5 Mg Tablet) 5 mg PO BEDTIME [facility] Last Admin: 09/14/22 20:28 Dose: 5 mg Hydroxyzine HCl (Hydroxyzine Hcl 25 Mg Tablet) 25 mg PO Q6H PRN PRN Reason: Anxiety Magnesium Hydroxide (Milk Of Magnesia 30 Ml Oral.Susp) 30 ml PO DAILY PRN PRN Reason: Constipation Metformin HCl (Metformin Hcl 500 Mg Tablet) 500 mg PO BIDWM [facility] Last Admin: 09/15/22 16:50 Dose: 500 mg Omeprazole (Omeprazole 20 Mg Capsule.Dr) 20 mg PO DAILY@0630 [facility] Last Admin: 09/15/22 05:34 Dose: 20 mg Quetiapine Fumarate (Quetiapine Fumarate 50 Mg Tablet) 50 mg PO Q6H PRN PRN Reason: agitation Sertraline HCl (Sertraline Hcl 50 Mg Tablet) 50 mg PO DAILY [facility] Last Admin: 09/15/22 09:26 Dose: 50 mg Trazodone HCl (Trazodone Hcl 50 Mg Tablet) 50 mg PO BEDTIME PRN PRN Reason: Insomnia Last Admin: 09/10/22 21:42 Dose: 50 mg Allergies Allergies Allergy/AdvReac Type Severity Reaction Status Date / Time No Known Allergies Allergy Verified 06/12/20 12:45 [No Known Allergies*] Assessment & Plan Assessment & Plan (1) Major neurocognitive disorder, due to Alzheimer's disease, without behavioral disturbance, severe: Status: Acute Code(s): G30.9 - Alzheimer's disease, unspecified; F02.C0 - Dementia in other diseases classified elsewhere, severe, without behavioral disturbance, psychotic disturbance, mood disturbance, and anxiety Plan Mr. 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 Pt was broughht to [facility] after he was found lying on floor and had made suicide statement. Per nephew, pt had been making suicidal statements for a months and nephew concern that pt may jump off [employer]. Also, pt lives at [facility] but it appears facility not able to meet his need. On the unit, pt does not remember events leading to this admission. Pt presents with severe cognitive and memory impairments with orientation only to self. PLAN 09/15 continue tx. Reason for continued inpatient stay Substantial Risk for: inability to function Time Spent With Patient Time: Total time managing care of this patient today ____ minutes.
[2022-09-15 20:00] VITALS: BP 134/88; PULSE 70; RESP 18; TEMP 36.4; O2SAT 97
[2022-09-15] MEDS: Donepezil HCl 10 MG TABLET PO (20:00)
[2022-09-15] MEDS: Finasteride 5 MG TABLET PO (20:00)
[2022-09-15 21:19] LABS: Glucose, Whole Blood 152 mg/dL (60-115)
[2022-09-16] MEDS: Omeprazole 20 MG CAPSULE.DR PO (05:48)
[2022-09-16 07:48] LABS: Glucose, Whole Blood 152 mg/dL (60-115)
[2022-09-16 08:00] VITALS: BP 144/72; PULSE 81; RESP 18; TEMP 36.1; O2SAT 97
[2022-09-16] MEDS: Aspirin Enteric Coated 81 MG TABLET.DR PO (08:05)
[2022-09-16] MEDS: metFORMIN HCl 500 MG TABLET PO ×2 (08:05→16:38)
[2022-09-16] MEDS: Atorvastatin Calcium 80 MG TABLET PO (08:05)
[2022-09-16] MEDS: amLODIPine Besylate 5 MG TABLET PO (08:06)
[2022-09-16] MEDS: Clopidogrel Bisulfate 75 MG TABLET PO (08:06)
[2022-09-16] MEDS: carvediloL 3.125 MG TABLET PO ×2 (08:06→20:14)
[2022-09-16] MEDS: Sertraline HCL 50 MG TABLET PO (08:06)
--- NOTE | 2022-09-16 17:21 | HO.PSYCHPN ---
Subjective Subjective Date of Service: 09/16/22 Reason For Visit: Unspecified Depressive Disorder Subjective Notes: Conditional Voluntary Interim History: Pt presents as pleasant. He has been visible on the unit, per nursing, pt eating and sleeping well. Bright, non labile affect. ambulating with walker. He denies SI/HI. Medication Compliance: Yes Review of Systems Review of Systems Pt denies pain, chest pain. NO SOB. reviewed limited by fact that he has severe memory/cognitive impairments. Mental Status Exam Mental Status Exam Narrative: Appearance: wearing hospital gown, fair hygiene, in NAD Behavior: cooperative Psychomotor: no agitation or retardation noted Speech: clear, normal rate/rhythm/volume, spontaneous TP: mostly linear TC:no overt delusions or psychosis, feeling good Mood: good Affect: congruent SI: denies, adamantly denies HI: denies VH/AH: none Delusions: none Insight/judgment: impaired x 2. Memory/cog: alert, not oriented to place, situation, month, year. severe underlying dementia. Diagnostics Vital Signs (24Hr): Vital Signs - 24 hr 09/15/22 20:00 09/16/22 08:00 Temperature 97.6 F 96.9 F Pulse Rate 70 81 Respiratory Rate 18 18 Blood Pressure 134/88 144/72 H Pulse Oximetry 97 97 Oxygen Delivery Method Room Air Room Air BMI result Body Mass Index 21.0 Labs 09/08/22 07:56 09/08/22 07:56 Labs: Laboratory Results - last 48 hr 09/14/22 09/15/22 09/16/22 20:27 21:15 07:44 POC Glucose 100 152 H 152 H Medications Medications Current Medications Acetaminophen (Acetaminophen 325 Mg Tablet) 650 mg PO Q6H PRN PRN Reason: Headache/Pain Mild Scale (1-3) Last Admin: 09/12/22 14:45 Dose: 650 mg Al Hydroxide/Mg Hydroxide (Magnesium Hydrox/Alum Hydrox 30 Ml Oral.Susp) 30 ml PO Q6H PRN PRN Reason: Heartburn/Nausea Amlodipine Besylate (Amlodipine Besylate 5 Mg Tablet) 5 mg PO DAILY [facility]; Protocol Last Admin: 09/16/22 08:06 Dose: 5 mg Aspirin (Aspirin Enteric Coated 81 Mg Tablet.) 81 mg PO DAILY [facility] Last Admin: 09/16/22 08:05 Dose: 81 mg Atorvastatin Calcium (Atorvastatin Calcium 80 Mg Tablet) 80 mg PO DAILY [facility] Last Admin: 09/16/22 08:05 Dose: 80 mg Carvedilol (Carvedilol 3.125 Mg Tablet) 3.125 mg PO BID [facility]; Protocol Last Admin: 09/16/22 08:06 Dose: 3.125 mg Clopidogrel Bisulfate (Clopidogrel Bisulfate 75 Mg Tablet) 75 mg PO DAILY [facility] Last Admin: 09/16/22 08:06 Dose: 75 mg Donepezil HCl (Donepezil Hcl 10 Mg Tablet) 10 mg PO BEDTIME [facility] Last Admin: 09/15/22 20:00 Dose: 10 mg Finasteride (Finasteride 5 Mg Tablet) 5 mg PO BEDTIME [facility] Last Admin: 09/15/22 20:00 Dose: 5 mg Hydroxyzine HCl (Hydroxyzine Hcl 25 Mg Tablet) 25 mg PO Q6H PRN PRN Reason: Anxiety Magnesium Hydroxide (Milk Of Magnesia 30 Ml Oral.Susp) 30 ml PO DAILY PRN PRN Reason: Constipation Metformin HCl (Metformin Hcl 500 Mg Tablet) 500 mg PO BIDWM [facility] Last Admin: 09/16/22 16:38 Dose: 500 mg Omeprazole (Omeprazole 20 Mg Capsule.Dr) 20 mg PO DAILY@0630 [facility] Last Admin: 09/16/22 05:48 Dose: 20 mg Quetiapine Fumarate (Quetiapine Fumarate 50 Mg Tablet) 50 mg PO Q6H PRN PRN Reason: agitation Sertraline HCl (Sertraline Hcl 50 Mg Tablet) 50 mg PO DAILY [facility] Last Admin: 09/16/22 08:06 Dose: 50 mg Trazodone HCl (Trazodone Hcl 50 Mg Tablet) 50 mg PO BEDTIME PRN PRN Reason: Insomnia Last Admin: 09/10/22 21:42 Dose: 50 mg Allergies Allergies Allergy/AdvReac Type Severity Reaction Status Date / Time No Known Allergies Allergy Verified 06/12/20 12:45 [No Known Allergies*] Assessment & Plan Assessment & Plan (1) Major neurocognitive disorder, due to Alzheimer's disease, without behavioral disturbance, severe: Status: Acute Code(s): G30.9 - Alzheimer's disease, unspecified; F02.C0 - Dementia in other diseases classified elsewhere, severe, without behavioral disturbance, psychotic disturbance, mood disturbance, and anxiety Plan Mr. 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 Pt was brough[place] [facility] after he was found lying on floor and had made suicide statement. Per nephew, pt had been making suicidal statements for a months and nephew concern that pt may jump off [employer]. Also, pt lives at [facility] but it appears facility not able to meet his need. On the unit, pt does not remember events leading to this admission. Pt presents with severe cognitive and memory impairments with orientation only to self. PLAN 09/15 continue tx. 09/16 continue tx. Reason for continued inpatient stay Substantial Risk for: inability to function Time Spent With Patient Time: Total time managing care of this patient today ____ minutes.
[2022-09-16 19:30] VITALS: BP 126/59; PULSE 79; RESP 16; TEMP 36.6; O2SAT 97
[2022-09-16] MEDS: Finasteride 5 MG TABLET PO (20:14)
[2022-09-16] MEDS: Donepezil HCl 10 MG TABLET PO (20:14)
[2022-09-17] MEDS: traZODone HCL 50 MG TABLET PO (01:41)
[2022-09-17] MEDS: hydrOXYzine HCL 25 MG TABLET PO (01:41)
[2022-09-17 04:29] VITALS: BP 125/64; PULSE 86; RESP 16; TEMP 36.4; O2SAT 96
--- NOTE | 2022-09-17 04:52 | PC.NURSE ---
PT awake at [address] and time, asked to get up sat in dinning area for a short time . He became anxious about a peer who was being loud and intrusive. He returned to his room after receiving PRN trazodone and atarax . He vomited a large amount of undigested food VS 149/102 P 92 SAT 97% R 19 T 97.4 Waited 30 min and retook VS T 97.6 P86 R 16 BP 125/64 Sat 96% HE was restful with no c/o stomach upset or discomfort, and was able to sleep . continued to monitor throughout the shift
[2022-09-17] MEDS: Omeprazole 20 MG CAPSULE.DR PO (06:42)
[2022-09-17 08:30] VITALS: BP 132/66; PULSE 77; RESP 18; TEMP 36.7; O2SAT 97
[2022-09-17] MEDS: Aspirin Enteric Coated 81 MG TABLET.DR PO (08:30)
[2022-09-17] MEDS: metFORMIN HCl 500 MG TABLET PO ×2 (08:30→16:23)
[2022-09-17] MEDS: amLODIPine Besylate 5 MG TABLET PO (08:30)
[2022-09-17] MEDS: carvediloL 3.125 MG TABLET PO ×2 (08:31→20:17)
[2022-09-17] MEDS: Atorvastatin Calcium 80 MG TABLET PO (08:31)
[2022-09-17] MEDS: Sertraline HCL 50 MG TABLET PO (08:31)
[2022-09-17] MEDS: Clopidogrel Bisulfate 75 MG TABLET PO (08:31)
--- NOTE | 2022-09-17 18:22 | P.PNPSI_ITS ---
Subjective Subjective Date of Service: 09/17/22 Reason For Visit: Unspecified Depressive Disorder Interim History: Pt presents as pleasant but in bed this morning. He reports weakness in both legs but denies pain. per nursing, pt eating and sleeping well. Bright, non labile affect. ambulating with walker. He denies SI/HI. Review of Systems Review of Systems Pt denies pain, chest pain. NO SOB. reviewed limited by fact that he has severe memory/cognitive impairments. Mental Status Exam Mental Status Exam Narrative: Appearance: wearing hospital gown, fair hygiene, in NAD Behavior: cooperative Psychomotor: no agitation or retardation noted Speech: clear, normal rate/rhythm/volume, spontaneous TP: mostly linear TC:no overt delusions or psychosis, feeling good Mood: good Affect: congruent SI: denies, adamantly denies HI: denies VH/AH: none Delusions: none Insight/judgment: impaired x 2. Memory/cog: alert, not oriented to place, situation, month, year. severe underlying dementia. Diagnostics Vital Signs (24Hr): Vital Signs - 24 hr 09/16/22 19:30 09/17/22 04:29 09/17/22 08:30 Temperature 97.9 F 97.6 F 98.1 F Pulse Rate 79 86 77 Respiratory Rate 16 16 18 Blood Pressure 126/59 L 125/64 132/66 Pulse Oximetry 97 96 97 Oxygen Delivery Method Room Air Room Air Room Air BMI result Body Mass Index 21.0 Labs 09/08/22 07:56 09/08/22 07:56 Labs: Laboratory Results - last 48 hr 09/15/22 09/16/22 21:15 07:44 POC Glucose 152 H 152 H Medications Medications Current Medications Acetaminophen (Acetaminophen 325 Mg Tablet) 650 mg PO Q6H PRN PRN Reason: Headache/Pain Mild Scale (1-3) Last Admin: 09/12/22 14:45 Dose: 650 mg Al Hydroxide/Mg Hydroxide (Magnesium Hydrox/Alum Hydrox 30 Ml Oral.Susp) 30 ml PO Q6H PRN PRN Reason: Heartburn/Nausea Amlodipine Besylate (Amlodipine Besylate 5 Mg Tablet) 5 mg PO DAILY [facility]; Protocol Last Admin: 09/17/22 08:30 Dose: 5 mg Artificial Tears (Artificial Tears 15 Ml Drops) 1 drop EYE-BOTH Q4H PRN PRN Reason: Dryness Aspirin (Aspirin Enteric Coated 81 Mg Tablet.) 81 mg PO DAILY [facility] Last Admin: 09/17/22 08:30 Dose: 81 mg Atorvastatin Calcium (Atorvastatin Calcium 80 Mg Tablet) 80 mg PO DAILY [facility] Last Admin: 09/17/22 08:31 Dose: 80 mg Carvedilol (Carvedilol 3.125 Mg Tablet) 3.125 mg PO BID [facility]; Protocol Last Admin: 09/17/22 08:31 Dose: 3.125 mg Clopidogrel Bisulfate (Clopidogrel Bisulfate 75 Mg Tablet) 75 mg PO DAILY [facility] Last Admin: 09/17/22 08:31 Dose: 75 mg Donepezil HCl (Donepezil Hcl 10 Mg Tablet) 10 mg PO BEDTIME [facility] Last Admin: 09/16/22 20:14 Dose: 10 mg Finasteride (Finasteride 5 Mg Tablet) 5 mg PO BEDTIME [facility] Last Admin: 09/16/22 20:14 Dose: 5 mg Hydroxyzine HCl (Hydroxyzine Hcl 25 Mg Tablet) 25 mg PO Q6H PRN PRN Reason: Anxiety Last Admin: 09/17/22 01:41 Dose: 25 mg Magnesium Hydroxide (Milk Of Magnesia 30 Ml Oral.Susp) 30 ml PO DAILY PRN PRN Reason: Constipation Metformin HCl (Metformin Hcl 500 Mg Tablet) 500 mg PO BIDWM [facility] Last Admin: 09/17/22 16:23 Dose: 500 mg Omeprazole (Omeprazole 20 Mg Capsule.) 20 mg PO DAILY@0630 [facility] Last Admin: 09/17/22 06:42 Dose: 20 mg Quetiapine Fumarate (Quetiapine Fumarate 50 Mg Tablet) 50 mg PO Q6H PRN PRN Reason: agitation Sertraline HCl (Sertraline Hcl 50 Mg Tablet) 50 mg PO DAILY [facility] Last Admin: 09/17/22 08:31 Dose: 50 mg Trazodone HCl (Trazodone Hcl 50 Mg Tablet) 50 mg PO BEDTIME PRN PRN Reason: Insomnia Last Admin: 09/17/22 01:41 Dose: 50 mg Allergies Allergies Allergy/AdvReac Type Severity Reaction Status Date / Time No Known Allergies Allergy Verified 06/12/20 12:45 [No Known Allergies*] Assessment & Plan Assessment & Plan (1) Major neurocognitive disorder, due to Alzheimer's disease, without behavioral disturbance, severe: Status: Acute Code(s): G30.9 - Alzheimer's disease, unspecified; F02.C0 - Dementia in other diseases classified elsewhere, severe, without behavioral disturbance, psychotic disturbance, mood disturbance, and anxiety Plan Mr. 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 [place] [facility] [place] he was found lying on floor and had made suicide statement. Per nephew, pt had been making suicidal statements for a months and nephew concern that pt may jump off [employer]. Also, pt lives at [facility] but it appears facility not able to meet his need. On the unit, pt does not remember events leading to this admission. Pt presents with severe cognitive and memory impairments with orientation only to self. PLAN 09/15 continue tx. 09/16 continue tx. Reason for continued inpatient stay Substantial Risk for: inability to function Time Spent With Patient Time: Total time managing care of this patient today ____ minutes.
[2022-09-17 19:30] VITALS: BP 137/85; PULSE 73; RESP 16; TEMP 36.6; O2SAT 96
[2022-09-17] MEDS: Donepezil HCl 10 MG TABLET PO (20:17)
[2022-09-17] MEDS: Finasteride 5 MG TABLET PO (20:17)
[2022-09-17 20:57] LABS: Glucose, Whole Blood 127 mg/dL (60-115)
[2022-09-18 07:21] LABS: Creatinine Clr Calc Pharmacy 45.3; Estimated Glomerular Filt Rate 54
[2022-09-18] MEDS: metFORMIN HCl 500 MG TABLET PO ×2 (08:36→16:09)
[2022-09-18] MEDS: Sertraline HCL 50 MG TABLET PO (08:36)
[2022-09-18] MEDS: Clopidogrel Bisulfate 75 MG TABLET PO (08:36)
[2022-09-18] MEDS: amLODIPine Besylate 5 MG TABLET PO (08:36)
[2022-09-18] MEDS: Atorvastatin Calcium 80 MG TABLET PO (08:37)
[2022-09-18] MEDS: carvediloL 3.125 MG TABLET PO ×2 (08:37→20:35)
[2022-09-18] MEDS: Aspirin Enteric Coated 81 MG TABLET.DR PO (08:38)
[2022-09-18 08:40] VITALS: BP 131/72; PULSE 82; RESP 18; TEMP 36.6; O2SAT 95
--- NOTE | 2022-09-18 13:58 | P.PNPSI_ITS ---
Subjective Subjective Date of Service: 09/18/22 Reason For Visit: Unspecified Depressive Disorder Subjective Notes: Conditional Voluntary Interim History: Pt continues to present as pleasant but in bed this morning. He asks this marketing copywriter if SW has found place for him to go. Pt informed no placement yet, which pt showed understanding. per nursing, pt eating and sleeping well. Bright, non labile affect. ambulating with walker. He denies SI/HI. Review of Systems Review of Systems Pt denies pain, chest pain. NO SOB. reviewed limited by fact that he has severe memory/cognitive impairments. Mental Status Exam Mental Status Exam Narrative: Appearance: wearing hospital gown, fair hygiene, in NAD Behavior: cooperative Psychomotor: no agitation or retardation noted Speech: clear, normal rate/rhythm/volume, spontaneous TP: mostly linear TC:no overt delusions or psychosis, feeling good Mood: good Affect: congruent SI: denies, adamantly denies HI: denies VH/AH: none Delusions: none Insight/judgment: impaired x 2. Memory/cog: alert, not oriented to place, situation, month, year. severe underlying dementia. Diagnostics Vital Signs (24Hr): Vital Signs - 24 hr 09/17/22 19:30 09/18/22 08:40 Temperature 97.8 F 97.8 F Pulse Rate 73 82 Respiratory Rate 16 18 Blood Pressure 137/85 131/72 Pulse Oximetry 96 95 Oxygen Delivery Method Room Air Room Air BMI result Body Mass Index 21.0 Labs 09/08/22 07:56 09/18/22 06:37 Labs: Laboratory Results - last 48 hr 09/17/22 09/18/22 20:37 06:37 Creatinine 1.29 Estim Creat Clear Calc 45.3 Estimated GFR 54 POC Glucose 127 H Medications Medications Current Medications Acetaminophen (Acetaminophen 325 Mg Tablet) 650 mg PO Q6H PRN PRN Reason: Headache/Pain Mild Scale (1-3) Last Admin: 09/12/22 14:45 Dose: 650 mg Al Hydroxide/Mg Hydroxide (Magnesium Hydrox/Alum Hydrox 30 Ml Oral.Susp) 30 ml PO Q6H PRN PRN Reason: Heartburn/Nausea Amlodipine Besylate (Amlodipine Besylate 5 Mg Tablet) 5 mg PO DAILY [facility]; Protocol Last Admin: 09/18/22 08:36 Dose: 5 mg Artificial Tears (Artificial Tears 15 Ml Drops) 1 drop EYE-BOTH Q4H PRN PRN Reason: Dryness Aspirin (Aspirin Enteric Coated 81 Mg Tablet.) 81 mg PO DAILY [facility] Last Admin: 09/18/22 08:38 Dose: 81 mg Atorvastatin Calcium (Atorvastatin Calcium 80 Mg Tablet) 80 mg PO DAILY [facility] Last Admin: 09/18/22 08:37 Dose: 80 mg Carvedilol (Carvedilol 3.125 Mg Tablet) 3.125 mg PO BID [facility]; Protocol Last Admin: 09/18/22 08:37 Dose: 3.125 mg Clopidogrel Bisulfate (Clopidogrel Bisulfate 75 Mg Tablet) 75 mg PO DAILY [facility] Last Admin: 09/18/22 08:36 Dose: 75 mg Donepezil HCl (Donepezil Hcl 10 Mg Tablet) 10 mg PO BEDTIME [facility] Last Admin: 09/17/22 20:17 Dose: 10 mg Finasteride (Finasteride 5 Mg Tablet) 5 mg PO BEDTIME [facility] Last Admin: 09/17/22 20:17 Dose: 5 mg Hydroxyzine HCl (Hydroxyzine Hcl 25 Mg Tablet) 25 mg PO Q6H PRN PRN Reason: Anxiety Last Admin: 09/17/22 01:41 Dose: 25 mg Magnesium Hydroxide (Milk Of Magnesia 30 Ml Oral.Susp) 30 ml PO DAILY PRN PRN Reason: Constipation Metformin HCl (Metformin Hcl 500 Mg Tablet) 500 mg PO BIDWM [facility] Last Admin: 09/18/22 08:36 Dose: 500 mg Omeprazole (Omeprazole 20 Mg Capsule.) 20 mg PO DAILY@0630 [facility] Last Admin: 09/18/22 08:37 Dose: Not Given Quetiapine Fumarate (Quetiapine Fumarate 50 Mg Tablet) 50 mg PO Q6H PRN PRN Reason: agitation Sertraline HCl (Sertraline Hcl 50 Mg Tablet) 50 mg PO DAILY [facility] Last Admin: 09/18/22 08:36 Dose: 50 mg Trazodone HCl (Trazodone Hcl 50 Mg Tablet) 50 mg PO BEDTIME PRN PRN Reason: Insomnia Last Admin: 09/17/22 01:41 Dose: 50 mg Allergies Allergies Allergy/AdvReac Type Severity Reaction Status Date / Time No Known Allergies Allergy Verified 06/12/20 12:45 [No Known Allergies*] Assessment & Plan Assessment & Plan (1) Major neurocognitive disorder, due to Alzheimer's disease, without behavioral disturbance, severe: Status: Acute Code(s): G30.9 - Alzheimer's disease, unspecified; F02.C0 - Dementia in other diseases classified elsewhere, severe, without behavioral disturbance, psychotic disturbance, mood disturbance, and anxiety Plan Mr. 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 Pt was broughht to [facility] [place] after he was found lying on floor and had made suicide statement. Per nephew, pt had been making garza icidal statements for a months and nephew concern that pt may jump off [employer]. Also, pt lives at [facility] but it appears facility not able to meet his need. On the unit, pt does not remember events leading to this admission. Pt presents with severe cognitive and memory impairments with orientation only to self. PLAN 09/15 continue tx. 09/16 continue tx. 09/17 continue tx 09/18 continue tx. Reason for continued inpatient stay Substantial Risk for: inability to function Time Spent With Patient Time: Total time managing care of this patient today ____ minutes.
[2022-09-18 17:26] VITALS: BP 123/85; PULSE 81; RESP 18; TEMP 36.5
[2022-09-18 17:45] VITALS: BP 150/91; PULSE 79
[2022-09-18 17:47] VITALS: BP 137/88; PULSE 80
--- NOTE | 2022-09-18 18:10 | PM.EVENT ---
Event Note Date of Service: 09/18/22 Event Note: Pt seen and examined s/p mechanical fall. Per nursing, pt has had flat affect all day, leaning to left sidewhile seated, and did not eat lunch today. Pt was getting up to use walker and lost his footing. He denies any prodrome including lightheadedness, palpitations, sob, or chest pain. No visual changes, weakness, or paresthesias noted. The fall was witnessed and there was no head injury or LOC. Pt was assisted to his feet. He is observed to be overly confident when ambulating, noted to have gait instability at baseline. Turns with walker without caution and attempts to ambulate without walker. Reviewed vital signs which are negative for orthostatic hypotension. Per nursing report, initially was complaining of pain over the left ribs and xray is pending. On my exam patient denies any pain. Joints including hips are nontender to palpation. He is moving all extremities independently with 5/5 strength in BUE and BLE. CN II-XII in tact. No additional intervention recommended at this time but would continue chair alarm, strict walker use. Time Spent With Patient Time: Total time managing care of this patient today ____ minutes.
--- NOTE | 2022-09-18 18:17 | PC.NURSE ---
At 17:25 pt. observed by this RN to rise from dining room table and while reaching for walker, lost his balance and fell sideways to his L torso. Pt. denied pain, except, A little, in his L rib. Able to move all extremities, laughing and joking and stating embarassment. Pt. assisted off floor and into chair. Vital signs stable and recorded. Sit to stand ortho BP unremarkable. Nursing screw supervisor and Dr. Thrasher notified. CXR and hospitalist consult ordered. Message left for HCP to call unit for update. Cordless chair alarm placed on pt's chair and bed alarm to be continued.
[2022-09-18 19:58] LABS: Glucose, Whole Blood 156 mg/dL (60-115)
[2022-09-18] MEDS: Finasteride 5 MG TABLET PO (20:35)
[2022-09-18] MEDS: Donepezil HCl 10 MG TABLET PO (20:36)
[2022-09-18 20:40] VITALS: BP 126/63; PULSE 78; RESP 16; TEMP 36.1; O2SAT 97
[2022-09-19] MEDS: Omeprazole 20 MG CAPSULE.DR PO (05:30)
[2022-09-19 06:00] VITALS: BP 132/80; PULSE 80; RESP 16; TEMP 36.5; O2SAT 97
[2022-09-19] MEDS: Atorvastatin Calcium 80 MG TABLET PO (08:01)
[2022-09-19] MEDS: Sertraline HCL 50 MG TABLET PO (08:01)
[2022-09-19] MEDS: metFORMIN HCl 500 MG TABLET PO ×2 (08:01→16:06)
[2022-09-19] MEDS: carvediloL 3.125 MG TABLET PO ×2 (08:01→21:34)
[2022-09-19] MEDS: Clopidogrel Bisulfate 75 MG TABLET PO (08:01)
[2022-09-19] MEDS: Aspirin Enteric Coated 81 MG TABLET.DR PO (08:01)
[2022-09-19] MEDS: amLODIPine Besylate 5 MG TABLET PO (08:01)
--- NOTE | 2022-09-19 16:01 | P.PNPSI_ITS ---
Subjective Subjective Date of Service: 09/19/22 Reason For Visit: Unspecified Depressive Disorder Interim History: Pt ambulating with walker. He denies any physical concerns. No SI/HI. Per nursing, pt slept through the night. NO behavioral concerns. Medication Compliance: Yes Review of Systems Review of Systems Pt denies pain, chest pain. NO SOB. reviewed limited by fact that he has severe memory/cognitive impairments. Mental Status Exam Mental Status Exam Narrative: Appearance: wearing hospital gown, fair hygiene, in NAD Behavior: cooperative Psychomotor: no agitation or retardation noted Speech: clear, normal rate/rhythm/volume, spontaneous TP: mostly linear TC:no overt delusions or psychosis, feeling good Mood: good Affect: congruent SI: denies, adamantly denies HI: denies VH/AH: none Delusions: none Insight/judgment: impaired x 2. Memory/cog: alert, not oriented to place, situation, month, year. severe underlying dementia. Diagnostics Vital Signs (24Hr): Vital Signs - 24 hr 09/18/22 17:26 09/18/22 17:45 09/18/22 17:47 Temperature 97.7 F Pulse Rate 81 79 80 Respiratory Rate 18 Blood Pressure 123/85 150/91 H 137/88 Pulse Oximetry Oxygen Delivery Method Room Air 09/18/22 20:40 09/19/22 06:00 Temperature 97 F 97.7 F Pulse Rate 78 80 Respiratory Rate 16 16 Blood Pressure 126/63 132/80 Pulse Oximetry 97 97 Oxygen Delivery Method Room Air Room Air BMI result Body Mass Index 21.0 Labs 09/08/22 07:56 09/18/22 06:37 Labs: Laboratory Results - last 48 hr 09/17/22 09/18/22 09/18/22 20:37 06:37 19:53 Creatinine 1.29 Estim Creat Clear Calc 45.3 Estimated GFR 54 POC Glucose 127 H 156 H Imaging Radiology Impressions: ITS Impressions Chest X-Ray 09/18/22 18:40 IMPRESSION: Low lung volumes. No evidence for acute disease in the chest. Medications Medications Current Medications Acetaminophen (Acetaminophen 325 Mg Tablet) 650 mg PO Q6H PRN PRN Reason: Headache/Pain Mild Scale (1-3) Last Admin: 09/12/22 14:45 Dose: 650 mg Al Hydroxide/Mg Hydroxide (Magnesium Hydrox/Alum Hydrox 30 Ml Oral.Susp) 30 ml PO Q6H PRN PRN Reason: Heartburn/Nausea Amlodipine Besylate (Amlodipine Besylate 5 Mg Tablet) 5 mg PO DAILY [facility]; Protocol Last Admin: 09/19/22 08:01 Dose: 5 mg Artificial Tears (Artificial Tears 15 Ml Drops) 1 drop EYE-BOTH Q4H PRN PRN Reason: Dryness Aspirin (Aspirin Enteric Coated 81 Mg Tablet.) 81 mg PO DAILY [facility] Last Admin: 09/19/22 08:01 Dose: 81 mg Atorvastatin Calcium (Atorvastatin Calcium 80 Mg Tablet) 80 mg PO DAILY [facility] Last Admin: 09/19/22 08:01 Dose: 80 mg Carvedilol (Carvedilol 3.125 Mg Tablet) 3.125 mg PO BID [facility]; Protocol Last Admin: 09/19/22 08:01 Dose: 3.125 mg Clopidogrel Bisulfate (Clopidogrel Bisulfate 75 Mg Tablet) 75 mg PO DAILY [facility] Last Admin: 09/19/22 08:01 Dose: 75 mg Donepezil HCl (Donepezil Hcl 10 Mg Tablet) 10 mg PO BEDTIME [facility] Last Admin: 09/18/22 20:36 Dose: 10 mg Finasteride (Finasteride 5 Mg Tablet) 5 mg PO BEDTIME [facility] Last Admin: 09/18/22 20:35 Dose: 5 mg Hydroxyzine HCl (Hydroxyzine Hcl 25 Mg Tablet) 25 mg PO Q6H PRN PRN Reason: Anxiety Last Admin: 09/17/22 01:41 Dose: 25 mg Magnesium Hydroxide (Milk Of Magnesia 30 Ml Oral.Susp) 30 ml PO DAILY PRN PRN Reason: Constipation Metformin HCl (Metformin Hcl 500 Mg Tablet) 500 mg PO BIDWM [facility] Last Admin: 09/19/22 08:01 Dose: 500 mg Omeprazole (Omeprazole 20 Mg Capsule.) 20 mg PO DAILY@0630 [facility] Last Admin: 09/19/22 05:30 Dose: 20 mg Quetiapine Fumarate (Quetiapine Fumarate 50 Mg Tablet) 50 mg PO Q6H PRN PRN Reason: agitation Sertraline HCl (Sertraline Hcl 50 Mg Tablet) 50 mg PO DAILY [facility] Last Admin: 09/19/22 08:01 Dose: 50 mg Trazodone HCl (Trazodone Hcl 50 Mg Tablet) 50 mg PO BEDTIME PRN PRN Reason: Insomnia Last Admin: 09/17/22 01:41 Dose: 50 mg Allergies Allergies Allergy/AdvReac Type Severity Reaction Status Date / Time No Known Allergies Allergy Verified 06/12/20 12:45 [No Known Allergies*] Assessment & Plan Assessment & Plan (1) Major neurocognitive disorder, due to Alzheimer's disease, without behavioral disturbance, severe: Status: Acute Code(s): G30.9 - Alzheimer's disease, unspecified; F02.C0 - Dementia in other diseases classified elsewhere, severe, without behavioral disturbance, psychotic disturbance, mood disturbance, and anxiety Plan Mr. 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 Pt was broughht [place] [facility] [place] he was found lying on floor and had made suicide statement. Per nephew, pt had been making suicidal statements for a months and nephew concern that pt may jump off [employer]. Also, pt lives at [facility] but it appears facility not able to meet his need. On the unit, pt does not remember events leading to this admission. Pt presents with severe cognitive and memory impairments with orientation only to self. PLAN 09/15 continue tx. 09/16 continue tx. 09/17 continue tx 09/18 continue tx. 09/19 continue tx. Reason for continued inpatient stay Substantial Risk for: inability to function Time Spent With Patient Time: Total time managing care of this patient today ____ minutes.
[2022-09-19 21:10] VITALS: BP 127/67; PULSE 81; RESP 16; TEMP 36.4; O2SAT 95
[2022-09-19] MEDS: Donepezil HCl 10 MG TABLET PO (21:34)
[2022-09-19] MEDS: Finasteride 5 MG TABLET PO (21:34)
--- NOTE | 2022-09-20 | ECG_ITS ---
Test Reason : chest discomfort Blood Pressure : / mmHG Vent. Rate : 072 BPM Atrial Rate : 072 BPM P-R Int : 140 ms QRS Dur : 078 ms QT Int : 402 ms P-R-T Axes : 039 073 091 degrees QTc Int : 440 ms Normal sinus rhythm Septal infarct , age undetermined ST & T wave abnormality, consider anterior ischemia Abnormal ECG When compared with ECG of 02-MAY-2020 13:48, Septal infarct is now Present Nonspecific T wave abnormality no longer evident in Inferior leads T wave inversion now evident in Anterior leads Referred By: Allison Mojica Electronically Signed By:AINSLEY TEE MD
[2022-09-20] MEDS: Omeprazole 20 MG CAPSULE.DR PO (06:03)
[2022-09-20 08:30] VITALS: BP 137/77; PULSE 86; RESP 16; TEMP 36; O2SAT 97
[2022-09-20] MEDS: Acetaminophen 325 MG TABLET 650 MG PO (08:35)
[2022-09-20] MEDS: Aspirin Enteric Coated 81 MG TABLET.DR PO (08:35)
[2022-09-20] MEDS: Sertraline HCL 50 MG TABLET PO (08:37)
[2022-09-20] MEDS: amLODIPine Besylate 5 MG TABLET PO (08:37)
[2022-09-20] MEDS: metFORMIN HCl 500 MG TABLET PO ×2 (08:37→16:58)
[2022-09-20] MEDS: carvediloL 3.125 MG TABLET PO ×2 (08:37→21:13)
[2022-09-20] MEDS: Clopidogrel Bisulfate 75 MG TABLET PO (08:37)
[2022-09-20] MEDS: Atorvastatin Calcium 80 MG TABLET PO (08:37)
[2022-09-20 11:21] LABS: Troponin-I High Sensitivity 11.3 ng/L (<3.5-35.0)
[2022-09-20 18:00] VITALS: BP 127/70; PULSE 83; RESP 17; TEMP 36.1; O2SAT 97
--- NOTE | 2022-09-20 18:24 | HO.PSYCHPN ---
Subjective Subjective Date of Service: 09/20/22 Reason For Visit: Unspecified Depressive Disorder Subjective Notes: Conditional Voluntary Interim History: Pt reports feeling so, so When asked to elaborate, pt does not provide more detail. We did EKG- reviewed by hospitalist, no significant change from one from 08/31. Troponin less than 17. Pt visible at times, social with peers. No behavioral concerns. Review of Systems Review of Systems Pt denies pain, chest pain. NO SOB. reviewed limited by fact that he has severe memory/cognitive impairments. Mental Status Exam Mental Status Exam Narrative: Appearance: wearing hospital gown, fair hygiene, in NAD Behavior: cooperative Psychomotor: no agitation or retardation noted Speech: clear, normal rate/rhythm/volume, spontaneous TP: mostly linear TC:no overt delusions or psychosis, feeling good Mood: good Affect: congruent SI: denies, adamantly denies HI: denies VH/AH: none Delusions: none Insight/judgment: impaired x 2. Memory/cog: alert, not oriented to place, situation, month, year. severe underlying dementia. Diagnostics Vital Signs (24Hr): Vital Signs - 24 hr 09/19/22 21:10 09/20/22 08:30 Temperature 97.5 F 96.8 F Pulse Rate 81 86 Respiratory Rate 16 16 Blood Pressure 127/67 137/77 Pulse Oximetry 95 97 Oxygen Delivery Method Room Air Room Air BMI result Body Mass Index 21.0 Labs 09/08/22 07:56 09/18/22 06:37 Labs: Laboratory Results - last 48 hr 09/18/22 09/20/22 19:53 10:55 POC Glucose 156 H Troponin I High Sens 11.3 Imaging Radiology Impressions: ITS Impressions Chest X-Ray 09/18/22 18:40 IMPRESSION: Low lung volumes. No evidence for acute disease in the chest. Medications Medications Current Medications Acetaminophen (Acetaminophen 325 Mg Tablet) 650 mg PO Q6H PRN PRN Reason: Headache/Pain Mild Scale (1-3) Last Admin: 09/20/22 08:35 Dose: 650 mg Al Hydroxide/Mg Hydroxide (Magnesium Hydrox/Alum Hydrox 30 Ml Oral.Susp) 30 ml PO Q6H PRN PRN Reason: Heartburn/Nausea Amlodipine Besylate (Amlodipine Besylate 5 Mg Tablet) 5 mg PO DAILY [facility]; Protocol Last Admin: 09/20/22 08:37 Dose: 5 mg Artificial Tears (Artificial Tears 15 Ml Drops) 1 drop EYE-BOTH Q4H PRN PRN Reason: Dryness Aspirin (Aspirin Enteric Coated 81 Mg Tablet.) 81 mg PO DAILY [facility] Last Admin: 09/20/22 08:35 Dose: 81 mg Atorvastatin Calcium (Atorvastatin Calcium 80 Mg Tablet) 80 mg PO DAILY [facility] Last Admin: 09/20/22 08:37 Dose: 80 mg Carvedilol (Carvedilol 3.125 Mg Tablet) 3.125 mg PO BID [facility]; Protocol Last Admin: 09/20/22 08:37 Dose: 3.125 mg Clopidogrel Bisulfate (Clopidogrel Bisulfate 75 Mg Tablet) 75 mg PO DAILY [facility] Last Admin: 09/20/22 08:37 Dose: 75 mg Donepezil HCl (Donepezil Hcl 10 Mg Tablet) 10 mg PO BEDTIME [facility] Last Admin: 09/19/22 21:34 Dose: 10 mg Finasteride (Finasteride 5 Mg Tablet) 5 mg PO BEDTIME [facility] Last Admin: 09/19/22 21:34 Dose: 5 mg Hydroxyzine HCl (Hydroxyzine Hcl 25 Mg Tablet) 25 mg PO Q6H PRN PRN Reason: Anxiety Last Admin: 09/17/22 01:41 Dose: 25 mg Magnesium Hydroxide (Milk Of Magnesia 30 Ml Oral.Susp) 30 ml PO DAILY PRN PRN Reason: Constipation Metformin HCl (Metformin Hcl 500 Mg Tablet) 500 mg PO BIDWM [facility] Last Admin: 09/20/22 16:58 Dose: 500 mg Omeprazole (Omeprazole 20 Mg Capsule.Dr) 20 mg PO DAILY@0630 [facility] Last Admin: 09/20/22 06:03 Dose: 20 mg Quetiapine Fumarate (Quetiapine Fumarate 50 Mg Tablet) 50 mg PO Q6H PRN PRN Reason: agitation Sertraline HCl (Sertraline Hcl 50 Mg Tablet) 50 mg PO DAILY [facility] Last Admin: 09/20/22 08:37 Dose: 50 mg Trazodone HCl (Trazodone Hcl 50 Mg Tablet) 50 mg PO BEDTIME PRN PRN Reason: Insomnia Last Admin: 09/17/22 01:41 Dose: 50 mg Allergies Allergies Allergy/AdvReac Type Severity Reaction Status Date / Time No Known Allergies Allergy Verified 06/12/20 12:45 [No Known Allergies*] Assessment & Plan Assessment & Plan (1) Major neurocognitive disorder, due to Alzheimer's disease, without behavioral disturbance, severe: Status: Acute Code(s): G30.9 - Alzheimer's disease, unspecified; F02.C0 - Dementia in other diseases classified elsewhere, severe, without behavioral disturbance, psychotic disturbance, mood disturbance, and anxiety Plan Mr. 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 Pt was broughht to [facility] after he was found lying on floor and had made suicide statement. Per nephew, pt had been making suicidal statements for a months and nephew concern that pt may jump off [employer]. Also, pt lives at [facility] but it appears facility not able to meet his need. On the unit, pt does not remember events leading to this admission. Pt presents with severe cognitive and memory impairments with orientation only to self. PLAN 09/15 continue tx. 09/16 continue tx. 09/17 continue tx 09/18 continue tx. 09/19 continue tx. 09/20 continue tx. Reason for continued inpatient stay Substantial Risk for: inability to function Time Spent With Patient Time: Total time managing care of this patient today ____ minutes.
[2022-09-20] MEDS: Finasteride 5 MG TABLET PO (21:12)
[2022-09-20] MEDS: Donepezil HCl 10 MG TABLET PO (21:13)
[2022-09-21 08:50] VITALS: BP 149/78; PULSE 79; RESP 18; TEMP 36.1; O2SAT 99
[2022-09-21] MEDS: Atorvastatin Calcium 80 MG TABLET PO (08:53)
[2022-09-21] MEDS: Sertraline HCL 50 MG TABLET PO (08:53)
[2022-09-21] MEDS: Aspirin Enteric Coated 81 MG TABLET.DR PO (08:53)
[2022-09-21] MEDS: metFORMIN HCl 500 MG TABLET PO ×2 (08:54→16:46)
[2022-09-21] MEDS: amLODIPine Besylate 5 MG TABLET PO (08:54)
[2022-09-21] MEDS: Clopidogrel Bisulfate 75 MG TABLET PO (08:54)
[2022-09-21] MEDS: Omeprazole 20 MG CAPSULE.DR PO (08:55)
[2022-09-21] MEDS: carvediloL 3.125 MG TABLET PO ×2 (08:55→19:56)
--- NOTE | 2022-09-21 09:01 | P.CNNE_ITS ---
History of Present Illness Data of Consult Service Date: 09/21/22 Primary Care Provider: DO ELI Davidson Reason for consult: Gait disorder 82 years old man admitted on psychiatric floor at this time with diagnosis of dementia and anxiety and diabetes I was asked to see for difficulty walking. He was not a good historian when I asked him how long he has been having difficulty walking, he stated that for long time. When asked to elaborate if that was for months or years he was not clear. At least for few months he was walking in this manner. There was no complaint of back pain loss of bowel bladder control. Review of Systems Review of Systems: No recent cold or flu-like PMFSH Past Medical History Medical History Anxiety BPH (benign prostatic hyperplasia) CAD (coronary artery disease) Dementia HTN (hypertension) Hypercholesterolemia Parkinsons Restless leg syndrome STEMI (ST elevation myocardial infarction) Type 2 diabetes mellitus with hyperglycemia Family History Family History Father No problems noted. Mother No problems noted. Surgical History Surgical History History of colonoscopy History of cystoscopy History of esophagogastroduodenoscopy (EGD) Social History Social History Household Members: None Housing: Assisted Living Facility Do you presently have visiting nurse or other home services: Yes Alcohol intake: former Patient Tobacco Use Status: Never used Tobacco e-Cigarette/Vaping Use: Never Used Use of substances other than those prescribed or required for medical reasons: No Currently Displaying Signs/Symptoms of Drug Intoxication Withdrawal: No Have you been hit, kicked, punched, or otherwise hurt by someone within the past year? If so, by whom?: No Do you feel safe in your current relationship?: No Current Relationship Is there a partner from a previous relationship who is making you feel unsafe now?: No Are you made to feel afraid or neglected: No Spiritual Healthcare Practices: Moravian Advance Directives: No Advance Directives Information Provided: No Do you have thoughts of harming others: None Do you have a plan to hurt others: No Plan Recently lost weight without trying: Unsure How much weight loss: Unsure Eating poorly because of decreased appetite: No Nutrition screen score: 4 Nutrition Risks: No Nutritional Risk Poor oral hygiene: No service: No Current occupational status: retired and disabled Sexual orientation: Straight/Heterosexual Meds Allergies Allergy/AdvReac Type Severity Reaction Status Date / Time No Known Allergies Allergy Verified 06/12/20 12:45 [No Known Allergies*] Active Medications: Current Medications Acetaminophen (Acetaminophen 325 Mg Tablet) 650 mg PO Q6H PRN PRN Reason: Headache/Pain Mild Scale (1-3) Last Admin: 09/20/22 08:35 Dose: 650 mg Al Hydroxide/Mg Hydroxide (Magnesium Hydrox/Alum Hydrox 30 Ml Oral.Susp) 30 ml PO Q6H PRN PRN Reason: Heartburn/Nausea Amlodipine Besylate (Amlodipine Besylate 5 Mg Tablet) 5 mg PO DAILY [facility]; Protocol Last Admin: 09/21/22 08:54 Dose: 5 mg Artificial Tears (Artificial Tears 15 Ml Drops) 1 drop EYE-BOTH Q4H PRN PRN Reason: Dryness Aspirin (Aspirin Enteric Coated 81 Mg Tablet.Dr) 81 mg PO DAILY [facility] Last Admin: 09/21/22 08:53 Dose: 81 mg Atorvastatin Calcium (Atorvastatin Calcium 80 Mg Tablet) 80 mg PO DAILY [facility] Last Admin: 09/21/22 08:53 Dose: 80 mg Carvedilol (Carvedilol 3.125 Mg Tablet) 3.125 mg PO BID [facility]; Protocol Last Admin: 09/21/22 08:55 Dose: 3.125 mg Clopidogrel Bisulfate (Clopidogrel Bisulfate 75 Mg Tablet) 75 mg PO DAILY [facility] Last Admin: 09/21/22 08:54 Dose: 75 mg Donepezil HCl (Donepezil Hcl 10 Mg Tablet) 10 mg PO BEDTIME [facility] Last Admin: 09/20/22 21:13 Dose: 10 mg Finasteride (Finasteride 5 Mg Tablet) 5 mg PO BEDTIME [facility] Last Admin: 09/20/22 21:12 Dose: 5 mg Hydroxyzine HCl (Hydroxyzine Hcl 25 Mg Tablet) 25 mg PO Q6H PRN PRN Reason: Anxiety Last Admin: 09/17/22 01:41 Dose: 25 mg Magnesium Hydroxide (Milk Of Magnesia 30 Ml Oral.Susp) 30 ml PO DAILY PRN PRN Reason: Constipation Metformin HCl (Metformin Hcl 500 Mg Tablet) 500 mg PO BIDWM [facility] Last Admin: 09/21/22 08:54 Dose: 500 mg Omeprazole (Omeprazole 20 Mg Capsule.Dr) 20 mg PO DAILY@0630 [facility] Last Admin: 09/21/22 08:55 Dose: 20 mg Quetiapine Fumarate (Quetiapine Fumarate 50 Mg Tablet) 50 mg PO Q6H PRN PRN Reason: agitation Sertraline HCl (Sertraline Hcl 50 Mg Tablet) 50 mg PO DAILY [facility] Last Admin: 09/21/22 08:53 Dose: 50 mg Trazodone HCl (Trazodone Hcl 50 Mg Tablet) 50 mg PO BEDTIME PRN PRN Reason: Insomnia Last Admin: 09/17/22 01:41 Dose: 50 mg Home Medications Medication Instructions Recorded Confirmed Last Taken Type donepezil 10 mg tablet 10 mg PO DAILY 04/23/20 11/02/20 Unknown History memantine 10 mg tablet (Namenda) 10 mg PO BID 04/23/20 11/02/20 Unknown History pantoprazole 40 mg tablet,delayed 40 mg PO DAILY 04/23/20 11/02/20 Unknown History release sertraline 50 mg tablet (Zoloft) 50 mg PO DAILY 04/23/20 11/02/20 Unknown History Physical Exam Vital Signs: Vital Signs: Last Vital Signs Temp 97 F 09/20/22 18:00 Pulse 83 09/20/22 18:00 Resp 17 09/20/22 18:00 BP 127/70 09/20/22 18:00 Pulse Ox 97 09/20/22 18:00 O2 Del Method Room Air 09/20/22 18:00 BMI result Body Mass Index 21.0 Neuro: Other: He is alert and awake with normal spontaneity of speech fluency comprehension and flat affect. Into was performed with the help of an language interpreter. Face is symmetrical. Visual pham are full. Gaze is full. There is no obvious tremor or bradykinesia. He is able to get up though with difficulty and walk briefly with a walker. He was walking on of white base short-stepped gait. Deep tendon reflexes are trace to absent with equivocal plantars. [id number] testing is okay per Results Labs 09/08/22 07:56 09/18/22 06:37 Labs: Noncontrast head CT revealed moderate to severe central and cortical cerebral and cerebellar atrophy and moderate to severe diffuse microvascular ischemic changes. Assessment and Plan (1) Multifactorial gait disorder: Status: Acute 82 years old man with significant cerebral central and cortical and cerebellar atrophy with significant ischemic vascular disease affecting cognitive fun ctioning and gait. There is an element of parkinsonism, which is vascular in nature. There is no particular specific treatment for these conditions, which could significantly improve his ambulation. I recommend experimenting with carbidopa levodopa 25/100 in the morning and 1 at noon time to see if that would improve his walking. If that helps, does could be further adjusted. Regular use of walker is recommended. (2) Multifactorial dementia: Status: Acute (3) Vascular parkinsonism: Status: Acute (4) Cerebral microvascular disease: Status: Acute (5) Primary degenerative dementia: Status: Acute Time Spent With Patient Time: Total time managing care of this patient today ____ minutes. Procedures Date of Service Date of Service: 09/21/22
[2022-09-21] MEDS: Magnesium Hydrox/Alum Hydrox 30 ML ORAL.SUSP PO (15:39)
[2022-09-21 15:56] VITALS: BMI 20.5
[2022-09-21 18:00] VITALS: BP 163/72; PULSE 69; RESP 16; TEMP 36.2
[2022-09-21] MEDS: Finasteride 5 MG TABLET PO (19:55)
[2022-09-21] MEDS: Donepezil HCl 10 MG TABLET PO (19:56)
--- NOTE | 2022-09-21 20:43 | P.PNPSI_ITS ---
Subjective Subjective Date of Service: 09/21/22 Reason For Visit: Unspecified Depressive Disorder Subjective Notes: Conditional Voluntary Interim History: Pt ambulating with walker. Pt seen by neurology who recommended trial of levo- carbadopa. Pt reports feeling well. He denies SI/HI. no signs of psychosis or delusions. No behavioral concerns. Medication Compliance: Yes Review of Systems Review of Systems No recent cold or flu-like Mental Status Exam Mental Status Exam Narrative: Appearance: wearing hospital gown, fair hygiene, in NAD Behavior: cooperative Psychomotor: no agitation or retardation noted Speech: clear, normal rate/rhythm/volume, spontaneous TP: mostly linear TC:no overt delusions or psychosis, feeling good Mood: good Affect: congruent SI: denies, adamantly denies HI: denies VH/AH: none Delusions: none Insight/judgment: impaired x 2. Memory/cog: alert, not oriented to place, situation, month, year. severe underlying dementia. Diagnostics Vital Signs (24Hr): Vital Signs - 24 hr 09/21/22 08:50 Temperature 96.9 F Pulse Rate 79 Respiratory Rate 18 Blood Pressure 149/78 H Pulse Oximetry 99 Oxygen Delivery Method Room Air BMI result Body Mass Index 20.5 Labs 09/08/22 07:56 09/18/22 06:37 Labs: Laboratory Results - last 48 hr 09/20/22 10:55 Troponin I High Sens 11.3 Imaging Radiology Impressions: ITS Impressions Chest X-Ray 09/18/22 18:40 IMPRESSION: Low lung volumes. No evidence for acute disease in the chest. Medications Medications Current Medications Acetaminophen (Acetaminophen 325 Mg Tablet) 650 mg PO Q6H PRN PRN Reason: Headache/Pain Mild Scale (1-3) Last Admin: 09/20/22 08:35 Dose: 650 mg Al Hydroxide/Mg Hydroxide (Magnesium Hydrox/Alum Hydrox 30 Ml Oral.Susp) 30 ml PO Q6H PRN PRN Reason: Heartburn/Nausea Last Admin: 09/21/22 15:39 Dose: 30 ml Amlodipine Besylate (Amlodipine Besylate 5 Mg Tablet) 5 mg PO DAILY [facility]; Pr otocol Last Admin: 09/21/22 08:54 Dose: 5 mg Artificial Tears (Artificial Tears 15 Ml Drops) 1 drop EYE-BOTH Q4H PRN PRN Reason: Dryness Aspirin (Aspirin Enteric Coated 81 Mg Tablet.Dr) 81 mg PO DAILY [facility] Last Admin: 09/21/22 08:53 Dose: 81 mg Atorvastatin Calcium (Atorvastatin Calcium 80 Mg Tablet) 80 mg PO DAILY [facility] Last Admin: 09/21/22 08:53 Dose: 80 mg Carvedilol (Carvedilol 3.125 Mg Tablet) 3.125 mg PO BID [facility]; Protocol Last Admin: 09/21/22 19:56 Dose: 3.125 mg Clopidogrel Bisulfate (Clopidogrel Bisulfate 75 Mg Tablet) 75 mg PO DAILY [facility] Last Admin: 09/21/22 08:54 Dose: 75 mg Donepezil HCl (Donepezil Hcl 10 Mg Tablet) 10 mg PO BEDTIME [facility] Last Admin: 09/21/22 19:56 Dose: 10 mg Finasteride (Finasteride 5 Mg Tablet) 5 mg PO BEDTIME [facility] Last Admin: 09/21/22 19:55 Dose: 5 mg Hydroxyzine HCl (Hydroxyzine Hcl 25 Mg Tablet) 25 mg PO Q6H PRN PRN Reason: Anxiety Last Admin: 09/17/22 01:41 Dose: 25 mg Magnesium Hydroxide (Milk Of Magnesia 30 Ml Oral.Susp) 30 ml PO DAILY PRN PRN Reason: Constipation Metformin HCl (Metformin Hcl 500 Mg Tablet) 500 mg PO BIDWM [facility] Last Admin: 09/21/22 16:46 Dose: 500 mg Omeprazole (Omeprazole 20 Mg Capsule.) 20 mg PO DAILY@0630 [facility] Last Admin: 09/21/22 08:55 Dose: 20 mg Quetiapine Fumarate (Quetiapine Fumarate 50 Mg Tablet) 50 mg PO Q6H PRN PRN Reason: agitation Sertraline HCl (Sertraline Hcl 50 Mg Tablet) 50 mg PO DAILY [facility] Last Admin: 09/21/22 08:53 Dose: 50 mg Trazodone HCl (Trazodone Hcl 50 Mg Tablet) 50 mg PO BEDTIME PRN PRN Reason: Insomnia Last Admin: 09/17/22 01:41 Dose: 50 mg Allergies Allergies Allergy/AdvReac Type Severity Reaction Status Date / Time No Known Allergies Allergy Verified 06/12/20 12:45 [No Known Allergies*] Assessment & Plan Assessment & Plan (1) Major neurocognitive disorder, due to Alzheimer's disease, without behavioral disturbance, severe: Status: Acute Code(s): G30.9 - Alzheimer's disease, unspecified; F02.C0 - Dementia in other diseases classified elsewhere, severe, without behavioral disturbance, psychotic disturbance, mood disturbance, and anxiety Plan 09/21 continue current treatment. angie do trial of levo/carbidopa next week for better assessment of response and improvement in gait. Reason for continued inpatient stay Substantial Risk for: inability to function Time Spent With Patient Time: Total time managing care of this patient today ____ minutes.
[2022-09-22 08:50] VITALS: BP 137/74; PULSE 78; RESP 18; TEMP 36.5; O2SAT 97
[2022-09-22] MEDS: Sertraline HCL 50 MG TABLET PO (08:59)
[2022-09-22] MEDS: Aspirin Enteric Coated 81 MG TABLET.DR PO (09:00)
[2022-09-22] MEDS: Clopidogrel Bisulfate 75 MG TABLET PO (09:00)
[2022-09-22] MEDS: Atorvastatin Calcium 80 MG TABLET PO (09:00)
[2022-09-22] MEDS: carvediloL 3.125 MG TABLET PO ×2 (09:00→20:27)
[2022-09-22] MEDS: amLODIPine Besylate 5 MG TABLET PO (09:00)
[2022-09-22] MEDS: Omeprazole 20 MG CAPSULE.DR PO (09:00)
[2022-09-22] MEDS: Acetaminophen 325 MG TABLET 650 MG PO ×2 (09:01→15:02)
[2022-09-22] MEDS: metFORMIN HCl 500 MG TABLET PO ×2 (09:02→16:19)
[2022-09-22] MEDS: Carbidopa/Levodopa 25/100 TABLET 1 TAB PO ×2 (09:44→20:27)
--- NOTE | 2022-09-22 14:42 | HO.PSYCHPN ---
Subjective Subjective Date of Service: 09/22/22 Reason For Visit: Unspecified Depressive Disorder Subjective Notes: Conditional Voluntary Interim History: The nursing staff reported the patient has been compliant with treatment, no new symptoms. The nursing home social worker reported that we will have a family meeting at 11:00 o'clock on Sunday. The neurologist suggested to try Sinemet to safe for the involuntary movements, we tried 1 dose in the morning with no side effects. We will start Sinemet 1 tablet twice a day. On interview the patient denies new symptoms he looks pleasantly confused. Mental Status Exam Mental Status Exam Patient Appearance: Well Grooomed and Appropriate Patient Orientation: Person and Situation Level of Consciousness: Awake and Appropriate Patient Behavior: Appropriate Mood Description: Calm and Constricted Affect Description: Withdrawn Patient Cognition Impaired: Yes Ability to Follow Directions: Good Speech Pattern: Clear Hallucinations: None Delusions: Not Present Thought Process: Distracted Thought Content: positive for Intact Judgement: Fair Diagnostics Vital Signs (24Hr): Vital Signs - 24 hr 09/21/22 18:00 09/22/22 08:50 Temperature 97.2 F 97.7 F Pulse Rate 69 78 Respiratory Rate 16 18 Blood Pressure 163/72 H 137/74 Pulse Oximetry 97 Oxygen Delivery Method Room Air BMI result Body Mass Index 20.5 Labs 09/08/22 07:56 09/18/22 06:37 Imaging Radiology Impressions: ITS Impressions Chest X-Ray 09/18/22 18:40 IMPRESSION: Low lung volumes. No evidence for acute disease in the chest. Medications Medications Current Medications Acetaminophen (Acetaminophen 325 Mg Tablet) 650 mg PO Q6H PRN PRN Reason: Headache/Pain Mild Scale (1-3) Last Admin: 09/22/22 09:01 Dose: 650 mg Al Hydroxide/Mg Hydroxide (Magnesium Hydrox/Alum Hydrox 30 Ml Oral.Susp) 30 ml PO Q6H PRN PRN Reason: Heartburn/Nausea Last Admin: 09/21/22 15:39 Dose: 30 ml Amlodipine Besylate (Amlodipine Besylate 5 Mg Tablet) 5 mg PO DAILY [facility]; Protocol Last Admin: 09/22/22 09:00 Dose: 5 mg Artificial Tears (Artificial Tears 15 Ml Drops) 1 drop EYE-BOTH Q4H PRN PRN Reason: Dryness Aspirin (Aspirin Enteric Coated 81 Mg Tablet.Dr) 81 mg PO DAILY [facility] Last Admin: 09/22/22 09:00 Dose: 81 mg Atorvastatin Calcium (Atorvastatin Calcium 80 Mg Tablet) 80 mg PO DAILY [facility] Last Admin: 09/22/22 09:00 Dose: 80 mg Carbidopa/Levodopa (Carbidopa/Levodopa 25/100 Tablet) 1 tab PO BID [facility] Carvedilol (Carvedilol 3.125 Mg Tablet) 3.125 mg PO BID [facility]; Protocol Last Admin: 09/22/22 09:00 Dose: 3.125 mg Clopidogrel Bisulfate (Clopidogrel Bisulfate 75 Mg Tablet) 75 mg PO DAILY [facility] Last Admin: 09/22/22 09:00 Dose: 75 mg Donepezil HCl (Donepezil Hcl 10 Mg Tablet) 10 mg PO BEDTIME [facility] Last Admin: 09/21/22 19:56 Dose: 10 mg Finasteride (Finasteride 5 Mg Tablet) 5 mg PO BEDTIME [facility] Last Admin: 09/21/22 19:55 Dose: 5 mg Hydroxyzine HCl (Hydroxyzine Hcl 25 Mg Tablet) 25 mg PO Q6H PRN PRN Reason: Anxiety Last Admin: 09/17/22 01:41 Dose: 25 mg Magnesium Hydroxide (Milk Of Magnesia 30 Ml Oral.Susp) 30 ml PO DAILY PRN PRN Reason: Constipation Metformin HCl (Metformin Hcl 500 Mg Tablet) 500 mg PO BIDWM [facility] Last Admin: 09/22/22 09:02 Dose: 500 mg Omeprazole (Omeprazole 20 Mg Capsule.Dr) 20 mg PO DAILY@0630 [facility] Last Admin: 09/22/22 09:00 Dose: 20 mg Quetiapine Fumarate (Quetiapine Fumarate 50 Mg Tablet) 50 mg PO Q6H PRN PRN Reason: agitation Sertraline HCl (Sertraline Hcl 50 Mg Tablet) 50 mg PO DAILY [facility] Last Admin: 09/22/22 08:59 Dose: 50 mg Trazodone HCl (Trazodone Hcl 50 Mg Tablet) 50 mg PO BEDTIME PRN PRN Reason: Insomnia Last Admin: 09/17/22 01:41 Dose: 50 mg Allergies Allergies Allergy/AdvReac Type Severity Reaction Status Date / Time No Known Allergies Allergy Verified 06/12/20 12:45 [No Known Allergies*] Assessment & Plan Assessment & Plan (1) Major neurocognitive disorder, due to Alzheimer's disease, without behavioral disturbance, severe: Status: Acute Code(s): G30.9 - Alzheimer's disease, unspecified; F02.C0 - Dementia in other diseases classified elsewhere, severe, without behavioral disturbance, psychotic disturbance, mood disturbance, and anxiety Plan 09/21 continue current treatment. angie do trial of levo/carbidopa next week for better assessment of response and improvement in gait. 09/22 levodopa/carbidopa ordered and the patient reports no side effects mild improvement of tremors. Rest the same Reason for continued inpatient stay Substantial Risk for: inability to function, rapid decompensation and med/psych decompensation Time Spent With Patient Time: Total time managing care of this patient today __20__ minutes.
[2022-09-22 19:50] VITALS: BP 125/68; PULSE 74; RESP 20; TEMP 36.4; O2SAT 98
[2022-09-22] MEDS: Donepezil HCl 10 MG TABLET PO (20:27)
[2022-09-22] MEDS: Finasteride 5 MG TABLET PO (20:27)
[2022-09-23] MEDS: Omeprazole 20 MG CAPSULE.DR PO (05:31)
[2022-09-23 06:00] VITALS: BP 146/73; PULSE 80; RESP 18; TEMP 36.1; O2SAT 97
[2022-09-23] MEDS: Aspirin Enteric Coated 81 MG TABLET.DR PO (08:48)
[2022-09-23] MEDS: amLODIPine Besylate 5 MG TABLET PO (08:49)
[2022-09-23] MEDS: Clopidogrel Bisulfate 75 MG TABLET PO (08:49)
[2022-09-23] MEDS: Atorvastatin Calcium 80 MG TABLET PO (08:49)
[2022-09-23] MEDS: metFORMIN HCl 500 MG TABLET PO ×2 (08:49→16:39)
[2022-09-23] MEDS: Carbidopa/Levodopa 25/100 TABLET 1 TAB PO ×2 (08:49→20:22)
[2022-09-23] MEDS: carvediloL 3.125 MG TABLET PO ×2 (08:49→20:22)
[2022-09-23] MEDS: Sertraline HCL 50 MG TABLET PO (08:49)
[2022-09-23 09:20] LABS: Glucose, Whole Blood 143 mg/dL (60-115)
--- NOTE | 2022-09-23 11:13 | HO.PSYCHPN ---
Subjective Subjective Date of Service: 09/23/22 Reason For Visit: Unspecified Depressive Disorder Subjective Notes: Conditional Voluntary Healthcare Proxy: No Guardianship: No Medical Problems Affecting Mental Status: No Interim History: Patient was seen and discussed in rounds today. Records and plans were reviewed. He has been medication compliant and is tolerating Sinemet which was started recently. Vital signs are stable. He has been refusing some meals including breakfast this morning. Eating adequately otherwise. Sleeping well. No changes were made today Medication Compliance: Intermittent Side effects from medications: No Review of Systems Review of Systems Tremors Yes all other systems are reviewed and are negative Mental Status Exam Mental Status Exam Patient Appearance: Well Grooomed and Appropriate Patient Orientation: Person and Situation Level of Consciousness: Awake and Appropriate Patient Behavior: Appropriate Mood Description: Calm and Constricted Affect Description: Withdrawn Patient Cognition Impaired: Yes Ability to Follow Directions: Good Speech Pattern: Clear Hallucinations: None Delusions: Not Present Thought Process: Distracted Thought Content: positive for Intact Judgement: Fair Diagnostics Vital Signs (24Hr): Vital Signs - 24 hr 09/22/22 19:50 Temperature 97.6 F Pulse Rate 74 Respiratory Rate 20 Blood Pressure 125/68 Pulse Oximetry 98 Oxygen Delivery Method Room Air BMI result Body Mass Index 20.5 Labs 09/08/22 07:56 09/18/22 06:37 Labs: Laboratory Results - last 48 hr 09/23/22 08:48 POC Glucose 143 H Imaging Radiology Impressions: ITS Impressions Chest X-Ray 09/18/22 18:40 IMPRESSION: Low lung volumes. No evidence for acute disease in the chest. Medications Medications Current Medications Acetaminophen (Acetaminophen 325 Mg Tablet) 650 mg PO Q6H PRN PRN Reason: Headache/Pain Mild Scale (1-3) Last Admin: 09/22/22 15:02 Dose: 650 mg Al Hydroxide/Mg Hydroxide (Magnesium Hydrox/Alum Hydrox 30 Ml Oral.Susp) 30 ml PO Q6H PRN PRN Reason: Heartburn/Nausea Last Admin: 09/21/22 15:39 Dose: 30 ml Amlodipine Besylate (Amlodipine Besylate 5 Mg Tablet) 5 mg PO DAILY [facility]; Protocol Last Admin: 09/23/22 08:49 Dose: 5 mg Artificial Tears (Artificial Tears 15 Ml Drops) 1 drop EYE-BOTH Q4H PRN PRN Reason: Dryness Aspirin (Aspirin Enteric Coated 81 Mg Tablet.Dr) 81 mg PO DAILY [facility] Last Admin: 09/23/22 08:48 Dose: 81 mg Atorvastatin Calcium (Atorvastatin Calcium 80 Mg Tablet) 80 mg PO DAILY [facility] Last Admin: 09/23/22 08:49 Dose: 80 mg Carbidopa/Levodopa (Carbidopa/Levodopa 25/100 Tablet) 1 tab PO BID [facility] Last Admin: 09/23/22 08:49 Dose: 1 tab Carvedilol (Carvedilol 3.125 Mg Tablet) 3.125 mg PO BID [facility]; Protocol Last Admin: 09/23/22 08:49 Dose: 3.125 mg Clopidogrel Bisulfate (Clopidogrel Bisulfate 75 Mg Tablet) 75 mg PO DAILY [facility] Last Admin: 09/23/22 08:49 Dose: 75 mg Donepezil HCl (Donepezil Hcl 10 Mg Tablet) 10 mg PO BEDTIME [facility] Last Admin: 09/22/22 20:27 Dose: 10 mg Finasteride (Finasteride 5 Mg Tablet) 5 mg PO BEDTIME [facility] Last Admin: 09/22/22 20:27 Dose: 5 mg Hydroxyzine HCl (Hydroxyzine Hcl 25 Mg Tablet) 25 mg PO Q6H PRN PRN Reason: Anxiety Last Admin: 09/17/22 01:41 Dose: 25 mg Magnesium Hydroxide (Milk Of Magnesia 30 Ml Oral.Susp) 30 ml PO DAILY PRN PRN Reason: Constipation Metformin HCl (Metformin Hcl 500 Mg Tablet) 500 mg PO BIDWM [facility] Last Admin: 09/23/22 08:49 Dose: 500 mg Omeprazole (Omeprazole 20 Mg Capsule.) 20 mg PO DAILY@0630 [facility] Last Admin: 09/23/22 05:31 Dose: 20 mg Quetiapine Fumarate (Quetiapine Fumarate 50 Mg Tablet) 50 mg PO Q6H PRN PRN Reason: agitation Sertraline HCl (Sertraline Hcl 50 Mg Tablet) 50 mg PO DAILY [facility] Last Admin: 09/23/22 08:49 Dose: 50 mg Trazodone HCl (Trazodone Hcl 50 Mg Tablet) 50 mg PO BEDTIME PRN PRN Reason: Insomnia Last Admin: 09/17/22 01:41 Dose: 50 mg Allergies Allergies Allergy/AdvReac Type Severity Reaction Status Date / Time No Known Allergies Allergy Verified 06/12/20 12:45 [No Known Allergies*] Assessment & Plan Assessment & Plan (1) Major neurocognitive disorder, due to Alzheimer's disease, without behavioral disturbance, severe: Status: Acute Code(s): G30.9 - Alzheimer's disease, unspecified; F02.C0 - Dementia in other diseases classified elsewhere, severe, without behavioral disturbance, psychotic disturbance, mood disturbance, and anxiety Plan 09/21 continue current treatment. angie do trial of levo/carbidopa next week for better assessment of response and improvement in gait. 09/22 levodopa/carbidopa ordered and the patient reports no side effects mild improvement of tremors. Rest the same 09/23: Continue current regimen and plans Reason for continued inpatient stay Substantial Risk for: med/psych decompensation Time Spent With Patient Time: Total time managing care of this patient today ____ minutes.
[2022-09-23 19:30] VITALS: BP 151/81; PULSE 81; RESP 18; TEMP 36.7; O2SAT 96
[2022-09-23] MEDS: Finasteride 5 MG TABLET PO (20:22)
[2022-09-23] MEDS: Donepezil HCl 10 MG TABLET PO (20:22)
[2022-09-24] MEDS: Omeprazole 20 MG CAPSULE.DR PO (05:29)
[2022-09-24 07:30] VITALS: BP 150/86; PULSE 72; RESP 18; TEMP 36.2; O2SAT 96
[2022-09-24] MEDS: Atorvastatin Calcium 80 MG TABLET PO (09:01)
[2022-09-24] MEDS: Sertraline HCL 50 MG TABLET PO (09:01)
[2022-09-24] MEDS: Carbidopa/Levodopa 25/100 TABLET 1 TAB PO ×2 (09:01→20:52)
[2022-09-24] MEDS: amLODIPine Besylate 5 MG TABLET PO (09:01)
[2022-09-24] MEDS: carvediloL 3.125 MG TABLET PO ×2 (09:01→20:52)
[2022-09-24] MEDS: Aspirin Enteric Coated 81 MG TABLET.DR PO (09:01)
[2022-09-24] MEDS: metFORMIN HCl 500 MG TABLET PO ×2 (09:01→16:31)
--- NOTE | 2022-09-24 10:45 | HO.PSYCHPN ---
Subjective Subjective Date of Service: 09/24/22 Reason For Visit: Unspecified Depressive Disorder Subjective Notes: Conditional Voluntary Healthcare Proxy: No Guardianship: No Medical Problems Affecting Mental Status: No Interim History: Patient was seen and discussed in rounds today. Records and plans were reviewed. He continues to be doing fairly well and has tolerated the Sinemet well. No complaints or side effects. Eating and sleeping adequately. Continues to be confused. No changes were made today Medication Compliance: Intermittent Side effects from medications: No Diagnostics Vital Signs (24Hr): Vital Signs - 24 hr 09/23/22 19:30 09/24/22 07:30 Temperature 98.0 F 97.1 F Pulse Rate 81 72 Respiratory Rate 18 18 Blood Pressure 151/81 H 150/86 H Pulse Oximetry 96 96 Oxygen Delivery Method Room Air Room Air BMI result Body Mass Index 20.5 Labs 09/08/22 07:56 09/18/22 06:37 Labs: Laboratory Results - last 48 hr 09/23/22 08:48 POC Glucose 143 H Imaging Radiology Impressions: ITS Impressions Chest X-Ray 09/18/22 18:40 IMPRESSION: Low lung volumes. No evidence for acute disease in the chest. Medications Medications Current Medications Acetaminophen (Acetaminophen 325 Mg Tablet) 650 mg PO Q6H PRN PRN Reason: Headache/Pain Mild Scale (1-3) Last Admin: 09/22/22 15:02 Dose: 650 mg Al Hydroxide/Mg Hydroxide (Magnesium Hydrox/Alum Hydrox 30 Ml Oral.Susp) 30 ml PO Q6H PRN PRN Reason: Heartburn/Nausea Last Admin: 09/21/22 15:39 Dose: 30 ml Amlodipine Besylate (Amlodipine Besylate 5 Mg Tablet) 5 mg PO DAILY [facility]; Protocol Last Admin: 09/24/22 09:01 Dose: 5 mg Artificial Tears (Artificial Tears 15 Ml Drops) 1 drop EYE-BOTH Q4H PRN PRN Reason: Dryness Aspirin (Aspirin Enteric Coated 81 Mg Tablet.Dr) 81 mg PO DAILY [facility] Last Admin: 09/24/22 09:01 Dose: 81 mg Atorvastatin Calcium (Atorvastatin Calcium 80 Mg Tablet) 80 mg PO DAILY [facility] Last Admin: 09/24/22 09:01 Dose: 80 mg Carbidopa/Levodopa (Carbidopa/Levodopa 25/100 Tablet) 1 tab PO BID [facility] Last Admin: 09/24/22 09:01 Dose: 1 tab Carvedilol (Carvedilol 3.125 Mg Tablet) 3.125 mg PO BID [facility]; Protocol Last Admin: 09/24/22 09:01 Dose: 3.125 mg Clopidogrel Bisulfate (Clopidogrel Bisulfate 75 Mg Tablet) 75 mg PO DAILY [facility] Last Admin: 09/23/22 08:49 Dose: 75 mg Donepezil HCl (Donepezil Hcl 10 Mg Tablet) 10 mg PO BEDTIME [facility] Last Admin: 09/23/22 20:22 Dose: 10 mg Finasteride (Finasteride 5 Mg Tablet) 5 mg PO BEDTIME [facility] Last Admin: 09/23/22 20:22 Dose: 5 mg Hydroxyzine HCl (Hydroxyzine Hcl 25 Mg Tablet) 25 mg PO Q6H PRN PRN Reason: Anxiety Last Admin: 09/17/22 01:41 Dose: 25 mg Magnesium Hydroxide (Milk Of Magnesia 30 Ml Oral.Susp) 30 ml PO DAILY PRN PRN Reason: Constipation Metformin HCl (Metformin Hcl 500 Mg Tablet) 500 mg PO BIDWM [facility] Last Admin: 09/24/22 09:01 Dose: 500 mg Omeprazole (Omeprazole 20 Mg Capsule.Dr) 20 mg PO DAILY@0630 [facility] Last Admin: 09/24/22 05:29 Dose: 20 mg Quetiapine Fumarate (Quetiapine Fumarate 50 Mg Tablet) 50 mg PO Q6H PRN PRN Reason: agitation Sertraline HCl (Sertraline Hcl 50 Mg Tablet) 50 mg PO DAILY [facility] Last Admin: 09/24/22 09:01 Dose: 50 mg Trazodone HCl (Trazodone Hcl 50 Mg Tablet) 50 mg PO BEDTIME PRN PRN Reason: Insomnia Last Admin: 09/17/22 01:41 Dose: 50 mg Allergies Allergies Allergy/AdvReac Type Severity Reaction Status Date / Time No Known Allergies Allergy Verified 06/12/20 12:45 [No Known Allergies*] Assessment & Plan Assessment & Plan (1) Major neurocognitive disorder, due to Alzheimer's disease, without behavioral disturbance, severe: Status: Acute Code(s): G30.9 - Alzheimer's disease, unspecified; F02.C0 - Dementia in other diseases classified elsewhere, severe, without behavioral disturbance, psychotic disturbance, mood disturbance, and anxiety Plan 09/21 continue current treatment. angie do trial of levo/carbidopa next week for better assessment of response and improvement in gait. 09/22 levodopa/carbidopa ordered and the patient reports no side effects mild improvement of tremors. Rest the same 09/23: Continue current regimen and plans 09/24: Continue current plans and regimen Reason for continued inpatient stay Substantial Risk for: inability to function Time Spent With Patient Time: Total time managing care of this patient today ____ minutes.
[2022-09-24] MEDS: Clopidogrel Bisulfate 75 MG TABLET PO (14:47)
[2022-09-24 19:30] VITALS: BP 153/82; PULSE 74; RESP 16; TEMP 36.7; O2SAT 98
[2022-09-24] MEDS: Finasteride 5 MG TABLET PO (20:52)
[2022-09-24] MEDS: Donepezil HCl 10 MG TABLET PO (20:52)
[2022-09-25] MEDS: Omeprazole 20 MG CAPSULE.DR PO (06:54)
[2022-09-25] MEDS: Atorvastatin Calcium 80 MG TABLET PO (09:28)
[2022-09-25] MEDS: Sertraline HCL 50 MG TABLET PO (09:28)
[2022-09-25] MEDS: Clopidogrel Bisulfate 75 MG TABLET PO (09:28)
[2022-09-25] MEDS: metFORMIN HCl 500 MG TABLET PO ×2 (09:28→16:41)
[2022-09-25] MEDS: carvediloL 3.125 MG TABLET PO ×2 (09:28→21:29)
[2022-09-25] MEDS: Carbidopa/Levodopa 25/100 TABLET 1 TAB PO ×2 (09:29→13:43)
[2022-09-25] MEDS: Aspirin Enteric Coated 81 MG TABLET.DR PO (09:29)
[2022-09-25] MEDS: amLODIPine Besylate 5 MG TABLET PO (09:29)
[2022-09-25 09:30] VITALS: BP 133/67; PULSE 73; RESP 16; TEMP 36.8; O2SAT 97
--- NOTE | 2022-09-25 13:14 | P.PNPSI_ITS ---
Subjective Subjective Date of Service: 09/25/22 Reason For Visit: Unspecified Depressive Disorder Subjective Notes: Conditional Voluntary Interim History: Pt reports doing good. He reports sleeping and eating well. He denies SI/HI. He is ambulating with walker. 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 Effect to be determined on his gait- shuffling. Per nursing, pt slept through the night. No behavioral concerns. Pt pleasant and polite. Diagnostics Vital Signs (24Hr): Vital Signs - 24 hr 09/24/22 19:30 09/25/22 09:30 Temperature 98.1 F 98.3 F Pulse Rate 74 73 Respiratory Rate 16 16 Blood Pressure 153/82 H 133/67 Pulse Oximetry 98 97 Oxygen Delivery Method Room Air Room Air BMI result Body Mass Index 20.5 Labs 09/08/22 07:56 09/18/22 06:37 Imaging Radiology Impressions: ITS Impressions Chest X-Ray 09/18/22 18:40 IMPRESSION: Low lung volumes. No evidence for acute disease in the chest. Medications Medications Current Medications Acetaminophen (Acetaminophen 325 Mg Tablet) 650 mg PO Q6H PRN PRN Reason: Headache/Pain Mild Scale (1-3) Last Admin: 09/22/22 15:02 Dose: 650 mg Al Hydroxide/Mg Hydroxide (Magnesium Hydrox/Alum Hydrox 30 Ml Oral.Susp) 30 ml PO Q6H PRN PRN Reason: Heartburn/Nausea Last Admin: 09/21/22 15:39 Dose: 30 ml Amlodipine Besylate (Amlodipine Besylate 5 Mg Tablet) 5 mg PO DAILY [facility]; Protocol Last Admin: 09/25/22 09:29 Dose: 5 mg Artificial Tears (Artificial Tears 15 Ml Drops) 1 drop EYE-BOTH Q4H PRN PRN Reason: Dryness Aspirin (Aspirin Enteric Coated 81 Mg Tablet.) 81 mg PO DAILY [facility] Last Admin: 09/25/22 09:29 Dose: 81 mg Atorvastatin Calcium (Atorvastatin Calcium 80 Mg Tablet) 80 mg PO DAILY [facility] Last Admin: 09/25/22 09:28 Dose: 80 mg Carbidopa/Levodopa (Carbidopa/Levodopa 25/100 Tablet) 1 tab PO BID [facility] Last Admin: 09/25/22 09:29 Dose: 1 tab Carvedilol (Carvedilol 3.125 Mg Tablet) 3.125 mg PO BID [facility]; Protocol Last Admin: 09/25/22 09:28 Dose: 3.125 mg Clopidogrel Bisulfate (Clopidogrel Bisulfate 75 Mg Tablet) 75 mg PO DAILY [facility] Last Admin: 09/25/22 09:28 Dose: 75 mg Donepezil HCl (Donepezil Hcl 10 Mg Tablet) 10 mg PO BEDTIME [facility] Last Admin: 09/24/22 20:52 Dose: 10 mg Finasteride (Finasteride 5 Mg Tablet) 5 mg PO BEDTIME [facility] Last Admin: 09/24/22 20:52 Dose: 5 mg Hydroxyzine HCl (Hydroxyzine Hcl 25 Mg Tablet) 25 mg PO Q6H PRN PRN Reason: Anxiety Last Admin: 09/17/22 01:41 Dose: 25 mg Magnesium Hydroxide (Milk Of Magnesia 30 Ml Oral.Susp) 30 ml PO DAILY PRN PRN Reason: Constipation Metformin HCl (Metformin Hcl 500 Mg Tablet) 500 mg PO BIDWM [facility] Last Admin: 09/25/22 09:28 Dose: 500 mg Omeprazole (Omeprazole 20 Mg Capsule.Dr) 20 mg PO DAILY@0630 [facility] Last Admin: 09/25/22 06:54 Dose: 20 mg Quetiapine Fumarate (Quetiapine Fumarate 50 Mg Tablet) 50 mg PO Q6H PRN PRN Reason: agitation Sertraline HCl (Sertraline Hcl 50 Mg Tablet) 50 mg PO DAILY [facility] Last Admin: 09/25/22 09:28 Dose: 50 mg Trazodone HCl (Trazodone Hcl 50 Mg Tablet) 50 mg PO BEDTIME PRN PRN Reason: Insomnia Last Admin: 09/17/22 01:41 Dose: 50 mg Allergies Allergies Allergy/AdvReac Type Severity Reaction Status Date / Time No Known Allergies Allergy Verified 06/12/20 12:45 [No Known Allergies*] Assessment & Plan Assessment & Plan (1) Major neurocognitive disorder, due to Alzheimer's disease, without behavioral disturbance, severe: Status: Acute Code(s): G30.9 - Alzheimer's disease, unspecified; F02.C0 - Dementia in other diseases classified elsewhere, severe, without behavioral disturbance, psychotic disturbance, mood disturbance, and anxiety Plan 09/21 continue current treatment. angie do trial of levo/carbidopa next week for better assessment of response and improvement in gait. 09/22 levodopa/carbidopa ordered and the patient reports no side effects mild improvement of tremors. Rest the same 09/23: Continue current regimen and plans 09/24: Continue current plans and regimen 09/25 continue tx. HCP informed and updated on neurology assessments. Reason for continued inpatient stay Substantial Risk for: inability to function Time Spent With Patient Time: Total time managing care of this patient today ____ minutes.
[2022-09-25 18:00] VITALS: BP 137/73; PULSE 73; RESP 16; TEMP 36.6; O2SAT 97
[2022-09-25] MEDS: Donepezil HCl 10 MG TABLET PO (21:29)
[2022-09-25] MEDS: Finasteride 5 MG TABLET PO (21:29)
[2022-09-26 06:00] VITALS: BP 138/84; PULSE 85; RESP 16; TEMP 36.1; O2SAT 98
[2022-09-26] MEDS: Omeprazole 20 MG CAPSULE.DR PO (06:05)
[2022-09-26] MEDS: Atorvastatin Calcium 80 MG TABLET PO (08:28)
[2022-09-26] MEDS: Carbidopa/Levodopa 25/100 TABLET 1 TAB PO ×2 (08:28→11:32)
[2022-09-26] MEDS: amLODIPine Besylate 5 MG TABLET PO (08:29)
[2022-09-26] MEDS: carvediloL 3.125 MG TABLET PO ×2 (08:29→20:34)
[2022-09-26] MEDS: Sertraline HCL 50 MG TABLET PO (08:29)
[2022-09-26] MEDS: metFORMIN HCl 500 MG TABLET PO ×2 (08:29→16:23)
[2022-09-26] MEDS: Aspirin Enteric Coated 81 MG TABLET.DR PO (08:29)
[2022-09-26] MEDS: Clopidogrel Bisulfate 75 MG TABLET PO (08:30)
--- NOTE | 2022-09-26 16:19 | HO.PSYCHPN ---
Subjective Subjective Date of Service: 09/26/22 Reason For Visit: Unspecified Depressive Disorder Subjective Notes: Conditional Voluntary Interim History: Pt reports doing good. He is pleasant on approach. He reports sleeping and eating well. He denies SI/HI. He is ambulating with walker. Pt takes medications as prescribed. No side effects noted or reported. Per nursing, pt slept through the night. No behavioral concerns. Medication Compliance: Yes Review of Systems Review of Systems Tremors Yes all other systems are reviewed and are negative Mental Status Exam Mental Status Exam Narrative: Appearance: wearing hospital gown, fair hygiene, in NAD Behavior: cooperative Psychomotor: no agitation or retardation noted Speech: clear, normal rate/rhythm/volume, spontaneous TP: mostly linear TC:no overt delusions or psychosis, feeling good Mood: good Affect: congruent SI: denies, adamantly denies HI: denies VH/AH: none Delusions: none Insight/judgment: impaired x 2. Memory/cog: alert, not oriented to place, situation, month, year. severe underlying dementia. Diagnostics Vital Signs (24Hr): Vital Signs - 24 hr 09/25/22 18:00 09/26/22 06:00 Temperature 97.9 F 96.9 F Pulse Rate 73 85 Respiratory Rate 16 16 Blood Pressure 137/73 138/84 Pulse Oximetry 97 98 Oxygen Delivery Method Room Air Room Air BMI result Body Mass Index 20.5 Labs 09/08/22 07:56 09/18/22 06:37 Imaging Radiology Impressions: ITS Impressions Chest X-Ray 09/18/22 18:40 IMPRESSION: Low lung volumes. No evidence for acute disease in the chest. Medications Medications Current Medications Acetaminophen (Acetaminophen 325 Mg Tablet) 650 mg PO Q6H PRN PRN Reason: Headache/Pain Mild Scale (1-3) Last Admin: 09/22/22 15:02 Dose: 650 mg Al Hydroxide/Mg Hydroxide (Magnesium Hydrox/Alum Hydrox 30 Ml Oral.Susp) 30 ml PO Q6H PRN PRN Reason: Heartburn/Nausea Last Admin: 09/21/22 15:39 Dose: 30 ml Amlodipine Besylate (Amlodipine Besylate 5 Mg Tablet) 5 mg PO DAILY [facility]; Protocol Last Admin: 09/26/22 08:29 Dose: 5 mg Artificial Tears (Artificial Tears 15 Ml Drops) 1 drop EYE-BOTH Q4H PRN PRN Reason: Dryness Aspirin (Aspirin Enteric Coated 81 Mg Tablet.) 81 mg PO DAILY [facility] Last Admin: 09/26/22 08:29 Dose: 81 mg Atorvastatin Calcium (Atorvastatin Calcium 80 Mg Tablet) 80 mg PO DAILY [facility] Last Admin: 09/26/22 08:28 Dose: 80 mg Carbidopa/Levodopa (Carbidopa/Levodopa 25/100 Tablet) 1 tab PO BID@0700,1200 [facility] Last Admin: 09/26/22 11:32 Dose: 1 tab Carvedilol (Carvedilol 3.125 Mg Tablet) 3.125 mg PO BID [facility]; Protocol Last Admin: 09/26/22 08:29 Dose: 3.125 mg Clopidogrel Bisulfate (Clopidogrel Bisulfate 75 Mg Tablet) 75 mg PO DAILY [facility] Last Admin: 09/26/22 08:30 Dose: 75 mg Donepezil HCl (Donepezil Hcl 10 Mg Tablet) 10 mg PO BEDTIME [facility] Last Admin: 09/25/22 21:29 Dose: 10 mg Finasteride (Finasteride 5 Mg Tablet) 5 mg PO BEDTIME [facility] Last Admin: 09/25/22 21:29 Dose: 5 mg Hydroxyzine HCl (Hydroxyzine Hcl 25 Mg Tablet) 25 mg PO Q6H PRN PRN Reason: Anxiety Last Admin: 09/17/22 01:41 Dose: 25 mg Magnesium Hydroxide (Milk Of Magnesia 30 Ml Oral.Susp) 30 ml PO DAILY PRN PRN Reason: Constipation Metformin HCl (Metformin Hcl 500 Mg Tablet) 500 mg PO BIDWM [facility] Last Admin: 09/26/22 08:29 Dose: 500 mg Omeprazole (Omeprazole 20 Mg Capsule.) 20 mg PO DAILY@0630 [facility] Last Admin: 09/26/22 06:05 Dose: 20 mg Quetiapine Fumarate (Quetiapine Fumarate 50 Mg Tablet) 50 mg PO Q6H PRN PRN Reason: agitation Sertraline HCl (Sertraline Hcl 50 Mg Tablet) 50 mg PO DAILY [facility] Last Admin: 09/26/22 08:29 Dose: 50 mg Trazodone HCl (Trazodone Hcl 50 Mg Tablet) 50 mg PO BEDTIME PRN PRN Reason: Insomnia Last Admin: 09/17/22 01:41 Dose: 50 mg Allergies Allergies Allergy/AdvReac Type Severity Reaction Status Date / Time No Known Allergies Allergy Verified 06/12/20 12:45 [No Known Allergies*] Assessment & Plan Assessment & Plan (1) Major neurocognitive disorder, due to Alzheimer's disease, without behavioral disturbance, severe: Status: Acute Code(s): G30.9 - Alzheimer's disease, unspecified; F02.C0 - Dementia in other diseases classified elsewhere, severe, without behavioral disturbance, psychotic disturbance, mood disturbance, and anxiety Plan 09/21 continue current treatment. angie do trial of levo/carbidopa next week for better assessment of response and improvement in gait. 09/22 levodopa/carbidopa ordered and the patient reports no side effects mild improvement of tremors. Rest the same 09/23: Continue current regimen and plans 09/24: Continue current plans and regimen 09/25 continue tx. HCP informed and updated on neurology assessments. 09/26 continue tx. awaiting placement. Reason for continued inpatient stay Substantial Risk for: inability to function Time Spent With Patient Time: Total time managing care of this patient today ____ minutes.
[2022-09-26 18:00] VITALS: BP 135/81; PULSE 63; RESP 18; TEMP 36.8; O2SAT 98
[2022-09-26] MEDS: Finasteride 5 MG TABLET PO (20:35)
[2022-09-26] MEDS: Donepezil HCl 10 MG TABLET PO (20:35)
[2022-09-27] MEDS: amLODIPine Besylate 5 MG TABLET PO (08:25)
[2022-09-27] MEDS: Aspirin Enteric Coated 81 MG TABLET.DR PO (08:25)
[2022-09-27] MEDS: carvediloL 3.125 MG TABLET PO ×2 (08:26→20:31)
[2022-09-27] MEDS: metFORMIN HCl 500 MG TABLET PO ×2 (08:26→17:40)
[2022-09-27] MEDS: Sertraline HCL 50 MG TABLET PO (08:26)
[2022-09-27] MEDS: Clopidogrel Bisulfate 75 MG TABLET PO (08:26)
[2022-09-27] MEDS: Carbidopa/Levodopa 25/100 TABLET 1 TAB PO ×2 (08:26→12:41)
[2022-09-27] MEDS: Omeprazole 20 MG CAPSULE.DR PO (08:26)
[2022-09-27] MEDS: Atorvastatin Calcium 80 MG TABLET PO (08:26)
[2022-09-27 08:30] VITALS: BP 154/79; PULSE 77; RESP 16; TEMP 36.1; O2SAT 98
--- NOTE | 2022-09-27 10:46 | P.PNPSI_ITS ---
Subjective Subjective Date of Service: 09/27/22 Reason For Visit: Unspecified Depressive Disorder Subjective Notes: Conditional Voluntary Interim History: Pt slept through the night. Nursing did find pills in his pillow. Nursing to do mouth checks. Pt reports he is good, tired. He denies SI/HI. He continues to ambulate with walker, although at times forgets to keep it close. No behavioral concerns. Medication Compliance: Yes Side effects from medications: No Review of Systems Review of Systems Tremors Yes all other systems are reviewed and are negative Mental Status Exam Mental Status Exam Narrative: Appearance: wearing hospital gown, fair hygiene, in NAD Behavior: cooperative Psychomotor: no agitation or retardation noted Speech: clear, normal rate/rhythm/volume, spontaneous TP: mostly linear TC:no overt delusions or psychosis, feeling good Mood: good Affect: congruent SI: denies, adamantly denies HI: denies VH/AH: none Delusions: none Insight/judgment: impaired x 2. Memory/cog: alert, not oriented to place, situation, month, year. severe underlying dementia. Diagnostics Vital Signs (24Hr): Vital Signs - 24 hr 09/26/22 18:00 09/27/22 08:30 Temperature 98.3 F 97.0 F Pulse Rate 63 77 Respiratory Rate 18 16 Blood Pressure 135/81 154/79 H Pulse Oximetry 98 98 Oxygen Delivery Method Room Air Room Air BMI result Body Mass Index 20.5 Labs 09/08/22 07:56 09/18/22 06:37 Imaging Radiology Impressions: ITS Impressions Chest X-Ray 09/18/22 18:40 IMPRESSION: Low lung volumes. No evidence for acute disease in the chest. Medications Medications Current Medications Acetaminophen (Acetaminophen 325 Mg Tablet) 650 mg PO Q6H PRN PRN Reason: Headache/Pain Mild Scale (1-3) Last Admin: 09/22/22 15:02 Dose: 650 mg Al Hydroxide/Mg Hydroxide (Magnesium Hydrox/Alum Hydrox 30 Ml Oral.Susp) 30 ml PO Q6H PRN PRN Reason: Heartburn/Nausea Last Admin: 09/21/22 15:39 Dose: 30 ml Amlodipine Besylate (Amlodipine Besylate 5 Mg Tablet) 5 mg PO DAILY [facility]; Protocol Last Admin: 09/27/22 08:25 Dose: 5 mg Artificial Tears (Artificial Tears 15 Ml Drops) 1 drop EYE-BOTH Q4H PRN PRN Reason: Dryness Aspirin (Aspirin Enteric Coated 81 Mg Tablet.) 81 mg PO DAILY [facility] Last Admin: 09/27/22 08:25 Dose: 81 mg Atorvastatin Calcium (Atorvastatin Calcium 80 Mg Tablet) 80 mg PO DAILY [facility] Last Admin: 09/27/22 08:26 Dose: 80 mg Carbidopa/Levodopa (Carbidopa/Levodopa 25/100 Tablet) 1 tab PO BID@0700,1200 [facility] Last Admin: 09/27/22 08:26 Dose: 1 tab Carvedilol (Carvedilol 3.125 Mg Tablet) 3.125 mg PO BID [facility]; Protocol Last Admin: 09/27/22 08:26 Dose: 3.125 mg Clopidogrel Bisulfate (Clopidogrel Bisulfate 75 Mg Tablet) 75 mg PO DAILY [facility] Last Admin: 09/27/22 08:26 Dose: 75 mg Donepezil HCl (Donepezil Hcl 10 Mg Tablet) 10 mg PO BEDTIME [facility] Last Admin: 09/26/22 20:35 Dose: 10 mg Finasteride (Finasteride 5 Mg Tablet) 5 mg PO BEDTIME [facility] Last Admin: 09/26/22 20:35 Dose: 5 mg Hydroxyzine HCl (Hydroxyzine Hcl 25 Mg Tablet) 25 mg PO Q6H PRN PRN Reason: Anxiety Last Admin: 09/17/22 01:41 Dose: 25 mg Magnesium Hydroxide (Milk Of Magnesia 30 Ml Oral.Susp) 30 ml PO DAILY PRN PRN Reason: Constipation Metformin HCl (Metformin Hcl 500 Mg Tablet) 500 mg PO BIDWM [facility] Last Admin: 09/27/22 08:26 Dose: 500 mg Omeprazole (Omeprazole 20 Mg Capsule.) 20 mg PO DAILY@0630 [facility] Last Admin: 09/27/22 08:26 Dose: 20 mg Quetiapine Fumarate (Quetiapine Fumarate 50 Mg Tablet) 50 mg PO Q6H PRN PRN Reason: agitation Sertraline HCl (Sertraline Hcl 50 Mg Tablet) 50 mg PO DAILY [facility] Last Admin: 09/27/22 08:26 Dose: 50 mg Trazodone HCl (Trazodone Hcl 50 Mg Tablet) 50 mg PO BEDTIME PRN PRN Reason: Insomnia Last Admin: 09/17/22 01:41 Dose: 50 mg Allergies Allergies Allergy/AdvReac Type Severity Reaction Status Date / Time No Known Allergies Allergy Verified 06/12/20 12:45 [No Known Allergies*] Assessment & Plan Assessment & Plan (1) Major neurocognitive disorder, due to Alzheimer's disease, without behavioral disturbance, severe: Status: Acute Code(s): G30.9 - Alzheimer's disease, unspecified; F02.C0 - Dementia in other diseases classified elsewhere, severe, without behavioral disturbance, psychotic disturbance, mood disturbance, and anxiety Plan 09/21 continue current treatment. angie do trial of levo/carbidopa next week for better assessment of response and improvement in gait. 09/22 levodopa/carbidopa ordered and the patient reports no side effects mild improvement of tremors. Rest the same 09/23: Continue current regimen and plans 09/24: Continue current plans and regimen 09/25 continue tx. HCP informed and updated on neurology assessments. 09/26 continue tx. awaiting placement. 09/27 continue tx. mouth checks. Reason for continued inpatient stay Substantial Risk for: inability to function Time Spent With Patient Time: Total time managing care of this patient today ____ minutes.
[2022-09-27] MEDS: Finasteride 5 MG TABLET PO (20:31)
[2022-09-27] MEDS: Donepezil HCl 10 MG TABLET PO (20:31)
[2022-09-27] MEDS: Acetaminophen 325 MG TABLET 650 MG PO (20:38)
[2022-09-27 20:42] VITALS: BP 142/83; PULSE 68; RESP 18; TEMP 36; O2SAT 97
[2022-09-28] MEDS: Omeprazole 20 MG CAPSULE.DR PO (06:16)
[2022-09-28 08:20] VITALS: BP 147/87; PULSE 83; RESP 16; TEMP 36.1; O2SAT 97
[2022-09-28] MEDS: Atorvastatin Calcium 80 MG TABLET PO (09:07)
[2022-09-28] MEDS: Carbidopa/Levodopa 25/100 TABLET 1 TAB PO ×2 (09:08→13:28)
[2022-09-28] MEDS: metFORMIN HCl 500 MG TABLET PO ×2 (09:08→17:18)
[2022-09-28] MEDS: carvediloL 3.125 MG TABLET PO ×2 (09:08→20:04)
[2022-09-28] MEDS: Aspirin Enteric Coated 81 MG TABLET.DR PO (09:08)
[2022-09-28] MEDS: amLODIPine Besylate 5 MG TABLET PO (09:08)
[2022-09-28] MEDS: Clopidogrel Bisulfate 75 MG TABLET PO (09:08)
[2022-09-28] MEDS: Sertraline HCL 50 MG TABLET PO (09:08)
--- NOTE | 2022-09-28 17:05 | P.PNPSI_ITS ---
Subjective Subjective Date of Service: 09/28/22 Reason For Visit: Unspecified Depressive Disorder Subjective Notes: Conditional Voluntary Interim History: Pt slept through the night. Pt visible on the unit, ambulates with walker. Pt denies SI/HI. He reports feeling tired in evening and laying down. No behavioral concerns. Medication Compliance: Yes Review of Systems Review of Systems Tremors Yes all other systems are reviewed and are negative Mental Status Exam Mental Status Exam Narrative: Appearance: wearing hospital gown, fair hygiene, in NAD Behavior: cooperative Psychomotor: no agitation or retardation noted Speech: clear, normal rate/rhythm/volume, spontaneous TP: mostly linear TC:no overt delusions or psychosis, feeling good Mood: good Affect: congruent SI: denies, adamantly denies HI: denies VH/AH: none Delusions: none Insight/judgment: impaired x 2. Memory/cog: alert, not oriented to place, situation, month, year. severe underlying dementia. Diagnostics Vital Signs (24Hr): Vital Signs - 24 hr 09/27/22 20:42 09/28/22 08:20 Temperature 96.8 F 96.9 F Pulse Rate 68 83 Respiratory Rate 18 16 Blood Pressure 142/83 H 147/87 H Pulse Oximetry 97 97 Oxygen Delivery Method Room Air Room Air BMI result Body Mass Index 20.5 Labs 09/08/22 07:56 09/18/22 06:37 Imaging Radiology Impressions: ITS Impressions Chest X-Ray 09/18/22 18:40 IMPRESSION: Low lung volumes. No evidence for acute disease in the chest. Medications Medications Current Medications Acetaminophen (Acetaminophen 325 Mg Tablet) 650 mg PO Q6H PRN PRN Reason: Headache/Pain Mild Scale (1-3) Last Admin: 09/27/22 20:38 Dose: 650 mg Al Hydroxide/Mg Hydroxide (Magnesium Hydrox/Alum Hydrox 30 Ml Oral.Susp) 30 ml PO Q6H PRN PRN Reason: Heartburn/Nausea Last Admin: 09/21/22 15:39 Dose: 30 ml Amlodipine Besylate (Amlodipine Besylate 5 Mg Tablet) 5 mg PO DAILY [facility]; Protocol Last Admin: 09/28/22 09:08 Dose: 5 mg Artificial Tears (Artificial Tears 15 Ml Drops) 1 drop EYE-BOTH Q4H PRN PRN Reason: Dryness Aspirin (Aspirin Enteric Coated 81 Mg Tablet.) 81 mg PO DAILY [facility] Last Admin: 09/28/22 09:08 Dose: 81 mg Atorvastatin Calcium (Atorvastatin Calcium 80 Mg Tablet) 80 mg PO DAILY [facility] Last Admin: 09/28/22 09:07 Dose: 80 mg Carbidopa/Levodopa (Carbidopa/Levodopa 25/100 Tablet) 1 tab PO BID@0700,1200 [facility] Last Admin: 09/28/22 13:28 Dose: 1 tab Carvedilol (Carvedilol 3.125 Mg Tablet) 3.125 mg PO BID [facility]; Protocol Last Admin: 09/28/22 09:08 Dose: 3.125 mg Clopidogrel Bisulfate (Clopidogrel Bisulfate 75 Mg Tablet) 75 mg PO DAILY [facility] Last Admin: 09/28/22 09:08 Dose: 75 mg Donepezil HCl (Donepezil Hcl 10 Mg Tablet) 10 mg PO BEDTIME [facility] Last Admin: 09/27/22 20:31 Dose: 10 mg Finasteride (Finasteride 5 Mg Tablet) 5 mg PO BEDTIME [facility] Last Admin: 09/27/22 20:31 Dose: 5 mg Hydroxyzine HCl (Hydroxyzine Hcl 25 Mg Tablet) 25 mg PO Q6H PRN PRN Reason: Anxiety Last Admin: 09/17/22 01:41 Dose: 25 mg Magnesium Hydroxide (Milk Of Magnesia 30 Ml Oral.Susp) 30 ml PO DAILY PRN PRN Reason: Constipation Metformin HCl (Metformin Hcl 500 Mg Tablet) 500 mg PO BIDWM [facility] Last Admin: 09/28/22 09:08 Dose: 500 mg Omeprazole (Omeprazole 20 Mg Capsule.Dr) 20 mg PO DAILY@0630 [facility] Last Admin: 09/28/22 06:16 Dose: 20 mg Quetiapine Fumarate (Quetiapine Fumarate 50 Mg Tablet) 50 mg PO Q6H PRN PRN Reason: agitation Sertraline HCl (Sertraline Hcl 50 Mg Tablet) 50 mg PO DAILY [facility] Last Admin: 09/28/22 09:08 Dose: 50 mg Trazodone HCl (Trazodone Hcl 50 Mg Tablet) 50 mg PO BEDTIME PRN PRN Reason: Insomnia Last Admin: 09/17/22 01:41 Dose: 50 mg Allergies Allergies Allergy/AdvReac Type Severity Reaction Status Date / Time No Known Allergies Allergy Verified 06/12/20 12:45 [No Known Allergies*] Assessment & Plan Assessment & Plan (1) Major neurocognitive disorder, due to Alzheimer's disease, without behavioral disturbance, severe: Status: Acute Code(s): G30.9 - Alzheimer's disease, unspecified; F02.C0 - Dementia in other diseases classified elsewhere, severe, without behavioral disturbance, psychotic disturbance, mood disturbance, and anxiety Plan 09/21 continue current treatment. angie do trial of levo/carbidopa next week for better assessment of response and improvement in gait. 09/22 levodopa/carbidopa ordered and the patient reports no side effects mild improvement of tremors. Rest the same 09/23: Continue current regimen and plans 09/24: Continue current plans and regimen 09/25 continue tx. HCP informed and updated on neurology assessments. 09/26 continue tx. awaiting placement. 09/27 continue tx. mouth checks. 09/28 continue tx. Reason for continued inpatient stay Substantial Risk for: inability to function Time Spent With Patient Time: Total time managing care of this patient today ____ minutes.
[2022-09-28 18:00] VITALS: BP 142/81; PULSE 88; RESP 18; TEMP 36.1; O2SAT 96
[2022-09-28] MEDS: Finasteride 5 MG TABLET PO (20:04)
[2022-09-28] MEDS: Donepezil HCl 10 MG TABLET PO (20:04)
[2022-09-29] MEDS: Omeprazole 20 MG CAPSULE.DR PO (05:42)
[2022-09-29 08:00] VITALS: BP 134/86; PULSE 73; RESP 16; TEMP 36.2; O2SAT 97
[2022-09-29] MEDS: Atorvastatin Calcium 80 MG TABLET PO (08:26)
[2022-09-29] MEDS: Sertraline HCL 50 MG TABLET PO (08:26)
[2022-09-29] MEDS: amLODIPine Besylate 5 MG TABLET PO (08:26)
[2022-09-29] MEDS: Carbidopa/Levodopa 25/100 TABLET 1 TAB PO ×2 (08:26→12:26)
[2022-09-29] MEDS: metFORMIN HCl 500 MG TABLET PO ×2 (08:26→17:32)
[2022-09-29] MEDS: carvediloL 3.125 MG TABLET PO ×2 (08:26→20:36)
[2022-09-29] MEDS: Clopidogrel Bisulfate 75 MG TABLET PO (08:26)
[2022-09-29] MEDS: Aspirin Enteric Coated 81 MG TABLET.DR PO (08:26)
[2022-09-29 13:45] VITALS: BMI 25.8
[2022-09-29 18:00] VITALS: BP 139/84; PULSE 64; RESP 16; TEMP 36; O2SAT 97
[2022-09-29] MEDS: Donepezil HCl 10 MG TABLET PO (20:36)
[2022-09-29] MEDS: Finasteride 5 MG TABLET PO (20:36)
--- NOTE | 2022-09-29 22:08 | P.PNPSI_ITS ---
Subjective Subjective Date of Service: 09/29/22 Reason For Visit: Unspecified Depressive Disorder Interim History: Pt continues to sleep through the night. Pt visible on the unit, ambulates with walker. Pt denies SI/HI. He reports feeling tired in evening and laying down. No behavioral concerns. Medication Compliance: Yes Review of Systems Review of Systems Tremors Yes all other systems are reviewed and are negative Mental Status Exam Mental Status Exam Narrative: Appearance: wearing hospital gown, fair hygiene, in NAD Behavior: cooperative Psychomotor: no agitation or retardation noted Speech: clear, normal rate/rhythm/volume, spontaneous TP: mostly linear TC:no overt delusions or psychosis, feeling good Mood: good Affect: congruent SI: denies, adamantly denies HI: denies VH/AH: none Delusions: none Insight/judgment: impaired x 2. Memory/cog: alert, not oriented to place, situation, month, year. severe underlying dementia. Diagnostics Vital Signs (24Hr): Vital Signs - 24 hr 09/29/22 08:00 09/29/22 18:00 Temperature 97.1 F 96.8 F Pulse Rate 73 64 Respiratory Rate 16 16 Blood Pressure 134/86 139/84 Pulse Oximetry 97 97 Oxygen Delivery Method Room Air Room Air BMI result Body Mass Index 25.8 Labs 09/08/22 07:56 09/18/22 06:37 Imaging Radiology Impressions: ITS Impressions Chest X-Ray 09/18/22 18:40 IMPRESSION: Low lung volumes. No evidence for acute disease in the chest. Medications Medications Current Medications Acetaminophen (Acetaminophen 325 Mg Tablet) 650 mg PO Q6H PRN PRN Reason: Headache/Pain Mild Scale (1-3) Last Admin: 09/27/22 20:38 Dose: 650 mg Al Hydroxide/Mg Hydroxide (Magnesium Hydrox/Alum Hydrox 30 Ml Oral.Susp) 30 ml PO Q6H PRN PRN Reason: Heartburn/Nausea Last Admin: 09/21/22 15:39 Dose: 30 ml Amlodipine Besylate (Amlodipine Besylate 5 Mg Tablet) 5 mg PO DAILY [facility]; Protocol Last Admin: 09/29/22 08:26 Dose: 5 mg Artificial Tears (Artificial Tears 15 Ml Drops) 1 drop EYE-BOTH Q4H PRN PRN Reason: Dryness Aspirin (Aspirin Enteric Coated 81 Mg Tablet.) 81 mg PO DAILY [facility] Last Admin: 09/29/22 08:26 Dose: 81 mg Atorvastatin Calcium (Atorvastatin Calcium 80 Mg Tablet) 80 mg PO DAILY [facility] Last Admin: 09/29/22 08:26 Dose: 80 mg Carbidopa/Levodopa (Carbidopa/Levodopa 25/100 Tablet) 1 tab PO BID@0700,1200 [facility] Last Admin: 09/29/22 12:26 Dose: 1 tab Carvedilol (Carvedilol 3.125 Mg Tablet) 3.125 mg PO BID [facility]; Protocol Last Admin: 09/29/22 20:36 Dose: 3.125 mg Clopidogrel Bisulfate (Clopidogrel Bisulfate 75 Mg Tablet) 75 mg PO DAILY [facility] Last Admin: 09/29/22 08:26 Dose: 75 mg Donepezil HCl (Donepezil Hcl 10 Mg Tablet) 10 mg PO BEDTIME [facility] Last Admin: 09/29/22 20:36 Dose: 10 mg Finasteride (Finasteride 5 Mg Tablet) 5 mg PO BEDTIME [facility] Last Admin: 09/29/22 20:36 Dose: 5 mg Hydroxyzine HCl (Hydroxyzine Hcl 25 Mg Tablet) 25 mg PO Q6H PRN PRN Reason: Anxiety Last Admin: 09/17/22 01:41 Dose: 25 mg Magnesium Hydroxide (Milk Of Magnesia 30 Ml Oral.Susp) 30 ml PO DAILY PRN PRN Reason: Constipation Metformin HCl (Metformin Hcl 500 Mg Tablet) 500 mg PO BIDWM [facility] Last Admin: 09/29/22 17:32 Dose: 500 mg Omeprazole (Omeprazole 20 Mg Capsule.Dr) 20 mg PO DAILY@0630 [facility] Last Admin: 09/29/22 05:42 Dose: 20 mg Quetiapine Fumarate (Quetiapine Fumarate 50 Mg Tablet) 50 mg PO Q6H PRN PRN Reason: agitation Sertraline HCl (Sertraline Hcl 50 Mg Tablet) 50 mg PO DAILY [facility] Last Admin: 09/29/22 08:26 Dose: 50 mg Trazodone HCl (Trazodone Hcl 50 Mg Tablet) 50 mg PO BEDTIME PRN PRN Reason: Insomnia Last Admin: 09/17/22 01:41 Dose: 50 mg Allergies Allergies Allergy/AdvReac Type Severity Reaction Status Date / Time No Known Allergies Allergy Verified 06/12/20 12:45 [No Known Allergies*] Assessment & Plan Assessment & Plan (1) Major neurocognitive disorder, due to Alzheimer's disease, without behavioral disturbance, severe: Status: Acute Code(s): G30.9 - Alzheimer's disease, unspecified; F02.C0 - Dementia in other diseases classified elsewhere, severe, without behavioral disturbance, psychotic disturbance, mood disturbance, and anxiety Plan 09/21 continue current treatment. angie do trial of levo/carbidopa next week for better assessment of response and improvement in gait. 09/22 levodopa/carbidopa ordered and the patient reports no side effects mild improvement of tremors. Rest the same 09/23: Continue current regimen and plans 09/24: Continue current plans and regimen 09/25 continue tx. HCP informed and updated on neurology assessments. 09/26 continue tx. awaiting placement. 09/27 continue tx. mouth checks. 09/28 continue tx. 09/29 continue tx. Reason for continued inpatient stay Substantial Risk for: inability to function Time Spent With Patient Time: Total time managing care of this patient today ____ minutes.
[2022-09-30 08:30] VITALS: BP 142/76; PULSE 82; RESP 16; TEMP 37; O2SAT 98
[2022-09-30] MEDS: Carbidopa/Levodopa 25/100 TABLET 1 TAB PO ×2 (08:45→12:11)
[2022-09-30] MEDS: Atorvastatin Calcium 80 MG TABLET PO (08:45)
[2022-09-30] MEDS: Sertraline HCL 50 MG TABLET PO (08:45)
[2022-09-30] MEDS: Aspirin Enteric Coated 81 MG TABLET.DR PO (08:45)
[2022-09-30] MEDS: Omeprazole 20 MG CAPSULE.DR PO (08:45)
[2022-09-30] MEDS: metFORMIN HCl 500 MG TABLET PO ×2 (08:45→16:39)
[2022-09-30] MEDS: carvediloL 3.125 MG TABLET PO ×2 (08:45→20:29)
[2022-09-30] MEDS: amLODIPine Besylate 5 MG TABLET PO (08:46)
[2022-09-30] MEDS: Clopidogrel Bisulfate 75 MG TABLET PO (08:46)
[2022-09-30 09:06] LABS: Creatinine Clr Calc Pharmacy 43.6; Estimated Glomerular Filt Rate > 60
--- NOTE | 2022-09-30 11:53 | HO.PSYCHPN ---
Subjective Subjective Date of Service: 09/30/22 Reason For Visit: Unspecified Depressive Disorder Interim History: seen with [place]-speaking staff. calm, cooperative, pleasant. no questions, complaints, or concerns. per staff, confused, forgetful. unsteady gait using a walker. slept well. Mental Status Exam Mental Status Exam Narrative: Appearance: wearing hospital gown, fair hygiene, in NAD Behavior: cooperative Psychomotor: no agitation or retardation noted Speech: clear, normal rate/rhythm/volume, spontaneous TP: mostly linear TC:no overt delusions or psychosis, feeling good Mood: good Affect: congruent SI: denies HI: denies VH/AH: none Delusions: none Insight/judgment: impaired x 2. Memory/cog: alert, not oriented to place, situation, month, year. severe underlying dementia. Diagnostics Vital Signs (24Hr): Vital Signs - 24 hr 09/29/22 18:00 09/30/22 08:30 Temperature 96.8 F 98.6 F Pulse Rate 64 82 Respiratory Rate 16 16 Blood Pressure 139/84 142/76 H Pulse Oximetry 97 98 Oxygen Delivery Method Room Air Room Air BMI result Body Mass Index 25.8 Labs 09/08/22 07:56 09/30/22 08:18 Labs: Laboratory Results - last 48 hr 09/30/22 08:18 Creatinine 1.13 Estim Creat Clear Calc 43.6 Estimated GFR > 60 Imaging Radiology Impressions: ITS Impressions Chest X-Ray 09/18/22 18:40 IMPRESSION: Low lung volumes. No evidence for acute disease in the chest. Medications Medications Current Medications Acetaminophen (Acetaminophen 325 Mg Tablet) 650 mg PO Q6H PRN PRN Reason: Headache/Pain Mild Scale (1-3) Last Admin: 09/27/22 20:38 Dose: 650 mg Al Hydroxide/Mg Hydroxide (Magnesium Hydrox/Alum Hydrox 30 Ml Oral.Susp) 30 ml PO Q6H PRN PRN Reason: Heartburn/Nausea Last Admin: 09/21/22 15:39 Dose: 30 ml Amlodipine Besylate (Amlodipine Besylate 5 Mg Tablet) 5 mg PO DAILY [facility]; Protocol Last Admin: 09/30/22 08:46 Dose: 5 mg Artificial Tears (Artificial Tears 15 Ml Drops) 1 drop EYE-BOTH Q4H PRN PRN Reason: Dryness Aspirin (Aspirin Enteric Coated 81 Mg Tablet.) 81 mg PO DAILY [facility] Last Admin: 09/30/22 08:45 Dose: 81 mg Atorvastatin Calcium (Atorvastatin Calcium 80 Mg Tablet) 80 mg PO DAILY [facility] Last Admin: 09/30/22 08:45 Dose: 80 mg Carbidopa/Levodopa (Carbidopa/Levodopa 25/100 Tablet) 1 tab PO BID@0700,1200 [facility] Last Admin: 09/30/22 08:45 Dose: 1 tab Carvedilol (Carvedilol 3.125 Mg Tablet) 3.125 mg PO BID [facility]; Protocol Last Admin: 09/30/22 08:45 Dose: 3.125 mg Clopidogrel Bisulfate (Clopidogrel Bisulfate 75 Mg Tablet) 75 mg PO DAILY [facility] Last Admin: 09/30/22 08:46 Dose: 75 mg Donepezil HCl (Donepezil Hcl 10 Mg Tablet) 10 mg PO BEDTIME [facility] Last Admin: 09/29/22 20:36 Dose: 10 mg Finasteride (Finasteride 5 Mg Tablet) 5 mg PO BEDTIME [facility] Last Admin: 09/29/22 20:36 Dose: 5 mg Hydroxyzine HCl (Hydroxyzine Hcl 25 Mg Tablet) 25 mg PO Q6H PRN PRN Reason: Anxiety Last Admin: 09/17/22 01:41 Dose: 25 mg Magnesium Hydroxide (Milk Of Magnesia 30 Ml Oral.Susp) 30 ml PO DAILY PRN PRN Reason: Constipation Metformin HCl (Metformin Hcl 500 Mg Tablet) 500 mg PO BIDWM [facility] Last Admin: 09/30/22 08:45 Dose: 500 mg Omeprazole (Omeprazole 20 Mg Capsule.Dr) 20 mg PO DAILY@0630 [facility] Last Admin: 09/30/22 08:45 Dose: 20 mg Quetiapine Fumarate (Quetiapine Fumarate 50 Mg Tablet) 50 mg PO Q6H PRN PRN Reason: agitation Sertraline HCl (Sertraline Hcl 50 Mg Tablet) 50 mg PO DAILY [facility] Last Admin: 09/30/22 08:45 Dose: 50 mg Trazodone HCl (Trazodone Hcl 50 Mg Tablet) 50 mg PO BEDTIME PRN PRN Reason: Insomnia Last Admin: 09/17/22 01:41 Dose: 50 mg Allergies Allergies Allergy/AdvReac Type Severity Reaction Status Date / Time No Known Allergies Allergy Verified 06/12/20 12:45 [No Known Allergies*] Assessment & Plan Assessment & Plan (1) Major neurocognitive disorder, due to Alzheimer's disease, without behavioral disturbance, severe: Status: Acute Code(s): G30.9 - Alzheimer's disease, unspecified; F02.C0 - Dementia in other diseases classified elsewhere, severe, without behavioral disturbance, psychotic disturbance, mood disturbance, and anxiety Plan 09/21 continue current treatment. angie do trial of levo/carbidopa next week for better assessment of response and improvement in gait. 09/22 levodopa/carbidopa ordered and the patient reports no side effects mild improvement of tremors. Rest the same 09/23: Continue current regimen and plans 09/24: Continue current plans and regimen 09/25 continue tx. HCP informed and updated on neurology assessments. 09/26 continue tx. awaiting placement. 09/27 continue tx. mouth checks. 09/28 continue tx. 09/29 continue tx. 09/30: stable presentation. continue current mgmt. Reason for continued inpatient stay Substantial Risk for: inability to function and rapid decompensation Time Spent With Patient Time: Total time managing care of this patient today ____ minutes.
[2022-09-30] MEDS: Donepezil HCl 10 MG TABLET PO (20:29)
[2022-09-30 20:30] VITALS: BP 116/66; PULSE 85; RESP 16; TEMP 36.3; O2SAT 96
[2022-09-30] MEDS: Finasteride 5 MG TABLET PO (20:30)
[2022-10-01] MEDS: Omeprazole 20 MG CAPSULE.DR PO (06:17)
[2022-10-01 08:00] VITALS: BP 138/83; PULSE 75; RESP 18; TEMP 36.3; O2SAT 97
[2022-10-01] MEDS: Clopidogrel Bisulfate 75 MG TABLET PO (08:36)
[2022-10-01] MEDS: amLODIPine Besylate 5 MG TABLET PO (08:36)
[2022-10-01] MEDS: carvediloL 3.125 MG TABLET PO ×2 (08:36→22:01)
[2022-10-01] MEDS: Atorvastatin Calcium 80 MG TABLET PO (08:36)
[2022-10-01] MEDS: Sertraline HCL 50 MG TABLET PO (08:36)
[2022-10-01] MEDS: Carbidopa/Levodopa 25/100 TABLET 1 TAB PO ×2 (08:36→12:00)
[2022-10-01] MEDS: metFORMIN HCl 500 MG TABLET PO (08:36)
[2022-10-01] MEDS: Aspirin Enteric Coated 81 MG TABLET.DR PO (08:36)
--- NOTE | 2022-10-01 10:34 | HO.PSYCHPN ---
Subjective Subjective Date of Service: 10/01/22 Reason For Visit: Unspecified Depressive Disorder Interim History: pt found resting in his room mid-morning. has no complaints or requests. per staff, pleasantly confused. slept. VSS. eating well. Mental Status Exam Mental Status Exam Narrative: Appearance: wearing hospital gown, fair hygiene, in NAD Behavior: cooperative Psychomotor: no agitation or retardation noted Speech: clear, normal rate/rhythm/volume, spontaneous TP: mostly linear TC:no overt delusions or psychosis, feeling good Mood: good Affect: congruent SI: denies HI: denies VH/AH: none Delusions: none Insight/judgment: impaired x 2. Memory/cog: alert, not oriented to place, situation, month, year. severe underlying dementia. Diagnostics Vital Signs (24Hr): Vital Signs - 24 hr 09/30/22 20:30 10/01/22 08:00 Temperature 97.4 F 97.3 F Pulse Rate 85 75 Respiratory Rate 16 18 Blood Pressure 116/66 138/83 Pulse Oximetry 96 97 Oxygen Delivery Method Room Air Room Air BMI result Body Mass Index 25.8 Labs 09/08/22 07:56 09/30/22 08:18 Labs: Laboratory Results - last 48 hr 09/30/22 08:18 Creatinine 1.13 Estim Creat Clear Calc 43.6 Estimated GFR > 60 Imaging Radiology Impressions: ITS Impressions Chest X-Ray 09/18/22 18:40 IMPRESSION: Low lung volumes. No evidence for acute disease in the chest. Medications Medications Current Medications Acetaminophen (Acetaminophen 325 Mg Tablet) 650 mg PO Q6H PRN PRN Reason: Headache/Pain Mild Scale (1-3) Last Admin: 09/27/22 20:38 Dose: 650 mg Al Hydroxide/Mg Hydroxide (Magnesium Hydrox/Alum Hydrox 30 Ml Oral.Susp) 30 ml PO Q6H PRN PRN Reason: Heartburn/Nausea Last Admin: 09/21/22 15:39 Dose: 30 ml Amlodipine Besylate (Amlodipine Besylate 5 Mg Tablet) 5 mg PO DAILY [facility]; Protocol Last Admin: 10/01/22 08:36 Dose: 5 mg Artificial Tears (Artificial Tears 15 Ml Drops) 1 drop EYE-BOTH Q4H PRN PRN Reason: Dryness Aspirin (Aspirin Enteric Coated 81 Mg Tablet.Dr) 81 mg PO DAILY [facility] Last Admin: 06/25/23 08:36 Dose: 81 mg Atorvastatin Calcium (Atorvastatin Calcium 80 Mg Tablet) 80 mg PO DAILY [facility] Last Admin: 10/01/22 08:36 Dose: 80 mg Carbidopa/Levodopa (Carbidopa/Levodopa 25/100 Tablet) 1 tab PO BID@0700,1200 [facility] Last Admin: 10/01/22 08:36 Dose: 1 tab Carvedilol (Carvedilol 3.125 Mg Tablet) 3.125 mg PO BID [facility]; Protocol Last Admin: 10/01/22 08:36 Dose: 3.125 mg Clopidogrel Bisulfate (Clopidogrel Bisulfate 75 Mg Tablet) 75 mg PO DAILY [facility] Last Admin: 10/01/22 08:36 Dose: 75 mg Donepezil HCl (Donepezil Hcl 10 Mg Tablet) 10 mg PO BEDTIME [facility] Last Admin: 09/30/22 20:29 Dose: 10 mg Finasteride (Finasteride 5 Mg Tablet) 5 mg PO BEDTIME [facility] Last Admin: 09/30/22 20:30 Dose: 5 mg Hydroxyzine HCl (Hydroxyzine Hcl 25 Mg Tablet) 25 mg PO Q6H PRN PRN Reason: Anxiety Last Admin: 09/17/22 01:41 Dose: 25 mg Magnesium Hydroxide (Milk Of Magnesia 30 Ml Oral.Susp) 30 ml PO DAILY PRN PRN Reason: Constipation Metformin HCl (Metformin Hcl 500 Mg Tablet) 500 mg PO BIDWM [facility] Last Admin: 10/01/22 08:36 Dose: 500 mg Omeprazole (Omeprazole 20 Mg Capsule.Dr) 20 mg PO DAILY@0630 [facility] Last Admin: 10/01/22 06:17 Dose: 20 mg Quetiapine Fumarate (Quetiapine Fumarate 50 Mg Tablet) 50 mg PO Q6H PRN PRN Reason: agitation Sertraline HCl (Sertraline Hcl 50 Mg Tablet) 50 mg PO DAILY [facility] Last Admin: 10/01/22 08:36 Dose: 50 mg Trazodone HCl (Trazodone Hcl 50 Mg Tablet) 50 mg PO BEDTIME PRN PRN Reason: Insomnia Last Admin: 09/17/22 01:41 Dose: 50 mg Allergies Allergies Allergy/AdvReac Type Severity Reaction Status Date / Time No Known Allergies Allergy Verified 06/12/20 12:45 [No Known Allergies*] Assessment & Plan Assessment & Plan (1) Major neurocognitive disorder, due to Alzheimer's disease, without behavioral disturbance, severe: Status: Acute Code(s): G30.9 - Alzheimer's disease, unspecified; F02.C0 - Dementia in other diseases classified elsewhere, severe, without behavioral disturbance, psychotic disturbance, mood disturbance, and anxiety Plan 09/21 continue current treatment. angie do trial of levo/carbidopa next week for better assessment of response and improvement in gait. 09/22 levodopa/carbidopa ordered and the patient reports no side effects mild improvement of tremors. Rest the same 09/23: Continue current regimen and plans 09/24: Continue current plans and regimen 09/25 continue tx. HCP informed and updated on neurology assessments. 09/26 continue tx. awaiting placement. 09/27 continue tx. mouth checks. 09/28 continue tx. 09/29 continue tx. 09/30: stable presentation. continue current mgmt. 10/01: no change from yesterday. Reason for continued inpatient stay Substantial Risk for: inability to function and rapid decompensation Time Spent With Patient Time: Total time managing care of this patient today ____ minutes.
[2022-10-01 18:00] VITALS: BP 124/60; PULSE 78; RESP 18; TEMP 36.1; O2SAT 97
[2022-10-01] MEDS: Donepezil HCl 10 MG TABLET PO (22:01)
[2022-10-01] MEDS: Finasteride 5 MG TABLET PO (22:02)
[2022-10-02] MEDS: Carbidopa/Levodopa 25/100 TABLET 1 TAB PO ×2 (06:14→11:35)
[2022-10-02] MEDS: Omeprazole 20 MG CAPSULE.DR PO (06:14)
[2022-10-02 08:47] VITALS: BP 144/96; PULSE 79; RESP 18; TEMP 36.1; O2SAT 97
[2022-10-02] MEDS: Sertraline HCL 50 MG TABLET PO (08:48)
[2022-10-02] MEDS: Aspirin Enteric Coated 81 MG TABLET.DR PO (08:48)
[2022-10-02] MEDS: Atorvastatin Calcium 80 MG TABLET PO (08:49)
[2022-10-02] MEDS: carvediloL 3.125 MG TABLET PO ×2 (08:49→20:35)
[2022-10-02] MEDS: amLODIPine Besylate 5 MG TABLET PO (08:49)
[2022-10-02] MEDS: Clopidogrel Bisulfate 75 MG TABLET PO (08:49)
[2022-10-02] MEDS: metFORMIN HCl 500 MG TABLET PO ×2 (08:49→17:21)
[2022-10-02 18:00] VITALS: BP 117/59; PULSE 75; RESP 16; TEMP 36.3; O2SAT 96
[2022-10-02] MEDS: Finasteride 5 MG TABLET PO (20:35)
[2022-10-02] MEDS: Donepezil HCl 10 MG TABLET PO (20:36)
--- NOTE | 2022-10-02 21:15 | P.PNPSI_ITS ---
Subjective Subjective Date of Service: 10/02/22 Reason For Visit: Unspecified Depressive Disorder Subjective Notes: Conditional Voluntary Healthcare Proxy: Yes Interim History: Pt using wheelchair since this past weekend, which not recommended by PT. WIll have PT evaluate pt again since he started levo/carb for assessment of shuffling gait. No behavioral concerns Pt denies SI/HI. No signs of psychosis or delusions. Unable to retain infor mation. Medication Compliance: Yes Review of Systems Review of Systems Tremors Yes all other systems are reviewed and are negative Mental Status Exam Mental Status Exam Narrative: Appearance: wearing hospital gown, fair hygiene, in NAD Behavior: cooperative Psychomotor: no agitation or retardation noted Speech: clear, normal rate/rhythm/volume, spontaneous TP: mostly linear TC:no overt delusions or psychosis, feeling good Mood: good Affect: congruent SI: denies HI: denies VH/AH: none Delusions: none Insight/judgment: impaired x 2. Memory/cog: alert, not oriented to place, situation, month, year. severe underlying dementia. Diagnostics Vital Signs (24Hr): Vital Signs - 24 hr 10/02/22 08:47 Temperature 96.9 F Pulse Rate 79 Respiratory Rate 18 Blood Pressure 144/96 H Pulse Oximetry 97 Oxygen Delivery Method Room Air BMI result Body Mass Index 25.8 Labs 09/08/22 07:56 09/30/22 08:18 Imaging Radiology Impressions: ITS Impressions Chest X-Ray 09/18/22 18:40 IMPRESSION: Low lung volumes. No evidence for acute disease in the chest. Medications Medications Current Medications Acetaminophen (Acetaminophen 325 Mg Tablet) 650 mg PO Q6H PRN PRN Reason: Headache/Pain Mild Scale (1-3) Last Admin: 09/27/22 20:38 Dose: 650 mg Al Hydroxide/Mg Hydroxide (Magnesium Hydrox/Alum Hydrox 30 Ml Oral.Susp) 30 ml PO Q6H PRN PRN Reason: Heartburn/Nausea Last Admin: 09/21/22 15:39 Dose: 30 ml Amlodipine Besylate (Amlodipine Besylate 5 Mg Tablet) 5 mg PO DAILY [facility]; Protocol Last Admin: 10/02/22 08:49 Dose: 5 mg Artificial Tears (Artificial Tears 15 Ml Drops) 1 drop EYE-BOTH Q4H PRN PRN Reason: Dryness Aspirin (Aspirin Enteric Coated 81 Mg Tablet.) 81 mg PO DAILY [facility] Last Admin: 10/02/22 08:48 Dose: 81 mg Atorvastatin Calcium (Atorvastatin Calcium 80 Mg Tablet) 80 mg PO DAILY [facility] Last Admin: 10/02/22 08:49 Dose: 80 mg Carbidopa/Levodopa (Carbidopa/Levodopa 25/100 Tablet) 1 tab PO BID@0700,1200 [facility] Last Admin: 10/02/22 11:35 Dose: 1 tab Carvedilol (Carvedilol 3.125 Mg Tablet) 3.125 mg PO BID [facility]; Protocol Last Admin: 10/02/22 20:35 Dose: 3.125 mg Clopidogrel Bisulfate (Clopidogrel Bisulfate 75 Mg Tablet) 75 mg PO DAILY [facility] Last Admin: 10/02/22 08:49 Dose: 75 mg Donepezil HCl (Donepezil Hcl 10 Mg Tablet) 10 mg PO BEDTIME [facility] Last Admin: 10/02/22 20:36 Dose: 10 mg Finasteride (Finasteride 5 Mg Tablet) 5 mg PO BEDTIME [facility] Last Admin: 10/02/22 20:35 Dose: 5 mg Hydroxyzine HCl (Hydroxyzine Hcl 25 Mg Tablet) 25 mg PO Q6H PRN PRN Reason: Anxiety Last Admin: 09/17/22 01:41 Dose: 25 mg Magnesium Hydroxide (Milk Of Magnesia 30 Ml Oral.Susp) 30 ml PO DAILY PRN PRN Reason: Constipation Metformin HCl (Metformin Hcl 500 Mg Tablet) 500 mg PO BIDWM [facility] Last Admin: 10/02/22 17:21 Dose: 500 mg Omeprazole (Omeprazole 20 Mg Capsule.Dr) 20 mg PO DAILY@0630 [facility] Last Admin: 10/02/22 06:14 Dose: 20 mg Quetiapine Fumarate (Quetiapine Fumarate 50 Mg Tablet) 50 mg PO Q6H PRN PRN Reason: agitation Sertraline HCl (Sertraline Hcl 50 Mg Tablet) 50 mg PO DAILY [facility] Last Admin: 10/02/22 08:48 Dose: 50 mg Trazodone HCl (Trazodone Hcl 50 Mg Tablet) 50 mg PO BEDTIME PRN PRN Reason: Insomnia Last Admin: 09/17/22 01:41 Dose: 50 mg Allergies Allergies Allergy/AdvReac Type Severity Reaction Status Date / Time No Known Allergies Allergy Verified 06/12/20 12:45 [No Known Allergies*] Assessment & Plan Assessment & Plan (1) Major neurocognitive disorder, due to Alzheimer's disease, without behavioral disturbance, severe: Status: Acute Code(s): G30.9 - Alzheimer's disease, unspecified; F02.C0 - Dementia in other diseases cl assified elsewhere, severe, without behavioral disturbance, psychotic disturbance, mood disturbance, and anxiety Plan 09/21 continue current treatment. angie do trial of levo/carbidopa next week for better assessment of response and improvement in gait. 09/22 levodopa/carbidopa ordered and the patient reports no side effects mild improvement of tremors. Rest the same 09/23: Continue current regimen and plans 09/24: Continue current plans and regimen 09/25 continue tx. HCP informed and updated on neurology assessments. 09/26 continue tx. awaiting placement. 09/27 continue tx. mouth checks. 09/28 continue tx. 09/29 continue tx. 09/30: stable presentation. continue current mgmt. 10/01: no change from yesterday. 10/02 continue tx. Reason for continued inpatient stay Substantial Risk for: inability to function Time Spent With Patient Time: Total time managing care of this patient today ____ minutes.
[2022-10-03 07:30] VITALS: BP 137/75; PULSE 77; RESP 18; TEMP 36.2; O2SAT 93
[2022-10-03] MEDS: Aspirin Enteric Coated 81 MG TABLET.DR PO (08:22)
[2022-10-03] MEDS: amLODIPine Besylate 5 MG TABLET PO (08:23)
[2022-10-03] MEDS: Clopidogrel Bisulfate 75 MG TABLET PO (08:23)
[2022-10-03] MEDS: carvediloL 3.125 MG TABLET PO ×2 (08:23→22:15)
[2022-10-03] MEDS: Omeprazole 20 MG CAPSULE.DR PO (08:23)
[2022-10-03] MEDS: Carbidopa/Levodopa 25/100 TABLET 1 TAB PO ×2 (08:23→11:50)
[2022-10-03] MEDS: metFORMIN HCl 500 MG TABLET PO ×2 (08:23→17:02)
[2022-10-03] MEDS: Atorvastatin Calcium 80 MG TABLET PO (08:23)
[2022-10-03] MEDS: Sertraline HCL 50 MG TABLET PO (08:23)
--- NOTE | 2022-10-03 14:33 | P.PNPSI_ITS ---
Subjective Subjective Date of Service: 10/03/22 Reason For Visit: Unspecified Depressive Disorder Subjective Notes: Conditional Voluntary Healthcare Proxy: Yes Interim History: Pt slept through the night. Pt pleasant and denies SI/HI. He is ambulating with walker. No behavioral concerns. Pt taking medications, mouth checks completed. Medication Compliance: Yes Review of Systems Review of Systems Tremors Yes all other systems are reviewed and are negative Mental Status Exam Mental Status Exam Narrative: Appearance: wearing hospital gown, fair hygiene, in NAD Behavior: cooperative Psychomotor: no agitation or retardation noted Speech: clear, normal rate/rhythm/volume, spontaneous TP: mostly linear TC:no overt delusions or psychosis, feeling good Mood: good Affect: congruent SI: denies HI: denies VH/AH: none Delusions: none Insight/judgment: impaired x 2. Memory/cog: alert, not oriented to place, situation, month, year. severe underlying dementia. Diagnostics Vital Signs (24Hr): Vital Signs - 24 hr 10/02/22 18:00 10/03/22 07:30 Temperature 97.4 F 97.1 F Pulse Rate 75 77 Respiratory Rate 16 18 Blood Pressure 117/59 L 137/75 Pulse Oximetry 96 93 Oxygen Delivery Method Room Air Room Air BMI result Body Mass Index 25.8 Labs 09/08/22 07:56 09/30/22 08:18 Imaging Radiology Impressions: ITS Impressions Chest X-Ray 09/18/22 18:40 IMPRESSION: Low lung volumes. No evidence for acute disease in the chest. Medications Medications Current Medications Acetaminophen (Acetaminophen 325 Mg Tablet) 650 mg PO Q6H PRN PRN Reason: Headache/Pain Mild Scale (1-3) Last Admin: 09/27/22 20:38 Dose: 650 mg Al Hydroxide/Mg Hydroxide (Magnesium Hydrox/Alum Hydrox 30 Ml Oral.Susp) 30 ml PO Q6H PRN PRN Reason: Heartburn/Nausea Last Admin: 09/21/22 15:39 Dose: 30 ml Amlodipine Besylate (Amlodipine Besylate 5 Mg Tablet) 5 mg PO DAILY [facility]; Protocol Last Admin: 10/03/22 08:23 Dose: 5 mg Artificial Tears (Artificial Tears 15 Ml Drops) 1 drop EYE-BOTH Q4H PRN PRN Reason: Dryness Aspirin (Aspirin Enteric Coated 81 Mg Tablet.) 81 mg PO DAILY [facility] Last Admin: 10/03/22 08:22 Dose: 81 mg Atorvastatin Calcium (Atorvastatin Calcium 80 Mg Tablet) 80 mg PO DAILY [facility] Last Admin: 10/03/22 08:23 Dose: 80 mg Carbidopa/Levodopa (Carbidopa/Levodopa 25/100 Tablet) 1 tab PO BID@0700,1200 [facility] Last Admin: 10/03/22 11:50 Dose: 1 tab Carvedilol (Carvedilol 3.125 Mg Tablet) 3.125 mg PO BID [facility]; Protocol Last Admin: 10/03/22 08:23 Dose: 3.125 mg Clopidogrel Bisulfate (Clopidogrel Bisulfate 75 Mg Tablet) 75 mg PO DAILY [facility] Last Admin: 10/03/22 08:23 Dose: 75 mg Donepezil HCl (Donepezil Hcl 10 Mg Tablet) 10 mg PO BEDTIME [facility] Last Admin: 10/02/22 20:36 Dose: 10 mg Finasteride (Finasteride 5 Mg Tablet) 5 mg PO BEDTIME [facility] Last Admin: 10/02/22 20:35 Dose: 5 mg Hydroxyzine HCl (Hydroxyzine Hcl 25 Mg Tablet) 25 mg PO Q6H PRN PRN Reason: Anxiety Last Admin: 09/17/22 01:41 Dose: 25 mg Magnesium Hydroxide (Milk Of Magnesia 30 Ml Oral.Susp) 30 ml PO DAILY PRN PRN Reason: Constipation Metformin HCl (Metformin Hcl 500 Mg Tablet) 500 mg PO BIDWM [facility] Last Admin: 10/03/22 08:23 Dose: 500 mg Omeprazole (Omeprazole 20 Mg Capsule.Dr) 20 mg PO DAILY@0630 [facility] Last Admin: 10/03/22 08:23 Dose: 20 mg Quetiapine Fumarate (Quetiapine Fumarate 50 Mg Tablet) 50 mg PO Q6H PRN PRN Reason: agitation Sertraline HCl (Sertraline Hcl 50 Mg Tablet) 50 mg PO DAILY [facility] Last Admin: 10/03/22 08:23 Dose: 50 mg Trazodone HCl (Trazodone Hcl 50 Mg Tablet) 50 mg PO BEDTIME PRN PRN Reason: Insomnia Last Admin: 09/17/22 01:41 Dose: 50 mg Allergies Allergies Allergy/AdvReac Type Severity Reaction Status Date / Time No Known Allergies Allergy Verified 06/12/20 12:45 [No Known Allergies*] Assessment & Plan Assessment & Plan (1) Major neurocognitive disorder, due to Alzheimer's disease, without behavioral disturbance, severe: Status: Acute Code(s): G30.9 - Alzheimer's disease, unspecified; F02.C0 - Dementia in other diseases classified elsewhere, severe, without behavioral disturbance, psychotic disturbance, mood disturbance, and anxiety Plan 09/21 continue current treatment. angie do trial of levo/carbidopa next week for better assessment of response and improvement in gait. 09/22 levodopa/carbidopa ordered and the patient reports no side effects mild improvement of tremors. Rest the same 09/23: Continue current regimen and plans 09/24: Continue current plans and regimen 09/25 continue tx. HCP informed and updated on neurology assessments. 09/26 continue tx. awaiting placement. 09/27 continue tx. mouth checks. 09/28 continue tx. 09/29 continue tx. 09/30: stable presentation. continue current mgmt. 10/01: no change from yesterday. 10/02 continue tx. 10/03 continue tx. awaiting placement. Guardian/Caregiver educated on: diagnosis Informed Consent: understands Reason for continued inpatient stay Substantial Risk for: inability to function Time Spent With Patient Time: Total time managing care of this patient today __30__ minutes.
[2022-10-03 18:00] VITALS: BP 134/76; PULSE 66; RESP 18; TEMP 36; O2SAT 98
[2022-10-03] MEDS: Donepezil HCl 10 MG TABLET PO (22:15)
[2022-10-03] MEDS: Finasteride 5 MG TABLET PO (22:21)
[2022-10-04 07:30] VITALS: BP 154/87; PULSE 73; RESP 16; TEMP 36.2; O2SAT 92
[2022-10-04] MEDS: Carbidopa/Levodopa 25/100 TABLET 1 TAB PO ×2 (08:46→13:42)
[2022-10-04] MEDS: Atorvastatin Calcium 80 MG TABLET PO (08:46)
[2022-10-04] MEDS: Omeprazole 20 MG CAPSULE.DR PO (08:46)
[2022-10-04] MEDS: metFORMIN HCl 500 MG TABLET PO ×2 (08:46→17:36)
[2022-10-04] MEDS: Aspirin Enteric Coated 81 MG TABLET.DR PO (08:46)
[2022-10-04] MEDS: Sertraline HCL 50 MG TABLET PO (08:46)
[2022-10-04] MEDS: amLODIPine Besylate 5 MG TABLET PO (08:46)
[2022-10-04] MEDS: carvediloL 3.125 MG TABLET PO ×2 (08:46→21:31)
[2022-10-04] MEDS: Clopidogrel Bisulfate 75 MG TABLET PO (08:46)
--- NOTE | 2022-10-04 15:38 | P.PNPSI_ITS ---
Subjective Subjective Date of Service: 10/04/22 Reason For Visit: Unspecified Depressive Disorder Subjective Notes: Conditional Voluntary Interim History: Pt continues to sleep through the night. Pt pleasant and denies SI/HI. He is ambulating with walker. No behavioral concerns. Pt taking medications, mouth checks completed. VS elevated SBP 154/87, HR 73. one time reading this morning as other days more stable. Medication Compliance: Yes Side effects from medications: No Review of Systems Review of Systems Tremors Yes all other systems are reviewed and are negative Mental Status Exam Mental Status Exam Narrative: Appearance: wearing hospital gown, fair hygiene, in NAD Behavior: cooperative Psychomotor: no agitation or retardation noted Speech: clear, normal rate/rhythm/volume, spontaneous TP: mostly linear TC:no overt delusions or psychosis, feeling good Mood: good Affect: congruent SI: denies HI: denies VH/AH: none Delusions: none Insight/judgment: impaired x 2. Memory/cog: alert, not oriented to place, situation, month, year. severe underlying dementia. Diagnostics Vital Signs (24Hr): Vital Signs - 24 hr 10/03/22 18:00 10/04/22 07:30 Temperature 96.8 F 97.1 F Pulse Rate 66 73 Respiratory Rate 18 16 Blood Pressure 134/76 154/87 H Pulse Oximetry 98 92 Oxygen Delivery Method Room Air Room Air BMI result Body Mass Index 25.8 Labs 09/08/22 07:56 09/30/22 08:18 Imaging Radiology Impressions: ITS Impressions Chest X-Ray 09/18/22 18:40 IMPRESSION: Low lung volumes. No evidence for acute disease in the chest. Medications Medications Current Medications Acetaminophen (Acetaminophen 325 Mg Tablet) 650 mg PO Q6H PRN PRN Reason: Headache/Pain Mild Scale (1-3) Last Admin: 09/27/22 20:38 Dose: 650 mg Al Hydroxide/Mg Hydroxide (Magnesium Hydrox/Alum Hydrox 30 Ml Oral.Susp) 30 ml PO Q6H PRN PRN Reason: Heartburn/Nausea Last Admin: 09/21/22 15:39 Dose: 30 ml Amlodipine Besylate (Amlodipine Besylate 5 Mg Tablet) 5 mg PO DAILY [facility]; Protocol Last Admin: 10/04/22 08:46 Dose: 5 mg Artificial Tears (Artificial Tears 15 Ml Drops) 1 drop EYE-BOTH Q4H PRN PRN Reason: Dryness Aspirin (Aspirin Enteric Coated 81 Mg Tablet.) 81 mg PO DAILY [facility] Last Admin: 10/04/22 08:46 Dose: 81 mg Atorvastatin Calcium (Atorvastatin Calcium 80 Mg Tablet) 80 mg PO DAILY [facility] Last Admin: 10/04/22 08:46 Dose: 80 mg Carbidopa/Levodopa (Carbidopa/Levodopa 25/100 Tablet) 1 tab PO BID@0700,1200 [facility] Last Admin: 10/04/22 13:42 Dose: 1 tab Carvedilol (Carvedilol 3.125 Mg Tablet) 3.125 mg PO BID [facility]; Protocol Last Admin: 10/04/22 08:46 Dose: 3.125 mg Clopidogrel Bisulfate (Clopidogrel Bisulfate 75 Mg Tablet) 75 mg PO DAILY [facility] Last Admin: 10/04/22 08:46 Dose: 75 mg Donepezil HCl (Donepezil Hcl 10 Mg Tablet) 10 mg PO BEDTIME [facility] Last Admin: 10/03/22 22:25 Dose: Not Given Finasteride (Finasteride 5 Mg Tablet) 5 mg PO BEDTIME [facility] Last Admin: 10/03/22 22:25 Dose: Not Given Hydroxyzine HCl (Hydroxyzine Hcl 25 Mg Tablet) 25 mg PO Q6H PRN PRN Reason: Anxiety Last Admin: 09/17/22 01:41 Dose: 25 mg Magnesium Hydroxide (Milk Of Magnesia 30 Ml Oral.Susp) 30 ml PO DAILY PRN PRN Reason: Constipation Metformin HCl (Metformin Hcl 500 Mg Tablet) 500 mg PO BIDWM [facility] Last Admin: 10/04/22 08:46 Dose: 500 mg Omeprazole (Omeprazole 20 Mg Capsule.) 20 mg PO DAILY@0630 [facility] Last Admin: 10/04/22 08:46 Dose: 20 mg Quetiapine Fumarate (Quetiapine Fumarate 50 Mg Tablet) 50 mg PO Q6H PRN PRN Reason: agitation Sertraline HCl (Sertraline Hcl 50 Mg Tablet) 50 mg PO DAILY [facility] Last Admin: 10/04/22 08:46 Dose: 50 mg Trazodone HCl (Trazodone Hcl 50 Mg Tablet) 50 mg PO BEDTIME PRN PRN Reason: Insomnia Last Admin: 09/17/22 01:41 Dose: 50 mg Allergies Allergies Allergy/AdvReac Type Severity Reaction Status Date / Time No Known Allergies Allergy Verified 06/12/20 12:45 [No Known Allergies*] Assessment & Plan Assessment & Plan (1) Major neurocognitive disorder, due to Alzheimer's disease, without behavioral disturbance, severe: Status: Acute Code(s): G30.9 - Alzheimer's disease, unspecified; F02.C0 - Dementia in other diseases classified elsewhere, severe, without behavioral disturbance, psychotic disturbance, mood disturbance, and anxiety Plan 09/21 continue current treatment. angie do trial of levo/carbidopa next week for better assessment of response and improvement in gait. 09/22 levodopa/carbidopa ordered and the patient reports no side effects mild improvement of tremors. Rest the same 09/23: Continue current regimen and plans 09/24: Continue current plans and regimen 09/25 continue tx. HCP informed and updated on neurology assessments. 09/26 continue tx. awaiting placement. 09/27 continue tx. mouth checks. 09/28 continue tx. 09/29 continue tx. 09/30: stable presentation. continue current mgmt. 10/01: no change from yesterday. 10/02 continue tx. 10/03 continue tx. awaiting placement. 10/04 continue tx. awaiting placement Reason for continued inpatient stay Substantial Risk for: inability to function Time Spent With Patient Time: Total time managing care of this patient today ____ minutes.
[2022-10-04] MEDS: Donepezil HCl 10 MG TABLET PO (21:31)
[2022-10-04] MEDS: Finasteride 5 MG TABLET PO (21:31)
[2022-10-05] MEDS: Carbidopa/Levodopa 25/100 TABLET 1 TAB PO ×2 (06:27→11:12)
[2022-10-05] MEDS: Omeprazole 20 MG CAPSULE.DR PO (06:27)
[2022-10-05 07:00] VITALS: BMI 25.1
[2022-10-05 08:15] VITALS: BP 146/83; PULSE 73; RESP 18; TEMP 35.9; O2SAT 97
[2022-10-05] MEDS: metFORMIN HCl 500 MG TABLET PO ×2 (08:17→16:41)
[2022-10-05] MEDS: carvediloL 3.125 MG TABLET PO ×2 (08:17→21:11)
[2022-10-05] MEDS: Clopidogrel Bisulfate 75 MG TABLET PO (08:17)
[2022-10-05] MEDS: amLODIPine Besylate 5 MG TABLET PO (08:17)
[2022-10-05] MEDS: Atorvastatin Calcium 80 MG TABLET PO (08:17)
[2022-10-05] MEDS: Sertraline HCL 50 MG TABLET PO (08:18)
[2022-10-05] MEDS: Aspirin Enteric Coated 81 MG TABLET.DR PO (08:18)
[2022-10-05 10:30] VITALS: BP 146/83; PULSE 73; O2SAT 97
--- NOTE | 2022-10-05 16:16 | HO.PSYCHPN ---
Subjective Subjective Date of Service: 10/05/22 Reason For Visit: Unspecified Depressive Disorder Interim History: No significant change with Mr. Dunbar. Pt continues to sleep through the night. Pt pleasant and denies SI/HI. He is ambulating with walker. No behavioral concerns. Pt taking medications, mouth checks completed. VS 147/75, [id number]. will continue to monitor. Medication Compliance: Yes Review of Systems Review of Systems Tremors Yes all other systems are reviewed and are negative Mental Status Exam Mental Status Exam Narrative: Appearance: wearing hospital gown, fair hygiene, in NAD Behavior: cooperative Psychomotor: no agitation or retardation noted Speech: clear, normal rate/rhythm/volume, spontaneous TP: mostly linear TC:no overt delusions or psychosis, feeling good Mood: good Affect: congruent SI: denies HI: denies VH/AH: none Delusions: none Insight/judgment: impaired x 2. Memory/cog: alert, not oriented to place, situation, month, year. severe underlying dementia. Diagnostics Vital Signs (24Hr): Vital Signs - 24 hr 10/05/22 08:15 10/05/22 10:30 Temperature 96.6 F L Pulse Rate 73 73 Respiratory Rate 18 Blood Pressure 146/83 H 146/83 H Pulse Oximetry 97 97 Oxygen Delivery Method Room Air BMI result Body Mass Index 25.1 Labs 09/08/22 07:56 09/30/22 08:18 Imaging Radiology Impressions: ITS Impressions Chest X-Ray 09/18/22 18:40 IMPRESSION: Low lung volumes. No evidence for acute disease in the chest. Medications Medications Current Medications Acetaminophen (Acetaminophen 325 Mg Tablet) 650 mg PO Q6H PRN PRN Reason: Headache/Pain Mild Scale (1-3) Last Admin: 09/27/22 20:38 Dose: 650 mg Al Hydroxide/Mg Hydroxide (Magnesium Hydrox/Alum Hydrox 30 Ml Oral.Susp) 30 ml PO Q6H PRN PRN Reason: Heartburn/Nausea Last Admin: 09/21/22 15:39 Dose: 30 ml Amlodipine Besylate (Amlodipine Besylate 5 Mg Tablet) 5 mg PO DAILY [facility]; Protocol Last Admin: 10/05/22 08:17 Dose: 5 mg Artificial Tears (Artificial Tears 15 Ml Drops) 1 drop EYE-BOTH Q4H PRN PRN Reason: Dryness Aspirin (Aspirin Enteric Coated 81 Mg Tablet.) 81 mg PO DAILY [facility] Last Admin: 10/05/22 08:18 Dose: 81 mg Atorvastatin Calcium (Atorvastatin Calcium 80 Mg Tablet) 80 mg PO DAILY [facility] Last Admin: 10/05/22 08:17 Dose: 80 mg Carbidopa/Levodopa (Carbidopa/Levodopa 25/100 Tablet) 1 tab PO BID@0700,1200 [facility] Last Admin: 10/05/22 11:12 Dose: 1 tab Carvedilol (Carvedilol 3.125 Mg Tablet) 3.125 mg PO BID [facility]; Protocol Last Admin: 10/05/22 08:17 Dose: 3.125 mg Clopidogrel Bisulfate (Clopidogrel Bisulfate 75 Mg Tablet) 75 mg PO DAILY [facility] Last Admin: 10/05/22 08:17 Dose: 75 mg Donepezil HCl (Donepezil Hcl 10 Mg Tablet) 10 mg PO BEDTIME [facility] Last Admin: 10/04/22 21:31 Dose: 10 mg Finasteride (Finasteride 5 Mg Tablet) 5 mg PO BEDTIME [facility] Last Admin: 10/04/22 21:31 Dose: 5 mg Hydroxyzine HCl (Hydroxyzine Hcl 25 Mg Tablet) 25 mg PO Q6H PRN PRN Reason: Anxiety Last Admin: 09/17/22 01:41 Dose: 25 mg Magnesium Hydroxide (Milk Of Magnesia 30 Ml Oral.Susp) 30 ml PO DAILY PRN PRN Reason: Constipation Metformin HCl (Metformin Hcl 500 Mg Tablet) 500 mg PO BIDWM [facility] Last Admin: 10/05/22 08:17 Dose: 500 mg Omeprazole (Omeprazole 20 Mg Capsule.Dr) 20 mg PO DAILY@0630 [facility] Last Admin: 10/05/22 06:27 Dose: 20 mg Quetiapine Fumarate (Quetiapine Fumarate 50 Mg Tablet) 50 mg PO Q6H PRN PRN Reason: agitation Sertraline HCl (Sertraline Hcl 50 Mg Tablet) 50 mg PO DAILY [facility] Last Admin: 10/05/22 08:18 Dose: 50 mg Trazodone HCl (Trazodone Hcl 50 Mg Tablet) 50 mg PO BEDTIME PRN PRN Reason: Insomnia Last Admin: 09/17/22 01:41 Dose: 50 mg Allergies Allergies Allergy/AdvReac Type Severity Reaction Status Date / Time No Known Allergies Allergy Verified 06/12/20 12:45 [No Known Allergies*] Assessment & Plan Assessment & Plan (1) Major neurocognitive disorder, due to Alzheimer's disease, without behavioral disturbance, severe: Status: Acute Code(s): G30.9 - Alzheimer's disease, unspecified; F02.C0 - Dementia in other diseases classified elsewhere, severe, without behavioral disturbance, psychotic disturbance, mood disturbance, and anxiety Plan 09/21 continue current treatment. angie do trial of levo/carbidopa next week for better assessment of response and improvement in gait. 09/22 levodopa/carbidopa ordered and the patient reports no side effects mild improvement of tremors. Rest the same 09/23: Continue current regimen and plans 09/24: Continue current plans and regimen 09/25 continue tx. HCP informed and updated on neurology assessments. 09/26 continue tx. awaiting placement. 09/27 continue tx. mouth checks. 09/28 continue tx. 09/29 continue tx. 09/30: stable presentation. continue current mgmt. 10/01: no change from yesterday. 10/02 continue tx. 10/03 continue tx. awaiting placement. 10/04 continue tx. awaiting placement 10/05 continue tx. awaiting tx. Reason for continued inpatient stay Substantial Risk for: inability to function Time Spent With Patient Time: Total time managing care of this patient today ____ minutes.
[2022-10-05 18:00] VITALS: BP 147/75; PULSE 61; RESP 16; TEMP 36.2; O2SAT 96
[2022-10-05] MEDS: Finasteride 5 MG TABLET PO (21:11)
[2022-10-05] MEDS: Donepezil HCl 10 MG TABLET PO (21:12)
[2022-10-06 08:05] VITALS: BP 143/66; PULSE 72; RESP 18; TEMP 36.1; O2SAT 97
[2022-10-06] MEDS: Sertraline HCL 50 MG TABLET PO (08:55)
[2022-10-06] MEDS: metFORMIN HCl 500 MG TABLET PO ×2 (08:55→18:01)
[2022-10-06] MEDS: carvediloL 3.125 MG TABLET PO ×2 (08:55→20:26)
[2022-10-06] MEDS: Carbidopa/Levodopa 25/100 TABLET 1 TAB PO ×2 (08:55→11:50)
[2022-10-06] MEDS: Omeprazole 20 MG CAPSULE.DR PO (08:55)
[2022-10-06] MEDS: Atorvastatin Calcium 80 MG TABLET PO (08:55)
[2022-10-06] MEDS: Clopidogrel Bisulfate 75 MG TABLET PO (08:55)
[2022-10-06] MEDS: amLODIPine Besylate 5 MG TABLET PO (08:55)
[2022-10-06] MEDS: Aspirin Enteric Coated 81 MG TABLET.DR PO (08:55)
--- NOTE | 2022-10-06 12:43 | P.PNPSI_ITS ---
Subjective Subjective Date of Service: 10/06/22 Reason For Visit: Unspecified Depressive Disorder Subjective Notes: Conditional Voluntary Interim History: The nursing staff reported the patient had been pleasantly confused, cooperative and pleasant eating 100% of his meals. The social work case manager reported the custodial facility is working for a bed and probably he could be discharged next week. On interview the patient denies new symptoms, waiting for placement, happily confused. Mental Status Exam Mental Status Exam Patient Appearance: Well Grooomed and Appropriate Patient Orientation: Person and Situation Level of Consciousness: Awake and Appropriate Patient Behavior: Guarded and Passive Mood Description: Calm Affect Description: Constricted Patient Cognition Impaired: Yes Ability to Follow Directions: Good Speech Pattern: Clear Hallucinations: None Delusions: Not Present Thought Process: Linear Thought Content: positive for [place] and positive for Poverty of Content Judgement: Fair Diagnostics Vital Signs (24Hr): Vital Signs - 24 hr 10/05/22 18:00 10/06/22 08:05 Temperature 97.2 F 96.9 F Pulse Rate 61 72 Respiratory Rate 16 18 Blood Pressure 147/75 H 143/66 H Pulse Oximetry 96 97 Oxygen Delivery Method Room Air Room Air BMI result Body Mass Index 25.1 Labs 09/08/22 07:56 09/30/22 08:18 Imaging Radiology Impressions: ITS Impressions Chest X-Ray 09/18/22 18:40 IMPRESSION: Low lung volumes. No evidence for acute disease in the chest. Medications Medications Current Medications Acetaminophen (Acetaminophen 325 Mg Tablet) 650 mg PO Q6H PRN PRN Reason: Headache/Pain Mild Scale (1-3) Last Admin: 09/27/22 20:38 Dose: 650 mg Al Hydroxide/Mg Hydroxide (Magnesium Hydrox/Alum Hydrox 30 Ml Oral.Susp) 30 ml PO Q6H PRN PRN Reason: Heartburn/Nausea Last Admin: 09/21/22 15:39 Dose: 30 ml Amlodipine Besylate (Amlodipine Besylate 5 Mg Tablet) 5 mg PO DAILY [facility]; Protocol Last Admin: 10/06/22 08:55 Dose: 5 mg Artificial Tears (Artificial Tears 15 Ml Drops) 1 drop EYE-BOTH Q4H PRN PRN Reason: Dryness Aspirin (Aspirin Enteric Coated 81 Mg Tablet.Dr) 81 mg PO DAILY [facility] Last Admin: 10/06/22 08:55 Dose: 81 mg Atorvastatin Calcium (Atorvastatin Calcium 80 Mg Tablet) 80 mg PO DAILY [facility] Last Admin: 10/06/22 08:55 Dose: 80 mg Carbidopa/Levodopa (Carbidopa/Levodopa 25/100 Tablet) 1 tab PO BID@0700,1200 [facility] Last Admin: 10/06/22 11:50 Dose: 1 tab Carvedilol (Carvedilol 3.125 Mg Tablet) 3.125 mg PO BID [facility]; Protocol Last Admin: 10/06/22 08:55 Dose: 3.125 mg Clopidogrel Bisulfate (Clopidogrel Bisulfate 75 Mg Tablet) 75 mg PO DAILY [facility] Last Admin: 10/06/22 08:55 Dose: 75 mg Donepezil HCl (Donepezil Hcl 10 Mg Tablet) 10 mg PO BEDTIME [facility] Last Admin: 10/05/22 21:12 Dose: 10 mg Finasteride (Finasteride 5 Mg Tablet) 5 mg PO BEDTIME [facility] Last Admin: 10/05/22 21:11 Dose: 5 mg Hydroxyzine HCl (Hydroxyzine Hcl 25 Mg Tablet) 25 mg PO Q6H PRN PRN Reason: Anxiety Last Admin: 09/17/22 01:41 Dose: 25 mg Magnesium Hydroxide (Milk Of Magnesia 30 Ml Oral.Susp) 30 ml PO DAILY PRN PRN Reason: Constipation Metformin HCl (Metformin Hcl 500 Mg Tablet) 500 mg PO BIDWM [facility] Last Admin: 10/06/22 08:55 Dose: 500 mg Omeprazole (Omeprazole 20 Mg Capsule.Dr) 20 mg PO DAILY@0630 [facility] Last Admin: 10/06/22 08:55 Dose: 20 mg Quetiapine Fumarate (Quetiapine Fumarate 50 Mg Tablet) 50 mg PO Q6H PRN PRN Reason: agitation Sertraline HCl (Sertraline Hcl 50 Mg Tablet) 50 mg PO DAILY [facility] Last Admin: 10/06/22 08:55 Dose: 50 mg Trazodone HCl (Trazodone Hcl 50 Mg Tablet) 50 mg PO BEDTIME PRN PRN Reason: Insomnia Last Admin: 09/17/22 01:41 Dose: 50 mg Allergies Allergies Allergy/AdvReac Type Severity Reaction Status Date / Time No Known Allergies Allergy Verified 06/12/20 12:45 [No Known Allergies*] Assessment & Plan Assessment & Plan (1) Major neurocognitive disorder, due to Alzheimer's disease, without behavioral disturbance, severe: Status: Acute Code(s): G30.9 - Alzheimer's disease, unspecified; F02.C0 - Dementia in other diseases classified elsewhere, severe, without behavioral disturbance, psychotic disturbance, mood disturbance, and anxiety Plan 09/21 continue current treatment. angie do trial of levo/carbidopa next week for better assessment of response and improvement in gait. 09/22 levodopa/carbidopa ordered and the patient reports no side effects mild improvement of tremors. Rest the same 09/23: Continue current regimen and plans 09/24: Continue current plans and regimen 09/25 continue tx. HCP informed and updated on neurology assessments. 09/26 continue tx. awaiting placement. 09/27 continue tx. mouth checks. 09/28 continue tx. 09/29 continue tx. 09/30: stable presentation. continue current mgmt. 10/01: no change from yesterday. 10/02 continue tx. 10/03 continue tx. awaiting placement. 10/04 continue tx. awaiting placement 10/05 continue tx. awaiting tx. 10/06 continue same treatment, waiting for placement Reason for continued inpatient stay Substantial Risk for: inability to function, rapid decompensation and med/psych decompensation Time Spent With Patient Time: Total time managing care of this patient today __20__ minutes.
[2022-10-06 18:00] VITALS: BP 122/73; PULSE 72; RESP 16; TEMP 36.2; O2SAT 96
[2022-10-06] MEDS: Donepezil HCl 10 MG TABLET PO (20:27)
[2022-10-06] MEDS: Finasteride 5 MG TABLET PO (20:27)
[2022-10-07 08:10] VITALS: BP 142/83; PULSE 73; RESP 18; TEMP 36; O2SAT 96
[2022-10-07 08:45] LABS: Anion Gap 13 (12-20); Blood Urea Nitrogen 22 mg/dL (9-16); Calcium 9.3 mg/dL (8.4-10.2); Carbon Dioxide 27 mmol/L (22-29); Chloride 98 mmol/L (96-108); Creatinine Clr Calc Pharmacy 43.6; Estimated Glomerular Filt Rate > 60; Glucose Random 117 mg/dL (60-115); Potassium 4.1 mmol/L (3.3-5.1); Sodium 134 mmol/L (135-145)
[2022-10-07] MEDS: Atorvastatin Calcium 80 MG TABLET PO (09:05)
[2022-10-07] MEDS: Omeprazole 20 MG CAPSULE.DR PO (09:05)
[2022-10-07] MEDS: Sertraline HCL 50 MG TABLET PO (09:05)
[2022-10-07] MEDS: carvediloL 3.125 MG TABLET PO ×2 (09:05→20:31)
[2022-10-07] MEDS: Carbidopa/Levodopa 25/100 TABLET 1 TAB PO ×2 (09:05→11:48)
[2022-10-07] MEDS: amLODIPine Besylate 5 MG TABLET PO (09:05)
[2022-10-07] MEDS: Clopidogrel Bisulfate 75 MG TABLET PO (09:05)
[2022-10-07] MEDS: metFORMIN HCl 500 MG TABLET PO ×2 (09:05→16:57)
[2022-10-07] MEDS: Aspirin Enteric Coated 81 MG TABLET.DR PO (09:05)
--- NOTE | 2022-10-07 14:03 | HO.PSYCHPN ---
Subjective Subjective Date of Service: 10/07/22 Reason For Visit: Unspecified Depressive Disorder Subjective Notes: Conditional Voluntary Medical Problems Affecting Mental Status: No Interim History: met with patient. Discussed with Nursing. Overall doing okay. Isolative. Routine dialysis schedule today. Patient reports being eager for discharge as he misses his . Feels that his mood is stable. Aware dialysis is happening today. No concerns regarding current medication regimen. Sleep energy and appetite okay. Medication Compliance: Yes Side effects from medications: No Attending Groups: No Review of Systems Acute medical concerns: No Review of Systems Review of Systems Nothing acute Mental Status Exam Mental Status Exam Patient Appearance: Well Grooomed and Appropriate Patient Orientation: Person and Situation Level of Consciousness: Awake and Appropriate Patient Behavior: Guarded and Passive Mood Description: Calm Affect Description: Constricted Patient Cognition Impaired: Yes Ability to Follow Directions: Good Speech Pattern: Clear Hallucinations: None Delusions: Not Present Thought Process: Linear Thought Content: positive for [place] and positive for Poverty of Content Judgement: Fair Diagnostics Vital Signs (24Hr): Vital Signs - 24 hr 10/06/22 18:00 10/07/22 08:10 Temperature 97.2 F 96.8 F Pulse Rate 72 73 Respiratory Rate 16 18 Blood Pressure 122/73 142/83 H Pulse Oximetry 96 96 Oxygen Delivery Method Room Air Room Air BMI result Body Mass Index 25.1 Labs 09/08/22 07:56 10/07/22 07:46 Labs: Laboratory Results - last 48 hr 10/07/22 07:46 Sodium 134 L Potassium 4.1 Chloride 98 Carbon Dioxide 27 Anion Gap 13 BUN 22 H Creatinine 1.13 Estim Creat Clear Calc 43.6 Estimated GFR > 60 Random Glucose 117 H Calcium 9.3 Imaging Radiology Impressions: ITS Impressions Chest X-Ray 09/18/22 18:40 IMPRESSION: Low lung volumes. No evidence for acute disease in the chest. Medications Medications Current Medications Acetaminophen (Acetaminophen 325 Mg Tablet) 650 mg PO Q6H PRN PRN Reason: Headache/Pain Mild Scale (1-3) Last Admin: 09/27/22 20:38 Dose: 650 mg Al Hydroxide/Mg Hydroxide (Magnesium Hydrox/Alum Hydrox 30 Ml Oral.Susp) 30 ml PO Q6H PRN PRN Reason: Heartburn/Nausea Last Admin: 09/21/22 15:39 Dose: 30 ml Amlodipine Besylate (Amlodipine Besylate 5 Mg Tablet) 5 mg PO DAILY [facility]; Protocol Last Admin: 10/07/22 09:05 Dose: 5 mg Artificial Tears (Artificial Tears 15 Ml Drops) 1 drop EYE-BOTH Q4H PRN PRN Reason: Dryness Aspirin (Aspirin Enteric Coated 81 Mg Tablet.) 81 mg PO DAILY [facility] Last Admin: 10/07/22 09:05 Dose: 81 mg Atorvastatin Calcium (Atorvastatin Calcium 80 Mg Tablet) 80 mg PO DAILY [facility] Last Admin: 10/07/22 09:05 Dose: 80 mg Carbidopa/Levodopa (Carbidopa/Levodopa 25/100 Tablet) 1 tab PO BID@0700,1200 [facility] Last Admin: 10/07/22 11:48 Dose: 1 tab Carvedilol (Carvedilol 3.125 Mg Tablet) 3.125 mg PO BID [facility]; Protocol Last Admin: 10/07/22 09:05 Dose: 3.125 mg Clopidogrel Bisulfate (Clopidogrel Bisulfate 75 Mg Tablet) 75 mg PO DAILY [facility] Last Admin: 10/07/22 09:05 Dose: 75 mg Donepezil HCl (Donepezil Hcl 10 Mg Tablet) 10 mg PO BEDTIME [facility] Last Admin: 10/06/22 20:27 Dose: 10 mg Finasteride (Finasteride 5 Mg Tablet) 5 mg PO BEDTIME [facility] Last Admin: 10/06/22 20:27 Dose: 5 mg Hydroxyzine HCl (Hydroxyzine Hcl 25 Mg Tablet) 25 mg PO Q6H PRN PRN Reason: Anxiety Last Admin: 09/17/22 01:41 Dose: 25 mg Magnesium Hydroxide (Milk Of Magnesia 30 Ml Oral.Susp) 30 ml PO DAILY PRN PRN Reason: Constipation Metformin HCl (Metformin Hcl 500 Mg Tablet) 500 mg PO BIDWM [facility] Last Admin: 10/07/22 09:05 Dose: 500 mg Omeprazole (Omeprazole 20 Mg Capsule.) 20 mg PO DAILY@0630 [facility] [place] Last Admin: 10/07/22 09:05 Dose: 20 mg Quetiapine Fumarate (Quetiapine Fumarate 50 Mg Tablet) 50 mg PO Q6H PRN PRN Reason: agitation Sertraline HCl (Sertraline Hcl 50 Mg Tablet) 50 mg PO DAILY [facility] Last Admin: 10/07/22 09:05 Dose: 50 mg Trazodone HCl (Trazodone Hcl 50 Mg Tablet) 50 mg PO BEDTIME PRN PRN Reason: Insomnia Last Admin: 09/17/22 01:41 Dose: 50 mg Allergies Allergies Allergy/AdvReac Type Severity Reaction Status Date / Time No Known Allergies Allergy Verified 06/12/20 12:45 [No Known Allergies*] Assessment & Plan Assessment & Plan (1) Major neurocognitive disorder, due to Alzheimer's disease, without behavioral disturbance, severe: Status: Acute Code(s): G30.9 - Alzheimer's disease, unspecified; F02.C0 - Dementia in other diseases classified elsewhere, severe, without behavioral disturbance, psychotic disturbance, mood disturbance, and anxiety Plan 09/21 continue current treatment. angie do trial of levo/carbidopa next week for better assessment of response and improvement in gait. 09/22 levodopa/carbidopa ordered and the patient reports no side effects mild improvement of tremors. Rest the same 09/23: Continue current regimen and plans 09/24: Continue current plans and regimen 09/25 continue tx. HCP informed and updated on neurology assessments. 09/26 continue tx. awaiting placement. 09/27 continue tx. mouth checks. 09/28 continue tx. 09/29 continue tx. 09/30: stable presentation. continue current mgmt. 10/01: no change from yesterday. 10/02 continue tx. 10/03 continue tx. awaiting placement. 10/04 continue tx. awaiting placement 10/05 continue tx. awaiting tx. 10/06 continue same treatment, waiting for placement 10/07/2022: No changes to current plan Reason for continued inpatient stay Substantial Risk for: rapid decompensation Time Spent With Patient Time: Total time managing care of this patient today ____ minutes.
--- NOTE | 2022-10-07 14:07 | HO.PSYCHPN ---
Subjective Subjective Date of Service: 10/07/22 Reason For Visit: Unspecified Depressive Disorder Subjective Notes: Conditional Voluntary Healthcare Proxy: Yes Medical Problems Affecting Mental Status: No Interim History: met with patient. Discussed with Nursing. Chart reviewed. Utilizing walker with 1 assist. Confused but pleasant. Seen in day area. Reports wanting to leave and that he has been here for 8 months. Denies it being any acute issues or concerns. Feels safe. Enjoying breakfast. Sleep okay. Medication Compliance: Yes Side effects from medications: No Attending Groups: No Review of Systems Acute medical concerns: No Review of Systems Review of Systems Yes Unobtainable due to mental status Mental Status Exam Mental Status Exam Patient Appearance: Well Grooomed and Appropriate Patient Orientation: Person and Situation Level of Consciousness: Awake and Appropriate Patient Behavior: Guarded and Passive Mood Description: Calm Affect Description: Constricted Patient Cognition Impaired: Yes Ability to Follow Directions: Good Speech Pattern: Clear Hallucinations: None Delusions: Not Present Thought Process: Linear Thought Content: positive for [place] and positive for Poverty of Content Judgement: Fair Diagnostics Vital Signs (24Hr): Vital Signs - 24 hr 10/06/22 18:00 10/07/22 08:10 Temperature 97.2 F 96.8 F Pulse Rate 72 73 Respiratory Rate 16 18 Blood Pressure 122/73 142/83 H Pulse Oximetry 96 96 Oxygen Delivery Method Room Air Room Air BMI result Body Mass Index 25.1 Labs 09/08/22 07:56 10/07/22 07:46 Labs: Laboratory Results - last 48 hr 10/07/22 07:46 Sodium 134 L Potassium 4.1 Chloride 98 Carbon Dioxide 27 Anion Gap 13 BUN 22 H Creatinine 1.13 Estim Creat Clear Calc 43.6 Estimated GFR > 60 Random Glucose 117 H Calcium 9.3 Imaging Radiology Impressions: ITS Impressions Chest X-Ray 09/18/22 18:40 IMPRESSION: Low lung volumes. No evidence for acute disease in the chest. Medications Medications Current Medications Acetaminophen (Acetaminophen 325 Mg Tablet) 650 mg PO Q6H PRN PRN Reason: Headache/Pain Mild Scale (1-3) Last Admin: 09/27/22 20:38 Dose: 650 mg Al Hydroxide/Mg Hydroxide (Magnesium Hydrox/Alum Hydrox 30 Ml Oral.Susp) 30 ml PO Q6H PRN PRN Reason: Heartburn/Nausea Last Admin: 09/21/22 15:39 Dose: 30 ml Amlodipine Besylate (Amlodipine Besylate 5 Mg Tablet) 5 mg PO DAILY [facility]; Protocol Last Admin: 10/07/22 09:05 Dose: 5 mg Artificial Tears (Artificial Tears 15 Ml Drops) 1 drop EYE-BOTH Q4H PRN PRN Reason: Dryness Aspirin (Aspirin Enteric Coated 81 Mg Tablet.) 81 mg PO DAILY [facility] Last Admin: 10/07/22 09:05 Dose: 81 mg Atorvastatin Calcium (Atorvastatin Calcium 80 Mg Tablet) 80 mg PO DAILY [facility] Last Admin: 10/07/22 09:05 Dose: 80 mg Carbidopa/Levodopa (Carbidopa/Levodopa 25/100 Tablet) 1 tab PO BID@0700,1200 [facility] Last Admin: 10/07/22 11:48 Dose: 1 tab Carvedilol (Carvedilol 3.125 Mg Tablet) 3.125 mg PO BID [facility]; Protocol Last Admin: 10/07/22 09:05 Dose: 3.125 mg Clopidogrel Bisulfate (Clopidogrel Bisulfate 75 Mg Tablet) 75 mg PO DAILY [facility] Last Admin: 10/07/22 09:05 Dose: 75 mg Donepezil HCl (Donepezil Hcl 10 Mg Tablet) 10 mg PO BEDTIME [facility] Last Admin: 10/06/22 20:27 Dose: 10 mg Finasteride (Finasteride 5 Mg Tablet) 5 mg PO BEDTIME [facility] Last Admin: 10/06/22 20:27 Dose: 5 mg Hydroxyzine HCl (Hydroxyzine Hcl 25 Mg Tablet) 25 mg PO Q6H PRN PRN Reason: Anxiety Last Admin: 09/17/22 01:41 Dose: 25 mg Magnesium Hydroxide (Milk Of Magnesia 30 Ml Oral.Susp) 30 ml PO DAILY PRN PRN Reason: Constipation Metformin HCl (Metformin Hcl 500 Mg Tablet) 500 mg PO BIDWM [facility] Last Admin: 10/07/22 09:05 Dose: 500 mg Omeprazole (Omeprazole 20 Mg Capsule.) 20 mg PO DAILY@0630 [facility] Last Admin: 10/07/22 09:05 Dose: 20 mg Quetiapine Fumarate (Quetiapine Fumarate 50 Mg Tablet) 50 mg PO Q6H PRN PRN Reason: agitation Sertraline HCl (Sertraline Hcl 50 Mg Tablet) 50 mg PO DAILY [facility] Last Admin: 10/07/22 09:05 Dose: 50 mg Trazodone HCl (Trazodone Hcl 50 Mg Tablet) 50 mg PO BEDTIME PRN PRN Reason: Insomnia Last Admin: 09/17/22 01:41 Dose: 50 mg Allergies Allergies Allergy/AdvReac Type Severity Reaction Status Date / Time No Known Allergies Allergy Verified 06/12/20 12:45 [No Known Allergies*] Assessment & Plan Assessment & Plan (1) Major neurocognitive disorder, due to Alzheimer's disease, without behavioral disturbance, severe: Status: Acute Code(s): G30.9 - Alzheimer's disease, unspecified; F02.C0 - Dementia in other diseases classified elsewhere, severe, without behavioral disturbance, psychotic disturbance, mood disturbance, and anxiety Plan 09/21 continue current treatment. angie do trial of levo/carbidopa next week for better assessment of response and improvement in gait. 09/22 levodopa/carbidopa ordered and the patient reports no side effects mild improvement of tremors. Rest the same 09/23: Continue current regimen and plans 09/24: Continue current plans and regimen 09/25 continue tx. HCP informed and updated on neurology assessments. 09/26 continue tx. awaiting placement. 09/27 continue tx. mouth checks. 09/28 continue tx. 09/29 continue tx. 09/30: stable presentation. continue current mgmt. 10/01: no change from yesterday. 10/02 continue tx. 10/03 continue tx. awaiting placement. 10/04 continue tx. awaiting placement 10/05 continue tx. awaiting tx. 10/06 continue same treatment, waiting for placement 10/07/2022: No changes to current plan Reason for continued inpatient stay Substantial Risk for: rapid decompensation Time Spent With Patient Time: Total time managing care of this patient today ____ minutes.
[2022-10-07 18:00] VITALS: BP 127/67; PULSE 65; RESP 16; TEMP 36.3; O2SAT 97
[2022-10-07] MEDS: Donepezil HCl 10 MG TABLET PO (20:32)
[2022-10-07] MEDS: Finasteride 5 MG TABLET PO (20:32)
[2022-10-08] MEDS: Omeprazole 20 MG CAPSULE.DR PO (05:47)
[2022-10-08] MEDS: Carbidopa/Levodopa 25/100 TABLET 1 TAB PO ×2 (05:47→12:28)
[2022-10-08 08:15] VITALS: BP 151/90; PULSE 73; RESP 16; TEMP 36.1; O2SAT 97
[2022-10-08] MEDS: Aspirin Enteric Coated 81 MG TABLET.DR PO (08:39)
[2022-10-08] MEDS: Sertraline HCL 50 MG TABLET PO (08:39)
[2022-10-08] MEDS: amLODIPine Besylate 5 MG TABLET PO (08:39)
[2022-10-08] MEDS: Atorvastatin Calcium 80 MG TABLET PO (08:40)
[2022-10-08] MEDS: carvediloL 3.125 MG TABLET PO ×2 (08:40→21:39)
[2022-10-08] MEDS: Clopidogrel Bisulfate 75 MG TABLET PO (08:40)
[2022-10-08] MEDS: metFORMIN HCl 500 MG TABLET PO ×2 (08:40→17:10)
--- NOTE | 2022-10-08 12:40 | HO.PSYCHPN ---
Subjective Subjective Date of Service: 10/08/22 Reason For Visit: Unspecified Depressive Disorder Subjective Notes: Conditional Voluntary Healthcare Proxy: Yes Medical Problems Affecting Mental Status: No Interim History: met with patient. Discussed with Nursing. Sleep good. Seen in room. Shaved today. Eating. No depression, SI, HI, agitation or psychosis. Clear cognitive imapirment. Medication Compliance: Yes Side effects from medications: No Attending Groups: Intermittent Review of Systems Acute medical concerns: No Review of Systems Review of Systems Nothing acute Mental Status Exam Mental Status Exam Narrative: Appearance: wearing hospital pants and regular t shirt, good hygiene, in NAD Behavior: cooperative Psychomotor: no agitation or retardation noted Speech: clear, normal rate/rhythm/volume, spontaneous TP: mostly linear TC:no overt delusions or psychosis, feeling good Mood: good Affect: congruent SI: denies HI: denies VH/AH: none Delusions: none Insight/judgment: impaired x 2. Memory/cog: alert, not oriented to place, situation, month, year. severe underlying dementia. Patient Appearance: Well Grooomed and Appropriate Patient Orientation: Person and Situation Level of Consciousness: Awake and Appropriate Patient Behavior: Guarded and Passive Mood Description: Calm Affect Description: Constricted Patient Cognition Impaired: Yes Ability to Follow Directions: Good Speech Pattern: Clear Diagnostics Vital Signs (24Hr): Vital Signs - 24 hr 10/07/22 18:00 10/08/22 08:15 Temperature 97.4 F 97.0 F Pulse Rate 65 73 Respiratory Rate 16 16 Blood Pressure 127/67 151/90 H Pulse Oximetry 97 97 Oxygen Delivery Method Room Air Room Air BMI result Body Mass Index 25.1 Labs 09/08/22 07:56 10/07/22 07:46 Labs: Laboratory Results - last 48 hr 10/07/22 07:46 Sodium 134 L Potassium 4.1 Chloride 98 Carbon Dioxide 27 Anion Gap 13 BUN 22 H Creatinine 1.13 Estim Creat Clear Calc 43.6 Estimated GFR > 60 Random Glucose 117 H Calcium 9.3 Imaging Radiology Impressions: ITS Impressions Chest X-Ray 09/18/22 18:40 IMPRESSION: Low lung volumes. No evidence for acute disease in the chest. Medications Medications Current Medications Acetaminophen (Acetaminophen 325 Mg Tablet) 650 mg PO Q6H PRN PRN Reason: Headache/Pain Mild Scale (1-3) Last Admin: 09/27/22 20:38 Dose: 650 mg Al Hydroxide/Mg Hydroxide (Magnesium Hydrox/Alum Hydrox 30 Ml Oral.Susp) 30 ml PO Q6H PRN PRN Reason: Heartburn/Nausea Last Admin: 09/21/22 15:39 Dose: 30 ml Amlodipine Besylate (Amlodipine Besylate 5 Mg Tablet) 5 mg PO DAILY [facility]; Protocol Last Admin: 10/08/22 08:39 Dose: 5 mg Artificial Tears (Artificial Tears 15 Ml Drops) 1 drop EYE-BOTH Q4H PRN PRN Reason: Dryness Aspirin (Aspirin Enteric Coated 81 Mg Tablet.) 81 mg PO DAILY [facility] Last Admin: 10/08/22 08:39 Dose: 81 mg Atorvastatin Calcium (Atorvastatin Calcium 80 Mg Tablet) 80 mg PO DAILY [facility] Last Admin: 10/08/22 08:40 Dose: 80 mg Carbidopa/Levodopa (Carbidopa/Levodopa 25/100 Tablet) 1 tab PO BID@0700,1200 [facility] Last Admin: 10/08/22 12:28 Dose: 1 tab Carvedilol (Carvedilol 3.125 Mg Tablet) 3.125 mg PO BID [facility]; Protocol Last Admin: 10/08/22 08:40 Dose: 3.125 mg Clopidogrel Bisulfate (Clopidogrel Bisulfate 75 Mg Tablet) 75 mg PO DAILY [facility] Last Admin: 10/08/22 08:40 Dose: 75 mg Donepezil HCl (Donepezil Hcl 10 Mg Tablet) 10 mg PO BEDTIME [facility] Last Admin: 10/07/22 20:32 Dose: 10 mg Finasteride (Finasteride 5 Mg Tablet) 5 mg PO BEDTIME [facility] Last Admin: 10/07/22 20:32 Dose: 5 mg Hydroxyzine HCl (Hydroxyzine Hcl 25 Mg Tablet) 25 mg PO Q6H PRN PRN Reason: Anxiety Last Admin: 09/17/22 01:41 Dose: 25 mg Magnesium Hydroxide (Milk Of Magnesia 30 Ml Oral.Susp) 30 ml PO DAILY PRN PRN Reason: Constipation Metformin HCl (Metformin Hcl 500 Mg Tablet) 500 mg PO BIDWM [facility] Last Admin: 10/08/22 08:40 Dose: 500 mg Omeprazole (Omeprazole 20 Mg Capsule.) 20 mg PO DAILY@0630 [facility] Last Admin: 10/08/22 05:47 Dose: 20 mg Quetiapine Fumarate (Quetiapine Fumarate 50 Mg Tablet) 50 mg PO Q6H PRN PRN Reason: agitation Sertraline HCl (Sertraline Hcl 50 Mg Tablet) 50 mg PO DAILY [facility] Last Admin: 10/08/22 08:39 Dose: 50 mg Trazodone HCl (Trazodone Hcl 50 Mg Tablet) 50 mg PO BEDTIME PRN PRN Reason: Insomnia Last Admin: 09/17/22 01:41 Dose: 50 mg Allergies Allergies Allergy/AdvReac Type Severity Reaction Status Date / Time No Known Allergies Allergy Verified 06/12/20 12:45 [No Known Allergies*] Assessment & Plan Assessment & Plan (1) Major neurocognitive disorder, due to Alzheimer's disease, without behavioral disturbance, severe: Status: Acute Code(s): G30.9 - Alzheimer's disease, unspecified; F02.C0 - Dementia in other diseases classified elsewhere, severe, without behavioral disturbance, psychotic disturbance, mood disturbance, and anxiety Plan 09/21 continue current treatment. angie do trial of levo/carbidopa next week for better assessment of response and improvement in gait. 09/22 levodopa/carbidopa ordered and the patient reports no side effects mild improvement of tremors. Rest the same 09/23: Continue current regimen and plans 09/24: Continue current plans and regimen 09/25 continue tx. HCP informed and updated on neurology assessments. 09/26 continue tx. awaiting placement. 09/27 continue tx. mouth checks. 09/28 continue tx. 09/29 continue tx. 09/30: stable presentation. continue current mgmt. 10/01: no change from yesterday. 10/02 continue tx. 10/03 continue tx. awaiting placement. 10/04 continue tx. awaiting placement 10/05 continue tx. awaiting tx. 10/06 continue same treatment, waiting for placement 10/08/2022: No changes to current plan Reason for continued inpatient stay Substantial Risk for: inability to function Time Spent With Patient Time: Total time managing care of this patient today ____ minutes.
[2022-10-08 20:22] VITALS: BP 140/77; PULSE 70; RESP 18; TEMP 36.3; O2SAT 99
[2022-10-08] MEDS: Finasteride 5 MG TABLET PO (21:39)
[2022-10-08] MEDS: Donepezil HCl 10 MG TABLET PO (21:39)
[2022-10-09] MEDS: Omeprazole 20 MG CAPSULE.DR PO (06:04)
[2022-10-09] MEDS: Carbidopa/Levodopa 25/100 TABLET 1 TAB PO ×2 (06:04→11:44)
[2022-10-09 08:30] VITALS: BP 150/79; PULSE 65; RESP 18; TEMP 36.2; O2SAT 97
[2022-10-09] MEDS: Aspirin Enteric Coated 81 MG TABLET.DR PO (08:32)
[2022-10-09] MEDS: Clopidogrel Bisulfate 75 MG TABLET PO (08:32)
[2022-10-09] MEDS: Sertraline HCL 50 MG TABLET PO (08:32)
[2022-10-09] MEDS: Atorvastatin Calcium 80 MG TABLET PO (08:32)
[2022-10-09] MEDS: metFORMIN HCl 500 MG TABLET PO ×2 (08:32→16:25)
[2022-10-09] MEDS: amLODIPine Besylate 5 MG TABLET PO (08:33)
[2022-10-09] MEDS: carvediloL 3.125 MG TABLET PO ×2 (08:33→20:07)
--- NOTE | 2022-10-09 12:44 | HO.PSYCHPN ---
Subjective Subjective Date of Service: 10/09/22 Reason For Visit: Unspecified Depressive Disorder Subjective Notes: Conditional Voluntary Interim History: Pt slept through the night. He continues to take medications as prescribed. pleasant on approach. His son from [place] and ex came to see him. Pt denies SI/HI. No behavioral concerns, awaiting placement. SBP in 150/160's, DBP 80's for weeks- will increase amlodipine to 7.5mg po daily Medication Compliance: Yes Side effects from medications: No Review of Systems Review of Systems Nothing acute Yes all other systems are reviewed and are negative and Unobtainable due to mental status Mental Status Exam Mental Status Exam Narrative: Appearance: wearing hospital pants and regular t shirt, good hygiene, in NAD Behavior: cooperative Psychomotor: no agitation or retardation noted Speech: clear, normal rate/rhythm/volume, spontaneous TP: mostly linear TC:no overt delusions or psychosis, feeling good Mood: good Affect: congruent SI: denies HI: denies VH/AH: none Delusions: none Insight/judgment: impaired x 2. Memory/cog: alert, not oriented to place, situation, month, year. severe underlying dementia. Diagnostics Vital Signs (24Hr): Vital Signs - 24 hr 10/08/22 20:22 10/09/22 08:30 Temperature 97.4 F 97.1 F Pulse Rate 70 65 Respiratory Rate 18 18 Blood Pressure 140/77 H 150/79 H Pulse Oximetry 99 97 Oxygen Delivery Method Room Air Room Air BMI result Body Mass Index 25.1 Labs 09/08/22 07:56 10/07/22 07:46 Imaging Radiology Impressions: ITS Impressions Chest X-Ray 09/18/22 18:40 IMPRESSION: Low lung volumes. No evidence for acute disease in the chest. Medications Medications Current Medications Acetaminophen (Acetaminophen 325 Mg Tablet) 650 mg PO Q6H PRN PRN Reason: Headache/Pain Mild Scale (1-3) Last Admin: 09/27/22 20:38 Dose: 650 mg Al Hydroxide/Mg Hydroxide (Magnesium Hydrox/Alum Hydrox 30 Ml Oral.Susp) 30 ml PO Q6H PRN PRN Reason: Heartburn/Nausea Last Admin: 09/21/22 15:39 Dose: 30 ml Amlodipine Besylate (Amlodipine Besylate 5 Mg Tablet) 5 mg PO DAILY [facility]; Protocol Last Admin: 07/03/23 08:33 Dose: 5 mg Artificial Tears (Artificial Tears 15 Ml Drops) 1 drop EYE-BOTH Q4H PRN PRN Reason: Dryness Aspirin (Aspirin Enteric Coated 81 Mg Tablet.) 81 mg PO DAILY [facility] Last Admin: 10/09/22 08:32 Dose: 81 mg Atorvastatin Calcium (Atorvastatin Calcium 80 Mg Tablet) 80 mg PO DAILY [facility] Last Admin: 10/09/22 08:32 Dose: 80 mg Carbidopa/Levodopa (Carbidopa/Levodopa 25/100 Tablet) 1 tab PO BID@0700,1200 [facility] Last Admin: 10/09/22 11:44 Dose: 1 tab Carvedilol (Carvedilol 3.125 Mg Tablet) 3.125 mg PO BID [facility]; Protocol Last Admin: 10/09/22 08:33 Dose: 3.125 mg Clopidogrel Bisulfate (Clopidogrel Bisulfate 75 Mg Tablet) 75 mg PO DAILY [facility] Last Admin: 10/09/22 08:32 Dose: 75 mg Donepezil HCl (Donepezil Hcl 10 Mg Tablet) 10 mg PO BEDTIME [facility] Last Admin: 10/08/22 21:39 Dose: 10 mg Finasteride (Finasteride 5 Mg Tablet) 5 mg PO BEDTIME [facility] Last Admin: 10/08/22 21:39 Dose: 5 mg Hydroxyzine HCl (Hydroxyzine Hcl 25 Mg Tablet) 25 mg PO Q6H PRN PRN Reason: Anxiety Last Admin: 09/17/22 01:41 Dose: 25 mg Magnesium Hydroxide (Milk Of Magnesia 30 Ml Oral.Susp) 30 ml PO DAILY PRN PRN Reason: Constipation Metformin HCl (Metformin Hcl 500 Mg Tablet) 500 mg PO BIDWM [facility] Last Admin: 10/09/22 08:32 Dose: 500 mg Omeprazole (Omeprazole 20 Mg Capsule.Dr) 20 mg PO DAILY@0630 [facility] Last Admin: 10/09/22 06:04 Dose: 20 mg Quetiapine Fumarate (Quetiapine Fumarate 50 Mg Tablet) 50 mg PO Q6H PRN PRN Reason: agitation Sertraline HCl (Sertraline Hcl 50 Mg Tablet) 50 mg PO DAILY [facility] Last Admin: 10/09/22 08:32 Dose: 50 mg Trazodone HCl (Trazodone Hcl 50 Mg Tablet) 50 mg PO BEDTIME PRN PRN Reason: Insomnia Last Admin: 09/17/22 01:41 Dose: 50 mg Allergies Allergies Allergy/AdvReac Type Severity Reaction Status Date / Time No Known Allergies Allergy Verified 06/12/20 12:45 [No Known Allergies*] Assessment & Plan Assessment & Plan (1) Major neurocognitive disorder, due to Alzheimer's disease, without behavioral disturbance, severe: Status: Acute Code(s): G30.9 - Alzheimer's disease, unspecified; F02.C0 - Dementia in other diseases classified elsewhere, severe, without behavioral disturbance, psychotic disturbance, mood disturbance, and anxiety Plan 09/21 continue current treatment. angie do trial of levo/carbidopa next week for better assessment of response and improvement in gait. 09/22 levodopa/carbidopa ordered and the patient reports no side effects mild improvement of tremors. Rest the same 09/23: Continue current regimen and plans 09/24: Continue current plans and regimen 09/25 continue tx. HCP informed and updated on neurology assessments. 09/26 continue tx. awaiting placement. 09/27 continue tx. mouth checks. 09/28 continue tx. 09/29 continue tx. 09/30: stable presentation. continue current mgmt. 10/01: no change from yesterday. 10/02 continue tx. 10/03 continue tx. awaiting placement. 10/04 continue tx. awaiting placement 10/05 continue tx. awaiting tx. 10/06 continue same treatment, waiting for placement 10/08/2022: No changes to current plan 10/09 continue tx. Increase amlodipine to 7.5mg po daily Reason for continued inpatient stay Substantial Risk for: inability to function Time Spent With Patient Time: Total time managing care of this patient today ____ minutes.
[2022-10-09 20:05] VITALS: BP 119/62; PULSE 72; RESP 18; TEMP 36.1; O2SAT 96
[2022-10-09] MEDS: Donepezil HCl 10 MG TABLET PO (20:07)
[2022-10-09] MEDS: Finasteride 5 MG TABLET PO (20:07)
[2022-10-10] MEDS: Omeprazole 20 MG CAPSULE.DR PO (06:03)
[2022-10-10] MEDS: Carbidopa/Levodopa 25/100 TABLET 1 TAB PO ×2 (06:03→12:08)
[2022-10-10 08:10] VITALS: BP 155/79; PULSE 70; RESP 16; TEMP 36.1; O2SAT 98
[2022-10-10] MEDS: carvediloL 3.125 MG TABLET PO (08:21)
[2022-10-10] MEDS: Clopidogrel Bisulfate 75 MG TABLET PO (08:21)
[2022-10-10] MEDS: Atorvastatin Calcium 80 MG TABLET PO (08:21)
[2022-10-10] MEDS: metFORMIN HCl 500 MG TABLET PO ×2 (08:21→16:33)
[2022-10-10] MEDS: Sertraline HCL 50 MG TABLET PO (08:21)
[2022-10-10] MEDS: Aspirin Enteric Coated 81 MG TABLET.DR PO (08:21)
--- NOTE | 2022-10-10 14:19 | HO.PSYCHPN ---
Subjective Subjective Date of Service: 10/10/22 Reason For Visit: Unspecified Depressive Disorder Subjective Notes: Conditional Voluntary Interim History: Pt continues to sleep through the night. He continues to take medications as prescribed. pleasant on approach. Pt denies any physical concerns. Taking medications as prescribed. Pt denies SI/HI. No behavioral concerns, awaiting placement. SBP in 150/160's, DBP 80's for weeks- will increase amlodipine to 7.5mg po daily Review of Systems Review of Systems Nothing acute Yes all other systems are reviewed and are negative and Unobtainable due to mental status Mental Status Exam Mental Status Exam Narrative: Appearance: wearing hospital pants and regular t shirt, good hygiene, in NAD Behavior: cooperative Psychomotor: no agitation or retardation noted Speech: clear, normal rate/rhythm/volume, spontaneous TP: mostly linear TC:no overt delusions or psychosis, feeling good Mood: good Affect: congruent SI: denies HI: denies VH/AH: none Delusions: none Insight/judgment: impaired x 2. Memory/cog: alert, not oriented to place, situation, month, year. severe underlying dementia. Diagnostics Vital Signs (24Hr): Vital Signs - 24 hr 10/09/22 20:05 10/10/22 08:10 Temperature 96.9 F 96.9 F Pulse Rate 72 70 Respiratory Rate 18 16 Blood Pressure 119/62 155/79 H Pulse Oximetry 96 98 Oxygen Delivery Method Room Air Room Air BMI result Body Mass Index 25.1 Labs 09/08/22 07:56 10/07/22 07:46 Imaging Radiology Impressions: ITS Impressions Chest X-Ray 09/18/22 18:40 IMPRESSION: Low lung volumes. No evidence for acute disease in the chest. Medications Medications Current Medications Acetaminophen (Acetaminophen 325 Mg Tablet) 650 mg PO Q6H PRN PRN Reason: Headache/Pain Mild Scale (1-3) Last Admin: 09/27/22 20:38 Dose: 650 mg Al Hydroxide/Mg Hydroxide (Magnesium Hydrox/Alum Hydrox 30 Ml Oral.Susp) 30 ml PO Q6H PRN PRN Reason: Heartburn/Nausea Last Admin: 09/21/22 15:39 Dose: 30 ml Amlodipine Besylate (Amlodipine Besylate 2.5 Mg Tablet) 7.5 mg PO DAILY [facility]; Protocol Last Admin: 10/10/22 08:21 Dose: 7.5 mg Artificial Tears (Artificial Tears 15 Ml Drops) 1 drop EYE-BOTH Q4H PRN PRN Reason: Dryness Aspirin (Aspirin Enteric Coated 81 Mg Tablet.) 81 mg PO DAILY [facility] Last Admin: 10/10/22 08:21 Dose: 81 mg Atorvastatin Calcium (Atorvastatin Calcium 80 Mg Tablet) 80 mg PO DAILY [facility] Last Admin: 10/10/22 08:21 Dose: 80 mg Carbidopa/Levodopa (Carbidopa/Levodopa 25/100 Tablet) 1 tab PO BID@0700,1200 [facility] Last Admin: 10/10/22 12:08 Dose: 1 tab Carvedilol (Carvedilol 3.125 Mg Tablet) 3.125 mg PO BID [facility]; Protocol Last Admin: 10/10/22 08:21 Dose: 3.125 mg Clopidogrel Bisulfate (Clopidogrel Bisulfate 75 Mg Tablet) 75 mg PO DAILY [facility] Last Admin: 10/10/22 08:21 Dose: 75 mg Donepezil HCl (Donepezil Hcl 10 Mg Tablet) 10 mg PO BEDTIME [facility] Last Admin: 10/09/22 20:07 Dose: 10 mg Finasteride (Finasteride 5 Mg Tablet) 5 mg PO BEDTIME [facility] Last Admin: 10/09/22 20:07 Dose: 5 mg Hydroxyzine HCl (Hydroxyzine Hcl 25 Mg Tablet) 25 mg PO Q6H PRN PRN Reason: Anxiety Last Admin: 09/17/22 01:41 Dose: 25 mg Magnesium Hydroxide (Milk Of Magnesia 30 Ml Oral.Susp) 30 ml PO DAILY PRN PRN Reason: Constipation Metformin HCl (Metformin Hcl 500 Mg Tablet) 500 mg PO BIDWM [facility] Last Admin: 10/10/22 08:21 Dose: 500 mg Omeprazole (Omeprazole 20 Mg Capsule.) 20 mg PO DAILY@0630 [facility] Last Admin: 10/10/22 06:03 Dose: 20 mg Quetiapine Fumarate (Quetiapine Fumarate 50 Mg Tablet) 50 mg PO Q6H PRN PRN Reason: agitation Sertraline HCl (Sertraline Hcl 50 Mg Tablet) 50 mg PO DAILY [facility] Last Admin: 10/10/22 08:21 Dose: 50 mg Trazodone HCl (Trazodone Hcl 50 Mg Tablet) 50 mg PO BEDTIME PRN PRN Reason: Insomnia Last Admin: 09/17/22 01:41 Dose: 50 mg Allergies Allergies Allergy/AdvReac Type Severity Reaction Status Date / Time No Known Allergies Allergy Verified 06/12/20 12:45 [No Known Allergies*] Assessment & Plan Assessment & Plan (1) Major neurocognitive disorder, due to Alzheimer's disease, without behavioral disturbance, severe: Status: Acute Code(s): G30.9 - Alzheimer's disease, unspecified; F02.C0 - Dementia in other diseases classified elsewhere, severe, without behavioral disturbance, psychotic disturbance, mood disturbance, and anxiety Plan 09/21 continue current treatment. angie do trial of levo/carbidopa next week for better assessment of response and improvement in gait. 09/22 levodopa/carbidopa ordered and the patient reports no side effects mild improvement of tremors. Rest the same 09/23: Continue current regimen and plans 09/24: Continue current plans and regimen 09/25 continue tx. HCP informed and updated on neurology assessments. 09/26 continue tx. awaiting placement. 09/27 continue tx. mouth checks. 09/28 continue tx. 09/29 continue tx. 09/30: stable presentation. continue current mgmt. 10/01: no change from yesterday. 10/02 continue tx. 10/03 continue tx. awaiting placement. 10/04 continue tx. awaiting placement 10/05 continue tx. awaiting tx. 10/06 continue same treatment, waiting for placement 10/08/2022: No changes to current plan 10/09 continue tx. Increase amlodipine to 7.5mg po daily 10/10 continue tx. Reason for continued inpatient stay Substantial Risk for: inability to function Time Spent With Patient Time: Total time managing care of this patient today ____ minutes.
[2022-10-10 18:00] VITALS: BP 102/59; PULSE 63; RESP 18; TEMP 36.3; O2SAT 96
[2022-10-10] MEDS: Finasteride 5 MG TABLET PO (20:23)
[2022-10-10] MEDS: Donepezil HCl 10 MG TABLET PO (20:23)
--- NOTE | 2022-10-10 22:48 | PC.NURSE ---
Scheduled coreg held per covering COREEN Mojica for soft BPs in evening. Patient asymptomatic.
[2022-10-11] MEDS: Omeprazole 20 MG CAPSULE.DR PO (05:48)
[2022-10-11] MEDS: Carbidopa/Levodopa 25/100 TABLET 1 TAB PO ×2 (05:48→11:50)
[2022-10-11 08:00] VITALS: BP 135/80; PULSE 69; RESP 18; TEMP 36.8; O2SAT 97
[2022-10-11] MEDS: carvediloL 3.125 MG TABLET PO ×2 (08:38→20:04)
[2022-10-11] MEDS: Sertraline HCL 50 MG TABLET PO (08:38)
[2022-10-11] MEDS: Clopidogrel Bisulfate 75 MG TABLET PO (08:38)
[2022-10-11] MEDS: metFORMIN HCl 500 MG TABLET PO ×2 (08:39→17:13)
[2022-10-11] MEDS: Atorvastatin Calcium 80 MG TABLET PO (08:39)
[2022-10-11] MEDS: Aspirin Enteric Coated 81 MG TABLET.DR PO (08:39)
--- NOTE | 2022-10-11 10:55 | HO.PSYCHPN ---
Subjective Subjective Date of Service: 10/11/22 Reason For Visit: Unspecified Depressive Disorder Subjective Notes: Conditional Voluntary Interim History: Pt continues to sleep through the night. His BP was low last evening and coreg was held. Amlodipine recently increase as SBP 150-160- but will lower and continue to monitor BP. He continues to take medications as prescribed. pleasant on approach. Pt denies any physical concerns. Taking medications as prescribed. Pt denies SI/HI. No behavioral concerns, awaiting placement. Review of Systems Review of Systems Nothing acute Yes all other systems are reviewed and are negative and Unobtainable due to mental status Mental Status Exam Mental Status Exam Narrative: Appearance: wearing hospital pants and regular t shirt, good hygiene, in NAD Behavior: cooperative Psychomotor: no agitation or retardation noted Speech: clear, normal rate/rhythm/volume, spontaneous TP: mostly linear TC:no overt delusions or psychosis, feeling good Mood: good Affect: congruent SI: denies HI: denies VH/AH: none Delusions: none Insight/judgment: impaired x 2. Memory/cog: alert, not oriented to place, situation, month, year. severe underlying dementia. Mood Description: Calm Diagnostics Vital Signs (24Hr): Vital Signs - 24 hr 10/10/22 18:00 10/11/22 08:00 Temperature 97.3 F 98.2 F Pulse Rate 63 69 Respiratory Rate 18 18 Blood Pressure 102/59 L 135/80 Pulse Oximetry 96 97 Oxygen Delivery Method Room Air Room Air BMI result Body Mass Index 25.1 Labs 09/08/22 07:56 10/07/22 07:46 Imaging Radiology Impressions: ITS Impressions Chest X-Ray 09/18/22 18:40 IMPRESSION: Low lung volumes. No evidence for acute disease in the chest. Medications Medications Current Medications Acetaminophen (Acetaminophen 325 Mg Tablet) 650 mg PO Q6H PRN PRN Reason: Headache/Pain Mild Scale (1-3) Last Admin: 09/27/22 20:38 Dose: 650 mg Al Hydroxide/Mg Hydroxide (Magnesium Hydrox/Alum Hydrox 30 Ml Oral.Susp) 30 ml PO Q6H PRN PRN Reason: Heartburn/Nausea Last Admin: 09/21/22 15:39 Dose: 30 ml Amlodipine Besylate (Amlodipine Besylate 2.5 Mg Tablet) 7.5 mg PO DAILY [facility]; Protocol Last Admin: 10/11/22 08:38 Dose: 7.5 mg Artificial Tears (Artificial Tears 15 Ml Drops) 1 drop EYE-BOTH Q4H PRN PRN Reason: Dryness Aspirin (Aspirin Enteric Coated 81 Mg Tablet.) 81 mg PO DAILY [facility] Last Admin: 10/11/22 08:39 Dose: 81 mg Atorvastatin Calcium (Atorvastatin Calcium 80 Mg Tablet) 80 mg PO DAILY [facility] Last Admin: 10/11/22 08:39 Dose: 80 mg Carbidopa/Levodopa (Carbidopa/Levodopa 25/100 Tablet) 1 tab PO BID@0700,1200 [facility] Last Admin: 10/11/22 05:48 Dose: 1 tab Carvedilol (Carvedilol 3.125 Mg Tablet) 3.125 mg PO BID [facility]; Protocol Last Admin: 10/11/22 08:38 Dose: 3.125 mg Clopidogrel Bisulfate (Clopidogrel Bisulfate 75 Mg Tablet) 75 mg PO DAILY [facility] Last Admin: 10/11/22 08:38 Dose: 75 mg Donepezil HCl (Donepezil Hcl 10 Mg Tablet) 10 mg PO BEDTIME [facility] Last Admin: 10/10/22 20:23 Dose: 10 mg Finasteride (Finasteride 5 Mg Tablet) 5 mg PO BEDTIME [facility] Last Admin: 10/10/22 20:23 Dose: 5 mg Hydroxyzine HCl (Hydroxyzine Hcl 25 Mg Tablet) 25 mg PO Q6H PRN PRN Reason: Anxiety Last Admin: 09/17/22 01:41 Dose: 25 mg Magnesium Hydroxide (Milk Of Magnesia 30 Ml Oral.Susp) 30 ml PO DAILY PRN PRN Reason: Constipation Metformin HCl (Metformin Hcl 500 Mg Tablet) 500 mg PO BIDWM [facility] Last Admin: 10/11/22 08:39 Dose: 500 mg Omeprazole (Omeprazole 20 Mg Capsule.) 20 mg PO DAILY@0630 [facility] Last Admin: 10/11/22 05:48 Dose: 20 mg Quetiapine Fumarate (Quetiapine Fumarate 50 Mg Tablet) 50 mg PO Q6H PRN PRN Reason: agitation Sertraline HCl (Sertraline Hcl 50 Mg Tablet) 50 mg PO DAILY [facility] Last Admin: 10/11/22 08:38 Dose: 50 mg Trazodone HCl (Trazodone Hcl 50 Mg Tablet) 50 mg PO BEDTIME PRN PRN Reason: Insomnia Last Admin: 09/17/22 01:41 Dose: 50 mg Allergies Allergies Allergy/AdvReac Type Severity Reaction Status Date / Time No Known Allergies Allergy Verified 06/12/20 12:45 [No Known Allergies*] Assessment & Plan Assessment & Plan (1) Major neurocognitive disorder, due to Alzheimer's disease, without behavioral disturbance, severe: Status: Acute Code(s): G30.9 - Alzheimer's disease, unspecified; F02.C0 - Dementia in other diseases classified elsewhere, severe, without behavioral disturbance, psychotic disturbance, mood disturbance, and anxiety Plan 09/21 continue current treatment. angie do trial of levo/carbidopa next week for better assessment of response and improvement in gait. 09/22 levodopa/carbidopa ordered and the patient reports no side effects mild improvement of tremors. Rest the same 09/23: Continue current regimen and plans 09/24: Continue current plans and regimen 09/25 continue tx. HCP informed and updated on neurology assessments. 09/26 continue tx. awaiting placement. 09/27 continue tx. mouth checks. 09/28 continue tx. 09/29 continue tx. 09/30: stable presentation. continue current mgmt. 10/01: no change from yesterday. 10/02 continue tx. 10/03 continue tx. awaiting placement. 10/04 continue tx. awaiting placement 10/05 continue tx. awaiting tx. 10/06 continue same treatment, waiting for placement 10/08/2022: No changes to current plan 10/09 continue tx. Increase amlodipine to 7.5mg po daily 10/10 continue tx. 10/11 continue tx. Reason for continued inpatient stay Substantial Risk for: inability to function Time Spent With Patient Time: Total time managing care of this patient today ____ minutes.
[2022-10-11] MEDS: Finasteride 5 MG TABLET PO (20:03)
[2022-10-11] MEDS: Donepezil HCl 10 MG TABLET PO (20:03)
[2022-10-11 20:07] VITALS: BP 120/62; PULSE 74; RESP 18; TEMP 36.6; O2SAT 96
[2022-10-12] MEDS: Omeprazole 20 MG CAPSULE.DR PO (05:37)
[2022-10-12 08:25] VITALS: BP 129/76; PULSE 90; RESP 20; TEMP 36.1; O2SAT 95
[2022-10-12] MEDS: Aspirin Enteric Coated 81 MG TABLET.DR PO (08:28)
[2022-10-12] MEDS: carvediloL 3.125 MG TABLET PO ×2 (08:29→20:58)
[2022-10-12] MEDS: metFORMIN HCl 500 MG TABLET PO ×2 (08:29→16:40)
[2022-10-12] MEDS: Carbidopa/Levodopa 25/100 TABLET 1 TAB PO ×2 (08:30→12:37)
[2022-10-12] MEDS: Clopidogrel Bisulfate 75 MG TABLET PO (08:30)
[2022-10-12] MEDS: amLODIPine Besylate 5 MG TABLET PO (08:30)
[2022-10-12] MEDS: Atorvastatin Calcium 80 MG TABLET PO (08:30)
[2022-10-12] MEDS: Sertraline HCL 50 MG TABLET PO (08:30)
--- NOTE | 2022-10-12 12:35 | HO.PSYCHPN ---
Subjective Subjective Date of Service: 10/12/22 Reason For Visit: Unspecified Depressive Disorder Subjective Notes: Conditional Voluntary Interim History: Pt continues to sleep through the night. Pt pleasant on approach. He denies depression or anxiety. He also denies SI/HI. No VH.AH. No behavioral concerns. Pt taking medications as prescribed. awaiting placement. Medication Compliance: Yes Review of Systems Review of Systems Nothing acute Yes all other systems are reviewed and are negative and Unobtainable due to mental status Mental Status Exam Mental Status Exam Narrative: Appearance: wearing hospital pants and regular t shirt, good hygiene, in NAD Behavior: cooperative Psychomotor: no agitation or retardation noted Speech: clear, normal rate/rhythm/volume, spontaneous TP: mostly linear TC:no overt delusions or psychosis, feeling good Mood: good Affect: congruent SI: denies HI: denies VH/AH: none Delusions: none Insight/judgment: impaired x 2. Memory/cog: alert, not oriented to place, situation, month, year. severe underlying dementia. Diagnostics Vital Signs (24Hr): Vital Signs - 24 hr 10/11/22 20:07 Temperature 97.8 F Pulse Rate 74 Respiratory Rate 18 Blood Pressure 120/62 Pulse Oximetry 96 Oxygen Delivery Method Room Air BMI result Body Mass Index 25.1 Labs 09/08/22 07:56 10/07/22 07:46 Imaging Radiology Impressions: ITS Impressions Chest X-Ray 09/18/22 18:40 IMPRESSION: Low lung volumes. No evidence for acute disease in the chest. Medications Medications Current Medications Acetaminophen (Acetaminophen 325 Mg Tablet) 650 mg PO Q6H PRN PRN Reason: Headache/Pain Mild Scale (1-3) Last Admin: 09/27/22 20:38 Dose: 650 mg Al Hydroxide/Mg Hydroxide (Magnesium Hydrox/Alum Hydrox 30 Ml Oral.Susp) 30 ml PO Q6H PRN PRN Reason: Heartburn/Nausea Last Admin: 09/21/22 15:39 Dose: 30 ml Amlodipine Besylate (Amlodipine Besylate 5 Mg Tablet) 5 mg PO DAILY [facility]; Protocol Last Admin: 10/12/22 08:30 Dose: 5 mg Artificial Tears (Artificial Tears 15 Ml Drops) 1 drop EYE-BOTH Q4H PRN PRN Reason: Dryness Aspirin (Aspirin Enteric Coated 81 Mg Tablet.) 81 mg PO DAILY [facility] Last Admin: 10/12/22 08:28 Dose: 81 mg Atorvastatin Calcium (Atorvastatin Calcium 80 Mg Tablet) 80 mg PO DAILY [facility] Last Admin: 10/12/22 08:30 Dose: 80 mg Carbidopa/Levodopa (Carbidopa/Levodopa 25/100 Tablet) 1 tab PO BID@0700,1200 [facility] Last Admin: 10/12/22 08:30 Dose: 1 tab Carvedilol (Carvedilol 3.125 Mg Tablet) 3.125 mg PO BID [facility]; Protocol Last Admin: 10/12/22 08:29 Dose: 3.125 mg Clopidogrel Bisulfate (Clopidogrel Bisulfate 75 Mg Tablet) 75 mg PO DAILY [facility] Last Admin: 10/12/22 08:30 Dose: 75 mg Donepezil HCl (Donepezil Hcl 10 Mg Tablet) 10 mg PO BEDTIME [facility] Last Admin: 10/11/22 20:03 Dose: 10 mg Finasteride (Finasteride 5 Mg Tablet) 5 mg PO BEDTIME [facility] Last Admin: 10/11/22 20:03 Dose: 5 mg Hydroxyzine HCl (Hydroxyzine Hcl 25 Mg Tablet) 25 mg PO Q6H PRN PRN Reason: Anxiety Last Admin: 09/17/22 01:41 Dose: 25 mg Magnesium Hydroxide (Milk Of Magnesia 30 Ml Oral.Susp) 30 ml PO DAILY PRN PRN Reason: Constipation Metformin HCl (Metformin Hcl 500 Mg Tablet) 500 mg PO BIDWM [facility] Last Admin: 10/12/22 08:29 Dose: 500 mg Omeprazole (Omeprazole 20 Mg Capsule.Dr) 20 mg PO DAILY@0630 [facility] Last Admin: 10/12/22 05:37 Dose: 20 mg Quetiapine Fumarate (Quetiapine Fumarate 50 Mg Tablet) 50 mg PO Q6H PRN PRN Reason: agitation Sertraline HCl (Sertraline Hcl 50 Mg Tablet) 50 mg PO DAILY [facility] Last Admin: 10/12/22 08:30 Dose: 50 mg Trazodone HCl (Trazodone Hcl 50 Mg Tablet) 50 mg PO BEDTIME PRN PRN Reason: Insomnia Last Admin: 09/17/22 01:41 Dose: 50 mg Allergies Allergies Allergy/AdvReac Type Severity Reaction Status Date / Time No Known Allergies Allergy Verified 06/12/20 12:45 [No Known Allergies*] Assessment & Plan Assessment & Plan (1) Major neurocognitive disorder, due to Alzheimer's disease, without behavioral disturbance, severe: Status: Acute Code(s): G30.9 - Alzheimer's disease, unspecified; F02.C0 - Dementia in other diseases classified elsewhere, severe, without behavioral disturbance, psychotic disturbance, mood disturbance, and anxiety Plan 09/21 continue current treatment. angie do trial of levo/carbidopa next week for better assessment of response and improvement in gait. 09/22 levodopa/carbidopa ordered and the patient reports no side effects mild improvement of tremors. Rest the same 09/23: Continue current regimen and plans 09/24: Continue current plans and regimen 09/25 continue tx. HCP informed and updated on neurology assessments. 09/26 continue tx. awaiting placement. 09/27 continue tx. mouth checks. 09/28 continue tx. 09/29 continue tx. 09/30: stable presentation. continue current mgmt. 10/01: no change from yesterday. 10/02 continue tx. 10/03 continue tx. awaiting placement. 10/04 continue tx. awaiting placement 10/05 continue tx. awaiting tx. 10/06 continue same treatment, waiting for placement 10/08/2022: No changes to current plan 10/09 continue tx. Increase amlodipine to 7.5mg po daily 10/10 continue tx. 10/11 continue tx. amlodipine back to 5mg po daily 10/12 continue tx. Reason for continued inpatient stay Substantial Risk for: inability to function Time Spent With Patient Time: Total time managing care of this patient today ____ minutes.
[2022-10-12 14:46] VITALS: BMI 25.5
[2022-10-12 18:00] VITALS: BP 129/77; PULSE 69; RESP 18; TEMP 36.6; O2SAT 99
[2022-10-12] MEDS: Donepezil HCl 10 MG TABLET PO (20:58)
[2022-10-12] MEDS: Finasteride 5 MG TABLET PO (20:58)
--- NOTE | 2022-10-13 04:07 | PC.NURSE ---
No acute issues overnight. Patient is alert to person only. Pleasant and med compliant. Ambulates with very short shuffling gait and walker. Continent of urine. Slept throughout night. Will continue to monitor for changes.
[2022-10-13 06:00] VITALS: BP 131/75; PULSE 73; RESP 16; TEMP 36.2; O2SAT 95
[2022-10-13] MEDS: Omeprazole 20 MG CAPSULE.DR PO (06:34)
[2022-10-13] MEDS: amLODIPine Besylate 5 MG TABLET PO (08:43)
[2022-10-13] MEDS: metFORMIN HCl 500 MG TABLET PO (08:44)
[2022-10-13] MEDS: Atorvastatin Calcium 80 MG TABLET PO (08:44)
[2022-10-13] MEDS: Aspirin Enteric Coated 81 MG TABLET.DR PO (08:44)
[2022-10-13] MEDS: Sertraline HCL 50 MG TABLET PO (08:44)
[2022-10-13] MEDS: Clopidogrel Bisulfate 75 MG TABLET PO (08:44)
[2022-10-13] MEDS: Carbidopa/Levodopa 25/100 TABLET 1 TAB PO ×2 (08:44→11:49)
[2022-10-13] MEDS: carvediloL 3.125 MG TABLET PO ×2 (08:44→21:17)
--- NOTE | 2022-10-13 15:31 | HO.PSYCHPN ---
Subjective Subjective Date of Service: 10/13/22 Reason For Visit: Unspecified Depressive Disorder Subjective Notes: Conditional Voluntary Interim History: Pt continues to sleep through the night. Pt pleasant on approach. Pt is visible on the unit, social with select peers. He denies depression or anxiety. He also denies SI/HI. No VH.AH. No behavioral concerns. Pt taking medications as prescribed. awaiting placement. Review of Systems Review of Systems Nothing acute Yes all other systems are reviewed and are negative and Unobtainable due to mental status Mental Status Exam Mental Status Exam Narrative: Appearance: wearing hospital pants and regular t shirt, good hygiene, in NAD Behavior: cooperative Psychomotor: no agitation or retardation noted Speech: clear, normal rate/rhythm/volume, spontaneous TP: mostly linear TC:no overt delusions or psychosis, feeling good Mood: good Affect: congruent SI: denies HI: denies VH/AH: none Delusions: none Insight/judgment: impaired x 2. Memory/cog: alert, not oriented to place, situation, month, year. severe underlying dementia. Diagnostics Vital Signs (24Hr): Vital Signs - 24 hr 10/12/22 18:00 10/13/22 06:00 Temperature 97.8 F 97.1 F Pulse Rate 69 73 Respiratory Rate 18 16 Blood Pressure 129/77 131/75 Pulse Oximetry 99 95 Oxygen Delivery Method Room Air Room Air BMI result Body Mass Index 25.5 Labs 09/08/22 07:56 10/07/22 07:46 Imaging Radiology Impressions: ITS Impressions Chest X-Ray 09/18/22 18:40 IMPRESSION: Low lung volumes. No evidence for acute disease in the chest. Medications Medications Current Medications Acetaminophen (Acetaminophen 325 Mg Tablet) 650 mg PO Q6H PRN PRN Reason: Headache/Pain Mild Scale (1-3) Last Admin: 09/27/22 20:38 Dose: 650 mg Al Hydroxide/Mg Hydroxide (Magnesium Hydrox/Alum Hydrox 30 Ml Oral.Susp) 30 ml PO Q6H PRN PRN Reason: Heartburn/Nausea Last Admin: 09/21/22 15:39 Dose: 30 ml Amlodipine Besylate (Amlodipine Besylate 5 Mg Tablet) 5 mg PO DAILY [facility]; Protocol Last Admin: 10/13/22 08:43 Dose: 5 mg Artificial Tears (Artificial Tears 15 Ml Drops) 1 drop EYE-BOTH Q4H PRN PRN Reason: Dryness Aspirin (Aspirin Enteric Coated 81 Mg Tablet.) 81 mg PO DAILY [facility] Last Admin: 10/13/22 08:44 Dose: 81 mg Atorvastatin Calcium (Atorvastatin Calcium 80 Mg Tablet) 80 mg PO DAILY [facility] Last Admin: 10/13/22 08:44 Dose: 80 mg Carbidopa/Levodopa (Carbidopa/Levodopa 25/100 Tablet) 1 tab PO BID@0700,1200 [facility] Last Admin: 10/13/22 11:49 Dose: 1 tab Carvedilol (Carvedilol 3.125 Mg Tablet) 3.125 mg PO BID [facility]; Protocol Last Admin: 10/13/22 08:44 Dose: 3.125 mg Clopidogrel Bisulfate (Clopidogrel Bisulfate 75 Mg Tablet) 75 mg PO DAILY [facility] Last Admin: 10/13/22 08:44 Dose: 75 mg Donepezil HCl (Donepezil Hcl 10 Mg Tablet) 10 mg PO BEDTIME [facility] Last Admin: 10/12/22 20:58 Dose: 10 mg Finasteride (Finasteride 5 Mg Tablet) 5 mg PO BEDTIME [facility] Last Admin: 10/12/22 20:58 Dose: 5 mg Hydroxyzine HCl (Hydroxyzine Hcl 25 Mg Tablet) 25 mg PO Q6H PRN PRN Reason: Anxiety Last Admin: 09/17/22 01:41 Dose: 25 mg Magnesium Hydroxide (Milk Of Magnesia 30 Ml Oral.Susp) 30 ml PO DAILY PRN PRN Reason: Constipation Metformin HCl (Metformin Hcl 500 Mg Tablet) 500 mg PO BIDWM [facility] Last Admin: 10/13/22 08:44 Dose: 500 mg Omeprazole (Omeprazole 20 Mg Capsule.) 20 mg PO DAILY@0630 [facility] Last Admin: 10/13/22 06:34 Dose: 20 mg Quetiapine Fumarate (Quetiapine Fumarate 50 Mg Tablet) 50 mg PO Q6H PRN PRN Reason: agitation Sertraline HCl (Sertraline Hcl 50 Mg Tablet) 50 mg PO DAILY [facility] Last Admin: 10/13/22 08:44 Dose: 50 mg Trazodone HCl (Trazodone Hcl 50 Mg Tablet) 50 mg PO BEDTIME PRN PRN Reason: Insomnia Last Admin: 09/17/22 01:41 Dose: 50 mg Allergies Allergies Allergy/AdvReac Type Severity Reaction Status Date / Time No Known Allergies Allergy Verified 06/12/20 12:45 [No Known Allergies*] Assessment & Plan Assessment & Plan (1) Major neurocognitive disorder, due to Alzheimer's disease, without behavioral disturbance, severe: Status: Acute Code(s): G30.9 - Alzheimer's disease, unspecified; F02.C0 - Dementia in other diseases classified elsewhere, severe, without behavioral disturbance, psychotic disturbance, mood disturbance, and anxiety Plan 09/21 continue current treatment. angie do trial of levo/carbidopa next week for better assessment of response and improvement in gait. 09/22 levodopa/carbidopa ordered and the patient reports no side effects mild improvement of tremors. Rest the same 09/23: Continue current regimen and plans 09/24: Continue current plans and regimen 09/25 continue tx. HCP informed and updated on neurology assessments. 09/26 continue tx. awaiting placement. 09/27 continue tx. mouth checks. 09/28 continue tx. 09/29 continue tx. 09/30: stable presentation. continue current mgmt. 10/01: no change from yesterday. 10/02 continue tx. 10/03 continue tx. awaiting placement. 10/04 continue tx. awaiting placement 10/05 continue tx. awaiting tx. 10/06 continue same treatment, waiting for placement 10/08/2022: No changes to current plan 10/09 continue tx. Increase amlodipine to 7.5mg po daily 10/10 continue tx. 10/11 continue tx. amlodipine back to 5mg po daily 10/12 continue tx. 10/13 continue tx. Reason for continued inpatient stay Substantial Risk for: stable for discharge Time Spent With Patient Time: Total time managing care of this patient today ____ minutes.
[2022-10-13 18:00] VITALS: BP 118/60; PULSE 75; RESP 18; TEMP 36.3; O2SAT 97
[2022-10-13] MEDS: Donepezil HCl 10 MG TABLET PO (21:17)
[2022-10-13] MEDS: Finasteride 5 MG TABLET PO (21:18)
[2022-10-14] MEDS: Omeprazole 20 MG CAPSULE.DR PO (06:38)
[2022-10-14 08:10] VITALS: BP 139/84; PULSE 72; RESP 18; TEMP 36.8; O2SAT 97
[2022-10-14] MEDS: Carbidopa/Levodopa 25/100 TABLET 1 TAB PO ×2 (08:25→13:07)
[2022-10-14] MEDS: Clopidogrel Bisulfate 75 MG TABLET PO (08:27)
[2022-10-14] MEDS: Aspirin Enteric Coated 81 MG TABLET.DR PO (08:27)
[2022-10-14] MEDS: metFORMIN HCl 500 MG TABLET PO ×2 (08:27→17:59)
[2022-10-14] MEDS: carvediloL 3.125 MG TABLET PO ×2 (08:28→20:23)
[2022-10-14] MEDS: Sertraline HCL 50 MG TABLET PO (08:28)
[2022-10-14] MEDS: Atorvastatin Calcium 80 MG TABLET PO (08:28)
[2022-10-14] MEDS: amLODIPine Besylate 5 MG TABLET PO (08:28)
--- NOTE | 2022-10-14 11:22 | HO.PSYCHPN ---
Subjective Subjective Date of Service: 10/14/22 Reason For Visit: Unspecified Depressive Disorder Interim History: calm, cooperative. feeling well, denies any safety concerns. asking for help with money and women, jokingly. per staff, improved gait on L-Dopa. reportedly told [facility] staff he wants to , last night. denies that today. Mental Status Exam Mental Status Exam Narrative: Appearance: wearing hospital pants and regular t shirt, good hygiene, in NAD Behavior: cooperative Psychomotor: no agitation or retardation noted Speech: clear, normal rate/rhythm/volume, spontaneous TP: mostly linear TC:no overt delusions or psychosis, feeling good Mood: good Affect: congruent SI: denies HI: denies VH/AH: none Delusions: none Insight/judgment: impaired x 2. Memory/cog: alert, not oriented to place, situation, month, year. severe underlying dementia. Diagnostics Vital Signs (24Hr): Vital Signs - 24 hr 10/13/22 18:00 10/14/22 08:10 Temperature 97.3 F 98.2 F Pulse Rate 75 72 Respiratory Rate 18 18 Blood Pressure 118/60 139/84 Pulse Oximetry 97 97 Oxygen Delivery Method Room Air Room Air BMI result Body Mass Index 25.5 Labs 09/08/22 07:56 10/07/22 07:46 Imaging Radiology Impressions: ITS Impressions Chest X-Ray 09/18/22 18:40 IMPRESSION: Low lung volumes. No evidence for acute disease in the chest. Medications Medications Current Medications Acetaminophen (Acetaminophen 325 Mg Tablet) 650 mg PO Q6H PRN PRN Reason: Headache/Pain Mild Scale (1-3) Last Admin: 09/27/22 20:38 Dose: 650 mg Al Hydroxide/Mg Hydroxide (Magnesium Hydrox/Alum Hydrox 30 Ml Oral.Susp) 30 ml PO Q6H PRN PRN Reason: Heartburn/Nausea Last Admin: 09/21/22 15:39 Dose: 30 ml Amlodipine Besylate (Amlodipine Besylate 5 Mg Tablet) 5 mg PO DAILY [facility]; Protocol Last Admin: 10/14/22 08:28 Dose: 5 mg Artificial Tears (Artificial Tears 15 Ml Drops) 1 drop EYE-BOTH Q4H PRN PRN Reason: Dryness Aspirin (Aspirin Enteric Coated 81 Mg Tablet.) 81 mg PO DAILY [facility] Last Admin: 10/14/22 08:27 Dose: 81 mg Atorvastatin Calcium (Atorvastatin Calcium 80 Mg Tablet) 80 mg PO DAILY [facility] Last Admin: 10/14/22 08:28 Dose: 80 mg Carbidopa/Levodopa (Carbidopa/Levodopa 25/100 Tablet) 1 tab PO BID@0700,1200 [facility] Last Admin: 10/14/22 08:25 Dose: 1 tab Carvedilol (Carvedilol 3.125 Mg Tablet) 3.125 mg PO BID [facility]; Protocol Last Admin: 10/14/22 08:28 Dose: 3.125 mg Clopidogrel Bisulfate (Clopidogrel Bisulfate 75 Mg Tablet) 75 mg PO DAILY [facility] Last Admin: 10/14/22 08:27 Dose: 75 mg Donepezil HCl (Donepezil Hcl 10 Mg Tablet) 10 mg PO BEDTIME [facility] Last Admin: 10/13/22 21:17 Dose: 10 mg Finasteride (Finasteride 5 Mg Tablet) 5 mg PO BEDTIME [facility] Last Admin: 10/13/22 21:18 Dose: 5 mg Hydroxyzine HCl (Hydroxyzine Hcl 25 Mg Tablet) 25 mg PO Q6H PRN PRN Reason: Anxiety Last Admin: 09/17/22 01:41 Dose: 25 mg Magnesium Hydroxide (Milk Of Magnesia 30 Ml Oral.Susp) 30 ml PO DAILY PRN PRN Reason: Constipation Metformin HCl (Metformin Hcl 500 Mg Tablet) 500 mg PO BIDWM [facility] Last Admin: 10/14/22 08:27 Dose: 500 mg Omeprazole (Omeprazole 20 Mg Capsule.Dr) 20 mg PO DAILY@0630 [facility] Last Admin: 10/14/22 06:38 Dose: 20 mg Quetiapine Fumarate (Quetiapine Fumarate 50 Mg Tablet) 50 mg PO Q6H PRN PRN Reason: agitation Sertraline HCl (Sertraline Hcl 50 Mg Tablet) 50 mg PO DAILY [facility] Last Admin: 10/14/22 08:28 Dose: 50 mg Trazodone HCl (Trazodone Hcl 50 Mg Tablet) 50 mg PO BEDTIME PRN PRN Reason: Insomnia Last Admin: 09/17/22 01:41 Dose: 50 mg Allergies Allergies Allergy/AdvReac Type Severity Reaction Status Date / Time No Known Allergies Allergy Verified 06/12/20 12:45 [No Known Allergies*] Assessment & Plan Assessment & Plan (1) Major neurocognitive disorder, due to Alzheimer's disease, without behavioral disturbance, severe: Status: Acute Code(s): G30.9 - Alzheimer's disease, unspecified; F02.C0 - Dementia in other diseases classified elsewhere, severe, without behavioral disturbance, psychotic disturbance, mood disturbance, and anxiety Plan 09/21 continue current treatment. angie do trial of levo/carbidopa next week for better assessment of response and improvement in gait. 09/22 levodopa/carbidopa ordered and the patient reports no side effects mild improvement of tremors. Rest the same 09/23: Continue current regimen and plans 09/24: Continue current plans and regimen 09/25 continue tx. HCP informed and updated on neurology assessments. 09/26 continue tx. awaiting placement. 09/27 continue tx. mouth checks. 09/28 continue tx. 09/29 continue tx. 09/30: stable presentation. continue current mgmt. 10/01: no change from yesterday. 10/02 continue tx. 10/03 continue tx. awaiting placement. 10/04 continue tx. awaiting placement 10/05 continue tx. awaiting tx. 10/06 continue same treatment, waiting for placement 10/08/2022: No changes to current plan 10/09 continue tx. Increase amlodipine to 7.5mg po daily 10/10 continue tx. 10/11 continue tx. amlodipine back to 5mg po daily 10/12 continue tx. 10/13 continue tx. 10/14: no change in mgmt. stable, euthymic. denying any safety concerns. Reason for continued inpatient stay Substantial Risk for: inability to function and rapid decompensation Time Spent With Patient Time: Total time managing care of this patient today ____ minutes.
[2022-10-14 18:00] VITALS: BP 120/64; PULSE 76; RESP 18; TEMP 36.4; O2SAT 97
[2022-10-14] MEDS: Donepezil HCl 10 MG TABLET PO (20:23)
[2022-10-14] MEDS: Finasteride 5 MG TABLET PO (20:23)
[2022-10-15] MEDS: Omeprazole 20 MG CAPSULE.DR PO (06:30)
[2022-10-15 07:59] LABS: Creatinine Clr Calc Pharmacy 43.6; Estimated Glomerular Filt Rate > 60
[2022-10-15 08:51] VITALS: BP 134/83; PULSE 71; RESP 15; TEMP 36.6; O2SAT 98
[2022-10-15] MEDS: Sertraline HCL 50 MG TABLET PO (08:52)
[2022-10-15] MEDS: Atorvastatin Calcium 80 MG TABLET PO (08:52)
[2022-10-15] MEDS: Aspirin Enteric Coated 81 MG TABLET.DR PO (08:52)
[2022-10-15] MEDS: carvediloL 3.125 MG TABLET PO ×2 (08:52→21:24)
[2022-10-15] MEDS: amLODIPine Besylate 5 MG TABLET PO (08:53)
[2022-10-15] MEDS: Carbidopa/Levodopa 25/100 TABLET 1 TAB PO ×2 (08:53→13:26)
[2022-10-15] MEDS: Clopidogrel Bisulfate 75 MG TABLET PO (08:53)
[2022-10-15] MEDS: metFORMIN HCl 500 MG TABLET PO ×2 (08:54→18:38)
--- NOTE | 2022-10-15 11:42 | HO.PSYCHPN ---
Subjective Subjective Date of Service: 10/15/22 Reason For Visit: Unspecified Depressive Disorder Interim History: calm, cooperative, pleasant, no questions or complaints. per staff, sleeping a lot. eating and taking meds. Mental Status Exam Mental Status Exam Narrative: Appearance: wearing street clothes Behavior: cooperative Psychomotor: no agitation or retardation noted Speech: clear, normal rate/rhythm/volume, spontaneous TP: mostly linear TC:no overt delusions or psychosis, feeling good Mood: good Affect: congruent, full range SI: denies HI: denies VH/AH: none Delusions: none Insight/judgment: impaired x 2. Memory/cog: alert, not oriented to place, situation, month, year. severe underlying dementia. Diagnostics Vital Signs (24Hr): Vital Signs - 24 hr 10/14/22 18:00 10/15/22 08:51 Temperature 97.6 F 97.9 F Pulse Rate 76 71 Respiratory Rate 18 15 Blood Pressure 120/64 134/83 Pulse Oximetry 97 98 Oxygen Delivery Method Room Air Room Air BMI result Body Mass Index 25.5 Labs 09/08/22 07:56 10/15/22 07:38 Labs: Laboratory Results - last 48 hr 10/15/22 07:38 Creatinine 1.13 Estim Creat Clear Calc 43.6 Estimated GFR > 60 Imaging Radiology Impressions: ITS Impressions Chest X-Ray 09/18/22 18:40 IMPRESSION: Low lung volumes. No evidence for acute disease in the chest. Medications Medications Current Medications Acetaminophen (Acetaminophen 325 Mg Tablet) 650 mg PO Q6H PRN PRN Reason: Headache/Pain Mild Scale (1-3) Last Admin: 09/27/22 20:38 Dose: 650 mg Al Hydroxide/Mg Hydroxide (Magnesium Hydrox/Alum Hydrox 30 Ml Oral.Susp) 30 ml PO Q6H PRN PRN Reason: Heartburn/Nausea Last Admin: 09/21/22 15:39 Dose: 30 ml Amlodipine Besylate (Amlodipine Besylate 5 Mg Tablet) 5 mg PO DAILY [facility]; Protocol Last Admin: 10/15/22 08:53 Dose: 5 mg Artificial Tears (Artificial Tears 15 Ml Drops) 1 drop EYE-BOTH Q4H PRN PRN Reason: Dryness Aspirin (Aspirin Enteric Coated 81 Mg Tablet.) 81 mg PO DAILY [facility] Last Admin: 10/15/22 08:52 Dose: 81 mg Atorvastatin Calcium (Atorvastatin Calcium 80 Mg Tablet) 80 mg PO DAILY [facility] Last Admin: 10/15/22 08:52 Dose: 80 mg Carbidopa/Levodopa (Carbidopa/Levodopa 25/100 Tablet) 1 tab PO BID@0700,1200 [facility] Last Admin: 10/15/22 08:53 Dose: 1 tab Carvedilol (Carvedilol 3.125 Mg Tablet) 3.125 mg PO BID [facility]; Protocol Last Admin: 10/15/22 08:52 Dose: 3.125 mg Clopidogrel Bisulfate (Clopidogrel Bisulfate 75 Mg Tablet) 75 mg PO DAILY [facility] Last Admin: 10/15/22 08:53 Dose: 75 mg Donepezil HCl (Donepezil Hcl 10 Mg Tablet) 10 mg PO BEDTIME [facility] Last Admin: 10/14/22 20:23 Dose: 10 mg Finasteride (Finasteride 5 Mg Tablet) 5 mg PO BEDTIME [facility] Last Admin: 10/14/22 20:23 Dose: 5 mg Hydroxyzine HCl (Hydroxyzine Hcl 25 Mg Tablet) 25 mg PO Q6H PRN PRN Reason: Anxiety Last Admin: 09/17/22 01:41 Dose: 25 mg Magnesium Hydroxide (Milk Of Magnesia 30 Ml Oral.Susp) 30 ml PO DAILY PRN PRN Reason: Constipation Metformin HCl (Metformin Hcl 500 Mg Tablet) 500 mg PO BIDWM [facility] Last Admin: 10/15/22 08:54 Dose: 500 mg Omeprazole (Omeprazole 20 Mg Capsule.Dr) 20 mg PO DAILY@0630 [facility] Last Admin: 10/15/22 06:30 Dose: 20 mg Quetiapine Fumarate (Quetiapine Fumarate 50 Mg Tablet) 50 mg PO Q6H PRN PRN Reason: agitation Sertraline HCl (Sertraline Hcl 50 Mg Tablet) 50 mg PO DAILY [facility] Last Admin: 10/15/22 08:52 Dose: 50 mg Trazodone HCl (Trazodone Hcl 50 Mg Tablet) 50 mg PO BEDTIME PRN PRN Reason: Insomnia Last Admin: 09/17/22 01:41 Dose: 50 mg Allergies Allergies Allergy/AdvReac Type Severity Reaction Status Date / Time No Known Allergies Allergy Verified 06/12/20 12:45 [No Known Allergies*] Assessment & Plan Assessment & Plan (1) Major neurocognitive disorder, due to Alzheimer's disease, without behavioral disturbance, severe: Status: Acute Code(s): G30.9 - Alzheimer's disease, unspecified; F02.C0 - Dementia in other diseases classified elsewhere, severe, without behavioral disturbance, psychotic disturbance, mood disturbance, and anxiety Plan 09/21 continue current treatment. angie do trial of levo/carbidopa next week for better assessment of response and improvement in gait. 09/22 levodopa/carbidopa ordered and the patient reports no side effects mild improvement of tremors. Rest the same 09/23: Continue current regimen and plans 09/24: Continue current plans and regimen 09/25 continue tx. HCP informed and updated on neurology assessments. 09/26 continue tx. awaiting placement. 09/27 continue tx. mouth checks. 09/28 continue tx. 09/29 continue tx. 09/30: stable presentation. continue current mgmt. 10/01: no change from yesterday. 10/02 continue tx. 10/03 continue tx. awaiting placement. 10/04 continue tx. awaiting placement 10/05 continue tx. awaiting tx. 10/06 continue same treatment, waiting for placement 10/08/2022: No changes to current plan 10/09 continue tx. Increase amlodipine to 7.5mg po daily 10/10 continue tx. 10/11 continue tx. amlodipine back to 5mg po daily 10/12 continue tx. 10/13 continue tx. 10/14: no change in mgmt. stable, euthymic. denying any safety concerns. 10/15: stable, euthymic. no questions or complaints. continue current mgmt. Reason for continued inpatient stay Substantial Risk for: inability to function and rapid decompensation Time Spent With Patient Time: Total time managing care of this patient today ____ minutes.
[2022-10-15 18:00] VITALS: BP 154/77; PULSE 61; RESP 18; TEMP 36.1; O2SAT 98
[2022-10-15] MEDS: Donepezil HCl 10 MG TABLET PO (21:24)
[2022-10-15] MEDS: Finasteride 5 MG TABLET PO (21:24)
[2022-10-16 10:00] VITALS: BP 138/77; PULSE 71; RESP 14; TEMP 36.4; O2SAT 97
[2022-10-16] MEDS: Atorvastatin Calcium 80 MG TABLET PO (10:24)
[2022-10-16] MEDS: carvediloL 3.125 MG TABLET PO ×2 (10:24→21:09)
[2022-10-16] MEDS: Aspirin Enteric Coated 81 MG TABLET.DR PO (10:24)
[2022-10-16] MEDS: Clopidogrel Bisulfate 75 MG TABLET PO (10:24)
[2022-10-16] MEDS: Sertraline HCL 50 MG TABLET PO (10:24)
[2022-10-16] MEDS: Omeprazole 20 MG CAPSULE.DR PO (10:25)
[2022-10-16] MEDS: amLODIPine Besylate 5 MG TABLET PO (10:25)
[2022-10-16] MEDS: metFORMIN HCl 500 MG TABLET PO ×2 (10:25→17:16)
[2022-10-16] MEDS: Carbidopa/Levodopa 25/100 TABLET 1 TAB PO ×2 (10:25→11:41)
--- NOTE | 2022-10-16 14:46 | HO.PSYCHPN ---
Subjective Subjective Date of Service: 10/16/22 Reason For Visit: Unspecified Depressive Disorder Subjective Notes: Conditional Voluntary Interim History: The nursing staff reported the patient has been pleasant and cooperative, fully compliant with treatment. On interview the patient denies new symptoms, waiting for placement. Mental Status Exam Mental Status Exam Patient Appearance: Well Grooomed and Appropriate Patient Orientation: Person and Situation Level of Consciousness: Awake and Appropriate Patient Behavior: Cooperative and Passive Mood Description: Withdrawn Affect Description: Constricted Patient Cognition Impaired: Yes Ability to Follow Directions: Good Speech Pattern: Clear Hallucinations: None Delusions: Not Present Thought Process: Distracted Judgement: Fair Diagnostics Vital Signs (24Hr): Vital Signs - 24 hr 10/15/22 18:00 10/16/22 10:00 Temperature 96.9 F 97.6 F Pulse Rate 61 71 Respiratory Rate 18 14 Blood Pressure 154/77 H 138/77 Pulse Oximetry 98 97 Oxygen Delivery Method Room Air Room Air BMI result Body Mass Index 25.5 Labs 09/08/22 07:56 10/15/22 07:38 Labs: Laboratory Results - last 48 hr 10/15/22 07:38 Creatinine 1.13 Estim Creat Clear Calc 43.6 Estimated GFR > 60 Imaging Radiology Impressions: ITS Impressions Chest X-Ray 09/18/22 18:40 IMPRESSION: Low lung volumes. No evidence for acute disease in the chest. Medications Medications Current Medications Acetaminophen (Acetaminophen 325 Mg Tablet) 650 mg PO Q6H PRN PRN Reason: Headache/Pain Mild Scale (1-3) Last Admin: 09/27/22 20:38 Dose: 650 mg Al Hydroxide/Mg Hydroxide (Magnesium Hydrox/Alum Hydrox 30 Ml Oral.Susp) 30 ml PO Q6H PRN PRN Reason: Heartburn/Nausea Last Admin: 09/21/22 15:39 Dose: 30 ml Amlodipine Besylate (Amlodipine Besylate 5 Mg Tablet) 5 mg PO DAILY [facility]; Protocol Last Admin: 10/16/22 10:25 Dose: 5 mg Artificial Tears (Artificial Tears 15 Ml Drops) 1 drop EYE-BOTH Q4H PRN PRN Reason: Dryness Aspirin (Aspirin Enteric Coated 81 Mg Tablet.Dr) 81 mg PO DAILY [facility] Last Admin: 10/16/22 10:24 Dose: 81 mg Atorvastatin Calcium (Atorvastatin Calcium 80 Mg Tablet) 80 mg PO DAILY [facility] Last Admin: 10/16/22 10:24 Dose: 80 mg Carbidopa/Levodopa (Carbidopa/Levodopa 25/100 Tablet) 1 tab PO BID@0700,1200 [facility] Last Admin: 10/16/22 11:41 Dose: 1 tab Carvedilol (Carvedilol 3.125 Mg Tablet) 3.125 mg PO BID [facility]; Protocol Last Admin: 10/16/22 10:24 Dose: 3.125 mg Clopidogrel Bisulfate (Clopidogrel Bisulfate 75 Mg Tablet) 75 mg PO DAILY [facility] Last Admin: 10/16/22 10:24 Dose: 75 mg Donepezil HCl (Donepezil Hcl 10 Mg Tablet) 10 mg PO BEDTIME [facility] Last Admin: 10/15/22 21:24 Dose: 10 mg Finasteride (Finasteride 5 Mg Tablet) 5 mg PO BEDTIME [facility] Last Admin: 10/15/22 21:24 Dose: 5 mg Hydroxyzine HCl (Hydroxyzine Hcl 25 Mg Tablet) 25 mg PO Q6H PRN PRN Reason: Anxiety Last Admin: 09/17/22 01:41 Dose: 25 mg Magnesium Hydroxide (Milk Of Magnesia 30 Ml Oral.Susp) 30 ml PO DAILY PRN PRN Reason: Constipation Metformin HCl (Metformin Hcl 500 Mg Tablet) 500 mg PO BIDWM [facility] Last Admin: 10/16/22 10:25 Dose: 500 mg Omeprazole (Omeprazole 20 Mg Capsule.Dr) 20 mg PO DAILY@0630 [facility] Last Admin: 10/16/22 10:25 Dose: 20 mg Quetiapine Fumarate (Quetiapine Fumarate 50 Mg Tablet) 50 mg PO Q6H PRN PRN Reason: agitation Sertraline HCl (Sertraline Hcl 50 Mg Tablet) 50 mg PO DAILY [facility] Last Admin: 10/16/22 10:24 Dose: 50 mg Trazodone HCl (Trazodone Hcl 50 Mg Tablet) 50 mg PO BEDTIME PRN PRN Reason: Insomnia Last Admin: 09/17/22 01:41 Dose: 50 mg Allergies Allergies Allergy/AdvReac Type Severity Reaction Status Date / Time No Known Allergies Allergy Verified 06/12/20 12:45 [No Known Allergies*] Assessment & Plan Assessment & Plan (1) Major neurocognitive disorder, due to Alzheimer's disease, without behavioral disturbance, severe: Status: Acute Code(s): G30.9 - Alzheimer's disease, unspecified; F02.C0 - Dementia in other diseases classified elsewhere, severe, without behavioral disturbance, psychotic disturbance, mood disturbance, and anxiety Plan 09/21 continue current treatment. angie do trial of levo/carbidopa next week for better assessment of response and improvement in gait. 09/22 levodopa/carbidopa ordered and the patient reports no side effects mild improvement of tremors. Rest the same 09/23: Continue current regimen and plans 09/24: Continue current plans and regimen 09/25 continue tx. HCP informed and updated on neurology assessments. 09/26 continue tx. awaiting placement. 09/27 continue tx. mouth checks. 09/28 continue tx. 09/29 continue tx. 09/30: stable presentation. continue current mgmt. 10/01: no change from yesterday. 10/02 continue tx. 10/03 continue tx. awaiting placement. 10/04 continue tx. awaiting placement 10/05 continue tx. awaiting tx. 10/06 continue same treatment, waiting for placement 10/08/2022: No changes to current plan 10/09 continue tx. Increase amlodipine to 7.5mg po daily 10/10 continue tx. 10/11 continue tx. amlodipine back to 5mg po daily 10/12 continue tx. 10/13 continue tx. 10/14: no change in mgmt. stable, euthymic. denying any safety concerns. 10/15: stable, euthymic. no questions or complaints. continue current mgmt. October 16 keep same treatment, waiting for placement. Reason for continued inpatient stay Substantial Risk for: inability to function, rapid decompensation and med/psych decompensation Time Spent With Patient Time: Total time managing care of this patient today _20___ minutes.
[2022-10-16 19:50] VITALS: BP 111/56; PULSE 69; RESP 18; TEMP 36.6; O2SAT 96
[2022-10-16] MEDS: Donepezil HCl 10 MG TABLET PO (21:09)
[2022-10-16] MEDS: Finasteride 5 MG TABLET PO (21:09)
[2022-10-17] MEDS: Omeprazole 20 MG CAPSULE.DR PO (05:50)
[2022-10-17 07:15] VITALS: BP 124/83; PULSE 72; RESP 18; TEMP 36.2; O2SAT 97
[2022-10-17] MEDS: Atorvastatin Calcium 80 MG TABLET PO (07:44)
[2022-10-17] MEDS: Clopidogrel Bisulfate 75 MG TABLET PO (07:44)
[2022-10-17] MEDS: amLODIPine Besylate 5 MG TABLET PO (07:44)
[2022-10-17] MEDS: metFORMIN HCl 500 MG TABLET PO ×2 (07:44→16:11)
[2022-10-17] MEDS: Carbidopa/Levodopa 25/100 TABLET 1 TAB PO ×2 (07:44→12:36)
[2022-10-17] MEDS: Aspirin Enteric Coated 81 MG TABLET.DR PO (07:44)
[2022-10-17] MEDS: Sertraline HCL 50 MG TABLET PO (07:44)
[2022-10-17] MEDS: carvediloL 3.125 MG TABLET PO ×2 (07:44→20:59)
--- NOTE | 2022-10-17 14:03 | HO.PSYCHPN ---
Subjective Subjective Date of Service: 10/17/22 Reason For Visit: Unspecified Depressive Disorder Subjective Notes: Conditional Voluntary Interim History: The nursing staff reported the patient had been compliant with treatment, no changes in his mental status. The social work job titles reported that [facility] is coming today to start the paperwork for transfer to the nursing home facility in [facility]. On interview the patient denies new symptoms, waiting for placement. Mental Status Exam Mental Status Exam Patient Appearance: Appropriate Patient Orientation: Person and Situation Level of Consciousness: Awake and Appropriate Patient Behavior: Guarded and Passive Mood Description: Withdrawn Affect Description: Constricted Patient Cognition Impaired: Yes Ability to Follow Directions: Good Speech Pattern: Clear Hallucinations: None Delusions: Not Present Thought Process: Distracted Thought Content: positive for [place] and positive for Poverty of Content Judgement: Fair Diagnostics Vital Signs (24Hr): Vital Signs - 24 hr 10/16/22 19:50 10/17/22 07:15 Temperature 97.9 F 97.2 F Pulse Rate 69 72 Respiratory Rate 18 18 Blood Pressure 111/56 L 124/83 Pulse Oximetry 96 97 Oxygen Delivery Method Room Air Room Air BMI result Body Mass Index 25.5 Labs 09/08/22 07:56 10/15/22 07:38 Imaging Radiology Impressions: ITS Impressions Chest X-Ray 09/18/22 18:40 IMPRESSION: Low lung volumes. No evidence for acute disease in the chest. Medications Medications Current Medications Acetaminophen (Acetaminophen 325 Mg Tablet) 650 mg PO Q6H PRN PRN Reason: Headache/Pain Mild Scale (1-3) Last Admin: 09/27/22 20:38 Dose: 650 mg Al Hydroxide/Mg Hydroxide (Magnesium Hydrox/Alum Hydrox 30 Ml Oral.Susp) 30 ml PO Q6H PRN PRN Reason: Heartburn/Nausea Last Admin: 09/21/22 15:39 Dose: 30 ml Amlodipine Besylate (Amlodipine Besylate 5 Mg Tablet) 5 mg PO DAILY [facility]; Protocol Last Admin: 10/17/22 07:44 Dose: 5 mg Artificial Tears (Artificial Tears 15 Ml Drops) 1 drop EYE-BOTH Q4H PRN PRN Reason: Dryness Aspirin (Aspirin Enteric Coated 81 Mg Tablet.Dr) 81 mg PO DAILY [facility] Last Admin: 10/17/22 07:44 Dose: 81 mg Atorvastatin Calcium (Atorvastatin Calcium 80 Mg Tablet) 80 mg PO DAILY [facility] Last Admin: 10/17/22 07:44 Dose: 80 mg Carbidopa/Levodopa (Carbidopa/Levodopa 25/100 Tablet) 1 tab PO BID@0700,1200 [facility] Last Admin: 10/17/22 12:36 Dose: 1 tab Carvedilol (Carvedilol 3.125 Mg Tablet) 3.125 mg PO BID [facility]; Protocol Last Admin: 10/17/22 07:44 Dose: 3.125 mg Clopidogrel Bisulfate (Clopidogrel Bisulfate 75 Mg Tablet) 75 mg PO DAILY [facility] Last Admin: 10/17/22 07:44 Dose: 75 mg Donepezil HCl (Donepezil Hcl 10 Mg Tablet) 10 mg PO BEDTIME [facility] Last Admin: 10/16/22 21:09 Dose: 10 mg Finasteride (Finasteride 5 Mg Tablet) 5 mg PO BEDTIME [facility] Last Admin: 10/16/22 21:09 Dose: 5 mg Hydroxyzine HCl (Hydroxyzine Hcl 25 Mg Tablet) 25 mg PO Q6H PRN PRN Reason: Anxiety Last Admin: 09/17/22 01:41 Dose: 25 mg Magnesium Hydroxide (Milk Of Magnesia 30 Ml Oral.Susp) 30 ml PO DAILY PRN PRN Reason: Constipation Metformin HCl (Metformin Hcl 500 Mg Tablet) 500 mg PO BIDWM [facility] Last Admin: 10/17/22 07:44 Dose: 500 mg Omeprazole (Omeprazole 20 Mg Capsule.Dr) 20 mg PO DAILY@0630 [facility] Last Admin: 10/17/22 05:50 Dose: 20 mg Quetiapine Fumarate (Quetiapine Fumarate 50 Mg Tablet) 50 mg PO Q6H PRN PRN Reason: agitation Sertraline HCl (Sertraline Hcl 50 Mg Tablet) 50 mg PO DAILY [facility] Last Admin: 10/17/22 07:44 Dose: 50 mg Trazodone HCl (Trazodone Hcl 50 Mg Tablet) 50 mg PO BEDTIME PRN PRN Reason: Insomnia Last Admin: 09/17/22 01:41 Dose: 50 mg Allergies Allergies Allergy/AdvReac Type Severity Reaction Status Date / Time No Known Allergies Allergy Verified 06/12/20 12:45 [No Known Allergies*] Assessment & Plan Assessment & Plan (1) Major neurocognitive disorder, due to Alzheimer's disease, without behavioral disturbance, severe: Status: Acute Code(s): G30.9 - Alzheimer's disease, unspecified; F02.C0 - Dementia in other diseases classified elsewhere, severe, without behavioral disturbance, psychotic disturbance, mood disturbance, and anxiety Plan 09/21 continue current treatment. angie do trial of levo/carbidopa next week for better assessment of response and improvement in gait. 09/22 levodopa/carbidopa ordered and the patient reports no side effects mild improvement of tremors. Rest the same 09/23: Continue current regimen and plans 09/24: Continue current plans and regimen 09/25 continue tx. HCP informed and updated on neurology assessments. 09/26 continue tx. awaiting placement. 09/27 continue tx. mouth checks. 09/28 continue tx. 09/29 continue tx. 09/30: stable presentation. continue current mgmt. 10/01: no change from yesterday. 10/02 continue tx. 10/03 continue tx. awaiting placement. 10/04 continue tx. awaiting placement 10/05 continue tx. awaiting tx. 10/06 continue same treatment, waiting for placement 10/08/2022: No changes to current plan 10/09 continue tx. Increase amlodipine to 7.5mg po daily 10/10 continue tx. 10/11 continue tx. amlodipine back to 5mg po daily 10/12 continue tx. 10/13 continue tx. 10/14: no change in mgmt. stable, euthymic. denying any safety concerns. 10/15: stable, euthymic. no questions or complaints. continue current mgmt. October 16 keep same treatment, waiting for placement. October 17 keep same treatment, waiting for placement. Reason for continued inpatient stay Substantial Risk for: inability to function, rapid decompensation and med/psych decompensation Time Spent With Patient Time: Total time managing care of this patient today __20__ minutes.
[2022-10-17 18:00] VITALS: BP 120/66; PULSE 74; RESP 16; TEMP 35.9; O2SAT 99
[2022-10-17] MEDS: Donepezil HCl 10 MG TABLET PO (20:59)
[2022-10-17] MEDS: Finasteride 5 MG TABLET PO (20:59)
[2022-10-18 08:16] VITALS: BP 148/88; PULSE 73; RESP 15; TEMP 36.2; O2SAT 98
[2022-10-18] MEDS: Carbidopa/Levodopa 25/100 TABLET 1 TAB PO ×2 (08:16→11:39)
[2022-10-18] MEDS: metFORMIN HCl 500 MG TABLET PO ×2 (08:17→16:26)
[2022-10-18] MEDS: Omeprazole 20 MG CAPSULE.DR PO (08:17)
[2022-10-18] MEDS: carvediloL 3.125 MG TABLET PO ×2 (08:17→21:11)
[2022-10-18] MEDS: Clopidogrel Bisulfate 75 MG TABLET PO (08:17)
[2022-10-18] MEDS: Atorvastatin Calcium 80 MG TABLET PO (08:17)
[2022-10-18] MEDS: Aspirin Enteric Coated 81 MG TABLET.DR PO (08:17)
[2022-10-18] MEDS: Sertraline HCL 50 MG TABLET PO (08:17)
[2022-10-18] MEDS: amLODIPine Besylate 5 MG TABLET PO (08:17)
--- NOTE | 2022-10-18 14:48 | P.PNPSI_ITS ---
Subjective Subjective Date of Service: 10/18/22 Reason For Visit: Unspecified Depressive Disorder Interim History: Met with patient; discussed with team No change in presentation; patient pleasant on approach, though reticent; lying in bed but awake. Discussed likely discharge end of this week which he is amenable Mental Status Exam Mental Status Exam Patient Appearance: Appropriate Patient Orientation: Person and Place Level of Consciousness: Awake and Appropriate Patient Behavior: Passive and Poor Eye Contact Mood Description: Withdrawn Affect Description: Constricted Patient Cognition Impaired: Yes Ability to Follow Directions: Good Speech Pattern: Clear Hallucinations: None Delusions: Not Present Thought Process: Distracted Thought Content: positive for [place] and positive for Poverty of Content Judgement: Fair Diagnostics Vital Signs (24Hr): Vital Signs - 24 hr 10/17/22 18:00 10/18/22 08:16 Temperature 96.6 F L 97.2 F Pulse Rate 74 73 Respiratory Rate 16 15 Blood Pressure 120/66 148/88 H Pulse Oximetry 99 98 Oxygen Delivery Method Room Air Room Air BMI result Body Mass Index 25.5 Labs 09/08/22 07:56 10/15/22 07:38 Imaging Radiology Impressions: ITS Impressions Chest X-Ray 09/18/22 18:40 IMPRESSION: Low lung volumes. No evidence for acute disease in the chest. Medications Medications Current Medications Acetaminophen (Acetaminophen 325 Mg Tablet) 650 mg PO Q6H PRN PRN Reason: Headache/Pain Mild Scale (1-3) Last Admin: 09/27/22 20:38 Dose: 650 mg Al Hydroxide/Mg Hydroxide (Magnesium Hydrox/Alum Hydrox 30 Ml Oral.Susp) 30 ml PO Q6H PRN PRN Reason: Heartburn/Nausea Last Admin: 09/21/22 15:39 Dose: 30 ml Amlodipine Besylate (Amlodipine Besylate 5 Mg Tablet) 5 mg PO DAILY [facility]; Protocol Last Admin: 10/18/22 08:17 Dose: 5 mg Artificial Tears (Artificial Tears 15 Ml Drops) 1 drop EYE-BOTH Q4H PRN PRN Reason: Dryness Aspirin (Aspirin Enteric Coated 81 Mg Tablet.Dr) 81 mg PO DAILY [facility] Last Admin: 10/18/22 08:17 Dose: 81 mg Atorvastatin Calcium (Atorvastatin Calcium 80 Mg Tablet) 80 mg PO DAILY [facility] Last Admin: 10/18/22 08:17 Dose: 80 mg Carbidopa/Levodopa (Carbidopa/Levodopa 25/100 Tablet) 1 tab PO BID@0700,1200 [facility] Last Admin: 10/18/22 11:39 Dose: 1 tab Carvedilol (Carvedilol 3.125 Mg Tablet) 3.125 mg PO BID [facility]; Protocol Last Admin: 10/18/22 08:17 Dose: 3.125 mg Clopidogrel Bisulfate (Clopidogrel Bisulfate 75 Mg Tablet) 75 mg PO DAILY [facility] Last Admin: 10/18/22 08:17 Dose: 75 mg Donepezil HCl (Donepezil Hcl 10 Mg Tablet) 10 mg PO BEDTIME [facility] Last Admin: 10/17/22 20:59 Dose: 10 mg Finasteride (Finasteride 5 Mg Tablet) 5 mg PO BEDTIME [facility] Last Admin: 10/17/22 20:59 Dose: 5 mg Hydroxyzine HCl (Hydroxyzine Hcl 25 Mg Tablet) 25 mg PO Q6H PRN PRN Reason: Anxiety Last Admin: 09/17/22 01:41 Dose: 25 mg Magnesium Hydroxide (Milk Of Magnesia 30 Ml Oral.Susp) 30 ml PO DAILY PRN PRN Reason: Constipation Metformin HCl (Metformin Hcl 500 Mg Tablet) 500 mg PO BIDWM [facility] Last Admin: 10/18/22 08:17 Dose: 500 mg Omeprazole (Omeprazole 20 Mg Capsule.Dr) 20 mg PO DAILY@0630 [facility] Last Admin: 10/18/22 08:17 Dose: 20 mg Quetiapine Fumarate (Quetiapine Fumarate 50 Mg Tablet) 50 mg PO Q6H PRN PRN Reason: agitation Sertraline HCl (Sertraline Hcl 50 Mg Tablet) 50 mg PO DAILY [facility] Last Admin: 10/18/22 08:17 Dose: 50 mg Trazodone HCl (Trazodone Hcl 50 Mg Tablet) 50 mg PO BEDTIME PRN PRN Reason: Insomnia Last Admin: 09/17/22 01:41 Dose: 50 mg Allergies Allergies Allergy/AdvReac Type Severity Reaction Status Date / Time No Known Allergies Allergy Verified 06/12/20 12:45 [No Known Allergies*] Assessment & Plan Assessment & Plan (1) Major neurocognitive disorder, due to Alzheimer's disease, without behavioral disturbance, severe: Status: Acute Code(s): G30.9 - Alzheimer's disease, unspecified; F02.C0 - Dementia in other diseases classified elsewhere, severe, without behavioral disturbance, psychotic disturbance, mood disturbance, and anxiety Plan 09/21 continue current treatment. angie do trial of levo/carbidopa next week for better assessment of response and improvement in gait. 09/22 levodopa/carbidopa ordered and the patient reports no side effects mild improvement of tremors. Rest the same 09/23: Continue current regimen and plans 09/24: Continue current plans and regimen 09/25 continue tx. HCP informed and updated on neurology assessments. 09/26 continue tx. awaiting placement. 09/27 continue tx. mouth checks. 09/28 continue tx. 09/29 continue tx. 09/30: stable presentation. continue current mgmt. 10/01: no change from yesterday. 10/02 continue tx. 10/03 continue tx. awaiting placement. 10/04 continue tx. awaiting placement 10/05 continue tx. awaiting tx. 10/06 continue same treatment, waiting for placement 10/08/2022: No changes to current plan 10/09 continue tx. Increase amlodipine to 7.5mg po daily 10/10 continue tx. 10/11 continue tx. amlodipine back to 5mg po daily 10/12 continue tx. 10/13 continue tx. 10/14: no change in mgmt. stable, euthymic. denying any safety concerns. 10/15: stable, euthymic. no questions or complaints. continue current mgmt. October 16 keep same treatment, waiting for placement. October 17 keep same treatment, waiting for placement. 10/18 continue current treatment plan; pending placement likely end of this week Patient educated on: diagnosis and therapeutic strategies Informed Consent: understands and further education needed Reason for continued inpatient stay Substantial Risk for: stable for discharge Time Spent With Patient Time: Total time managing care of this patient today ____ minutes.
[2022-10-18 21:10] VITALS: BP 126/66; PULSE 73; RESP 17; TEMP 36.6; O2SAT 96
[2022-10-18] MEDS: Finasteride 5 MG TABLET PO (21:10)
[2022-10-18] MEDS: Donepezil HCl 10 MG TABLET PO (21:11)
[2022-10-19] MEDS: Omeprazole 20 MG CAPSULE.DR PO (05:51)
[2022-10-19] MEDS: Carbidopa/Levodopa 25/100 TABLET 1 TAB PO ×2 (05:51→11:54)
[2022-10-19 07:00] VITALS: BMI 25.7
[2022-10-19 08:05] VITALS: BP 148/92; PULSE 69; RESP 18; TEMP 36.1; O2SAT 97
[2022-10-19] MEDS: metFORMIN HCl 500 MG TABLET PO ×2 (08:46→18:12)
[2022-10-19] MEDS: carvediloL 3.125 MG TABLET PO ×2 (08:46→20:23)
[2022-10-19] MEDS: amLODIPine Besylate 5 MG TABLET PO (08:46)
[2022-10-19] MEDS: Sertraline HCL 50 MG TABLET PO (08:46)
[2022-10-19] MEDS: Aspirin Enteric Coated 81 MG TABLET.DR PO (08:46)
[2022-10-19] MEDS: Atorvastatin Calcium 80 MG TABLET PO (08:46)
[2022-10-19] MEDS: Clopidogrel Bisulfate 75 MG TABLET PO (08:46)
--- NOTE | 2022-10-19 09:47 | HO.PSYCHPN ---
Subjective Subjective Date of Service: 10/19/22 Reason For Visit: Unspecified Depressive Disorder Interim History: Met with patient; discussed with team Patient in a good mood, friendly. Patient sitting in visiting with his sister. Reports that he is good and when told discharging to detention was very excited and thankful. Otherwise no change in presentation. Will proceed with discharge Mental Status Exam Mental Status Exam Patient Appearance: Well Grooomed and Appropriate Patient Orientation: Person and Situation Level of Consciousness: Awake and Appropriate Patient Behavior: Appropriate, Cooperative, Passive and Good Eye Contact Mood Description: Calm Affect Description: Appropriate Patient Cognition Impaired: Yes Ability to Follow Directions: Good Speech Pattern: Clear Hallucinations: None Delusions: Not Present Thought Process: Distracted and Slowed Thinking Thought Content: positive for [place], positive for [place], positive for [place] and positive for Poverty of Content Judgement: Fair Diagnostics Vital Signs (24Hr): Vital Signs - 24 hr 10/18/22 21:10 10/19/22 08:05 Temperature 97.8 F 97.0 F Pulse Rate 73 69 Respiratory Rate 17 18 Blood Pressure 126/66 148/92 H Pulse Oximetry 96 97 Oxygen Delivery Method Room Air Room Air BMI result Body Mass Index 25.5 Labs 09/08/22 07:56 10/15/22 07:38 Imaging Radiology Impressions: ITS Impressions Chest X-Ray 09/18/22 18:40 IMPRESSION: Low lung volumes. No evidence for acute disease in the chest. Medications Medications Current Medications Acetaminophen (Acetaminophen 325 Mg Tablet) 650 mg PO Q6H PRN PRN Reason: Headache/Pain Mild Scale (1-3) Last Admin: 09/27/22 20:38 Dose: 650 mg Al Hydroxide/Mg Hydroxide (Magnesium Hydrox/Alum Hydrox 30 Ml Oral.Susp) 30 ml PO Q6H PRN PRN Reason: Heartburn/Nausea Last Admin: 09/21/22 15:39 Dose: 30 ml Amlodipine Besylate (Amlodipine Besylate 5 Mg Tablet) 5 mg PO DAILY [facility]; Protocol Last Admin: 10/19/22 08:46 Dose: 5 mg Artificial Tears (Artificial Tears 15 Ml Drops) 1 drop EYE-BOTH Q4H PRN PRN Reason: Dryness Aspirin (Aspirin Enteric Coated 81 Mg Tablet.) 81 mg PO DAILY [facility] Last Admin: 10/19/22 08:46 Dose: 81 mg Atorvastatin Calcium (Atorvastatin Calcium 80 Mg Tablet) 80 mg PO DAILY [facility] Last Admin: 10/19/22 08:46 Dose: 80 mg Carbidopa/Levodopa (Carbidopa/Levodopa 25/100 Tablet) 1 tab PO BID@0700,1200 [facility] Last Admin: 10/19/22 05:51 Dose: 1 tab Carvedilol (Carvedilol 3.125 Mg Tablet) 3.125 mg PO BID [facility]; Protocol Last Admin: 10/19/22 08:46 Dose: 3.125 mg Clopidogrel Bisulfate (Clopidogrel Bisulfate 75 Mg Tablet) 75 mg PO DAILY [facility] Last Admin: 10/19/22 08:46 Dose: 75 mg Donepezil HCl (Donepezil Hcl 10 Mg Tablet) 10 mg PO BEDTIME [facility] Last Admin: 10/18/22 21:11 Dose: 10 mg Finasteride (Finasteride 5 Mg Tablet) 5 mg PO BEDTIME [facility] Last Admin: 10/18/22 21:10 Dose: 5 mg Hydroxyzine HCl (Hydroxyzine Hcl 25 Mg Tablet) 25 mg PO Q6H PRN PRN Reason: Anxiety Last Admin: 09/17/22 01:41 Dose: 25 mg Magnesium Hydroxide (Milk Of Magnesia 30 Ml Oral.Susp) 30 ml PO DAILY PRN PRN Reason: Constipation Metformin HCl (Metformin Hcl 500 Mg Tablet) 500 mg PO BIDWM [facility] Last Admin: 10/19/22 08:46 Dose: 500 mg Omeprazole (Omeprazole 20 Mg Capsule.Dr) 20 mg PO DAILY@0630 [facility] Last Admin: 10/19/22 05:51 Dose: 20 mg Quetiapine Fumarate (Quetiapine Fumarate 50 Mg Tablet) 50 mg PO Q6H PRN PRN Reason: agitation Sertraline HCl (Sertraline Hcl 50 Mg Tablet) 50 mg PO DAILY [facility] Last Admin: 10/19/22 08:46 Dose: 50 mg Trazodone HCl (Trazodone Hcl 50 Mg Tablet) 50 mg PO BEDTIME PRN PRN Reason: Insomnia Last Admin: 09/17/22 01:41 Dose: 50 mg Allergies Allergies Allergy/AdvReac Type Severity Reaction Status Date / Time No Known Allergies Allergy Verified 06/12/20 12:45 [No Known Allergies*] Assessment & Plan Assessment & Plan (1) Major neurocognitive disorder, due to Alzheimer's disease, without behavioral disturbance, severe: Status: Acute Code(s): G30.9 - Alzheimer's disease, unspecified; F02.C0 - Dementia in other diseases classified elsewhere, severe, without behavioral disturbance, psychotic disturbance, mood disturbance, and anxiety Plan 09/21 continue current treatment. angie do trial of levo/carbidopa next week for better assessment of response and improvement in gait. 09/22 levodopa/carbidopa ordered and the patient reports no side effects mild improvement of tremors. Rest the same 09/23: Continue current regimen and plans 09/24: Continue current plans and regimen 09/25 continue tx. HCP informed and updated on neurology assessments. 09/26 continue tx. awaiting placement. 09/27 continue tx. mouth checks. 09/28 continue tx. 09/29 continue tx. 09/30: stable presentation. continue current mgmt. 10/01: no change from yesterday. 10/02 continue tx. 10/03 continue tx. awaiting placement. 10/04 continue tx. awaiting placement 10/05 continue tx. awaiting tx. 10/06 continue same treatment, waiting for placement 10/08/2022: No changes to current plan 10/09 continue tx. Increase amlodipine to 7.5mg po daily 10/10 continue tx. 10/11 continue tx. amlodipine back to 5mg po daily 10/12 continue tx. 10/13 continue tx. 10/14: no change in mgmt. stable, euthymic. denying any safety concerns. 10/15: stable, euthymic. no questions or complaints. continue current mgmt. October 16 keep same treatment, waiting for placement. October 17 keep same treatment, waiting for placement. 10/18 continue current treatment plan; pending placement likely end of this week 10/19 continue with current treatment plan; patient has remained stable and appropriate for discharge. patient discharging tomorrow Patient educated on: diagnosis Informed Consent: understands Reason for continued inpatient stay Substantial Risk for: stable for discharge Time Spent With Patient Time: Total time managing care of this patient today ____ minutes.
[2022-10-19 19:47] VITALS: BP 116/62; PULSE 81; RESP 17; TEMP 36.3; O2SAT 100
[2022-10-19] MEDS: Finasteride 5 MG TABLET PO (20:23)
[2022-10-19] MEDS: Donepezil HCl 10 MG TABLET PO (20:23)
[2022-10-20] MEDS: Carbidopa/Levodopa 25/100 TABLET 1 TAB PO (06:04)
[2022-10-20] MEDS: Omeprazole 20 MG CAPSULE.DR PO (06:04)
--- NOTE | 2022-10-20 07:54 | PM.PSYDC ---
DS: Providers Provider Date of Service: 10/20/22 Date of admission: 08/29/22 21:06 Date of discharge: 10/20/22 Primary care physician: Denny Peña DO Consults: 08/29/22 21:44 Consult to Hospitalist Routine Comment: Consulting Provider: Hospitalist Reason For Exam: medical h&p 08/29/22 23:14 Consult to Hospitalist Routine Comment: Consulting Provider: Hospitalist Reason For Exam: Transfer from [facility], extensive cardiac hx, DM 09/04/22 10:02 Consult to Neurology Routine Consulting Provider: [facility] Reason for consultation: numb/tense feeling LE B/L below the knee Has provider been notified: No 09/18/22 17:43 Consult to Hospitalist Stat Comment: Pt. noted to be leaning in chairs today. Consulting Provider: Hospitalist Reason For Exam: fall 09/19/22 14:08 Consult to Neurology Routine Consulting Provider: [facility] Reason for consultation: shuffling gait not related to meds Has provider been notified: Yes Attending physician on discharge: Marco Mayo DS: Diagnosis Discharge Diagnosis (1) Major neurocognitive disorder, due to Alzheimer's disease, without behavioral disturbance, severe: Status: Acute DS: Medications Discharge Medications Home Medications: Home Medications Medication Instructions Recorded Confirmed donepezil 10 mg tablet 10 mg PO DAILY 04/23/20 11/02/20 memantine 10 mg tablet (Namenda) 10 mg PO BID 04/23/20 11/02/20 pantoprazole 40 mg tablet,delayed 40 mg PO DAILY 04/23/20 11/02/20 release sertraline 50 mg tablet (Zoloft) 50 mg PO DAILY 04/23/20 11/02/20 Previous Rx's Medication Instructions Recorded aspirin 81 mg tablet,delayed 81 mg PO DAILY #90 tabs 04/09/20 release (Adult Aspirin Regimen) gabapentin 100 mg capsule 100 mg PO DAILY #90 caps 04/09/20 blood sugar diagnostic #2 boxes 05/14/20 blood-glucose meter (OneTouch #1 ea 05/14/20 Ultra2 Meter kit) lancets 33 gauge (OneTouch Delica #2 boxes 05/14/20 Plus Lancet) glimepiride 2 mg tablet 2 mg PO QAM #30 caps 06/07/20 blood sugar diagnostic (OneTouch 1 strip miscellaneous BID for 07/26/20 Ultra Blue Test Strip) diabetes mellitus 90 days #2 boxes finasteride 5 mg tablet 5 mg PO DAILY #90 tabs 10/28/20 amlodipine 10 mg tablet 10 mg PO DAILY #90 tabs 03/16/21 metformin 1,000 mg tablet 1,000 mg PO BID 90 days #180 tabs 08/09/22 Mental Status Exam Mental Status Exam Patient Appearance: Well Grooomed and Appropriate Patient Orientation: Person and Situation Level of Consciousness: Awake and Appropriate Patient Behavior: Appropriate, Cooperative and Passive Mood Description: Calm Affect Description: Constricted Patient Cognition Impaired: Yes Ability to Follow Directions: Good Speech Pattern: Clear Hallucinations: None Delusions: Not Present Thought Process: Distracted and Slowed Thinking Thought Content: positive for Stem, positive for Circumstantial and positive for Poverty of Content Judgement: Fair Data Data Completed and Pending Completed studies during hospitalization [Text1]: 10/15/22 07:38 Creatinine 1.13 Estim Creat Clear Calc 43.6 Estimated GFR > 60 Imaging Diagnostic Imaging Impressions Chest X-Ray 09/18/22 18:40 IMPRESSION: Low lung volumes. No evidence for acute disease in the chest. DS: Summary Hospital Course Hospital Course: The patient is an 82-year-old male admitted to the hospital after he disclosed suicidal ideation by jumping of the 2nd floor. The patient is also there cognitively impaired. The patient was assessed by crisis and transferring to this facility for psychiatric stabilization. Please see the HPI of the admission note for further details. On admission, the patient was initially medically cleared, he was already started on Zoloft and was titrated up to 50 mg p.o. daily with no side effects and improvement of his mood. He was assessed also by the occupational therapist and his cognition was very impaired. He could not even remember that he disclosed suicidal ideation. The staff noticed that the patient had a tremor and he had some problems with his gait. He was assessed by Neurology and l Sinemet was added with for improvement of his symptoms. The patient was also started on Aricept titrated up to 10 mg p.o. q.h.s. to target dementia. The patient was very pleasant, cooperative, confused at times but easily redirectable. Since the patient was cognitively impaired, disposition was discussed to go to a detention facility. Since there were no safety concerns discharge planning was started. Time spent discussing smoking cessation with patient: 3 to 10 minutes Status at Discharge Cognitive/behavioral status at discharge: Impaired at baseline Functional status at discharge: independent ambulation Overall status at discharge: patient is back to baseline Time Spent with Patient Time attestation: Total time managing care of this patient today __30__ minutes. Time spent: Less than 30 minutes Discharge Plan Discharge Anticipated Discharge Date/Time: 10/20/22 10:00 Patient Disposition: Xfer SNF Discharge Diagnosis: Multifactorial dementia Major depressive disorder Referrals: Denny Peña DO [Primary Care Provider] - 1 Week Discharge Medications: New metformin 500 mg Tablet 500 mg PO BIDWM 30 Days Qty: 60 0RF atorvastatin 80 mg Tablet 80 mg PO DAILY 30 Days Qty: 30 0RF trazodone 50 mg Tablet 50 mg PO BEDTIME PRN (Reason: Insomnia) 30 Days Qty: 60 0RF donepezil 10 mg Tablet 10 mg PO BEDTIME Qty: 30 0RF clopidogrel 75 mg Tablet 75 mg PO DAILY 30 Days Qty: 30 0RF amlodipine 5 mg Tablet 5 mg PO DAILY 30 Days Qty: 30 0RF Protocol: Hold for SBP< HOLD for SBP < : 90 aspirin 81 mg Tablet,Delayed Release (Dr/Ec) 81 mg PO DAILY 30 Days Qty: 30 0RF carvedilol 3.125 mg Tablet 3.125 mg PO BID 30 Days Qty: 60 0RF Protocol: Hold for SBP/HR < HOLD for SBP < : 90 HOLD for HR < : 60 omeprazole 20 mg Capsule,Delayed Release(Dr/Ec) 20 mg PO DAILY@0630 30 Days Qty: 30 0RF carbidopa-levodopa 25-100 mg Tablet 1 tab PO BID@0700,1200 30 Days Qty: 60 0RF sertraline 50 mg Tablet 50 mg PO DAILY 30 Days Qty: 30 0RF finasteride 5 mg Tablet 5 mg PO BEDTIME 30 Days Qty: 30 0RF Artificial Tears([id number]) 1-0.2-0.2 % Drops 1 drp ophthalmic (eye) Q4H PRN (Reason: Dryness) 30 Days Qty: 5 0RF MAG-AL 200-200 mg/5 mL Suspension 30 ml PO Q6H PRN (Reason: Heartburn/Nausea) 30 Days Qty: 150 0RF Continued donepezil 10 mg Tablet 10 mg PO DAILY 30 Days Qty: 30 0RF Discontinued aspirin [Adult Aspirin Regimen] 81 mg tablet,delayed release (DR/EC) 81 mg PO DAILY Qty: 90 1RF gabapentin 100 mg capsule 100 mg PO DAILY Qty: 90 1RF (DME) blood-glucose meter [OneTouch Ultra2 Meter] Kit See Rx Instructions .ROUTE .MEDSUPPLY Qty: 1 0RF Rx Instructions: use twice a day (DME) blood sugar diagnostic Strip See Rx Instructions .ROUTE .MEDSUPPLY Qty: 2 3RF Rx Instructions: One Touch Ultra Test strips use twice a day (DME) lancets [Rubicon ProjectTouch Delica Plus Lancet] 33 gauge misc See Rx Instructions .ROUTE .MEDSUPPLY Qty: 2 2RF Rx Instructions: As directed check the blood sugars twice a day glimepiride 2 mg tablet 2 mg PO QAM Qty: 30 5RF blood sugar diagnostic [OneTouch Ultra Blue Test Strip] Strip 1 strip miscellaneous BID 90 Days Qty: 2 3RF finasteride 5 mg tablet 5 mg PO DAILY Qty: 90 0RF amlodipine 10 mg tablet 10 mg PO DAILY Qty: 90 0RF metformin 1,000 mg tablet 1,000 mg PO BID 90 Days Qty: 180 1RF sertraline [Zoloft] 50 mg Tablet 50 mg PO DAILY memantine [Namenda] 10 mg Tablet 10 mg PO BID pantoprazole 40 mg tablet,delayed release (DR/EC) 40 mg PO DAILY Discharge Orders: Discharge Order (Routine); Ordered 10/20/22 Ordered By: Marco Mayo Diet: Advance to usual diet Activity on Discharge: As tolerated Stand Alone Forms: Patient Portal Discharge page Care Plan Goals: Care plan goals achieved in this admission. No evidence of suicidality or depressive symptoms. Health Concerns: Continue treatment as an outpatient with primary care physician Plan of Treatment: Continue psychiatric treatment as an outpatient. Assessment: Elderly male with a past history of dementia multifactorial admitted for suicidal statements that was treated with solve with for improvement. Also the patient had some involuntary movements that were treated with level dopa carbidopa with for improvement. He was seen by Neurology. At this moment he is safe to be discharged to detention facility.
[2022-10-20 08:00] VITALS: BP 156/89; PULSE 82; RESP 18; TEMP 36.8; O2SAT 98
[2022-10-20] MEDS: Clopidogrel Bisulfate 75 MG TABLET PO (08:00)
[2022-10-20] MEDS: amLODIPine Besylate 5 MG TABLET PO (08:00)
[2022-10-20] MEDS: Atorvastatin Calcium 80 MG TABLET PO (08:00)
[2022-10-20] MEDS: metFORMIN HCl 500 MG TABLET PO (08:00)
[2022-10-20] MEDS: Sertraline HCL 50 MG TABLET PO (08:00)
[2022-10-20] MEDS: carvediloL 3.125 MG TABLET PO (08:00)
[2022-10-20] MEDS: Aspirin Enteric Coated 81 MG TABLET.DR PO (08:01)
== END 2022-10-20 11:00 | disposition skilled nursing facility (03) | DRG 881 ==
PROVIDERS: Social Worker; Student in an Organized Health Care Education/Training Program; Admitting Provider Psychiatry & Neurology Psychiatry; PCP Internal Medicine; Visit Provider Psychiatry & Neurology Psychiatry
DX: F32.9 Major depressive disorder, single episode, unspecified (principal); R45.851 Suicidal ideations; I25.10 Atherosclerotic heart disease of native coronary artery without angina pectoris; N40.0 Benign prostatic hyperplasia without lower urinary tract symptoms; E78.00 Pure hypercholesterolemia, unspecified; G20 Parkinson's disease; F02.80 Dementia in other diseases classified elsewhere, unspecified severity, without behavioral disturbance, psychotic disturbance, mood disturbance, and anxiety; I25.5 Ischemic cardiomyopathy; E11.9 Type 2 diabetes mellitus without complications; I10 Essential (primary) hypertension; G30.9 Alzheimer's disease, unspecified; G25.81 Restless legs syndrome; I25.2 Old myocardial infarction; Z95.5 Presence of coronary angioplasty implant and graft; Z79.02 Long term (current) use of antithrombotics/antiplatelets; Z79.82 Long term (current) use of aspirin; Z79.84 Long term (current) use of oral hypoglycemic drugs; Z79.899 Other long term (current) drug therapy
CPT/HCPCS: 36415; 71046; 80048; 80053; 80061; 82565; 82607; 82947; 83036; 84443; 84484; 85025; 93005; 97116; 97162

== ENCOUNTER → 2022-08-29 21:06 | Outpatient (BNV) | payer MEDICARE, SELFPAY | PROVIDERS: Admitting Provider Psychiatry & Neurology Psychiatry; PCP Internal Medicine; Visit Provider Social Worker | DX: G30.9 Alzheimer's disease, unspecified (principal); F02.C0 Dementia in other diseases classified elsewhere, severe, without behavioral disturbance, psychotic disturbance, mood disturbance, and anxiety | CPT/HCPCS: 90792; 99231; 99232; 99238 ==